=== PATIENT | female | born 1965 | race Caucasian/White ===

== ENCOUNTER 2024-06-26 19:55 | Inpatient (IN) ==
[2024-06-26 20:33] LABS: Base Excess VBG 2.5 mEq/L; HCO3 VBG 28 mmol/L; Oxygen Saturation VBG 75.3 %; PCO2 VBG 48 mmHg (38-50); PO2 VBG 47 mmHg; pH VBG 7.38 (7.36-7.41)
[2024-06-26 20:39] LABS: Basophils # (auto) 0.03 K/uL (0.00-0.20); Basophils % (auto) 0.4 %; Hematocrit (blood only) 38.3 % (37.0-47.0); Hemoglobin 12.4 g/dl (12.0-16.0); Immature Granulocytes # (auto) 0.02 K/uL (0.01-0.20); Immature Granulocytes % (auto) 0.3 %; Lymphocytes # (auto) 1.12 K/uL (1.20-3.40); Lymphocytes % (auto) 14.2 %; Mean Corpuscular Hemoglobin 29.9 pg (25.0-34.0); Mean Corpuscular Hgb Conc 32.4 g/dL (32.0-36.0); Mean Corpuscular Volume 92.3 fL (80.0-100.0); Mean Platelet Volume 10.2 fL (9.4-12.4); Monocytes # (auto) 0.63 K/uL (0.11-0.59); Neutrophils # (auto) 6.09 K/uL (1.40-6.50); Neutrophils % (auto) 77.1 %; Platelet Count 155 K/uL (130-400); RDW Coefficient of Variation 14.1 % (11.5-14.5); RDW Standard Deviation 47.3 fL (36.4-46.3); Red Blood Count 4.15 M/uL (4.20-5.40); White Blood Count 7.89 K/ul (4.8-10.8)
[2024-06-26 20:58] LABS: Albumin Globulin Ratio 1.3 (0.9-2); BUN Creatinine Ratio 21.8 (10-20); Bilirubin,Total 0.5 mg/dl (0.2-1.0); Calcium 8.8 mg/dl (8.6-10.3); Creatinine Clr Calc Pharmacy 128.3 ml/min; Est GFR (African American) 95.1 ml/min; Est GFR (Non-African American) 82.1 ml/min; Globulin 3.2 gm/dl (2.5-4.0); Magnesium 1.7 mg/dl (1.7-2.4); Potassium 3.9 mmol/L (3.5-5.1); Total Protein 7.2 gm/dl (6.0-8.3)
[2024-06-26 21:05] LABS: Prothrombin Time 10.9 Seconds (9.0-12.0); Troponin I High Sensitivity 11.8 pg/ml (0-14)
[2024-06-26 21:12] LABS: Appearance Urine Clear (Clear); Bilirubin Urine Negative (Negative); Blood Urine Negative (Negative); Color Urine Yellow; Glucose Urine UA Negative (Negative); Ketones Urine Negative (Negative); Leukocyte Esterase Urine Negative (Negative); Nitrite Urine Negative (Negative); Protein Urine Negative (Negative); Urobilinogen Urine Negative (Negative)
--- NOTE | 2024-06-26 21:21 | Emergency Department Note ---
Impression & Plan Acute dyspnea, Acute hypoxemic respiratory failure, Transaminitis, Elevated brain natriuretic peptide (BNP) level ED Provider Note HISTORY OF PRESENT ILLNESS: Patient is a 59-year-old female presenting for shortness of breath. Patient reports she has had progressively worsening shortness of breath over the last 4 to 5 days. She states that she was just recently admitted to [facility] for shortness of breath. She states that her workup was unremarkable and she was discharged home with an increase in her Lasix from 20 to 40 mg. She states that today she felt like she could not catch her breath more so than the last few days. She does not normally wear any supplemental oxygen at baseline. She reports that she has some diffuse chest pressure. Denies any DVT or PE history. Denies any history of cardiac stents. She used a home pulse ox on her finger today and found her saturations to be in the 60s, so her family drove her to the [facility] center. Patient denies any recent weight gain with her 40 mg of Lasix. Patient was given 2 DuoNebs and 125 mg of IV Solu-Medrol prehospital with EMS. ROS: as above PHYSICAL EXAM: Constitutional: Patient appears in no acute distress. Morbidly obese HENT: Head: Normocephalic and atraumatic. Eyes: EOMI, PERRL Mouth/Throat: Mucous membranes moist. Neck: Trachea midline. Neck supple. Cardiovascular: RRR, No murmurs, rubs or gallops. Intact distal pulses. Pulmonary/Chest: No respiratory distress. Breath sounds clear and equal bilaterally. Expiratory wheezes bilaterally. Patient is conversationally dyspneic. She was hypoxic on room air on arrival to the ER and placed on 3 L nasal cannula with improvement in her saturations. Abdominal: Abdomen soft, no tenderness, rebound or guarding. Musculoskeletal: No tenderness or deformity noted. Significant lower extremity edema extending to the knees bilaterally. Noted to have significant chronic venous insufficiency discoloration of the legs bilaterally to the knee. Skin: Warm and dry. No rash, erythema, pallor or cyanosis Psychiatric: Appropriate mood and affect for situation. Neurological: Alert and keenly responsive. CN II-XII grossly intact, moving all extremities equally and fully. MDM: - Vitals signs showed hypertension, tachypnea and hypoxia. Patient was placed on supplemental oxygen with improvement in her saturations. - History obtained via patient. History as above. - Chronic conditions affecting care: HTN; lymphedema; rheumatoid arthritis; chronic venous insufficiency; hypothyroidism - Differential diagnoses include, but are not limited to: Congestive heart failure; acute coronary syndrome; COPD/asthma exacerbation; pulmonary edema; pulmonary embolism; pneumonia; pneumothorax; viral syndrome - Order placed for continuous cardiac monitoring. At this time, monitor showed rate of 82 bpm with normal sinus rhythm, per my interpretation. - External medical records reviewed. Discharge summary dated 06/01/2024 was reviewed. Patient was admitted at that time for UTI. - EKG interpreted by myself showed normal sinus rhythm. Rate 87 bpm. QT 356. No acute ischemic changes. - Laboratory workup interpreted by myself showed normal WBC; normal PT/INR; stable electrolytes; normal troponin; elevated BNP (169); transaminitis (AST 53; ALT 61) - UA negative for infection - Viral respiratory panel negative - VBG normal - CXR negative for pneumonia, per my interpretation - Given patient's new oxygen requirement, will admit to hospital service for further evaluation and management. - Discussion was had with caseworker intake about patient's case and need for admission - Hospitalist, Dr. Damian, consulted for admission - Patient admitted to [facility] for further evaluation and management. ASSESSMENT AND PLAN: Diagnosis: Acute dyspnea; acute hypoxic respiratory failure; transaminitis; elevated BNP Plan: Admit Past Med/Surg History Problem List (Updated 06/26/24 @ 23:35 by Radha Wilkinson MD) Elevated brain natriuretic peptide (BNP) level (Acute) Transaminitis (Acute) Acute hypoxemic respiratory failure (Acute) Acute dyspnea (Acute) Social History Smoking Status: Never smoker Preferred Language: Yi Feels Safe at Home: Yes Results & Data (ED) Vital Signs Vital Signs - 24 hr 06/26/24 20:05 06/26/24 20:06 06/26/24 20:06 Temperature 37.1 C Temperature Source Oral Pulse Rate 83 87 88 Pulse Rate [Apical] Pulse Rate from SpO2 Sensor Pulse Rhythm Regular Pulse Rhythm [Apical] Pulse Strength [Apical] Respiratory Rate 24 32 H Respiratory Effort / Characteristics Spontaneous Labored Respiratory Depth Normal Respiratory Pattern Tachypnea Blood Pressure 182/84 H Blood Pressure [Right Arm] Blood Pressure Mean 116 Blood Pressure Mean [Right Arm] Blood Pressure Position [Right Arm] Pulse Oximetry 95 90 Oxygen Delivery Method Nasal Cannula Room Air Oxygen Flow Rate 2 Sepsis Recent Fever Within 48 Hours No Sepsis New/Unexplained Change in Mental Status N/A Sepsis Action Taken by Nursing No Action Required Oxygen Flow Rate - Titration Pulse Oximetry Post Tiitration 06/26/24 20:16 06/26/24 21:23 06/26/24 23:00 Temperature Temperature Source Pulse Rate 82 Pulse Rate [Apical] 78 Pulse Rate from SpO2 Sensor 81 Pulse Rhythm Pulse Rhythm [Apical] Regular Pulse Strength [Apical] Normal Respiratory Rate 22 24 Respiratory Effort / Characteristics Non-Labored Spontaneous Respiratory Depth Normal Respiratory Pattern Regular Blood Pressure 168/91 H Blood Pressure [Right Arm] 177/98 H Blood Pressure Mean 116 Blood Pressure Mean [Right Arm] 124 Blood Pressure Position [Right Arm] Sitting Pulse Oximetry 88 L 93 94 Oxygen Delivery Method Room Air Nasal Cannula Nasal Cannula Oxygen Flow Rate 2 2 Sepsis Recent Fever Within 48 Hours Sepsis New/Unexplained Change in Mental Status Sepsis Action Taken by Nursing Oxygen Flow Rate - Titration 2 Pulse Oximetry Post Tiitration 93 Laboratory Data 06/26/24 20:09 06/26/24 20:09 Lab Results 06/26/24 06/26/24 06/26/24 Range/Units 20:09 20:09 20:20 WBC 7.89 (4.8-10.8) K/ul RBC 4.15 L (4.20-5.40) M/uL Hgb 12.4 (12.0-16.0) g/dl Hct 38.3 (37.0-47.0) % MCV 92.3 (80.0-100.0) fL MCH 29.9 (25.0-34.0) pg MCHC 32.4 (32.0-36.0) g/dL RDW Std Deviation 47.3 H (36.4-46.3) fL RDW Coeff of Erica 14.1 (11.5-14.5) % Plt Count 155 (130-400) K/uL MPV 10.2 (9.4-12.4) fL Immature Gran % (Auto) 0.3 % Neut % (Auto) 77.1 % Lymph % (Auto) 14.2 % Daniels % (Auto) 8.0 % Eos % (Auto) 0.0 % Baso % (Auto) 0.4 % Neut # (Auto) 6.09 (1.40-6.50) K/uL Lymph # (Auto) 1.12 L (1.20-3.40) K/uL [place] # (Auto) 0.63 H (0.11-0.59) K/uL Eos # (Auto) 0.00 (0.00-0.50) K/uL Baso # (Auto) 0.03 (0.00-0.20) K/uL Immature Gran # (Auto) 0.02 (0.01-0.20) K/uL PT 10.9 (9.0-12.0) Seconds INR 1.0 (0.9-1.1) VBG pH 7.38 (7.36-7.41) VBG pCO2 48 (38-50) mmHg VBG pO2 47 mmHg VBG HCO3 28 mmol/L VBG O2 Saturation 75.3 % VBG Base Excess 2.5 mEq/L Sodium 143 (136-145) mmol/L Potassium 3.9 (3.5-5.1) mmol/L Chloride 106 (98-107) mmol/L Carbon Dioxide 30 (21-32) mmol/L Anion Gap 7 (3-11) BUN 17 (6-23) mg/dl Creatinine 0.78 (0.6-1.2) mg/dl Est Cr Clr Drug Dosing 128.3 ml/min Est GFR ( Amer) 95.1 ml/min Est GFR (Non-Af Amer) 82.1 ml/min BUN/Creatinine Ratio 21.8 H (10-20) Glucose 125 H (70-99(Fasting)) mg/dl Calcium 8.8 (8.6-10.3) mg/dl Magnesium 1.7 (1.7-2.4) mg/dl Total Bilirubin 0.5 (0.2-1.0) mg/dl AST 52 H (13-39) U/L ALT 61 H (7-52) U/L Alkaline Phosphatase 94 (34-104) U/L Troponin I High Sens 11.8 Cancelled (0-14) pg/ml B-Natriuretic Peptide 169 H (0-100) pg/ml Total Protein 7.2 (6.0-8.3) gm/dl Albumin 4.0 (3.4-5.0) gm/dl Globulin 3.2 (2.5-4.0) gm/dl Albumin/Globulin Ratio 1.3 (0.9-2) Urine Color Urine Appearance (Clear) Urine pH (4.5-7.5) Ur Specific [place] (1.000-1.030) Urine Protein (Negative) Urine Glucose (UA) (Negative) Urine Ketones (Negative) Urine Blood (Negative) Urine Nitrite (Negative) Urine Bilirubin (Negative) Urine Urobilinogen (Negative) Ur Leukocyte Esterase (Negative) Adenovirus (PCR) (NotDetected) B. pertussis DNA (PCR) (NotDetected) B.parapertussis DNA PCR (NotDetected) C. pneumoniae DNA (PCR) (NotDetected) Coronavirus OC43 (PCR) (NotDetected) Coronavirus HKU1 (PCR) (NotDetected) Coronavirus 229E (PCR) (NotDetected) SARS-CoV-2 (PCR) (NotDetected) Coronavirus NL63 (PCR) (NotDetected) Human Metapneumovir PCR (NotDetected) Influenza Type A (PCR) (NotDetected) Influenza Type B (PCR) (NotDetected) M. pneumoniae (PCR) (NotDetected) Parainfluenza 1 (PCR) (NotDetected) Parainfluenza 2 (PCR) (NotDetected) Parainfluenza 3 (PCR) (NotDetected) Parainfluenza 4 (PCR) (NotDetected) RSV (PCR) (NotDetected) Entero/Rhino (PCR) (NotDetected) 06/26/24 06/26/24 Range/Units 21:04 22:21 WBC (4.8-10.8) K/ul RBC (4.20-5.40) M/uL Hgb (12.0-16.0) g/dl Hct (37.0-47.0) % MCV (80.0-100.0) fL MCH (25.0-34.0) pg MCHC (32.0-36.0) g/dL RDW Std Deviation (36.4-46.3) fL RDW Coeff of Erica (11.5-14.5) % Plt Count (130-400) K/uL MPV (9.4-12.4) fL Immature Gran % (Auto) % Neut % (Auto) % Lymph % (Auto) % Daniels % (Auto) % Eos % (Auto) % Baso % (Auto) % Neut # (Auto) (1.40-6.50) K/uL Lymph # (Auto) (1.20-3.40) K/uL [place] # (Auto) (0.11-0.59) K/uL Eos # (Auto) (0.00-0.50) K/uL Baso # (Auto) (0.00-0.20) K/uL Immature Gran # (Auto) (0.01-0.20) K/uL PT (9.0-12.0) Seconds INR (0.9-1.1) VBG pH (7.36-7.41) VBG pCO2 (38-50) mmHg VBG pO2 mmHg VBG HCO3 mmol/L VBG O2 Saturation % VBG Base Excess mEq/L Sodium (136-145) mmol/L Potassium (3.5-5.1) mmol/L Chloride (98-107) mmol/L Carbon Dioxide (21-32) mmol/L Anion Gap (3-11) BUN (6-23) mg/dl Creatinine (0.6-1.2) mg/dl Est Cr Clr Drug Dosing ml/min Est GFR ( Amer) ml/min Est GFR (Non-Af Amer) ml/min BUN/Creatinine Ratio (10-20) Glucose (70-99(Fasting)) mg/dl Calcium (8.6-10.3) mg/dl Magnesium (1.7-2.4) mg/dl Total Bilirubin (0.2-1.0) mg/dl AST (13-39) U/L ALT (7-52) U/L Alkaline Phosphatase (34-104) U/L Troponin I High Sens (0-14) pg/ml B-Natriuretic Peptide (0-100) pg/ml Total Protein (6.0-8.3) gm/dl Albumin (3.4-5.0) gm/dl Globulin (2.5-4.0) gm/dl Albumin/Globulin Ratio (0.9-2) Urine Color Yellow Urine Appearance Clear (Clear) Urine pH 6.0 (4.5-7.5) Ur Specific [place] 1.020 (1.000-1.030) Urine Protein Negative (Negative) Urine Glucose (UA) Negative (Negative) Urine Ketones Negative (Negative) Urine Blood Negative (Negative) Urine Nitrite Negative (Negative) Urine Bilirubin Negative (Negative) Urine Urobilinogen Negative (Negative) Ur Leukocyte Esterase Negative (Negative) Adenovirus (PCR) Not Detected (NotDetected) B. pertussis DNA (PCR) Not Detected (NotDetected) B.parapertussis DNA PCR Not Detected (NotDetected) C. pneumoniae DNA (PCR) Not Detected (NotDetected) Coronavirus OC43 (PCR) Not Detected (NotDetected) Coronavirus HKU1 (PCR) Not Detected (NotDetected) Coronavirus 229E (PCR) Not Detected (NotDetected) SARS-CoV-2 (PCR) Not Detected (NotDetected) Coronavirus NL63 (PCR) Not Detected (NotDetected) Human Metapneumovir PCR Not Detected (NotDetected) Influenza Type A (PCR) Not Detected (NotDetected) Influenza Type B (PCR) Not Detected (NotDetected) M. pneumoniae (PCR) Not Detected (NotDetected) Parainfluenza 1 (PCR) Not Detected (NotDetected) Parainfluenza 2 (PCR) Not Detected (NotDetected) Parainfluenza 3 (PCR) Not Detected (NotDetected) Parainfluenza 4 (PCR) Not Detected (NotDetected) RSV (PCR) Not Detected (NotDetected) Entero/Rhino (PCR) Not Detected (NotDetected) Discharge Plan Visit Data Chief Complaint: Shortness of Breath/Dyspnea Stated Complaint: SOB ED Provider: Radha Wilkinson Discharge Problem: Acute dyspnea, Acute hypoxemic respiratory failure, Transaminitis, Elevated brain natriuretic peptide (BNP) level Forms Stand Alone Forms: My [facility] Referrals Referrals: HAMIDA NULL [Other]
[2024-06-26 23:26] LABS: Adenovirus PCR Not Detected (NotDetected); Bordetella parapertussis PCR Not Detected (NotDetected); Bordetella pertussis PCR Not Detected (NotDetected); Chlamydia pneumoniae PCR Not Detected (NotDetected); Coronavirus 229E PCR Not Detected (NotDetected); Coronavirus CoV-2 (COVID19)PCR Not Detected (NotDetected); Coronavirus HKU1 PCR Not Detected (NotDetected); Coronavirus NL63 PCR Not Detected (NotDetected); Coronavirus OC43PCR Not Detected (NotDetected); Human Metapneumovirus PCR Not Detected (NotDetected); Influenza A PCR Not Detected (NotDetected); Influenza B PCR Not Detected (NotDetected); Mycoplasma pneumoniae PCR Not Detected (NotDetected); Parainfluenza Virus 1 PCR Not Detected (NotDetected); Parainfluenza Virus 2 PCR Not Detected (NotDetected); Parainfluenza Virus 3 PCR Not Detected (NotDetected); Parainfluenza Virus 4 PCR Not Detected (NotDetected); Respiratory Syncytial VirusPCR Not Detected (NotDetected); Rhinovirus/Enterovirus PCR Not Detected (NotDetected)
--- NOTE | 2024-06-27 00:01 | History & Physical Report ---
Date of Service June 26, 2024 Assessment & Plan (1) SOB (shortness of breath): Plan: 59-year-old female with past medical history significant for hypothyroidism, obstructive sleep apnea, moderate persistent asthma, restrictive lung disease, chronic venous sufficiency, hypertension, morbid obesity, chronic constipation, fatty liver, female stress incontinence, urge incontinence of urine, history of complicated UTI, overactive bladder, history of ESBL infection, history of rheumatoid arthritis involving multiple sites, mood disorder, lymphedema presents with shortness of breath. Patient is from [place] and she is visiting a friend locally. Patient was admitted in [place] in May with shortness of breath. Workup showed UTI and CT scan showed right ovarian abnormality. She received IV diuresis and responded well to the therapy. Echo was obtained which was unremarkable. CT chest no PE. For ovarian mass MRI was done which showed 2.1x 2.4 cm right ovarian lesion. Followed up with [facility] and as tumor markers were negative no follow-up recommended at this time.She improved and was discharged home on June 01.. But patient states since last 2 weeks progressively getting short of breath. Today at friend's house when checked he r oxygen saturations where very low when she decided come to the ER. Has chronic lymphedema in lower extremities and she thinks they are better than before. Has some chest heaviness. No headache. Was dizzy earlier. Vision is okay. No runny nose. No sore throat. Some cough. No fevers. No nausea. No abdominal pain. Normal bowel and bladder movements. Currently on 2 L saturating okay. Shortness of breath Possible mild asthma exacerbation History of restrictive lung disease Respiratory BioFire unremarkable Chest x-ray okay Requiring oxygen Continue nebs [id number] and as needed Continue home inhalers Last month she was at [place] with similar symptoms and improved with dose of Lasix. At that time workup with CTA chest and echo were unremarkable Currently on Lasix p.o. 40 mg daily. Will do a dose of Lasix IV 40 mg d dimer elevated will follow ct chest and dopplers Pulmonary consult in a.m. for further recommendation Obstructive sleep apnea BIPAP nightly Chest heaviness Troponin negative Will follow serial enzymes and echo Morbid obesity Needs counseling Chronic venous insufficiency Lymphedema will follow dopplers On Lasix Hypertension On Lasix Will monitor Rheumatoid arthritis involving multiple sites On sulfasalazine and Humira Mood disorder On fluoxetine DVT prophylaxis Lovenox Disposition Med/telemetry Full code. History of Present Illness Chief Complaint: Shortness of breath Primary Care Provider: HAMIDA NULL 59-year-old female with past medical history significant for hypothyroidism, obstructive sleep apnea, moderate persistent asthma, restrictive lung disease, chronic venous sufficiency, hypertension, morbid obesity, chronic constipation, fatty liver, female stress incontinence, urge incontinence of urine, history of complicated UTI, overactive bladder, history of ESBL infection, history of rheumatoid arthritis involving multiple sites, mood disorder, lymphedema presents with shortness of breath. Patient is from [place] and she is visiting a friend locally. Patient was admitted in [place] in May with shortness of breath. Workup showed UTI and CT scan showed right ovarian abnormality. She received IV diuresis and responded well to the therapy. Echo was obtained which was unremarkable. CT chest no PE. For ovarian mass MRI was done which showed 2.1x 2.4 cm right ovarian lesion. Followed up with [facility] and as tumor markers were negative no follow-up recommended at this time.She improved and was discharged home on June 01.. But patient states since last 2 weeks progressively getting short of breath. Today at friend's house when checked h er oxygen saturations where very low when she decided come to the ER. Has chronic lymphedema in lower extremities and she thinks they are better than before. Has some chest heaviness. No headache. Was dizzy earlier. Vision is okay. No runny nose. No sore throat. Some cough. No fevers. No nausea. No abdominal pain. Normal bowel and bladder movements. Currently on 2 L saturating okay. Past medical history. As mentioned above Past surgical history. . Colonoscopy with dilatation curettage. EGD. EGD with endoscopic ultrasound. Endometrial thermal ablation. Hysteroscopy with biopsy. Laparoscopic cholecystectomy. Status post IUD. Appendectomy. Tonsillectomy. Removal of finger implant. Repair of bladder defect. Revision of bilateral pharynx/uvula. Social history. . No smoking. No alcohol use. No drug use. Family history. Sister has asthma. Father had COPD. Hypertension. Sleep apnea. Mother had hypertension. Pancreatic cancer. Paternal aunt had breast cancer. Maternal grandmother had breast cancer. Ovarian cancer. Paternal grandfather had diabetes. Allergies Allergy/AdvReac Type Severity Reaction Status Date / Time hydroxychloroquine Allergy Unverified 06/27/24 03:30 [From Plaquenil] [email or web address] [From Arava] Allergy Itching Verified 06/27/24 03:30 Home Medications Medication Instructions Recorded Confirmed Type adalimumab 40 mg/0.8 mL 40 mg subcut UD 06/26/24 06/26/24 History subcutaneous pen kit (Humira Pen) albuterol sulfate 90 mcg/actuation 2 puff inhalation Q4H PRN 06/26/24 06/26/24 History aerosol inhaler Shortness Of Breath Or Wheezing estradiol 0.01% (0.1 mg/gram) 1 applic vaginal UD 06/26/24 06/26/24 History vaginal cream fluoxetine 20 mg capsule 20 mg PO DAILY 06/26/24 06/26/24 History fluticasone 250 mcg-salmeterol 50 1 inh inhalation BID 06/26/24 06/26/24 History mcg/dose blistr powdr for inhalation furosemide 20 mg tablet 40 mg PO DAILY 06/26/24 06/26/24 History levothyroxine 100 mcg tablet 100 mcg PO DAILY 06/26/24 06/26/24 History sulfasalazine 500 mg tablet 1,500 mg PO BID 06/26/24 06/26/24 History Past Med/Surg History Problem List (Updated 06/27/24 @ 00:10 by Zachary Damian MD) SOB (shortness of breath) Elevated brain natriuretic peptide (BNP) level (Acute) Transaminitis (Acute) Acute hypoxemic respiratory failure (Acute) Acute dyspnea (Acute) Social History Smoking Status: Never smoker Second Hand Exposure: No; Do You Dip or Chew Tobacco: No; Tobacco Cessation Education Requested by Patient: No Hx Alcohol Use: No Hx Substance Use: No Preferred Language: Kiswahili Communication Ability: Effective Visitor Services Coordinator Required: No Beliefs That Will Affect Care: None Current Living Situation: Spouse Other Information That Helps Us Care for You: No Feels Safe at Home: Yes Safety Concerns: Feels Safe At This Time Assistive Devices: CPAP and Oxygen - Continuous Review of Systems Review of Systems: All systems reviewed & are unremarkable except as noted in HPI & below Physical Exam Physical Exam: General- Not in distress Head- atraumatic Eyes- PERRL. ENT- oropharynx clear Neck- supple, no JVD. Lungs- clear to auscultation no wheezing or crackles Heart- regular rate and rhythm; no murmur, no gallop. Abdomen- normal bowel sounds, soft, nontender, no distension Extremities- b/l lower extremity lymphedema with chronic skin changes Neuro- alert, oriented ; PERRL, no facial palsy; no dysarthria; moves extremities Results & Data Results & Data Vital Signs (Past 12 Hours) Vital Signs Temp Pulse Pulse Resp BP BP Pulse Ox 06/26/24 23:00 82 24 168/91 H 94 06/26/24 21:23 78 22 177/98 H 93 06/26/24 20:16 88 L 06/26/24 20:06 88 06/26/24 20:06 37.1 C 87 32 H 182/84 H 90 06/26/24 20:05 83 24 95 O2 Del Method O2 Flow Rate 06/26/24 23:00 Nasal Cannula 2 06/26/24 21:23 Nasal Cannula 2 06/26/24 20:16 Room Air 06/26/24 20:06 06/26/24 20:06 Room Air 06/26/24 20:05 Nasal Cannula 2 Diagnostic Findings Laboratory Results WBC 7.89 K/ul (4.8-10.8) 06/26/24 20:09 RBC 4.15 M/uL (4.20-5.40) L 06/26/24 20:09 Hgb 12.4 g/dl (12.0-16.0) 06/26/24 20:09 Hct 38.3 % (37.0-47.0) 06/26/24 20:09 MCV 92.3 fL (80.0-100.0) 06/26/24 20:09 MCH 29.9 pg (25.0-34.0) 06/26/24 20:09 MCHC 32.4 g/dL (32.0-36.0) 06/26/24 20:09 RDW Std Deviation 47.3 fL (36.4-46.3) H 06/26/24 20:09 RDW Coeff of Erica 14.1 % (11.5-14.5) 06/26/24 20:09 Plt Count 155 K/uL (130-400) 06/26/24 20: MPV 10.2 fL (9.4-12.4) 06/26/24 20: Immature Gran % (Auto) 0.3 % 06/26/24 20:09 Neut % (Auto) 77.1 % 06/26/24 20:09 Lymph % (Auto) 14.2 % 06/26/24 20:09 [place] % (Auto) 8.0 % 06/26/24 20:09 Eos % (Auto) 0.0 % 06/26/24 20:09 Baso % (Auto) 0.4 % 06/26/24 20:09 Neut # (Auto) 6.09 K/uL (1.40-6.50) 06/26/24 20:09 Lymph # (Auto) 1.12 K/uL (1.20-3.40) L 06/26/24 20:09 [place] # (Auto) 0.63 K/uL (0.11-0.59) H 06/26/24 20:09 Eos # (Auto) 0.00 K/uL (0.00-0.50) 06/26/24 20:09 Baso # (Auto) 0.03 K/uL (0.00-0.20) 06/26/24 20:09 Immature Gran # (Auto) 0.02 K/uL (0.01-0.20) 06/26/24 20:09 PT 10.9 Seconds (9.0-12.0) 06/26/24 20:09 INR 1.0 (0.9-1.1) 06/26/24 20:09 VBG pH 7.38 (7.36-7.41) 06/26/24 20:20 VBG pCO2 48 mmHg (38-50) 06/26/24 20:20 VBG pO2 47 mmHg 06/26/24 20:20 VBG HCO3 28 mmol/L 06/26/24 20:20 VBG O2 Saturation 75.3 % 06/26/24 20:20 VBG Base Excess 2.5 mEq/L 06/26/24 20:20 Sodium 143 mmol/L (136-145) 06/26/24 20:09 Potassium 3.9 mmol/L (3.5-5.1) 06/26/24 20:09 Chloride 106 mmol/L (98-107) 06/26/24 20:09 Carbon Dioxide 30 mmol/L (21-32) 06/26/24 20:09 Anion Gap 7 (3-11) 06/26/24 20:09 BUN 17 mg/dl (6-23) 06/26/24 20:09 Creatinine 0.78 mg/dl (0.6-1.2) 06/26/24 20:09 Est Cr Clr Drug Dosing 128.3 ml/min 06/26/24 20:09 Est GFR ( Amer) 95.1 ml/min 06/26/24 20:09 Est GFR (Non-Af Amer) 82.1 ml/min 06/26/24 20:09 BUN/Creatinine Ratio 21.8 (10-20) H 06/26/24 20:09 Glucose 125 mg/dl (70-99(Fasting)) H 06/26/24 20:09 Calcium 8.8 mg/dl (8.6-10.3) 06/26/24 20:09 Magnesium 1.7 mg/dl (1.7-2.4) 06/26/24 20:09 Total Bilirubin 0.5 mg/dl (0.2-1.0) 06/26/24 20:09 AST 52 U/L (13-39) H 06/26/24 20:09 ALT 61 U/L (7-52) H 06/26/24 20:09 Alkaline Phosphatase 94 U/L (34-104) 06/26/24 20:09 Troponin I High Sens 11.8 pg/ml (0-14) 06/26/24 20:09 Troponin I High Sens Cancelled 06/26/24 20:09 B-Natriuretic Peptide 169 pg/ml (0-100) H 06/26/24 20:09 Total Protein 7.2 gm/dl (6.0-8.3) 06/26/24 20:09 Albumin 4.0 gm/dl (3.4-5.0) 06/26/24 20:09 Globulin 3.2 gm/dl (2.5-4.0) 06/26/24 20:09 Albumin/Globulin Ratio 1.3 (0.9-2) 06/26/24 20:09 Urine Color Yellow 06/26/24 21:04 Urine Appearance Clear (Clear) 06/26/24 21:04 Urine pH 6.0 (4.5-7.5) 06/26/24 21:04 Ur Specific [place] 1.020 (1.000-1.030) 06/26/24 21:04 Urine Protein Negative (Negative) 06/26/24 21:04 Urine Glucose (UA) Negative (Negative) 06/26/24 21:04 Urine Ketones Negative (Negative) 06/26/24 21:04 Urine Blood Negative (Negative) 06/26/24 21:04 Urine Nitrite Negative (Negative) 06/26/24 21:04 Urine Bilirubin Negative (Negative) 06/26/24 21:04 Urine Urobilinogen Negative (Negative) 06/26/24 21:04 Ur Leukocyte Esterase Negative (Negative) 06/26/24 21:04 Adenovirus (PCR) Not Detected (NotDetected) 06/26/24 22:21 B. pertussis DNA (PCR) Not Detected (NotDetected) 06/26/24 22:21 B.parapertussis DNA PCR Not Detected (NotDetected) 06/26/24 22:21 C. pneumoniae DNA (PCR) Not Detected (NotDetected) 06/26/24 22:21 Coronavirus OC43 (PCR) Not Detected (NotDetected) 06/26/24 22:21 Coronavirus HKU1 (PCR) Not Detected (NotDetected) 06/26/24 22:21 Coronavirus 229E (PCR) Not Detected (NotDetected) 06/26/24 22:21 SARS-CoV-2 (PCR) Not Detected (NotDetected) 06/26/24 22:21 Coronavirus NL63 (PCR) Not Detected (NotDetected) 06/26/24 22:21 Human Metapneumovir PCR Not Detected (NotDetected) 06/26/24 22:21 Influenza Type A (PCR) Not Detected (NotDetected) 06/26/24 22:21 Influenza Type B (PCR) Not Detected (NotDetected) 06/26/24 22:21 M. pneumoniae (PCR) Not Detected (NotDetected) 06/26/24 22:21 Parainfluenza 1 (PCR) Not Detected (NotDetected) 06/26/24 22:21 Parainfluenza 2 (PCR) Not Detected (NotDetected) 06/26/24 22:21 Parainfluenza 3 (PCR) Not Detected (NotDetected) 06/26/24 22:21 Parainfluenza 4 (PCR) Not Detected (NotDetected) 06/26/24 22:21 RSV (PCR) Not Detected (NotDetected) 06/26/24 22:21 Entero/Rhino (PCR) Not Detected (NotDetected) 06/26/24 22:21 ECG Additional Comments: ECG. Normal sinus rhythm rate of 87. No acute ST changes seen. Code Status & VTE Plan VTE Prophylaxis Plan VTE Prophylaxis will be ordered: Yes
[2024-06-27] MEDS ORDERED: NITROGLYCERIN SL 0.4 MG/TAB TAB SL PRN (01:47)
[2024-06-27] MEDS ORDERED: ALBUTEROL HFA 8 GM INHALER INH PRN (01:47)
[2024-06-27] MEDS ORDERED: ALBUT/IPRATROP 3MG/0.5MG NEB 3 ML VIAL NEB PRN (01:47)
[2024-06-27] MEDS ORDERED: ACETAMINOPHEN 325 MG TAB PO PRN (01:47)
[2024-06-27] MEDS ORDERED: POLYETHYLENE (MIRALAX) 17 GM PACK PO PRN (01:47)
[2024-06-27] MEDS: Patient's ALLERGY Info needs ENTERED STA (04:06)
[2024-06-27] MEDS: FUROSEMIDE 40 MG/4 ML VIAL IV ONE ×2 (04:33→17:20)
[2024-06-27] MEDS: LEVOTHYROXINE SODIUM 100 MCG TABLET PO SCH (05:36)
--- OUTSIDE RECORDS SUMMARY | 2024-06-27 05:53 | External Medical Summary ---
Author Name Unknown Address Unknown Organization K01:[facility] - [address] [facility] [address] Laboratory Report Ordering Provider Test Date Status ROBINA VALLADARES 06/16/2024 12:56:36 Final Observation Date Value Abnormality Reference (Units ) Status Cancer Ag 125 06/16/2024 12:56:36 9.5 <=38.1 (U/mL) Final Performing Location [facility] - [address] [facility] [address]
--- OUTSIDE RECORDS SUMMARY | 2024-06-27 05:53 | External Medical Summary | Summary of Care ---
Author Name Unknown Organization [facility] Address [address] [place] [address] Phone [phone] Care Team Providers Care Box Toe Stitcher Name Role Phone Katie Tejeda PA-C Primary Care Provider [phone] Reason for Referral * Evaluate & Treat - Unlimited Visits (Within 10 days (routine)) - Authorized Specialty Diagnoses / Procedures Referred By Contcatalina t Referred To Contact Gynecologic Oncology / Gynecology Oncology Diagnoses Adnexal mass Martin Dove PA-C [address] [place] [address] Referral ID Status Reason Start Date Expiration Date Visits Requested Visits Authorized [id number] Authorized Specialty Services Required 06/14/2024 [id number] Question Answer Referral Priority Within 10 days (routine) Where should this appointment be scheduled? [facility] Comments Right adnexal mass Reason for Visit * Reason Comments Command And Control Return R ovarian cyst * Evaluate & Treat - Unlimited Visits (Within 30 days (routine)) - Authorized Specialty Diagnoses / Procedures Referred By Contac t Referred To Contact Obstetrics/Gynecology / Gynecology Obstetrics Diagnoses Cyst of right ovary Idalia Reyna CRNP [address] [place] [address] Referral ID Status Reason Start Date Expiration Date Visits Requested Visits Authorized [id number] Authorized Specialty Services Required 06/01/2024 [id number] Encounter Details Date Type Department Care Team (Late st Contact Info) Description 06/14/2024 12:00 PM EDT Office Visit Gynecology/Obstetrics [facility] [address] [place] [address] Martin Dove PA-C [address] [place] [address] Adnexal mass* Allergies Active Allergy Reactions Criticality Noted Date Comments Leflunomide Itching,Rash High 04/14/2017 After taking med for 3 months she had terrible rash and itching Hydroxychloroquine Sulfate 7 Rash documented as of this encounter (statuses as of 06/14/2024) Medications Medication Sig Dispensed Refills Start Date End Date Status Misc Natural Products (TURMERIC CURCUMIN) CAPS Take 1 Capsule by mouth in the morning and 1 Capsule before bedtime. Active valACYclovir (VALTREX) 1000 MG TabletIndications:R ecurrent cold sores TAKE 1 TABLET BY MOUTH EVERY 12 HOURS FOR 1 DAY FOR COLD SORES 20 Tab 3 09/05/2019 Active Triamcinolone Acetonide 0.1 % External Cream (Aristocort) Apply topically to affected area 2 times a day. To affected area. 80 g 5 07/29/2021 Active Adalimumab 40 MG/0.8ML Subcutaneous Pen-injector Kit (Humira) Inject 40 mg (1 pen) under the skin every 14 days. 2 mL 11 09/14/2023 Active sulfaSALAzine 500 MG Oral Tablet (Azulfidine) Take 3 Tablets by mouth in the morning and 3 Tablets before bedtime. 540 Tablet 3 09/14/2023 Active Refresh 1.4-0.6 % Ophthalmic Solution (polyvinyl alcohol-povidone PF) Instill 1 Drop into both eyes as needed. Active Betamethasone Dipropionate 0.05 % External Ointment Apply 2 times a day to the rash on arms, legs, abdomen x 2-3 weeks until clear 80 g 1 11/10/2023 Active FLUoxetine HCl 20 MG Oral Capsule (PROzac)Indications :Mood disorder (HCC) TAKE ONE CAPSULE BY MOUTH EVERY MORNING 90 Capsule 3 11/14/2023 5 Active Fluticasone-Salmete rol 250-50 MCG/ACT Inhalation Aerosol Powder Breath Activated (Advair Diskus)Indications: Moderate persistent asthma without complication Inhale 1 Puff by mouth in the morning and 1 Puff before bedtime. 180 Each 3 01/02/2024 Active Ventolin HFA 108 (90 Base) MCG/ACT Inhalation Aerosol SolutionIndications :Moderate persistent asthma without complication Inhale 2 Puffs by mouth every 4 hours as needed for shortness of breath 18 g 3 05/03/2024 Active Furosemide 20 MG Oral Tablet (Lasix)Indications: Venous insufficiency Take 2 Tablets by mouth in the morning. 90 Tablet 3 06/01/2024 Active Levothyroxine Sodium 100 MCG Oral Tablet (Levoxyl)Indication s:Acquired hypothyroidism TAKE 1 TABLET BY MOUTH DAILY AT LEAST 30 MINUTES PRIOR TO FIRST MEAL OF THE DAY OR OTHER MEDICATIONS 90 Tablet 3 06/05/2024 Active Estradiol 0.1 MG/GM Vaginal Cream (Estrace) Apply periurethrally as directed 3 times per week. 42.5 g 6 06/06/2024 Active documented as of this encounter (statuses as of 06/14/2024) Active Problems Problem Noted Date Diagnosed Date Restrictive lung disease 06/13/2024 OAB (overactive bladder) 05/15/2024 Body mass index (BMI) of 60.0 to 69.9 in adult 0 01/23/2024 Overview: Per Obesity protocol - Per Obesity protocol - Per Obesity protocol - Per Obesity protocol - Per Obesity protocol - Per Obesity Protocol, #19 Complicated UTI (urinary tract infection) 2023 ESBL (extended spectrum beta -lactamase) producing bacteria infection 12/25/2023 Lymphedema 10/04/2023 Advance directive discussed with patient 022 Overview: No, Advance Directive brochure offered , patient declined. Mood disorder 07/25/2020 Hypertension goal BP (blood pressure) < 140/90 0 12/25/2018 Rheumatoid arthritis involvi ng multiple sites with positive rheumatoid factor 11/29/2016 Overview: High titer JOE and CCP ab Chronic venous insufficiency 07/12/2016 Chronic constipation 05/04/2016 Urge incontinence of urine 11/17/2015 Fatty liver 05/20/2014 Overview: [facility] [place] Obstructive sleep apnea of adult 04/02/2009 Female stress incontinence 04/15/2008 Hypothyroidism Moderate persistent asthma without complication Overview: excercise induced documented as of this encounter (statuses as of 06/14/2024) Resolved Problems Problem Noted Date Diagnosed Date Resolved Date Shortness of breath 05/30/2024 05/31/20 24 Volume overload 05/30/2024 05/31/2024 Bacteriuria 05/30/2024 05/31/2024 Acute cystitis without hematuria 05/30/2024 05/31/2024 Body mass index (BMI) of 50. 0 to 59.9 in adult 10/24/2023 01/26/2024 Overview: Per Obesity protocol - Per Obesity protocol - Per Obesity protocol - Per Obesity protocol - Per Obesity Protocol, #19 Body mass index (BMI) of 60. 0 to 69.9 in adult 02/22/2022 10/27/2023 Overview: Per Obesity protocol - Per Obesity protocol - Per Obesity protocol - Per Obesity Protocol, #19 Body mass index (BMI) of 50. 0 to 59.9 in adult 01/26/2021 02/25/2022 Overview: Per Obesity protocol - Per Obesity protocol - Per Obesity Protocol, #19 Body mass index (BMI) of 60. 0 to 69.9 in adult 07/30/2019 01/29/2021 Overview: Per Obesity protocol - Per Obesity Protocol, #19 Cellulitis of lower extremity 05/10/2017 12/01/2017 Drug rash 05/10/2017 12/01/2017 Hypokalemia 05/09/2017 12/01/2017 Venous stasis ulcer 04/08/2017 12/01/19 18 Bilateral edema of lower extremity 04/07/2016 12/01/2017 Presence of intrauterine con traceptive device (IUD) 04/07/2016 07/29/2022 Weight gain 04/07/2016 03/21/2017 Acquired hypothyroidism 02/26/201606/17 Abdominal pain, epigastric 04/25/2014 0 03/21/2017 Special screening for malign ant neoplasms, colon 04/25/2014 12/01/2017 Pain in limb 01/05/2013 03/21/2017 Reflex sympathetic dystrophy of upper extremity 01/05/2013 03/21/2017 Overview: ICD-10 update of inactive term Tendon adhesions 05/23/2012 12/01/2017 Chest pain 07/19/2011 11/16/2011 Adult body mass index 50.0-59.9 03/31/2010 08/01/2019 Overview: Per Obesity Protocol, #19 Excessive menstruation 09/16/200912/01 Chest pain 01/22/2003 11/16/2010 SLEEP APNEA NOS 09/08/2015 documented as of this encounter (statuses as of 06/14/2024) Immunizations Name Administration Dates Next Due COVID-19 mRNA, LNP-s, No Pre serve, 2-Dose Series (Pfizer) 07/08/2021,06/17/2021 Pneumococcal Conjugate Vacci ne, 20-valent ([id number]) 06/01/2024(Deferred: Patient Refused) Seasonal Influenza, PF, 6 M & above, IM , (FluLaval or Fluzone) 08/17/2023,07/29/2022,07/29/2021,2019 Seasonal Influenza, Quadriva lent, No Preserve, IM 08/02/2019,07/31/2019,08/15/2018,2016 Seasonal Influenza, Trivalen t, (IIV3), with Preserv, (Fluzone) 08/03/2016,08/12/2015 TDAP (age 10 and older)(Boostrix) 07/29/2021 TDAP, Age 7 and older, IM (Adacel) 11/16/2010 Zoster Vaccine Recombinant (Shingrix) 07/29/2022 ,01/27/2022 documented as of this encounter Social History Tobacco Use Types Packs/Day Years Used Date Smoking Tobacco: Never Smokeless Tobacco: Never Alcohol Use Standard Drinks/Week Comments No 0 (1 standard drink = 0.6 oz pur e alcohol) PHQ-2 Answer Date Recorded PHQ Adult Total Score 0 12/30/2023 Hunger Vital Sign Answer Date Recorded Within the past 12 months, y ou worried that your food would run out before you got the money to buy more. Never true 12/30/19 24 Within the past 12 months, t he food you bought just didn't last and you didn't have money to get more. Never true 12/30/2023 Childcare Answer Date Recorded Do you feel overwhelmed with taking care of a child, family member or friend? No 12/30/2023 Does your family need help f inding childcare? (Household - for ages 0-17 years) Not on file 12/30/2023 Clothing Answer Date Recorded Have you been unable to get clothing when it was really needed? No 12/30/2023 Is your family able to get c lothes or diapers when needed? (Household - for ages 0-17 years) Not on file 12/30/2023 Personal Safety Answer Date Recorded Do you feel unsafe or have concerns for your saf ety? No 12/30/2023 Do you have concerns for you r family's safety? (Household - for ages 0-17 years) Not on file 12/30/2023 Utilities Answer Date Recorded Do you have trouble paying y our heating, water, or electric bill? No 12/30/2023 Is your family able to pay t he heat, water, or electric bill? (Household - for ages 0-17 years) Not on file 12/30/2023 Does your family have access to good internet? (Household - for ages 0-17 years) Not on file 12/30/2023 Employment Status Answer Date Recorded Are you unemployed or without regular income? No 12/30/2023 Does the household have a re gular source of income? (Household - for ages 0-17 years) Not on file 12/30/2023 Social Connections Answer Date Recorded How often do you feel lonely or isolated from th ose around you? Never 12/30/2023 Financial Resource Strain Answer Date R ecorded Do you have any trouble payi ng for your medications, or do you think you might in the future? No 12/30/2023 Does your family have troubl e paying for medicine? (Household - for ages 0-17 years) Not on file 12/30/2023 Transportation Needs Answer Date Record ed READ ONLY Do you have troubl e getting a ride to medical visits or work? Never True 12/30/2023 Does your family have a hard time getting a ride to doctors visits? (Household - for ages 0-17 years) Not on file 12/30/2023 Has lack of transportation k ept you from medical appointments, meetings, work, or from getting things needed for daily living? Check all that apply. (Adult - for ages 18 years and over) Not on file 12/30/2023 Do you (or your family) have trouble finding or paying for a ride (transportation)? (Household - for ages 0-17 years) Not on file 12/30/2023 Housing Stability Answer Date Recorded Do you currently live in a s helter or have no steady place to sleep at night? No 12/30/2023 READ ONLY Do you think you a re at risk of becoming homeless? No 12/30/2023 Does your family worry about paying for your home or becoming homeless? (Household - for ages 0-17 years) Not on file 0 12/30/2023 Are you homeless or worried that you might be in the future? (Adult - for ages 18 years and over) Not on file Are you (or your family) mehrdad eless or worried that you might be in the future? (Household - for ages 0-17 years) Not on file Food Insecurity Answer Date Recorded Do you need food for this week? No 12/30/2023 Are you able to get enough f ood for your family? (Household - for ages 0-17 years) Not on file 12/30/2023 Does your family need food t his week? (Household - for ages 0-17 years) Not on file 12/30/2023 Do you always have enough fo od for your family? (Household - for ages 0-17 years) Not on file 12/30/2023 Sex and Gender Information Value Date Recorded Sex Assigned at Female 01/02/2020 8:58 AM EDT Gender Identity Female 01/02/2020 8:58 AM EDT Sexual Orientation Straight 01/02/2020 8: 58 AM EDT Job Start Date Occupation Industry Not on file Not on file Not on file documented as of this encounter Last Filed Vital Signs Vital Sign Reading Time Taken Comments Blood Pressure 132/80 06/14/2024 12:02 PM EDT Pulse - - Temperature - - Respiratory Rate - - Oxygen Saturation - - Inhaled Oxygen Concentration - - Weight 161.4 kg (355 lb 14.4 oz) 2023 12:02 PM EDT Height 160 cm (5' 3") 06/14/2024 12:02 PM EDT Body Mass Index 63.04 06/14/2024 12:02 PM EDT documented in this encounter Functional Status Functional Status Response Date of Assess ment Are you deaf or do you have serious difficulty h earing? No 05/30/2024 Are you blind or do you have serious difficulty seeing, even when wearing glasses? No 05/30/2024 Do you have serious difficul ty walking or climbing stairs? (5 years old or older) No 05/30/2024 Do you have difficulty dress ing or bathing? (5 years old or older) No 05/30/2024 Because of a physical, menta l, or emotional condition, do you have difficulty doing errands alone such as visiting a doctor s office or shopping? (15 years old or older) No 05/30/20 Cognitive Status Response Date of Assessm ent Because of a physical, menta l, or emotional condition, do you have serious difficulty concentrating, remembering, or making decisions? (5 years old or older) No 05/30/2024 documented as of this encounter Progress Notes * Martin Dove PA-C - 06/14/2024 5:34 PM EDT CC: adnexal mass HPI: Liane Gutierrez is a 59 year old who is seen in consultation at the request of Idalia AMBROCIO for right adnexal mass. Patient was admitted 05/30 for "overload of fluid". She underwent CA abd/pelvis which revealed a . Indeterminate matted soft tissue density in the right lower quadrant with adjacent fat stranding. Some parts of the soft tissue density appears to contain the right ovary. One consideration would be ovarian torsion. If this is a clinical concern, recommend MRI of thepelvis with and without IV contrast. She then underwent a MRI pelvis which showed small heterogeneous area with central cystic changes, which is in the location of an apparent cyst/residual follicle o n the prior CT scan of 04/11/2014. Currently there is surrounding edema/trace fluid, suggesting rupture of the cyst/follicle. There is an additional hypoenhancing T2 hypointense lesion within the ovary, which measures 2.1 x 2.4 cm and appears similar in size compared to 2014, possibly representing a fibroma. Notes been having cramping for a "couple months". Bowel and bladder are normal for her per patient.Admits to bloating, SOB and feeling "full all the time". Her work-up included: CT Abd/pelvis 05/30/24 FINDINGS THYROID:Within normal limits. THORACIC AORTA: No aneurysm. MAIN PULMONARY ARTERY: Normal sized. HEART: No pericardial effusion. ESOPHAGUS: Within normal limits. MEDIASTINUM AND ARIC: Within normal limits. CHEST SOFT TISSUES: Within normal limits. CHEST WALL: Within normal limits. LARGE AIRWAYS: Within normal limits LUNGS: 6 millimeter solid pulmonary nodule in the right lower lobe on 4:156. 5 millimeter solid pulmonary nodule left lower lobe on 4:153. Few other smaller pulmonary nodules. ABDOMEN/PELVIS: Liver and biliary tree: Within normal limits. Gallbladder: Cholecystectomy. Pancreas: Within normal limits. Spleen: Within normal limits. Adrenal glands: Within normal limits. Kidneys and ureters and bladder: Within normal limits. Pelvic organs:No mass. Bowel: There is questionable matted 6.5 centimeter soft tissue density in the right lower quadrant with adjacent fat stranding. Some parts of the soft tissue density appears to contain the right ovary. The other parts are indeterminate. See image 10 series 281. Lymph nodes/peritoneum: Within normal limits. Aorta: Within normal limits. Abdominal wall: Within normal limits. Bones: Within normal limits. IMPRESSION 1. No pulmonary embolism. 2. Indeterminate matted soft tissue density in the right lower quadrant with adjacent fat stranding. Some parts of the soft tissue density appears to contain the right ovary. One consideration would be ovarian torsion. If this is a clinical concern, recommend MRI of the pelvis with and without IV contrast 3. Few pulmonary nodules. MRI pelvis 05/31/24 FINDINGS Uterus: Normal in size there are no fibroids. Inner myometrial junctional zone: Normal in thickness and homogeneous. Endometrium: Normal in thickness, measuring 5 mm. Homogeneous. Right ovary: The ovary is in similar position to the CT scan of 04/11/2014 and demonstrates normal enhancement. Therefore, there are no findings to suggest torsion. Within the ovary, there is a smallheterogeneous area with central cystic changes, which is in the location of an apparent cyst/residual follicle on the prior CT scan of 04/11/2014. Currently there is surrounding edema/trace fluid, suggesting rupture of the cyst/follicle. There is an additional hypoenhancing T2 hypointense lesion within the ovary, which measures 2.1 x 2.4 cm and appears similar in size compared to 2014, possibly representing a fibroma. Left ovary: Normal in size. Residual ovarian follicles. Peritoneum/Retroperitoneum: There is right lower quadrant mesenteric edema/trace fluid surrounding the right ovary. Urinary bladder: Within normal limits. Lymph nodes: Prominent pelvic lymph nodes, not significantly mildly increased in compared to 2014. Vessels: Within normal limits. Bones: Degenerative osseous changes. IMPRESSION Constellation of findings related to the right ovary, as detailed above. In particular, there is noevidence of ovarian torsion. Recommend follow-up MRI in 1 month. Past Surgical History: Procedure Laterality Date APPLY BONE FIXATION DEVICE,UNIPLANE 10/08/2013 APPLICATION OF EXTERNAL FIXATOR UNIPLANE performed by Jacky Amaya MD at [facility] 1995 COLONOSCOPY, DIAGNOSTIC (RECTUM) 05/20/2014 COLONOSCOPY FLEXIBLE PROXIMAL DIAGNOSTIC performed by Elian Dodd MD at [place] [facility] DILATION AND CURETTAGE (D&C) 2008 EGD, FLEXIBLE, DIAGNOSTIC 05/20/2014 ESOPHAGOGASTRODUODENOSCOPY (EGD), FLEXIBLE, TRANSORAL, DIAGNOSTIC performed by Elian Dodd MD [facility] [place], W/ENDOSCOPIC US 05/20/2014 ESOPHAGOGASTRODUODENOSCOPY (EGD), FLEXIBLE, TRANSORAL, ENDOSCOPIC ULTRASOUND performed by Elian Dodd MD at [place] [facility] ENDOMETRIAL THERMAL ABLATE 09/16/09 ENDOMETRIAL THERMAL ABLATION performed by MARY ANN MORAN at [place] [facility] FUSION OF FINGER JOINT 08/05/2014 ARTHRODESIS INTERPHALANGEAL JOINT performed by Jacky Amaya MD at [facility] HYSTEROSCOPY W/BIOPSY AND/OR POLYPECTOMY W/WO D&C 04/28/07 HYSTEROSCOPY WITH BIOPSY performed by MARY ANN MORAN at [facility] HYSTEROSCOPY W/BIOPSY AND/OR POLYPECTOMY W/WO D&C 09/16/09 HYSTEROSCOPY WITH BIOPSY performed by MARY ANN MORAN at [place] [facility] HYSTEROSCOPY W/BIOPSY AND/OR POLYPECTOMY W/WO D&C N/A 09/27/2014 HYSTEROSCOPY WITH BIOPSY AND/OR POLYPECTOMY performed by Rowan Moreno MD at [place] [facility] INSERT INTRAUTERINE DEVICE (IUD) N/A 09/27/2014 INSERTION OF INTRAUTERINE DEVICE performed by Rowan Moreno MD at [place] [facility] LAPAROSCOPY; CHOLECYSTECTOMY 08/02/01 Clarke Gagnon. PELVIC EXAM UNDER ANESTHESIA, NOT LOCAL N/A 02/17/2022 PELVIC EXAMINATION UNDER ANESTHESIA performed by Heidi Acosta MD at [place] [facility] PHALANX SHAFT FX, OPEN TX, HAND, W/INTER FIXATION 08/16/2011 OPEN TREATMENT PHALANGEAL SHAFT performed by JACKY AMAYA at [place] [facility] RELEASE KNUCKLE CONTRACTURE, EACH 01/28/2012 CAPSULECTOMY CAPSULOTOMY METACARPOPHALANGEAL performed by JACKY AMAYA at [facility] RELEASE PALM & FINGER TENDON, EACH 05/22/2012 TENOLYSIS FLEXOR PALM AND FINGER performed by Jacky Amaya MD at [facility] REMOVAL OF APPENDIX 1992 REMOVAL OF TONSILS, AGE 12+ 01/14/[address] Mcclellan (), [facility] REMOVE IMPLANT FROM HAND/FINGER 01/07/2014 REMOVAL OF FINGER IMPLANT performed by Jacky Amaya MD at [place] [facility] REMOVE INTRAUTERINE DEVICE (IUD) 02/17/2022 REMOVAL OF INTRAUTERINE DEVICE performed by Heidi Acosta MD at [place] [facility] REPAIR BLADDER DEFECT 04/15/08 VAGINAL SLING PROCEDURE FOR STRESS INCONTINENCE performed by JASS TENA at [place] [facility] REVISION OF PALATE, PHARYNX/UVULA 01/14/04 UPPP Past Medical History: Diagnosis Date Adult body mass index 50.0-59.9 (HCC) 03/31/2010 ADVANCE DIRECTIVE INFORMATION 04/08/2005 No, Advance Directive brochure offered , patient declined. 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 Fatty liver 05/20/14 [facility] [place] U/S FEM STRESS INCONTINENCE 04/15/2008 Herpes simplex without mention of complication Obstructive sleep apnea (adult) (pediatric) 04/02/2009 CPAP OTHER 06/21 [facility] Other specified anemias w/ menstruation Plantar fibromatosis Reflex sympathetic dystrophy of the upper limb 01/05/2013 Special screening for malignant neoplasms, colon 05/20/14 [facility] [place] Patient Active Problem List Diagnosis Hypothyroidism Advance directive discussed with patient Female stress incontinence Obstructive sleep apnea of adult Moderate persistent asthma without complication Fatty liver Urge incontinence of urine Chronic constipation Chronic venous insufficiency Rheumatoid arthritis involving multiple sites with positive rheumatoid factor (HCC) Hypertension goal BP (blood pressure) < 140/90 Mood disorder (HCC) Lymphedema Complicated UTI (urinary tract infection) ESBL (extended spectrum beta-lactamase) producing bacteria infection Body mass index (BMI) of 60.0 to 69.9 in adult (HCC) OAB (overactive bladder) Restrictive lung disease Current Outpatient Medications Medication Sig Dispense [facility] Natural Products (TURMERIC CURCUMIN) CAPS Take 1 Capsule by mouth in the morning and 1 Capsulebefore bedtime. valACYclovir (VALTREX) 1000 MG Tablet TAKE 1 TABLET BY MOUTH EVERY 12 HOURS FOR 1 DAY FOR COLD SORES 20 Tab 3 Triamcinolone Acetonide 0.1 % External Cream (Aristocort) Apply topically to affected area 2 times a day. To affected area. 80 g 5 Adalimumab 40 MG/0.8ML Subcutaneous Pen-injector Kit (Humira) Inject 40 mg (1 pen) under the skin every 14 days. 2 mL 11 sulfaSALAzine 500 MG Oral Tablet (Azulfidine) Take 3 Tablets by mouth in the morning and 3 Tablets before bedtime. 540 Tablet 3 Refresh 1.4-0.6 % Ophthalmic Solution (polyvinyl alcohol-povidone PF) Instill 1 Drop into both eyesas needed. Betamethasone Dipropionate 0.05 % External Ointment Apply 2 times a day to the rash on arms, legs, abdomen x 2-3 weeks until clear 80 g 1 FLUoxetine HCl 20 MG Oral Capsule (PROzac) TAKE ONE CAPSULE BY MOUTH EVERY MORNING 90 Capsule 3 Fluticasone-Salmeterol 250-50 MCG/ACT Inhalation Aerosol Powder Breath Activated (Advair Diskus) Inhale 1 Puff by mouth in the morning and 1 Puff before bedtime. 180 Each 3 Ventolin HFA 108 (90 Base) MCG/ACT Inhalation Aerosol Solution Inhale 2 Puffs by mouth every 4 hours as needed for shortness of breath 18 g 3 Furosemide 20 MG Oral Tablet (Lasix) Take 2 Tablets by mouth in the morning. 90 Tablet 3 Levothyroxine Sodium 100 MCG Oral Tablet (Levoxyl) TAKE 1 TABLET BY MOUTH DAILY AT LEAST 30 MINUTESPRIOR TO FIRST MEAL OF THE DAY OR OTHER MEDICATIONS 90 Tablet 3 Estradiol 0.1 MG/GM Vaginal Cream (Estrace) Apply periurethrally as directed 3 times per week. 42.5g 6 No current facility-administered medications for this visit. Review of patient's allergies indicates: Allergen Reactions Arava [Leflunomide] Itching and Rash After taking med for 3 months she had terrible rash and itching Plaquenil [Hydroxychloroquine Sulfate] Rash HEALTH MAINTENANCE: Mammogram: 05/10/23 Cat 1 Pap: 07/17/19 NILM neg HPV Colonoscopy: 05/20/14 10 yrs Social History Social History Narrative Lives with and son Family History Problem Relation Name Age of Onset Other (Pancreatic cancer) Mother Other (HTN) Mother No Known Problems Brother Other (PEDRO) Brother Asthma Sister ?CHF vs cardiac arrest Other (PEDRO) Sister No Known Problems Sister Breast Cancer Grandmother (Maternal) Ovarian cancer Grandmother (Maternal) Hypertension Father also COPD and sleep apnea COPD Father Other (PEDRO) Father Cancer Grandmother (Maternal) breast Renal Hx Grandmother (Paternal) Diabetes Grandfather (Paternal) OHA Breast Cancer Aunt (Paternal) PHYSICAL EXAM: BP 132/80 | Ht 1.6 m (5' 3") | Wt (!) 161.4 kg (355 lb 14.4 oz) | LMP (LMP Unknown) | BMI 63.04 kg/m | BSA 2.68 m General: Well developed woman in NAD. Alert and oriented x 3. IMPRESSION: 59 yo female with incidental finding of adnexal mass on recent CT MANAGEMENT: Plan CA 125 CEA CA 19-9 MEDICAL EQUIPMENT TECHNICIAN/ONC REFERRAL OP Martin Dowell PA-C 06/14/2024 6:03 PM documented in this encounter Nursing Notes * Breann Callejas LPN - 06/14/2024 12:01 PM EDT Chief Complaint Patient presents with Command And Control Return R ovarian cyst Patient is here today due to a right ovarian cyst. Denies pain, describes it as cramping. documented in this encounter Plan of Treatment Upcoming Encounters Date Type Department Care Team (Late st Contact Info) Description 07/01/2024 3:45 PM EDT Appointment MRI, [place] [address] [place] [address] 11/07/2024 3:00 PM EST Office Visit Urology, [facility] [address] [place] [address] Diego Salas PA-C [address] [place] [address] 02/20/2025 7:30 AM EDT Office Visit [facility], [facility] [address] [place] [address] Katie Tejeda PA-C [address] [place] [address] Scheduled Orders Name Type Priority Associated Diagnoses Orde r Schedule CA 125 Lab Routine Adnexal mass Expected: 06/14/2024, Expires: 5 CEA Lab Routine Adnexal mass Expected: 06/14/2024, Expires: 5 CA 19-9 Lab Routine Adnexal mass Expected: 06/14/2024, Expires: 5 Scheduled Procedures Name Priority Associated Diagnoses Date/Ti me IMPLANTATION NEUROSTIMULATOR SACRAL NERVE OAB (overactive bladder) Urge incontinence of urine PERIPH NEUROSTIM INSERT/REPLACE OAB (overactive bladder) Urge incontinence of urine COLONOSCOPY FLEXIBLE PROXIMA L DIAGNOSTIC Recall History of colonoscopy Scheduled Referrals Name Type Priority Associated Diagnoses Orde r Schedule MEDICAL EQUIPMENT TECHNICIAN/ONC REFERRAL OP Referral Within 10 da ys (routine) Adnexal mass Ordered: 06/14/2024 Health Maintenance Due Date Last Done Comments Pneumococcal Vaccine: Pediatrics (0 to 5 Years) and At-Risk Patients (6 to 64 Years) (1 of 2 - PCV) 1969 Cologuard 2008 Fecal Occult Blood Test 2008 Sigmoidoscopy 2008 COVID-19 Vaccine ( season) 2023 07/08/2021, 06/17/2021 Mammogram 05/10/2024 05/10/2023, 04/17, 04/22/2022, Additional history exists Colonoscopy 05/20/2024 05/20/2014, 05/20/2014 Colorectal Cancer Screening 05/20/2024 Influenza Vaccine (FLU shot) (#1) 2024 08/17/2023, 07/29/2022, 07/29/2021, Additional history exists PAP SMEAR-EVERY 5 YRS,AGES 21-100 07/17/2024 07/17/2019, 12/15/2015, 12/15/2011, Additional history exists Depression Screening 12/29/2024 12/30/2023 TSH 05/30/2025 05/30/2024, 04/16, 05/12/2023, Additional history exists GFR 06/01/2025 06/01/2024, 05/17, 05/31/2024, Additional history exists Albumin/Creatinine Ratio 11/18/2025 11/18/2022, 01/15 Diabetes Screening 06/01/2027 06/01/2024, 0 05/31/2024, 05/31/2024, Additional history exists Lipid Panel 11/18/2027 11/18/2022, 01/15, 01/23/2021, Additional history exists DTap/Tdap Vaccines (3 - Td or Tdap) 07/29/2031 07/29/2021, 11/16/2010, 04/30/2000 Pap Smear Discontinued 07/17/2019, 11/18, 12/15/2011, Additional history exists Zoster Vaccines Completed 07/29/2022, 01/27/2022 HPV (Gardasil) Vaccine Aged Out No lo nger eligible based on patient's age to complete this topic Hepatitis B Vaccine Aged Out No longe r eligible based on patient's age to complete this topic MENINGOCOCCAL (MENACTRA/MENVEO) Aged Out No longer eligible based on patient's age to complete this topic documented as of this encounter Medical Devices Implanted Type Area Ice Cream Vendor Device Identifier Shelf Expiration Date Model / Serial / Lot Device Tvt [id number] - [id number] Implanted:Qty: 1 on 04/15/[address] [facility]A: Vagina Gynecare 11/17/2010 [id number] / / [id number] Mirena Iud Implanted:Qty: 1 on 09/16/[address] [facility] Cervix [employer] 12/26/2009 / / [id number] Description:Mirena IUDCharge d for in MEDICAL EQUIPMENT TECHNICIAN Clinic Screw Micro 16mm At2-C16-S - [id number] Implanted:Qty: 1 on 08/05/[address] 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 Question Answer Comments Discussion of Advance Directives occurred with: Patient * Full Code Date Activated Date Inactivated Comments 12/24/2023 10:46 PM 12/27/2023 4:15 PM This order r eflects the patients wishes and were consensually agreed upon. Question Answer Comments Discussion of Advance Directives occurred with: Patient * Full Code Date Activated Date Inactivated Comments 02/17/2022 5:48 PM 02/17/2022 10:40 PM This order re flects the patients wishes and were consensually agreed upon. * Full Code Date Activated Date Inactivated Comments 05/08/2017 4:39 AM 05/11/2017 2:54 PM This order r eflects the patients wishes and were consensually agreed upon. Question Answer Comments Discussion of Advance Directives occurred with: Patient Does the patient have a Living Will? No Does the patient have Health Care Power of Attor rachael? No * Full Code Date Activated Date Inactivated Comments 09/27/2014 1:15 PM 09/27/2014 6:08 PM This order reflects the patients wishes and were consensually agreed upon. Care Teams Box Toe Stitcher Relationship Specialty Start Date End Date Katie Tejeda PA-C [address] [place] [address] LENIN ARECHIGA [address] PCP - General Physician Infant Toddler Lead Teacher 09/05/19 documented as of this encounter
--- OUTSIDE RECORDS SUMMARY | 2024-06-27 05:53 | External Medical Summary ---
Author Name Unknown Address Unknown Organization K01:LABORATORY [facility] [place] - [address] [facility] [address] Laboratory Report Ordering Provider Test Date Status TENNILLE MEI 06/16/2024 12:56:36 Final Observation Date Value Abnormality Reference (Units ) Status BUN 06/16/2024 12:56:36 16 6-20 (mg/dL) Final Creatinine 06/16/2024 12:56:36 0.9 0.5-1.0 (mg/dL) Final Glomerular filtration rate/1.73 sq M.predicted [Volume Rate/Area] in Serum, Plasma or Blood by Creatinine-based formula (CKD-EPI) 06/16/2024 12:56:36 70 >=60 (mL/min) Final eGFR is calculated based on the CKD-EPI 2020 equation. Sodium 06/16/2024 12:56:36 144 135-146 (m mol/L) Final Potassium 06/16/2024 12:56:36 4.3 3.5-5.1 (m mol/L) Final Cl 06/16/2024 12:56:36 105 98-107 (mm ol/L) Final CO2 06/16/2024 12:56:36 28 22-32 (mmo l/L) Final Anion gap 06/16/2024 12:56:36 11 7-15 (mmol /L) Final Glucose 06/16/2024 12:56:36 92 70-120 (mg /dL) Final Albumin 06/16/2024 12:56:36 3.9 3.8-5.0 (g /dL) Final AST (Aspartate aminotransferase) 06/16/2024 12:56:36 18 10-35 (U/L) Final Alk Phos 06/16/2024 12:56:36 99 35-130 (U/ L) Final Bilirubin, Total 06/16/2024 12:56:36 0.4 <=1 .2 (mg/dL) Final Calcium 06/16/2024 12:56:36 9.0 8.4-10.2 ( mg/dL) Final Protein 06/16/2024 12:56:36 6.4 6.0-8.3 (g /dL) Final ALT (Alanine aminotransferase) 06/16/2024 12:56:36 22 10-35 (U/L) Final Performing Location LABORATORY [facility] - [address] [facility] [address]
--- OUTSIDE RECORDS SUMMARY | 2024-06-27 05:53 | External Medical Summary ---
Author Name Unknown Address Unknown Organization K01:LABORATORY [facility] [place] - [address] [facility] [address] Laboratory Report Ordering Provider Test Date Status TENNILLE MEI 06/16/2024 12:56:36 Final Observation Date Value Abnormality Reference (Units ) Status TSH 06/16/2024 12:56:36 5.17 Above high normal 0. 27-4.20 (uIU/mL) Final Performing Location LABORATORY [facility] - [address] [facility] [address]
--- OUTSIDE RECORDS SUMMARY | 2024-06-27 05:53 | External Medical Summary ---
Author Name Unknown Address Unknown Organization K01:LABORATORY [facility] - [address] [facility] [address] Laboratory Report Ordering Provider Test Date Status RICHARD SQURIES 06/16/2024 12:56:36 Final Observation Date Value Abnormality Reference (Units ) Status SYNC LEUKOCYTES IN BLOOD BY AUTOMATED COUNT 06/16/2024 12:56:36 4.81 4.00-10.80 (K/uL) Final Segs 06/16/2024 12:56:36 54.3 40.0-75.0 (%) Final Lymphs % 06/16/2024 12:56:36 36.2 18.0-42.0 (%) Final Monos 06/16/2024 12:56:36 8.5 1.0-11.0 (%) Final Eosinophils 06/16/2024 12:56:36 0.0 0.0-6.0 (%) Final Basos 06/16/2024 12:56:36 0.8 0.0-2.0 (%) Final Immature Granulocyte, Percent 06/16/2024 12:56:36 0.2 0.0-2.0 (%) Final Absolute Segs 06/16/2024 12:56:36 2.61 1.80-7.70 (K/uL) Final Lymphs, absolute 06/16/2024 12:56:36 1.74 1.00-4.80 (K/ul) Final Monos, Abs 06/16/2024 12:56:36 0.41 0.00-1.10 (K/uL) Final Eos, Abs 06/16/2024 12:56:36 0.00 0.00-0.70 (K/uL) Final Basos, Abs 06/16/2024 12:56:36 0.04 0.00-0.20 (K/uL) Final Immature Granulocytes, Number 06/16/2024 12:56:36 0.01 0.00-0.20 (K/uL) Final Performing Location LABORATORY [facility] - [address] [facility] [address]
--- OUTSIDE RECORDS SUMMARY | 2024-06-27 05:53 | External Medical Summary ---
Author Name Unknown Address Unknown Organization K01:LABORATORY [facility] - [address] [facility] [address] Laboratory Report Ordering Provider Test Date Status ROBINA VALLADARES 06/16/2024 12:56:36 Final Observation Date Value Abnormality Reference (Units ) Status CEA 06/16/2024 12:56:36 3.3 <=5.2 (ng/ mL) Final Performing Location LABORATORY [facility] - [address] [facility] [address]
--- OUTSIDE RECORDS SUMMARY | 2024-06-27 05:53 | External Medical Summary | Summary of Care ---
Author Name Unknown Organization [facility] Address [address] [place] [address] Phone [phone] Care Team Providers Care Drafter Landscape Name Role Phone Katie Tejeda PA-C Primary Care Provider Reason for Visit * Reason Onset Date Comments Test Results 06/16/2024 thyroid Encounter Details Date Type Department Care Team (Late st Contact Info) Description 06/16/2024 Telephone [facility] [address] [place] [address] Katie Tejeda PA-C [address] [place] [address] Test Results (thyroid) Allergies Active Allergy Reactions Criticality Noted Date Comments Leflunomide Itching,Rash High 04/14/2017 After taking med for 3 months she had terrible rash and itching Hydroxychloroquine Sulfate 7 Rash documented as of this encounter (statuses as of 06/16/2024) Medications Medication Sig Dispensed Refills Start Date [...] MOUTH EVERY MORNING 90 Capsule 3 11/14/2023 Active Fluticasone-Salmete rol 250-50 MCG/ACT Inhalation Aerosol [...] as of this encounter (statuses as of 06/16/2024) Active Problems Problem Noted Date Diagnosed Date Ovarian neoplasm 06/15/2024 Overview: 05/30/2024 MRI: IMPRESSION 1. No pulmonary embolism. 2. Indeterminate matted soft tissue density in the right lower quadrant with adjacent fat stranding. Some parts of the soft tissue density appears to contain the right ovary. One consideration would be ovarian torsion. If this is a clinical concern, recommend MRI of the pelvis with and without IV contrast 3. Few pulmonary nodules. Ca 125: CEA: Ca 19-9: Restrictive lung disease 06/13/2024 OAB (overactive bladder) [...] of urine 11/17/2015 Fatty liver 05/20/2014 Overview: [facility] EGD U/S Obstructive sleep apnea of adult 04/02/2009 Female stress incontinence 04/15/2008 Hypothyroidism Moderate persistent asthma without complication Overview: excercise induced documented as of this encounter (statuses as of 06/16/2024) Resolved Problems Problem Noted Date Diagnosed Date [...] as of this encounter (statuses as of 06/16/2024) Immunizations Name Administration Dates Next Due COVID-19 mRNA, LNP-s, No Pre serve, 2-Dose Series (Pfizer) 07/08/2021,06/17/2021 Pneumococcal Conjugate Vacci ne, 20-valent ([id number]) 06/01/2024(Deferred: Patient Refused) Seasonal Influenza, PF, 6 [...] 12/30/2023 Does the household have a re lar source of income? (Household - for ages [...] on file documented as of this encounter Functional Status Functional Status Response [...] No 05/30/2024 documented as of this encounter Plan of Treatment Upcoming Encounters Date Type Department Care Team (Late st Contact Info) Description 07/01/2024 3:45 PM EDT Appointment MRI, [place] [address] [place] [address] 11/07/2024 3:00 PM EST Office Visit Urology, [place] [address] [place] [address] Diego Salas PA-C [address] [place] [address] 02/20/2025 7:30 AM EDT Office Visit Family Practice, [facility] [address] [place] [phone] Katie Tejeda PA-C [address] [place] [address] Scheduled Orders Name Type Priority Associated Diagnoses Orde r Schedule TSH WITH FREE T4 IF INDICATED Lab Routine Acquired hypothyroidism Expected: 07/28/2024 (Approximate), Expires: 06/16/2025 Scheduled Procedures Name Priority Associated Diagnoses Date/Ti me IMPLANTATION NEUROSTIMULATOR SACRAL NERVE OAB (overactive bladder) Urge incontinence of urine PERIPH NEUROSTIM INSERT/REPLACE OAB (overactive bladder) Urge incontinence of urine COLONOSCOPY FLEXIBLE PROXIMA L DIAGNOSTIC Recall History of colonoscopy Health Maintenance Due Date Last Done Comments [...] Additional history exists Depression Screening 12/29/2024 12/30/2023 GFR 06/16/2025 06/16/2024, 05/17, 05/31/2024, Additional history exists TSH 06/16/2025 06/16/2024, 05/17, 05/03/2024, Additional history exists Albumin/Creatinine Ratio 11/18/2025 11/18/2022, 01/15 Diabetes Screening 06/16/2027 06/16/2024, 0 06/16/2024, 06/01/2024, Additional history exists Lipid Panel 06/16/2029 06/16/2024, 02/0 11/2022, 01/27/2022, Additional history exists DTap/Tdap Vaccines (3 - [...] this encounter Medical Devices Implanted Type Area Chain Forming Machine Operator Device Identifier Shelf Expiration Date Model / Serial / Lot Device Tvt [id number] - [id number] Implanted:Qty: 1 on 04/15/2008 at [place] [facility] [place] N/A: Vagina Gynecare 11/17/2010 [id number] / / [id number] Mirena Iud Implanted:Qty: 1 on 09/16/2009 at OR [facility] C[employer] 12/26/2009 / / [id number] Description:Mirena IUDCharge d for in HIM CLERK Clinic Screw Micro 16mm At2-C16-S - [id number] Implanted:Qty: 1 on 08/05/2014 at OR [facility] Left: Hand ACUMED 03/15/2015 AT2-C16-S / / [id number] documented as of this encounter Visit Diagnoses Diagnosis Acquired hypothyroidism- Primary Unspecified hypothyroidism documented in this encounter Advance Directives Documents on File Type Date Recorded 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 Care Teams Drafter Landscape Relationship Specialty Start Date End Date Katie Tejeda PA-C [address] [place] [address] LENIN Teran [id number] PCP - General Physician Senior Category Manager 09/05/19 documented as of this encounter
--- OUTSIDE RECORDS SUMMARY | 2024-06-27 05:53 | External Medical Summary ---
Author Name Unknown Address Unknown Organization K01:LABORATORY [facility] - [address] [facility] [address] Laboratory Report Ordering Provider Test Date Status ROBINA VALLADARES 06/16/2024 12:56:36 Final Observation Date Value Abnormality Reference (Units ) Status Cancer Ag 19-9 06/16/2024 12:56:36 2.5 <35.0 (U/mL) Final Performing Location LABORATORY [facility] - [address] [facility] [address]
--- OUTSIDE RECORDS SUMMARY | 2024-06-27 05:53 | External Medical Summary | Summary of Care ---
Author Name Unknown Organization [facility] Address [address] [place] [address] Phone [phone] Care Team Providers Care Radiologist Chief Of Breast Imaging Name Role Phone Katie Null PA-C Primary Care Provider Reason for Visit * Reason Onset Date Comments Hospital Follow-Up 06/14/2024 Encounter Details Date Type Department Care Team (Late st Contact Info) Description 06/14/2024 Telephone [facility] [address] [place] [address] Katie Null PA-C [address] [place] [address] Hospital Follow-Up Allergies Active Allergy Reactions Criticality Noted Date Comments Leflunomide Itching,Rash High 04/14/2017 After taking med for 3 months she had terrible rash and itching Hydroxychloroquine Sulfate 7 Rash documented as of this encounter (statuses as of 06/15/2024) Medications Medication Sig Dispensed Refills Start Date [...] as of this encounter (statuses as of 06/15/2024) Active Problems Problem Noted Date Diagnosed Date [...] of urine 11/17/2015 Fatty liver 05/20/2014 Overview: [facility] [place] EGD U/S Obstructive sleep apnea of adult 04/02/2009 Female stress incontinence 04/15/2008 Hypothyroidism Moderate persistent asthma without complication Overview: excercise induced documented as of this encounter (statuses as of 06/15/2024) Resolved Problems Problem Noted Date Diagnosed Date [...] as of this encounter (statuses as of 06/15/2024) Immunizations Name Administration Dates Next Due COVID-19 mRNA, LNP-s, No Pre serve, 2-Dose Series (Pfizer) 07/08/2021,06/17/2021 Pneumococcal Conjugate Vacci ne, 20-valent ([id number]) 06/01/2024(Deferred: Patient Refused) Seasonal Influenza, PF, 6 [...] No 05/30/2024 documented as of this encounter Miscellaneous Notes * Telephone Encounter - Sergei Tovar OSA - 06/15/2024 9:22 AM EDT Pt already saw pcp on 06/13/24 for HD follow up. * Telephone Encounter - Courtney Sr OSA - 06/14/2024 8:47 PM EDT Patient Name: LIANE GUALLPA([id number]) Sex: Female : 1965 PCP: KATIE NULL Center: [facility] Types of orders made on 06/01/2024: IP Post Discharge , Lab Order Date:06/01/2024 Ordering User:IDALIA REYNA [[id number]] Attending Provider:Sal Kirk DO [[id number]] Authorizing Provider: Idalia Reyna CRNP [[id number]] Department:[facility][[id number]] Order Specific Information Order: RETURN APPT [CUSTOM: [id number]] Order #: [id number]: 1 Priority: Routine Class: Nursing Unit Department (Single Entry) -> Family Practice Appt Needed Within: (Specify # of Days, Weeks, Months) -> 1 Wk Gregor bryson -> KATIE NULL Released on: 06/01/2024 9:26 AM Priority: Routine Class: Nursing Unit Department (Single Entry) -> Family Practice Appt Needed Within: (Specify # of Days, Weeks, Months) -> 1 Wk Provider -> KATIE NULL Released on: 06/01/2024 9:26 AM documented in this encounter Plan of Treatment Upcoming Encounters Date Type Department Care Team (Late st Contact Info) Description 07/01/2024 3:45 PM EDT Appointment [facility], [place] [address] [place] [address] 11/07/2024 3:00 PM EST Office Visit Urology, [place] [address] [place] [address] Diego Salas PA-C [address] [place] [address] 02/20/2025 7:30 AM EDT Office Visit [facility] [address] [place] [address] Katie Null PA-C [address] [place], [place] [id number] Scheduled Procedures Name Priority Associated Diagnoses Date/Ti [...] Test 2008 Sigmoidoscopy 2008 COVID-19 Vaccine ( - 2022- season) 2023 07/08/2021, 06/17/2021 Mammogram 05/10/2024 05/10/2023, [...] this encounter Medical Devices Implanted Type Area Solids Control Technician Device Identifier Shelf Expiration Date Model / Serial / Lot Device Tvt [id number] - [id number] Implanted:Qty: 1 on 04/15/2008 at OR [facility] [place] N/A: Vagina Gynecare 11/17/2010 [id number] / / [id number] Mirena Iud Implanted:Qty: 1 on 09/16/2009 at OR [facility] [place] [employer]ix [employer] 12/26/2009 / / [id number] Description:Mirena IUDCharge d for in BOILER CONTROL TECHNICIAN Clinic Screw Micro 16mm At2-C16-S - [id number] Implanted:Qty: 1 on 08/05/2014 at OR [facility] [place] Left: Hand ACUMED 03/15/2015 AT2-C16-S / / [id number] documented as of this encounter Advance Directives Documents on File Type Date Recorded Patient Senior Health Consultant Expl anation Advance Directives and Living Will 11/19/2004 Power of Transit Planner 11/19/2004 * Full Code (Latest Code Status [...] and were consensually agreed upon. Care Teams Radiologist Chief Of Breast Imaging Relationship Specialty Start Date End Date Katie Null PA-C [address] [place] [address] LENIN ARECHIGA [address] PCP - General Physician Computer Tape Librarian 09/05/19 documented as of this encounter
--- OUTSIDE RECORDS SUMMARY | 2024-06-27 05:53 | External Medical Summary | Summary of Care ---
Author Name Unknown Organization [facility] Address [address] [place] [address] Phone [phone] Care Team Providers Care Professional Healthcare Representative Name Role Phone Katie Tejeda PA-C Primary Care Provider Reason for Visit * Reason Onset Date Comments Hospital Follow-Up Hospital Follow-Up 06/13/2024 Encounter Details Date Type Department Care Team (Late st Contact Info) Description 06/13/2024 2:00 PM EDT Office Visit [facility] [address] [place] [address] Katie Tejeda PA-C [address] [place] [address] Hospital discharge follow-up*; SOB (shortness of breath); Hypervolemia, unspecified hypervolemia type; Recurrent UTI; Restrictive lung disease Allergies Active Allergy Reactions Criticality Noted Date Comments Leflunomide Itching,Rash High 04/14/2017 After taking med for 3 months she had terrible rash and itching Hydroxychloroquine Sulfate 7 Rash documented as of this encounter (statuses as of 06/13/2024) Medications Medication Sig Dispensed Refills Start Date [...] as of this encounter (statuses as of 06/13/2024) Active Problems Problem Noted Date Diagnosed Date [...] of urine 11/17/2015 Fatty liver 05/20/2014 Overview: [facility] EGD U/S Obstructive sleep apnea of adult 04/02/2009 Female stress incontinence 04/15/2008 Hypothyroidism Moderate persistent asthma without complication Overview: excercise induced documented as of this encounter (statuses as of 06/13/2024) Resolved Problems Problem Noted Date Diagnosed Date [...] as of this encounter (statuses as of 06/13/2024) Immunizations Name Administration Dates Next Due COVID-19 mRNA, LNP-s, No Pre serve, 2-Dose Series (Pfizer) 07/08/2021,06/17/2021 Pneumococcal Conjugate Vacci ne, 20-valent ([id number]) 06/01/2024(Deferred: Patient Refused) Seasonal Influenza, PF, 6 M & above, IM , (FluLaval or Fluzone) 08/17/2023,07/29/2022,07/29/2021,2019 Seasonal Influenza, Quadriva lent, No Preserve, IM 08/02/2019,07/31/2019,08/15/2018,2016 Seasonal Influenza, Split, I IV3, With Preserve, Inj 08/03/2016,08/12/2015 TDAP (age 10 and older)(Boostrix) 07/29/2021 [...] Sign Reading Time Taken Comments Blood Pressure 134/82 06/13/2024 1:59 PM EDT Pulse 66 06/13/2024 1:59 PM EDT Temperature 36.9 C (98.4 F) 06/13/2024 1:59 PM ED T Respiratory Rate 18 06/13/2024 1:59 PM EDT Oxygen Saturation 94% 06/13/2024 1:59 PM EDT Inhaled Oxygen Concentration - - Weight 160.2 kg (353 lb 1.6 oz) 06/13/2024 1:59 PM EDT Height - - Body Mass Index 62.55 05/30/2024 3:48 PM EDT documented in this encounter Functional [...] (15 years old or older) No 05/30/20 24 Cognitive Status Response Date of Assessm ent Because of a physical, menta l, or emotional condition, do you have serious difficulty concentrating, remembering, or making decisions? (5 years old or older) No 05/30/2024 documented as of this encounter Progress Notes * Katie Tejeda PA-C - 06/13/2024 1:59 PM EDT 59 year old here for follow up recent admission [address] [place] [id number] Admission Date: 05/30/2024 Discharge Date: 06/01/2024 RECOMMENDED TO DO FOR NEXT PROVIDER(S): Routine hospital discharge follow up exam with PCP Ensure completion of antibiotic for UTI Discuss potentially starting prophylactic antibiotic therapy for UTI prevention (3 UTIs since December) MRI in approximately 1 month Follow up with [facility] regarding ovarian cyst and potential rupture Pulmonlogy/ STAIR program for pulmonary nodule surveillance REASON(S) FOR MEDICATION CHANGE(S): Lasix increased 40 mg from 20 mg 2/2 volume overload and dyspnea Macrobid for E. Coli UTI Stop Bactrim medication completed/ OB/GYN NURSE DISPOSITION ON DISCHARGE: Home - Self Carehome Active Hospital Problems Diagnosis OAB (overactive bladder) Lymphedema Mood disorder (HCC) Hypertension goal BP (blood pressure) < 140/90 Rheumatoid arthritis involving multiple sites with positive rheumatoid factor (HCC) Chronic venous insufficiency Moderate persistent asthma without complication Hypothyroidism Resolved Hospital Problems Diagnosis Date Resolved *Principal Diagnosis - Shortness of breath 05/31/2024 Volume overload 05/31/2024 Bacteriuria 05/31/2024 Acute cystitis without hematuria 05/31/2024 HOSPITAL COURSE (focused): Patient presented to [facility] ED on 05/30 for evaluation of SOB and LE edema. Also endorsing RLQ and suprapubic tenderness. Workup significant for UTI and CT showing right ovarian abnormality (recommendingMRI). Patient started on IV cefepime (discussed with ID pharmacist) 2/2 hx ESBL in December while culture pending. She received IV diuresis and responded well to therapy. TTE obtained and grossly unremarkable with normal EF. MRI obtained of pelvis negative for ovarian torsion, but showing right ovarian cyst/ follicle with possible rupture. Urine culture positive for E. Coli susceptible to Macrobid. Patient remained stable on room air throughout admission and verbalized improvement in dyspnea and LE edema. She is -6.5 kg during admission. Patient discharged on increased dose of lasix, follow up with PCP, and referral to [facility], and Pulm/STAIR program. Has since had follow up with Urology regarding recurrent UTI's Recommended estrogen cream and follow up with urogynecology Has appt in mental health advanced practice nurse tomorrow for ovarian cyst Recent echo, normal EF Referred to Stair program for pulmonary nodules PFT's in the past notes restrictive lung disease Per pulmonary 2020 Shortness of breath: likely r/t restrictive lung disease in the setting of significant weight gain/Obesity, h/o RA on humira. HRCT chest from 03/2018 did not show any e/o ILD, ?r/t Asthma with some improvement on ICS/LABA, Echo from 2019 wnl, unable to visualize RV. Patient has lost 40 lbs since 12/2019 and feels much better. ABG normal. -continue albuterol/advair prn -patient encouraged to continue efforts at weight loss (lost 40 lbs since 12/2019) -continue lasix prn ROS: all others negative other than those noted in the HPI. Patient Active Problem List Diagnosis Hypothyroidism Advance [...] Current Outpatient Medications Medication Sig Dispense Refill [facility] Natural Products (TURMERIC CURCUMIN) CAPS Take 1 [...] for shortness of breath 18 g 3 Levothyroxine Sodium 100 MCG Oral Tablet (Levoxyl) TAKE 1 TABLET BY MOUTH DAILY AT LEAST 30 MINUTESPRIOR TO FIRST MEAL OF THE DAY OR OTHER MEDICATIONS 90 Tablet 3 Estradiol 0.1 MG/GM Vaginal Cream (Estrace) Apply periurethrally as directed 3 times per week. 42.5g 6 Furosemide 20 MG Oral Tablet (Lasix) Take 2 Tablets by mouth in the morning. 90 Tablet 3 No current facility-administered medications for this visit. Past Surgical History: Procedure Laterality Date APPLY BONE FIXATION DEVICE,UNIPLANE 10/08/2013 APPLICATION OF EXTERNAL FIXATOR UNIPLANE performed by Jacky Amaya MD at OR [facility] DELIVERY 1995 COLONOSCOPY, DIAGNOSTIC (RECTUM) 05/20/2014 COLONOSCOPY FLEXIBLE PROXIMAL DIAGNOSTIC performed by Elian Dodd MD at ENDOSCOPY [facility] DILATION AND CURETTAGE (D&C) 2008 EGD, FLEXIBLE, DIAGNOSTIC 05/20/2014 ESOPHAGOGASTRODUODENOSCOPY (EGD), FLEXIBLE, TRANSORAL, DIAGNOSTIC performed by Elian Dodd MD atENDOSCOPY [facility] EGD, W/ENDOSCOPIC US 05/20/2014 ESOPHAGOGASTRODUODENOSCOPY (EGD), FLEXIBLE, TRANSORAL, ENDOSCOPIC ULTRASOUND performed by Elian Dodd MD at ENDOSCOPY [facility] ENDOMETRIAL THERMAL ABLATE 09/16/09 ENDOMETRIAL THERMAL ABLATION performed by MARY ANN MORAN at OR [facility] FUSION OF FINGER JOINT 08/05/2014 ARTHRODESIS INTERPHALANGEAL JOINT performed by Jacky Amaya MD at OR [facility] HYSTEROSCOPY W/BIOPSY AND/OR POLYPECTOMY W/WO D&C 04/28/07 HYSTEROSCOPY WITH BIOPSY performed by MARY ANN MORAN at OR [facility] HYSTEROSCOPY W/BIOPSY AND/OR POLYPECTOMY W/WO D&C 09/16/09 HYSTEROSCOPY WITH BIOPSY performed by MARY ANN MORAN at OR [facility] HYSTEROSCOPY W/BIOPSY AND/OR POLYPECTOMY W/WO D&C N/A 09/27/2014 HYSTEROSCOPY WITH BIOPSY AND/OR POLYPECTOMY performed by Rowan Moreno MD at OR [facility] INSERT INTRAUTERINE DEVICE (IUD) N/A 09/27/2014 INSERTION OF INTRAUTERINE DEVICE performed by Rowan Moreno MD at OR [facility] LAPAROSCOPY; CHOLECYSTECTOMY 08/02/01 Clarke Gagnon. PELVIC EXAM UNDER ANESTHESIA, NOT LOCAL N/A 02/17/2022 PELVIC EXAMINATION UNDER ANESTHESIA performed by Heidi Acosta MD at OR [facility] PHALANX SHAFT FX, OPEN TX, HAND, W/INTER FIXATION 08/16/2011 OPEN TREATMENT PHALANGEAL SHAFT performed by JACKY AMAYA at OR [facility] RELEASE KNUCKLE CONTRACTURE, EACH 01/28/2012 CAPSULECTOMY CAPSULOTOMY METACARPOPHALANGEAL performed by JACKY AMAYA at OR [facility] RELEASE PALM & FINGER TENDON, EACH 05/22/2012 TENOLYSIS FLEXOR PALM AND FINGER performed by Jacky Amaya MD at OR [facility] REMOVAL OF APPENDIX 1992 REMOVAL OF TONSILS, AGE 12+ 01/14/[address] Mcclellan (), [facility], [place], [place] REMOVE IMPLANT FROM HAND/FINGER 01/07/2014 REMOVAL OF FINGER IMPLANT performed by Jacky Amaya MD at OR [facility] REMOVE INTRAUTERINE DEVICE (IUD) 02/17/2022 REMOVAL OF INTRAUTERINE DEVICE performed by Heidi Acosta MD at OR [facility] REPAIR BLADDER DEFECT 04/15/08 VAGINAL SLING PROCEDURE FOR STRESS INCONTINENCE performed by JASS TENA at OR [facility] REVISION OF PALATE, PHARYNX/UVULA 01/14/04 UPPP Social History Socioeconomic History Marital status: Spouse name: Marcellus Number of children: 1 Years of education: 13 Occupational History 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 Other Topics Concern Self-Exams Yes Social History Narrative Lives with and son Social Determinants of Health Financial Resource Strain: Low Risk (12/30/2023) Financial Resource Strain Do you have any trouble paying for your medications, or do you think you might in the future? (Adult - for ages 18 years and over): No Food Insecurity: No Food Insecurity (12/30/2023) Food Insecurity Do you need food for this week? (Adult - for ages 18 years and over): No Transportation Needs: No Transportation Needs (12/30/2023) Transportation Needs Do you have trouble getting a ride to medical visits or work? (Adult - for ages 18 years and over):Never True Social Connections: Socially Integrated (12/30/2023) Social Connections How often do you feel lonely or isolated from those around you? (Adult - for ages 18 years and over): Never Housing Stability: Low Risk (12/30/2023) Housing Stability Do you currently live in a snf or have no steady place to sleep at night? (Adult - for ages 18 years and over): No Do you think you are at risk of becoming homeless? (Adult - for ages 18 years and over): No Review of patient's allergies indicates: Allergen Reactions Arava [Leflunomide] Itching and Rash After taking med for 3 months she had terrible rash and itching Plaquenil [Hydroxychloroquine Sulfate] Rash OBJECTIVE: BP 134/82 | Pulse 66 | Temp 36.9 C (98.4 F) (Tympanic) | Resp 18 | Wt (!) 160.2 kg (353 lb 1.6 oz) | LMP (LMP Unknown) | SpO2 94% | BMI 62.55 kg/m | BSA 2.67 m Estimated body mass index is 62.55 kg/m as calculated from the following: Height as of 05/30/24: 1.6 m (5' 3"). Weight as of this encounter: 160.2 kg (353 lb 1.6 oz). BP Readings from Last 3 Encounters: 06/13/24 134/82 06/06/24 139/67 06/01/24 118/62 Wt Readings from Last 3 Encounters: 06/13/24 (!) 160.2 kg (353 lb 1.6 oz) 06/01/24 (!) 154.2 kg (340 lb) 05/29/24 (!) 161.1 kg (355 lb 3.2 oz) Physical Exam Constitutional: General: She is not in acute distress. Appearance: Normal appearance. Cardiovascular: Rate and Rhythm: Normal rate and regular rhythm. Heart sounds: No murmur heard. Pulmonary: Effort: Pulmonary effort is normal. Breath sounds: Wheezing present. Abdominal: Palpations: Abdomen is soft. There is no mass. Musculoskeletal: General: Swelling present. Cervical back: Normal range of motion. Comments: + lymphedema bilat Skin: General: Skin is warm and dry. Neurological: Mental Status: She is alert. Psychiatric: Mood and Affect: Mood normal. ASSESSMENT/Plan Hospital discharge follow-up (Primary) - DISCH MED RECON CUR MED LIS SOB (shortness of breath) Hypervolemia, unspecified hypervolemia type - BASIC METABOLIC PANEL; Future; Expected date: 06/27/2024 Recurrent UTI Restrictive lung disease Cont meds Monitor weight Discussed with pt that weight loss would help with breathing and fluid retention Declines GI nutrition referral Katie Tejeda PA-C documented in this encounter Nursing Notes * Rukhsana De Souza CMA - 06/13/2024 1:58 PM EDT PT is here for HD appointment. documented in this encounter Plan of Treatment Upcoming Encounters Date Type Department Care Team (Late st Contact Info) Description 06/14/2024 12:00 PM EDT Office Visit Gynecology/Obstetrics [facility] [address] [place] [address] Martin Dove PA-C [address] [place] [address] 07/01/2024 3:45 PM EDT Appointment MRI, [place] [address] [place] [address] 11/07/2024 3:00 PM EST Office Visit Urology, [place] [address] [place] [address] Diego Salas PA-C [address] [place] [address] 02/20/2025 7:30 AM EDT Office Visit Family [facility] [address] [place] [address] Katie Tejeda PA-C [address] [place] [address] Scheduled Orders Name Type Priority Associated Diagnoses Orde r Schedule BASIC METABOLIC PANEL Lab Routine Hypervolemia, unspecified hypervolemia type Expected: 06/27/2024 (Approximate), Expires: 06/13/2025 Scheduled Procedures Name Priority Associated Diagnoses Date/Ti [...] Blood Test 2008 Sigmoidoscopy 2008 COVID-19 Vaccine (2022- season) 2023 07/08/2021, 06/17/2021 Mammogram 05/10/2024 05/10/2023, [...] this encounter Medical Devices Implanted Type Area Direct Selling Counselor Device Identifier Shelf Expiration Date Model / Serial / Lot Device Tvt [id number] - [id number] Implanted:Qty: 1 on 04/15/2008 at OR [facility] N/A: Vagina Gynecare 11/17/2010 [id number] / / [id number] Mirena Iud Implanted:Qty: 1 on 09/16/2009 at OR [facility] Cervix [employer] 12/26/2009 / / [id number] Description:Mirena IUDCharge d for in [facility] Screw Micro 16mm At2-C16-S - [id number] Implanted:Qty: 1 on 08/05/2014 at OR [facility] Left: Hand ACUMED 03/15/2015 AT2-C16-S / / [id number] documented as of this encounter Visit Diagnoses Diagnosis Hospital discharge follow-up- Primary Other follow-up examination SOB (shortness of breath) Shortness of breath Hypervolemia, unspecified hypervolemia type Recurrent UTI Urinary tract infection, site not specified Restrictive lung disease Other diseases of lung, not elsewhere classified documented in this encounter Advance Directives Documents on File Type Date Recorded Patient Forensic Social Worker Expl anation Advance Directives and Living Will 11/19/2004 Power of Acute Care Assistant 11/19/2004 * Full Code (Latest Code Status [...] and were consensually agreed upon. Care Teams Professional Healthcare Representative Relationship Specialty Start Date End Date Katie Tejeda PA-C [address] [place] [id number] PCP - General Physician Can Worker 09/05/19 documented as of this encounter
--- OUTSIDE RECORDS SUMMARY | 2024-06-27 05:53 | External Medical Summary | Summary of Care ---
Author Name Unknown Organization [facility] Address [address] [place] [address] Phone [phone] Care Team Providers Care Claims Counsel Name Role Phone Katie Tejeda PA-C Primary Care Provider Reason for Visit * Reason Comments Consultation * Evaluate & Treat - Unlimited Visits (Within 10 days (routine)) - Authorized Specialty Diagnoses / Procedures Referred By Keyur jacobs Referred To Contact Gynecologic Oncology / Gynecology Oncology Diagnoses Adnexal mass Martin Dove PA-C [address] [place] [address] Referral ID Status Reason Start Date Expiration Date Visits Requested Visits Authorized [id number] Authorized Specialty Services Required 06/14/[phone] Encounter Details Date Type Department Care Team (Late st Contact Info) Description 06/21/2024 8:00 AM EDT Office Visit Gynecology/Oncology, [place] [address] [place] [address] Reese Pollard MD [address] [place] [address] Ovarian neoplasm*; Body mass index (BMI) of 60.0 to 69.9 in adult (HCC) Allergies Active Allergy Reactions Criticality Noted Date Comments Leflunomide Itching,Rash High 04/14/2017 After taking med for 3 months she had terrible rash and itching Hydroxychloroquine Sulfate 7 Rash documented as of this encounter (statuses as of 06/21/2024) Medications Medication Sig Dispensed Refills Start Date End Date Status [facility] (TURMERIC CURCUMIN) CAPS Take 1 [...] as of this encounter (statuses as of 06/21/2024) Active Problems Problem Noted Date Diagnosed Date [...] contrast 3. Few pulmonary nodules. Ca 125: 9.5 CEA: 3.3 Ca 19-9: 2.5 Restrictive lung disease 06/13/2024 OAB (overactive bladder) [...] of urine 11/17/2015 Fatty liver 05/20/2014 Overview: [facility] EGD U/S Obstructive sleep apnea of adult 04/02/2009 Female stress incontinence 04/15/2008 Hypothyroidism Moderate persistent asthma without complication Overview: excercise induced documented as of this encounter (statuses as of 06/21/2024) Resolved Problems Problem Noted Date Diagnosed Date [...] as of this encounter (statuses as of 06/21/2024) Immunizations Name Administration Dates Next Due COVID-19 mRNA, LNP-s, No Pre serve, 2-Dose Series (Pfizer) 07/08/2021,06/17/2021 Pneumococcal Conjugate Vacci ne, 20-valent ([id number]) 06/01/2024(Deferred: Patient Refused) Seasonal Influenza, PF, 6 [...] Date Smoking Tobacco: Never Smokeless Tobacco: Never Tobacco Cessation:Counseling Given: Not Answered Alcohol Use Standard Drinks/Week Comments No 0 [...] Sign Reading Time Taken Comments Blood Pressure 134/76 06/21/2024 8:00 AM EDT Pulse 78 06/21/2024 8:00 AM EDT Temperature - - Respiratory Rate 20 06/21/2024 8:00 AM EDT Oxygen Saturation - - Inhaled Oxygen Concentration - - Weight 163.7 kg (361 lb) 06/21/2024 8:00 AM EDT Height 160 cm (5' 3") 06/21/2024 8:00 AM EDT Body Mass Index 63.95 06/21/2024 8:00 AM EDT documented in this encounter Functional Status [...] as of this encounter Progress Notes * Angelia Pelaez PA-C - 06/21/2024 8:00 AM EDT CC: 59 year old female who presents today for evaluation of ovarian neoplasm. HPI: Liane Gutierrez is a 59 year old who is seen in consultation at the request of Martin Dowell PA-C. She is referred for my evaluation and recommendations regarding management of ovarian neoplasm measuring 2.1 x 2.4 cm . The patient presented to the ED on 05/30/2024 for evaluation of shortness of breath. She had a CT PEfor evaluation, which was negative. She also had a CT abdomen pelvis that revealed a soft tissue density in the RLQ. She had an MRI of the pelvis during her admission which revealed a 2.1 x 2.4 cm lesion within the right ovary. She was referred to D[facility] MIXER HELPER for outpatient follow up upon discharge. At heroffice visit with gynecology, tumor markers were ordered (all within normal limits) and she was referred to Gynecologic Oncology for further evaluation. Today she returns for evaluation. Her appetite is good, weight is stable, energy level is baseline for her. She denies change in bowel or bladder habits, increasing abdominal girth, early satiety, bloating, lower back pain, flank pain, sciatica, lower leg edema, vaginal bleeding or discharge. Her work-up included: CT C/A/P 05/30/2024 FINDINGS THYROID:Within normal limits. THORACIC AORTA: No [...] IV contrast 3. Few pulmonary nodules. MRI PELVIS 06/01/2024 FINDINGS Uterus: Normal in size there are [...] torsion. Recommend follow-up MRI in 1 month. Component Latest Ref Rng 06/16/2024 CA 125 <=38.1 U/mL 9.5 CEA <=5.2 ng/mL 3.3 CA 19-9 <35.0 U/mL 2.5 PAST DOUGH MIXER HELPER HISTORY: Menstrual Status: postmenopausal Pap smear history: Patient states no h/o abnormal pap Hormone Use: None Urinary or fecal issues: prior bladder sling procedure, following with Urogynecology PAST OB HISTORY: . x 1 (Pfannenstiel incision) HEALTH MAINTENANCE: Mammogram: 05/10/2023 ; BI-RADS category 1 - Has active order Last Pap: 07/17/2019, NILM Negative HPV Colonoscopy: 05/20/2014 ; Follow-up in 10 years Past Surgical History: Procedure Laterality Date APPLY BONE FIXATION DEVICE,UNIPLANE 10/08/2013 APPLICATION OF EXTERNAL FIXATOR UNIPLANE performed by Jacky Amaya MD at OR [facility] DELIVERY 1995 COLONOSCOPY, DIAGNOSTIC (RECTUM) 05/20/2014 COLONOSCOPY FLEXIBLE PROXIMAL DIAGNOSTIC performed by Elian Dodd MD at ENDOSCOPY [facility] DILATION AND CURETTAGE (D&C) 2008 EGD, FLEXIBLE, DIAGNOSTIC 05/20/2014 ESOPHAGOGASTRODUODENOSCOPY (EGD), FLEXIBLE, TRANSORAL, DIAGNOSTIC performed by Elian Dodd MD atENDOSCOPY [facility] EGD, W/ENDOSCOPIC US 05/20/2014 ESOPHAGOGASTRODUODENOSCOPY (EGD), FLEXIBLE, TRANSORAL, ENDOSCOPIC ULTRASOUND performed by Elian Dodd MD at ENDOSCOPY [facility] ENDOMETRIAL THERMAL ABLATE 09/16/09 ENDOMETRIAL THERMAL ABLATION performed by MARY ANN MORAN at OR [facility] FUSION OF FINGER JOINT 08/05/2014 ARTHRODESIS INTERPHALANGEAL JOINT performed by Jacky Amaya MD at OR [facility] HYSTEROSCOPY W/BIOPSY AND/OR POLYPECTOMY W/WO D&C 04/28/07 HYSTEROSCOPY WITH BIOPSY performed by MARY ANN MORAN at OR [facility] HYSTEROSCOPY W/BIOPSY AND/OR POLYPECTOMY W/WO D&C 09/16/09 HYSTEROSCOPY WITH BIOPSY performed by MARY ANN MORAN at OR [facility] HYSTEROSCOPY W/BIOPSY AND/OR POLYPECTOMY W/WO D&C N/A 09/27/2014 HYSTEROSCOPY WITH BIOPSY AND/OR POLYPECTOMY performed by Rowan Moreno MD at OR [facility] INSERT INTRAUTERINE DEVICE (IUD) N/A 09/27/2014 INSERTION OF INTRAUTERINE DEVICE performed by Rowan Moreno MD at OR [facility] LAPAROSCOPY; CHOLECYSTECTOMY 08/02/01 Clarke Gagnon. PELVIC EXAM UNDER ANESTHESIA, NOT LOCAL N/A 02/17/2022 PELVIC EXAMINATION UNDER ANESTHESIA performed by Heidi Acosta MD at OR [facility] PHALANX SHAFT FX, OPEN TX, HAND, W/INTER FIXATION 08/16/2011 OPEN TREATMENT PHALANGEAL SHAFT performed by JACKY AMAYA at OR [facility] RELEASE KNUCKLE CONTRACTURE, EACH 01/28/2012 CAPSULECTOMY CAPSULOTOMY METACARPOPHALANGEAL performed by JACKY AMAYA at OR [facility] RELEASE PALM & FINGER TENDON, EACH 05/22/2012 TENOLYSIS FLEXOR PALM AND FINGER performed by Jacky Amaya MD at [facility] REMOVAL OF APPENDIX 1992 REMOVAL OF TONSILS, AGE 12+ 01/14/[address] Mcclellan (), [facility], [place], [place] REMOVE IMPLANT FROM HAND/FINGER 01/07/2014 REMOVAL OF FINGER IMPLANT performed by Jacky Amaya MD at OR [facility] REMOVE INTRAUTERINE DEVICE (IUD) 02/17/2022 REMOVAL OF INTRAUTERINE DEVICE performed by Heidi Acosta MD at OR [facility] REPAIR BLADDER DEFECT 6/30/08 VAGINAL SLING PROCEDURE FOR STRESS INCONTINENCE performed by JASS TENA at OR [facility] REVISION OF PALATE, PHARYNX/UVULA 01/14/04 UPPP Past Medical History: Diagnosis Date Adult body mass index 50.0-59.9 ([facility]) 03/31/2010 ADVANCE DIRECTIVE INFORMATION 04/08/2005 No, Advance Directive brochure offered , patient declined. 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 Fatty liver 05/20/14 [facility] EGD U/S FEM STRESS INCONTINENCE 04/15/2008 Herpes simplex without mention of complication Obstructive sleep apnea (adult) (pediatric) 04/02/2009 CPAP OTHER 06/21 [facility] Other specified anemias w/ menstruation Plantar fibromatosis Reflex sympathetic dystrophy of the upper limb 01/05/2013 Special screening for malignant neoplasms, colon 05/20/14 [facility] colonoscopy Patient Active Problem List Diagnosis Hypothyroidism Advance directive discussed with patient Female stress incontinence Obstructive sleep apnea of adult Moderate persistent asthma without complication Fatty liver Urge incontinence of urine Chronic constipation Chronic venous insufficiency Rheumatoid arthritis involving multiple sites with positive rheumatoid factor ([facility]) Hypertension goal BP (blood pressure) < 140/90 Mood disorder ([facility]) Lymphedema Complicated UTI (urinary tract infection) ESBL (extended spectrum beta-lactamase) producing bacteria infection Body mass index (BMI) of 60.0 to 69.9 in adult ([facility]) OAB (overactive bladder) Restrictive lung disease Ovarian neoplasm Current Outpatient Medications Medication Sig Dispense Refill [facility] Natural Products (TURMERIC CURCUMIN) CAPS Take 1 [...] rash and itching Plaquenil [Hydroxychloroquine Sulfate] Rash Review of Systems Review of Systems Constitutional: Negative for appetite change, chills, diaphoresis, fatigue, fever and unexpected weight change. HENT: Negative for congestion, ear discharge, ear pain, facial swelling, hearing loss, nosebleeds, sinus pressure, sore throat and trouble swallowing. Eyes: Negative for pain, discharge, redness and visual disturbance. Respiratory: Negative for cough, chest tightness, shortness of breath and wheezing. Cardiovascular: Negative for chest pain, palpitations and leg swelling. Gastrointestinal: Negative for abdominal distention, abdominal pain, blood in stool, constipation, diarrhea, nausea and vomiting. Endocrine: Negative for cold intolerance and heat intolerance. Genitourinary: Negative for decreased urine volume, difficulty urinating, dysuria, flank pain, frequency, genital sores, hematuria, pelvic pain, urgency, vaginal bleeding, vaginal discharge and vaginal pain. Musculoskeletal: Negative for back pain, joint swelling and myalgias. Skin: Negative for color change, pallor and rash. Allergic/Immunologic: Negative for environmental allergies and food allergies. Neurological: Negative for dizziness, seizures, weakness and headaches. Hematological: Does not bruise/bleed easily. Psychiatric/Behavioral: Negative for sleep disturbance. The patient is nervous/anxious. 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 (Adult - for ages 18 years and over): No Do you think you are at risk of becoming homeless? (Adult - for ages 18 years and over): No Family History Problem Relation Name Age of [...] Grandfather (Paternal) OHA Breast Cancer Aunt (Paternal) ECOG Performance Scale: 1 PHYSICAL EXAM: BP 134/76 (BP Site: Left Arm, BP Position: Sitting, BP Cuff Size: Regular) | Pulse 78 | Resp 20 | Ht 1.6 m (5' 3") | Wt (!) 163.7 kg (361 lb) | LMP (LMP Unknown) | BMI 63.95 kg/m | BSA 2.7 m General: well developed woman in no acute distress. Alert and oriented x 3, appropriate mood and affect Neck: supple, no thyromegaly, no cervical lymphadenopathy, no nodularity No palpable supraclavicular lymph nodes Lungs: clear to auscultation bilaterally, unlabored respiratory effort, equal chest rise bilaterally CV: normal rate and rhythm, no murmur or gallop Breasts: deferred Abdomen: soft, bowel sounds present in all quadrants, non-tender, no rebound tenderness, non-distended, no palpable masses No CVA tenderness Pelvic: deferred Extremities: bilateral lower extremity pitting edema, no calf tenderness Neuro: grossly intact, fluent speech, attentive Skin: warm, dry, no worrisome lesions IMPRESSION: - ovarian neoplasm measuring 2.1 x 2.4 cm - tumor markers within normal limits MANAGEMENT: A thorough discussion was had with the patient. Discussed that imaging and lab work has been removed, and no further oncologic intervention or follow up is necessary at this time. Patient verbalized understanding of diagnosis & treatment plan and had no further questions. Angelia Pelaez PA-C Gynecologic Oncology I performed a history and physical examination of the patient which showed the above findings. My impression and plan are as documented above. I have discussed the patient's management with Angelia Spear PA-C. Please refer to the physician registered nurse first assistant's note for the documented findings and planof care. Any edits that were required are reflected above. The patient is a delightful 59-year-old referred for an ovarian neoplasm. I personally reviewed theradiographic images as well as her blood work. The patient has normal tumor markers and does not have a concerning appearing mass in the pelvis. This is likely a benign resolving cyst. No further gynecologic Oncology workup necessary. The patient should continue to follow with her primary fourth grade teacher. I spent a total of Greater than 55 mins (exact time 92 mins) on the date of service in preparation,delivery, and documentation of the care provided to Liane Gutierrez excluding any time spent in the performance of separately billed services or time spent by another provider/QHP. Reese Pollard MD, PhD, FACOG, FACS Chief, Gynecologic Oncology [facility] Vat Operator of Obstetrics and Gynecology [facility] documented in this encounter Nursing Notes * Yelitza Wright MED ASSIST - 06/21/2024 7:52 AM EDT Liane presents in clinic today for consult documented in this encounter Plan of Treatment Upcoming Encounters Date Type Department Care Team (Late st Contact Info) Description 07/01/2024 3:45 PM EDT Appointment MRI, [place] [address] [place] [address] 11/07/2024 3:00 PM EST [facility] [address] [place] [address] Diego Salas PA-C [address] [place] [address] 02/20/2025 7:30 AM EDT Office Visit Family Practice[address] [address] Katie Tejeda PA-C [address] [place] [phone] Scheduled Procedures Name Priority Associated Diagnoses Date/Ti me IMPLANTATION NEUROSTIMULATOR SACRAL NERVE OAB (overactive bladder) Urge incontinence of urine PERIPH NEUROSTIM INSERT/REPLACE OAB (overactive bladder) Urge incontinence of urine COLONOSCOPY FLEXIBLE PROXIMA L DIAGNOSTIC Recall History of colonoscopy Scheduled Referrals Name Type Priority Associated Diagnoses Orde r Schedule D[facility] MIXER HELPER/ONC REFERRAL OP Referral Within 10 da ys (routine) Adnexal mass Ordered: 06/14/2024 Health Maintenance Due Date Last Done Comments Pneumococcal Vaccine: Pediatrics (0 to 5 Years) and At-Risk Patients (6 to 64 Years) (1 of 2 - PCV) 1969 Cologuard 2008 Fecal Occult Blood Test 2008 Sigmoidoscopy 2008 Mammogram 05/10/2024 05/10/2023, 04/17, 04/22/2022, Additional history exists Colonoscopy 05/20/2024 05/20/2014, 05/20/2014 Colorectal Cancer Screening 05/20/2024 COVID-19 Vaccine ( season) 2024 07/08/2021, 06/17/2021 Influenza Vaccine (FLU shot) (#1) 2024 08/17/2023, 07/29/2022, 07/29/2021, Additional history exists PAP SMEAR-EVERY 5 YRS,AGES 21-100 07/17/2024 07/17/2019, 12/15/2015, 12/15/2011, Additional history exists Depression Screening 12/29/2024 12/30/2023 GFR 06/16/2025 06/16/2024, 05/17, 05/31/2024, Additional history exists TSH 06/16/2025 06/16/2024, 05/17, 05/03/2024, Additional history exists Albumin/Creatinine Ratio 11/18/2025 11/18/2022, 0412/2021 Diabetes Screening 06/16/2027 06/16/2024, 0 06/16/2024, 06/01/2024, [...] this encounter Medical Devices Implanted Type Area Vice President Corporate Communications Device Identifier Shelf Expiration Date Model / Serial / Lot Device Tvt [id number] - [id number] Implanted:Qty: 1 on 04/15/2008 at OR [facility] N/A: Vagina Gynecare 11/17/2010 [id number] / / [id number] Mirena Iud Implanted:Qty: 1 on 09/16/2009 at OR [facility] Cervix [employer] 12/26/2009 / / [id number] Description:Mirena IUDCharge d for in DOUGH MIXER HELPER Clinic Screw Micro 16mm At2-C16-S - [id number] Implanted:Qty: 1 on 08/05/2014 at OR [facility] Left: Hand ACUMED 03/15/2015 AT2-C16-S / / [id number] documented as of this encounter Visit Diagnoses Diagnosis Ovarian neoplasm- Primary Neoplasm of unspecified nature of other genitourinary organs Body mass index (BMI) of 60.0 to 69.9 in adult (HCC) documented in this encounter Advance Directives Documents on File Type Date Recorded Patient External Grinder Tender Expl anation Advance Directives and Living Will 11/19/2004 Power of Application Defense Manager 11/19/2004 * Full Code (Latest Code Status [...] and were consensually agreed upon. Care Teams Claims Counsel Relationship Specialty Start Date End Date Katie Tejeda PA-C [address] [place] [address] L[place]IGA [address] PCP - General Physician Hat Lacer 09/05/19 documented as of this encounter
--- OUTSIDE RECORDS SUMMARY | 2024-06-27 05:53 | External Medical Summary ---
Author Name Unknown Address Unknown Organization [id number]:[facility] - [address] [facility] [address] Laboratory Report Ordering Provider Test Date Status TENNILLE MEI 06/16/2024 12:56:36 Final Observation Date Value Abnormality Reference (Units ) Status T4, Free 06/16/2024 12:56:36 1.3 0.9-1.7 (n g/dL) Final Performing Location [facility] - [address] [facility] [address]
--- OUTSIDE RECORDS SUMMARY | 2024-06-27 05:53 | External Medical Summary | Summary of Care ---
Author Name Unknown Organization [facility] Address [address] [place] [address] Phone [phone] Care Team Providers Care Light Coil Winder Name Role Phone Katie Tejeda PA-C Primary Care Provider [phone] Reason for Visit * Reason Comments Outpatient Testing Encounter Details Date Type Department Care Team (Late st Contact Info) Description 06/16/2024 12:50 PM EDT Laboratory Outpatient Laboratory, [place] [address] [place] [address] [place], [facility] [address] [address] [place] [address] Screening for condition; ESBL (extended spectrum beta-lactamase) producing bacteria infection; Acquired hypothyroidism; OAB (overactive bladder); Hypervolemia, unspecified hypervolemia type; Adnexal mass Allergies Active Allergy Reactions Criticality Noted Date [...] (Pfizer) 07/08/2021,06/17/2021 Pneumococcal Conjugate Vacci ne, 20-valent ([id number]) 06/01/2024(Deferred: Patient Refused) Seasonal Influenza, PF, 6 [...] No 12/30/2023 Does the household have a [facility] source of income? (Household - for ages [...] shopping? (15 years old or older) No 08/14/20 24 Cognitive Status Response Date of Assessm ent Because of a physical, menta l, or emotional condition, do you have serious difficulty concentrating, remembering, or making decisions? (5 years old or older) No 05/30/2024 documented as of this encounter Plan of Treatment Upcoming Encounters Date Type Department Care Team (Late st Contact Info) Description 07/01/2024 3:45 PM EDT Appointment MRI, [place] [address] [place] [address] 11/07/2024 3:00 PM EST Office Visit Urology, [place] [address] [place] [address] Diego Salas PA-C [address] [place] [place], [place] [id number] 02/20/2025 7:30 AM EDT Office Visit [facility] [address] [place] [address] Katie Tejeda PA-C [address] [place] [address] Scheduled Orders Name Type Priority Associated Diagnoses Orde r Schedule CBC Lab Routine ESBL (extended spectrum beta-lactamase) producing bacteria infection Ordered: 06/16/2024 DIFFERENTIAL, AUTOMATED Lab Routine ESBL (extended spectrum beta-lactamase) producing bacteria infection Ordered: 06/16/2024 Scheduled Procedures Name Priority Associated Diagnoses Date/Ti [...] this encounter Medical Devices Implanted Type Area Marketing Services Vice President Device Identifier Shelf Expiration Date Model / Serial / Lot Device Tvt [id number] - [id number] Implanted:Qty: 1 on 04/15/2008 at OR [facility] N/A: Vagina Gynecare 11/17/2010 [id number] / / [id number] Mirena Iud Implanted:Qty: 1 on 09/16/2009 at OR [facility] Cervix [employer] 12/26/2009 / / [id number] Description:Elizabeth IUDCharge d for in DELIVERY DRIVER/SUPERVISOR Clinic Screw Micro 16mm At2-C16-S - [id number] Implanted:Qty: 1 on 08/05/2014 at OR [facility] Left: Hand ACUMED 03/15/2015 AT2-C16-S / / [id number] documented as of this encounter Visit Diagnoses Diagnosis Screening for condition Screening for unspecified condition ESBL (extended spectrum beta-lactamase) producing bacteria infection Infection due to other specified bacteria in conditions classified elsewhere and of unspecified site Acquired hypothyroidism Unspecified hypothyroidism OAB (overactive bladder) Hypertonicity of bladder Hypervolemia, unspecified hypervolemia type Adnexal mass Other specified symptom associated with female genital organs documented in this encounter Advance Directives Documents on File Type Date Recorded Patient Sweet Pickled Fruit Maker Expl anation Advance Directives and Living Will 11/19/2004 Power of Fast Food Supervisor 11/19/2004 * Full Code (Latest Code Status [...] 09/27/2014 1:15 PM 09/27/2014 6:08 PM This orde r reflects the patients wishes and were consensually agreed upon. Care Teams Light Coil Winder Relationship Specialty Start Date End Date Katie Tejeda, DEREKC [address] [facility] [place]IG[place] [address] PCP - General Physician Account [employer] 09/05/19 documented as of this encounter
--- OUTSIDE RECORDS SUMMARY | 2024-06-27 05:53 | External Medical Summary ---
Author Name Unknown Address Unknown Organization [id number]:[facility] [place] [address] [facility] [address] Laboratory Report Ordering Provider Test Date Status TENNILLE MEI 06/16/2024 12:56:36 Final Observation Date Value Abnormality Reference (Units ) Status HbA1C 06/16/2024 12:56:36 5.2 4.0-5.6 (% ) Final The use of HbA1c to monitor glycemic status is based on normal hemoglobin and HbA composition. This test should not be used in patients with abnormal hemoglobin that affects the half life of the red blood cell or the in vivo glycation rates. Glucose, estimated average 06/16/2024 12:56:36 103 <126 (mg/dL) Final Performing Location [facility] - [address] [facility] [address]
--- OUTSIDE RECORDS SUMMARY | 2024-06-27 05:53 | External Medical Summary ---
Author Name Unknown Address Unknown Organization [id number]:[facility]ORATORY [facility] - [facility] [address] [facility] [address] Laboratory Report Ordering Provider Test Date Status RICHARD SQUIRES 06/16/2024 12:56:36 Final Observation Date Value Abnormality Reference (Units ) Status WBC, Total 06/16/2024 12:56:36 4.81 4.00-10.80 (K/uL) Final RBC 06/16/2024 12:56:36 4.49 3.85-5.15 (M/uL) Final Hemoglobin 06/16/2024 12:56:36 13.5 12.0-15.3 (g/dL) Final HCT 06/16/2024 12:56:36 43.0 36.0-45.2 (%) Final MCV 06/16/2024 12:56:36 95.8 81.5-97.5 (fL) Final MCH 06/16/2024 12:56:36 30.1 27.0-34.0 (pg) Final MCHC 06/16/2024 12:56:36 31.4 32.0-36.0 (g/dL) Final RDW 06/16/2024 12:56:36 13.7 11.5-15.5 (%) Final Platelets 06/16/2024 12:56:36 208 140-400 (K/uL) Final MPV 06/16/2024 12:56:36 10.0 6.6-11.1 (fL) Final Nucleated erythrocytes/100 leukocytes [Ratio] in Blood by Automated count 06/16/2024 12:56:36 0 <=0 (/100 WBCs) Final Performing Location LAB[facility]ATORY [facility] - [address] [facility] [id number]
[2024-06-27 05:54] LABS: Basophils # (auto) 0.02 K/uL (0.00-0.20); Basophils % (auto) 0.3 %; Hematocrit (blood only) 37.9 % (37.0-47.0); Immature Granulocytes # (auto) 0.01 K/uL (0.01-0.20); Immature Granulocytes % (auto) 0.2 %; Lymphocytes # (auto) 0.47 K/uL (1.20-3.40); Lymphocytes % (auto) 7.4 %; Mean Corpuscular Hgb Conc 31.7 g/dL (32.0-36.0); Mean Corpuscular Volume 91.5 fL (80.0-100.0); Monocytes # (auto) 0.16 K/uL (0.11-0.59); Monocytes % (auto) 2.5 %; Neutrophils # (auto) 5.65 K/uL (1.40-6.50); Neutrophils % (auto) 89.6 %; Platelet Count 152 K/uL (130-400); RDW Coefficient of Variation 13.9 % (11.5-14.5); RDW Standard Deviation 46.5 fL (36.4-46.3); Red Blood Count 4.14 M/uL (4.20-5.40); White Blood Count 6.31 K/ul (4.8-10.8)
--- OUTSIDE RECORDS SUMMARY | 2024-06-27 05:54 | External Medical Summary | Summary of Care ---
Author Name Unknown Organization [facility] Address [address] [place] [address] Phone [phone] Care Team Providers Care Human Resources Intern Name Role Phone Katie Null PA-C Primary Care Provider Reason for Visit * Reason Comments Medication Refill Encounter Details Date Type Department Care Team (Late st Contact Info) Description 06/04/2024 Refill Family [facility] [address] [place] [address] Katie Null PA-C [address] [place] [address] Acquired hypothyroidism Allergies Active Allergy Reactions Criticality Noted Date Comments Leflunomide Itching,Rash High 04/14/2017 After taking med for 3 months she had terrible rash and itching Hydroxychloroquine Sulfate 7 Rash documented as of this encounter (statuses as of 06/05/2024) Medications Medication Sig Dispensed Refills Start Date [...] of breath 18 g 3 05/03/2024 Active Nitrofurantoin Monohyd Macro 100 MG Oral Capsule (Macrobid) Take 1 Capsule by mouth in the morning and 1 Capsule before bedtime. Do all this for 6 days. 12 Capsule 06/01/2024 4 Active Furosemide 20 MG Oral Tablet (Lasix)Indications: Venous insufficiency Take 2 Tablets by mouth in the morning. 90 Tablet 3 06/01/2024 Active Levothyroxine Sodium 100 MCG Oral Tablet (Levoxyl)Indication s:Acquired hypothyroidism TAKE 1 TABLET BY MOUTH DAILY AT LEAST 30 MINUTES PRIOR TO FIRST MEAL OF THE DAY OR OTHER MEDICATIONS 90 Tablet 3 06/05/2024 Active Levothyroxine Sodium 100 MCG Oral Tablet (Levoxyl)Indication s:Acquired hypothyroidism TAKE 1 TABLET BY MOUTH DAILY AT LEAST 30 MINUTES PRIOR TO FIRST MEAL OF THE DAY OR OTHER MEDICATIONS 90 Tablet 03/13/2024 Discontinu ed(Refill) documented as of this encounter (statuses as of 06/05/2024) Active Problems Problem Noted Date Diagnosed Date OAB (overactive bladder) 05/15/2024 Body mass index [...] of urine 11/17/2015 Fatty liver 05/20/2014 Overview: C EGD U/S Obstructive sleep apnea of adult 04/02/2009 Female stress incontinence 04/15/2008 Hypothyroidism Moderate persistent asthma without complication Overview: excercise induced documented as of this encounter (statuses as of 06/05/2024) Resolved Problems Problem Noted Date Diagnosed Date [...] as of this encounter (statuses as of 06/05/2024) Immunizations Name Administration Dates Next Due COVID-19 mRNA, LNP-s, No Pre serve, 2-Dose Series (Pfizer) 07/08/2021,06/17/2021 Pneumococcal Conjugate Vacci ne, 20-valent ([id number]) 06/01/2024(Deferred: Patient Refused) Seasonal Influenza, PF, 6 [...] encounter Miscellaneous Notes * Telephone Encounter - Candelaria Duncan [facility] - 06/05/2024 11:32 AM EDT Signed Prescriptions: Disp Refills Levothyroxine Sodium 100 MCG Oral Tablet (*90 Tab*3 Sig: TAKE 1TABLET BY MOUTH DAILY AT LEAST 30 MINUTES PRIOR TO FIRST MEAL OF THE DAY OR OTHER MEDICATIONSAuthorizing Provider: KATIE NULL User: CANDELARIA DUNCAN Electronically signed by Candelaria Duncan [facility] at 06/05/2024 11:32 AM EDT documented in this encounter Plan of Treatment Upcoming Encounters Date Type Department Care Team (Late st Contact Info) Description 06/06/2024 10:00 AM EDT [facility] [address] [place] [address] Diego Salas PA-C [address] [place] [address] 06/13/2024 2:00 PM EDT Office Visit [facility] [address] [phone] Katie Null PA-C [address] [place] [address] 02/20/2025 7:30 AM EDT Office Visit [facility] [address] [place] [address] Katie Null PA-C [address] [place] [phone] Scheduled Procedures Name Priority Associated Diagnoses Date/Ti [...] Blood Test 2008 Sigmoidoscopy 2008 COVID-19 Vaccine (3 - 2022- season) 2023 07/08/2021, 06/17/2021 Mammogram [...] 11/18/2027 11/18/2022, 01/15, 01/23/2021, Additional history exists DTaP,Tdap,and Td Vaccines (3 - Td or Tdap) 07/29/2031 [...] this encounter Medical Devices Implanted Type Area Neurologist Device Identifier Shelf Expiration Date Model / Serial / Lot Device Tvt [id number] - [id number] Implanted:Qty: 1 on 04/15/2008 at [place] [facility] N/A: Vagina Gynecare 11/17/2010 [id number] / / [id number] Mirena Iud Implanted:Qty: 1 on 09/16/2009 at [place] [facility] C[employer] 12/26/2009 / / [id number] Description:Mirena IUDCharge d for in RISK [facility] Screw Micro 16mm At2-C16-S - [id number] Implanted:Qty: 1 on 08/05/2014 at [place] [facility] Left: Hand ACUMED 03/15/2015 AT2-C16-S / / [id number] documented as of this encounter Visit Diagnoses Diagnosis Acquired hypothyroidism Unspecified hypothyroidism documented in this encounter Advance Directives Documents on File Type Date Recorded Patient Brick Yard Hand Expl anation Advance Directives and Living Will 11/19/2004 Power of Stereoptic Projection Topographer 11/19/2004 * Full Code (Latest Code Status [...] and were consensually agreed upon. Care Teams Human Resources Intern Relationship Specialty Start Date End Date Katie Null PA-C [address] [place] [address] LENNI ARECHIGA [id number] PCP - General Physician Air Chipper 09/05/19 documented as of this encounter
--- OUTSIDE RECORDS SUMMARY | 2024-06-27 05:54 | External Medical Summary | Summary of Care ---
Author Name Unknown Organization [facility] Address [address] [place] [address] Phone [phone] Care Team Providers Care Code Machine Operator Name Role Phone Katie Tejeda PA-C Primary Care Provider [phone] Reason for Referral * Evaluate & Treat - Unlimited Visits (Within 10 days (routine)) - Authorized Specialty Diagnoses / Procedures Referred By Keyur jacobs Referred To Contact Urology Diagnoses Recurrent UTI Katie Tejeda PA-C [address] [place] [address] Referral ID Status Reason Start Date Expiration Date Visits Requested Visits Authorized [id number] Authorized Specialty Services Required 06/01/[phone] Question Answer Referral Priority Within 10 days (routine) Where should this appointment be scheduled? [facility] What is the patient being referred for? Urinary Concerns Reason for Visit * Reason Onset Date Comments Referral 06/01/2024 Encounter Details Date Type Department Care Team (Late st Contact Info) Description 06/01/2024 Telephone Family [facility] [address] [place], [place] [phone] [place] [address] Referral Allergies Active Allergy Reactions Criticality Noted Date [...] before bedtime. Active valACYclovir (VALTREX) 1000 MG TabletIndications:Re current cold sores TAKE 1 TABLET BY MOUTH [...] Active FLUoxetine HCl 20 MG Oral Capsule (PROzac)Indications: Mood disorder (HCC) TAKE ONE CAPSULE BY MOUTH EVERY MORNING 90 Capsule 3 11/14/2023 5 Active Fluticasone-Salmeter ol 250-50 MCG/ACT Inhalation Aerosol Powder Breath Activated (Advair Diskus)Indications:M oderate persistent asthma without complication Inhale 1 Puff by mouth in the morning and 1 Puff before bedtime. 180 Each 3 01/02/2024 Active Levothyroxine Sodium 100 MCG Oral Tablet (Levoxyl)Indications :Acquired hypothyroidism TAKE 1 TABLET BY MOUTH DAILY AT LEAST 30 MINUTES PRIOR TO FIRST MEAL OF THE DAY OR OTHER MEDICATIONS 90 Tablet 03/13/2024 5 Active Ventolin HFA 108 (90 Base) MCG/ACT Inhalation Aerosol SolutionIndications: Moderate persistent asthma without complication Inhale 2 Puffs by mouth every 4 hours as needed for shortness of breath 18 g 3 05/03/2024 Active Nitrofurantoin Monohyd Macro 100 MG Oral Capsule (Macrobid) Take 1 Capsule by mouth in the morning and 1 Capsule before bedtime. Do all this for 6 days. 12 Capsule 06/01/2024 4 Active Furosemide 20 MG Oral Tablet (Lasix)Indications:V enous insufficiency Take 2 Tablets by mouth in the morning. 90 Tablet 3 06/01/2024 Active documented as of this encounter (statuses [...] urine 11/17/2015 Fatty liver 05/20/2014 Overview: [facility] EGD U/S Obstructive sleep apnea of adult [...] (Pfizer) 07/08/2021,06/17/2021 Pneumococcal Conjugate Vacci ne, 20-valent ([id number]) 06/01/2024(Deferred: Patient Refused) Seasonal Influenza, PF, 6 [...] No 12/30/2023 Does the household have a [facility] general hospitallar source of income? (Household - for ages [...] encounter Miscellaneous Notes * Telephone Encounter - Kristen Vasquez LPN - 06/05/2024 10:32 AM EDT patient aware. Pt has appointment tomorrow * Telephone Encounter - Katie Tejeda PA-C - 06/01/2024 8:07 PM EDT Please call pt and let her know that I placed a referral to urology dur to her recurrent UTI's Katie Tejeda PA-C documented in this encounter Plan of Treatment Upcoming Encounters Date Type Department Care Team (Late st Contact Info) Description 06/06/2024 10:00 AM EDT [facility] [address] [place] [address] Diego Salas PA-C [address] [place] [address] 06/13/2024 2:00 PM EDT Office Visit [facility] [address] [place] [address] Katie Tejeda PA-C [address] [place] [address] 02/20/2025 7:30 AM EDT Office Visit [facility] [address] [place] [address] Katie Tejeda PA-C [address] [place] [address] Scheduled Procedures Name Priority Associated Diagnoses Date/Ti me IMPLANTATION NEUROSTIMULATOR SACRAL NERVE OAB (overactive bladder) Urge incontinence of urine PERIPH NEUROSTIM INSERT/REPLACE OAB (overactive bladder) Urge incontinence of urine COLONOSCOPY FLEXIBLE PROXIMA L DIAGNOSTIC Recall History of colonoscopy Scheduled Referrals Name Type Priority Associated Diagnoses Orde r Schedule ADULT/PEDS UROLOGY REFERRAL OP Referral Within 10 days (routine) Recurrent UTI Ordered: 06/01/2024 Health Maintenance Due Date Last Done Comments [...] this encounter Medical Devices Implanted Type Area Manager Power Device Identifier Shelf Expiration Date Model / Serial / Lot Device Tvt [id number] - [id number] Implanted:Qty: 1 on 04/15/[address] [facility] N/A: Vagina Gynecare 11/17/2010 [id number] / / [id number] Mirena Iud Implanted:Qty: 1 on 09/16/[address] [facility] [employer] 12/26/2009 / / [id number] Description:Mirena IUDCharge d for in FIRE SPRINKLER FITTER Clinic Screw Micro 16mm At2-C16-S - [id number] Implanted:Qty: 1 on 08/05/[address] [facility] Left: Hand ACUMED 03/15/2015 AT2-C16-S / / [id number] documented as of this encounter Visit Diagnoses Diagnosis Recurrent UTI- Primary Urinary tract infection, site not specified documented in this encounter Advance Directives Documents on File Type Date Recorded Patient Agile Coach Expl anation Advance Directives and Living Will 11/19/2004 Power of Expense Clerk 11/19/2004 * Full Code (Latest Code Status [...] and were consensually agreed upon. Care Teams Code Machine Operator Relationship Specialty Start Date End Date Katie Tejeda PA-C [address] [place] [address] [place] [id number] PCP - General Physician Eclectic Doctor 09/05/19 documented as of this encounter
--- OUTSIDE RECORDS SUMMARY | 2024-06-27 05:54 | External Medical Summary | Summary of Care ---
Author Name Unknown Organization [facility] Address [address] [place] [address] Phone [phone] Care Team Providers Care Manager Meeting Name Role Phone Katie Null PA-C Primary Care Provider [phone] Reason for Visit * Reason Comments NEW PATIENT * Evaluate & Treat - Unlimited Visits (Within 10 days (routine)) - Authorized Specialty Diagnoses / Procedures Referred By Keyur jacobs Referred To Contact Urology Diagnoses Recurrent UTI Katie Null PA-C [address] [place] [address] Referral ID Status Reason Start Date Expiration Date Visits Requested Visits Authorized [id number] Authorized Specialty Services Required 06/01/2024 [id number] Encounter Details Date Type Department Care Team (Late st Contact Info) Description 06/06/2024 10:00 AM EDT Office Visit Urology, [place] [address] [place] [address] Diego Salas PA-C [address] [place] [address] Frequent UTI*; Urge incontinence of urine; Urgency of urination Allergies Active Allergy Reactions Criticality Noted Date Comments Leflunomide Itching,Rash High 04/14/2017 After taking med for 3 months she had terrible rash and itching Hydroxychloroquine Sulfate 7 Rash documented as of this encounter (statuses as of 06/06/2024) Medications Medication Sig Dispensed Refills Start Date End Date Status [facility] Products (TURMERIC CURCUMIN) CAPS Take 1 [...] as of this encounter (statuses as of 06/06/2024) Active Problems Problem Noted Date Diagnosed Date [...] of urine 11/17/2015 Fatty liver 05/20/2014 Overview: [facility] EGD U/S Obstructive sleep apnea of adult 04/02/2009 Female stress incontinence 04/15/2008 Hypothyroidism Moderate persistent asthma without complication Overview: excercise induced documented as of this encounter (statuses as of 06/06/2024) Resolved Problems Problem Noted Date Diagnosed Date [...] as of this encounter (statuses as of 06/06/2024) Immunizations Name Administration Dates Next Due COVID-19 mRNA, LNP-s, No Pre serve, 2-Dose Series (Pfizer) 07/08/2021,06/17/2021 Pneumococcal Conjugate Vacci ne, 20-valent ([id number]) 06/01/2024(Deferred: Patient Refused) Seasonal Influenza, PF, 6 [...] No 12/30/2023 Does the household have a [facility] source of income? (Household - for ages [...] Sign Reading Time Taken Comments Blood Pressure 139/67 06/06/2024 9:50 AM EDT Pulse 61 06/06/2024 9:50 AM EDT Temperature 36.9 C (98.4 F) 06/06/2024 9:50 AM ED T Respiratory Rate - - Oxygen Saturation - - Inhaled Oxygen Concentration - - Weight - - Height - - Body Mass Index - - documented in this encounter Functional Status Functional [...] as of this encounter Progress Notes * Diego Salas PA-C - 06/06/2024 10:00 AM EDT UROLOGY CLINIC NOTE 06/06/2024 10:00 AM PCP: KATIE NULL [address] [place] [address] [place] [address] [phone] HPI: Liane Gutierrez MR# [id number] is a 59 year old female presents in consultation from Katie Null PA-C for evaluation of recurrent UTI. Patient reports she has had 3 UTIs over the past year. No prior history recurring/frequent UTIs in the past. Reports throughout her adult lifetime she has only had a few UTIs sporadically. No childhood UTIs. She denies any history of kidney stones. Last positive urine culture 05/30/24 growing E.coli treated with Nitrofurantoin She is currently being followed by Dr. Key in UroGynecology due to long standing h/o urinary urgency/urge incontinence. Patient has previously tried and failed Myrbetriq, Detrol, VESIcare for her bothersome irritative urinary symptoms and reports she was in his in the process of being considered for InterStim neuromodulation system. Patient has a prior history of mid/sub urethral sling procedure with Gynecare TVT system performed by Dr. Tena in UroGyn in 2007 Patient reports she generally consumes 16-24 oz of water daily, 1-2 bottles of soda daily and some tea throughout the day. BMs are 1-2 times daily most days. Patient reports she was currently postmenopausal for the past 10+ years. Patient reports she had previously occasionally been sexually active however has not been sexually active since her UTI started earlier this year Currently denies fever, chills, change in weight or appetite, dysuria, gross hematuria, incomplete bladder emptying sensation Review of patient's allergies indicates: Allergen Reactions Arava [Leflunomide] Itching and Rash After taking med for 3 months she had terrible rash and itching Plaquenil [Hydroxychloroquine Sulfate] Rash Current Outpatient Medications Medication Sig Dispense Refill [facility] Natural Products (TURMERIC CURCUMIN) CAPS Take 1 [...] for shortness of breath 18 g 3 Nitrofurantoin Monohyd Macro 100 MG Oral Capsule (Macrobid) Take 1 Capsule by mouth in the morning and 1 Capsule before bedtime. Do all this for 6 days. 12 Capsule 0 Furosemide 20 MG Oral Tablet (Lasix) Take 2 Tablets by mouth in the morning. 90 Tablet 3 Levothyroxine Sodium 100 MCG Oral Tablet (Levoxyl) TAKE 1 TABLET BY MOUTH DAILY AT LEAST 30 MINUTESPRIOR TO FIRST MEAL OF THE DAY OR OTHER MEDICATIONS 90 Tablet 3 No current facility-administered medications for this visit. Patient Active Problem List Diagnosis Hypothyroidism Advance directive discussed with patient Female stress incontinence Obstructive sleep apnea of adult Moderate persistent asthma without complication Fatty liver Urge incontinence of urine Chronic constipation Chronic venous insufficiency Rheumatoid arthritis involving multiple sites with positive rheumatoid factor ([facility]) Hypertension goal BP (blood pressure) < 140/90 Mood disorder ([facility]) Lymphedema Complicated UTI (urinary tract infection) ESBL (extended spectrum beta-lactamase) producing bacteria infection Body mass index (BMI) of 60.0 to 69.9 in adult ([facility]) OAB (overactive bladder) Past Medical History: Diagnosis Date Adult body mass index 50.0-59.9 ([facility]) 03/31/2010 ADVANCE DIRECTIVE INFORMATION 04/08/2005 No, Advance Directive brochure offered , patient declined. 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 Fatty liver 05/20/14 [facility] EGD U/S FEM STRESS INCONTINENCE 04/15/2008 Herpes simplex without mention of complication Obstructive sleep apnea (adult) (pediatric) 04/02/2009 CPAP OTHER 06/21 [facility] Other specified anemias w/ menstruation Plantar fibromatosis Reflex sympathetic dystrophy of the upper limb 01/05/2013 Special screening for malignant neoplasms, colon 05/20/14 [facility] colonoscopy Past Surgical History: Procedure Laterality Date APPLY BONE FIXATION DEVICE,UNIPLANE 10/08/2013 APPLICATION OF EXTERNAL FIXATOR UNIPLANE performed by Jacky Amaya MD at [facility] 1995 COLONOSCOPY, DIAGNOSTIC (RECTUM) 05/20/2014 COLONOSCOPY FLEXIBLE PROXIMAL DIAGNOSTIC performed by Elian Dodd MD at ENDOSCOPY [facility] DILATION AND CURETTAGE (D&C) 2008 EGD, FLEXIBLE, DIAGNOSTIC 05/20/2014 ESOPHAGOGASTRODUODENOSCOPY (EGD), FLEXIBLE, TRANSORAL, DIAGNOSTIC performed by Elian Dodd MD atENDOSCOPY [facility] EGD, W/ENDOSCOPIC US 05/20/2014 ESOPHAGOGASTRODUODENOSCOPY (EGD), FLEXIBLE, TRANSORAL, ENDOSCOPIC ULTRASOUND performed by Elian Dodd MD at ENDOSCOPY [facility] ENDOMETRIAL THERMAL ABLATE 09/16/09 ENDOMETRIAL THERMAL ABLATION performed by MARY ANN MORAN at OR [facility] FUSION OF FINGER JOINT 08/05/2014 ARTHRODESIS INTERPHALANGEAL JOINT performed by Jacky Amaya MD at OR [facility] HYSTEROSCOPY W/BIOPSY AND/OR POLYPECTOMY W/WO D&C 04/28/07 HYSTEROSCOPY WITH BIOPSY performed by MARY ANN MORAN at OR [facility] HYSTEROSCOPY W/BIOPSY AND/OR POLYPECTOMY W/WO D&C 09/16/09 HYSTEROSCOPY WITH BIOPSY performed by MARY ANN MORAN at OR [facility] HYSTEROSCOPY W/BIOPSY AND/OR POLYPECTOMY W/WO D&C N/A 09/27/2014 HYSTEROSCOPY WITH BIOPSY AND/OR POLYPECTOMY performed by Rowan Moreno MD at OR [facility] INSERT INTRAUTERINE DEVICE (IUD) N/A 09/27/2014 INSERTION OF INTRAUTERINE DEVICE performed by Rowan Moreno MD at OR [facility] LAPAROSCOPY; CHOLECYSTECTOMY 08/02/01 Clarke Gagnon. PELVIC EXAM UNDER ANESTHESIA, NOT LOCAL N/A 02/17/2022 PELVIC EXAMINATION UNDER ANESTHESIA performed by Heidi Acosta MD at OR [facility] PHALANX SHAFT FX, OPEN TX, HAND, W/INTER FIXATION 08/16/2011 OPEN TREATMENT PHALANGEAL SHAFT performed by JACKY AMAYA at OR [facility] RELEASE KNUCKLE CONTRACTURE, EACH 01/28/2012 CAPSULECTOMY CAPSULOTOMY METACARPOPHALANGEAL performed by JACKY AMAYA at [facility] RELEASE PALM & FINGER TENDON, EACH 05/22/2012 TENOLYSIS FLEXOR PALM AND FINGER performed by Jacky Amaya MD at [facility] REMOVAL OF APPENDIX 1992 REMOVAL OF TONSILS, AGE 12+ 01/14/[address] Mcclellan (), [facility], [place], [place] REMOVE IMPLANT FROM HAND/FINGER 01/07/2014 REMOVAL OF FINGER IMPLANT performed by Jacky Amaya MD at OR [facility] REMOVE INTRAUTERINE DEVICE (IUD) 02/17/2022 REMOVAL OF INTRAUTERINE DEVICE performed by Heidi Acosta MD at OR [facility] REPAIR BLADDER DEFECT 04/15/08 VAGINAL SLING PROCEDURE FOR STRESS INCONTINENCE performed by JASS TENA at OR [facility] REVISION OF PALATE, PHARYNX/UVULA 01/14/04 UPPP Family History Problem Relation Name Age of [...] Grandfather (Paternal) OHA Breast Cancer Aunt (Paternal) Social History Socioeconomic History Marital status: Spouse name: Marcellus Number of children: 1 Years of education: 13 Occupational History 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 (Adult - for ages 18 years and over): No Do you think you are at risk of becoming homeless? (Adult - for ages 18 years and over): No Review of Systems: CONSTITUTIONAL: Denies fatigue, night sweats SKIN: Denies rash, erythema NEURO: Denies headache, dizziness, slurred speech, seizure, stroke EENT: Denies visual changes, hearing loss, tinnitus, epistaxis CARDIAC: Denies recent chest pain, palpitation, murmur, CHF RESPIRATORY: Denies SOB, Asthma, emphysema, wheezing, cough GI: Denies nausea, vomiting, diarrhea, constipation : see HPI ENDOCRINE: Denies hot/cold intolerance, hair loss, brittle nails MUSCULOSKELETAL: Denies muscle weakness, swelling HEMATOLOGIC: Denies prior h/o DVT, Anemia, spontaneous bruising PSYCHOLOGICAL: Denies h/o panic attacks, bipolar disorder ALL OTHER SYSTEMS NEGATIVE PHYSICAL EXAM: BP 139/67 (BP Site: Left Arm, BP Position: Sitting, BP Cuff Size: Regular) | Pulse 61 | Temp 36.9 C (98.4 F) (Tympanic) | LMP (LMP Unknown) General: alert, no distress,well developed,well nourished,cooperative HEENT: unremarkable, mucus membranes moist, sclera anicteric, no hearing impairment Neck: no masses Heart: regular rate & rhythm Lungs: lungs clear to auscultation ABDOMEN: Soft, obese, non-tender. BS normal, No masses, organomegaly BACK: No costo-vertebral angle tenderness Extremities: no edema, no skin discoloration, no clubbing, no cyanosis Neuro: alert & oriented x 3 with fluent speech, no focal motor/sensory deficits, gait normal GENITALIA:Female : deferred by patient RADIOLOGY: CT scan abdomen/pelvis with IV contrast 05/30/2024 Adrenal glands: Within normal limits. Kidneys and ureters and bladder: Within normal limits. PVR. 06/06/2024: 19ml Impression: Liane Gutierrez is a 59 year old female with: 1. History of overactive bladder/urinary urgency/urge incontinence previously tried and failed Myrbetriq, Detrol, VESIcare, prior history of mid/sub urethral sling procedure with Gynecare TVT system in 2007 2. Possible frequent UTIs this patient was has a experience 3 separate UTIs in 2023--most recent being 05/2024. No evidence of renal/ureteral/bladder stones on recent CT scan imaging as cause of frequent UTIs 3. Postmenopausal--possible postmenopausal atrophic vaginitis(genitourinary syndrome of menopause) Plan: 1. Recommend increased daily water intake to proximally 64-80 oz of water daily to keep herself hydrated and reduce risk of UTIs 2. Discussed consideration of atrophic vaginitis/GSM as potential cause of her recurrent UTIs giventhat she has been postmenopausal for the past 10+ years given decreased estrogen potential as thesecould potentially lead to urinary symptoms/recurrent UTIs will start patient on Estrace vaginal cream apply periurethral only times weekly. Script sent to pharmacy 3. Follow up with UroGynecology regarding her bothersome irritative urinary symptoms. Also recommend consideration of pelvic exam by UroGyn to assess prior mid/suburethral sling procedure that [place] [address] Tena assure there was no urethral erosion as potential cause of her new onset UTIs--patient deferred exam in Urology clinic today. 4. RTC 4 months follow-up Diego Salas PA-C 10:00 AM 06/06/2024 documented in this encounter Plan of Treatment Upcoming Encounters Date Type Department Care Team (Late st Contact Info) Description 06/11/2024 3:15 PM EDT Imaging Radiology [address] [address] 06/13/2024 2:00 PM EDT Office Visit [address] [address] Katie Null PA-C [address] [place] [id number] 07/01/2024 3:45 PM EDT Appointment MRI, [place] [address] [place] [address] 11/07/2024 3:00 PM EST Office Visit Urology, [place] [address] [place] [address] Diego Salas PA-C [facility] [place] [address] 02/20/2025 7:30 AM EDT Office Visit [address] [address] Katie Null PA-C [address] [place] [phone] Scheduled Procedures Name Priority Associated Diagnoses Date/Ti [...] this encounter Medical Devices Implanted Type Area Regional Extension Service Specialist Device Identifier Shelf Expiration Date Model / Serial / Lot Device Tvt [id number] - [id number] Implanted:Qty: 1 on 04/15/2008 at [place] [facility] N/A: Vagina Gynecare 11/17/2010 [id number] / / [id number] Mirena Iud Implanted:Qty: 1 on 09/16/2009 at [place] [facility] Cervix Sapiens 12/26/2009 / / [id number] Description:Mirena IUDCharge d for in [facility] Screw Micro 16mm At2-C16-S - [id number] Implanted:Qty: 1 on 08/05/2014 at [place] [facility] Left: Hand ACUMED 03/15/2015 AT2-C16-S / / [id number] documented as of this encounter Visit Diagnoses Diagnosis Frequent UTI- Primary Urinary tract infection, site not specified Urge incontinence of urine Urge incontinence Urgency of urination Screening mammogram for breast cancer documented in this encounter Advance Directives Documents on File Type Date Recorded Patient Inventory Taker Expl anation Advance Directives and Living Will 11/19/2004 Power of Spent Grain Dryer 11/19/2004 * Full Code (Latest Code Status [...] and were consensually agreed upon. Care Teams Manager Meeting Relationship Specialty Start Date End Date Katie Null PA-C [address] [place] [address] [place] [address] PCP - General Physician Certified Medical Dosimetrist 09/05/19 documented as of this encounter"
--- OUTSIDE RECORDS SUMMARY | 2024-06-27 05:55 | External Medical Summary ---
Author Name Unknown Address Unknown Organization [id number] [address] [facility] [address] Laboratory Report Ordering Provider Test Date Status KIANNA LINDSEY 05/31/2024 07:26:00 Final Observation Date Value Abnormality Reference (Units ) Status Magnesium 05/31/2024 07:26:00 2.1 1.5-2.6 (m g/dL) Final Performing Location [facility] [address] [facility] [address]
--- OUTSIDE RECORDS SUMMARY | 2024-06-27 05:55 | External Medical Summary ---
Author Name Unknown Address Unknown Organization [id number] [address] [facility] [address] Laboratory Report Ordering Provider Test Date Status KIANNA LINDSEY 05/30/2024 08:09:00 Final Observation Date Value Abnormality Reference (Units ) Status T4, Free 05/30/2024 08:09:00 1.5 0.9-1.7 (n g/dL) Final Performing Location [facility] [address] [facility] [address]
--- OUTSIDE RECORDS SUMMARY | 2024-06-27 05:55 | External Medical Summary ---
Author Name Unknown Address Unknown Organization [id number][facility] [place] [address] [facility] [address] Laboratory Report Ordering Provider Test Date Status KRIS CASTRO 05/30/2024 08:12:00 Final Observation Date Value Abnormality Reference (Units ) Status WBC, Total 05/30/2024 08:12:00 5.39 4.00-10.80 (K/uL) Final RBC 05/30/2024 08:12:00 4.20 3.85-5.15 (M/uL) Final Hemoglobin 05/30/2024 08:12:00 12.5 12.0-15.3 (g/dL) Final HCT 05/30/2024 08:12:00 39.8 36.0-45.2 (%) Final MCV 05/30/2024 08:12:00 94.8 81.5-97.5 (fL) Final MCH 05/30/2024 08:12:00 29.8 27.0-34.0 (pg) Final MCHC 05/30/2024 08:12:00 31.4 32.0-36.0 (g/dL) Final RDW 05/30/2024 08:12:00 13.9 11.5-15.5 (%) Final Platelets 05/30/2024 08:12:00 153 140-400 (K/uL) Final MPV 05/30/2024 08:12:00 9.9 6.6-11.1 (fL) Final Nucleated erythrocytes/100 leukocytes [Ratio] in Blood by Automated count 05/30/2024 08:12:00 0 <=0 (/100 WBCs) Final Performing Location [facility] [place] [address] [facility] [address]
--- OUTSIDE RECORDS SUMMARY | 2024-06-27 05:55 | External Medical Summary ---
Author Name Unknown Address Unknown Organization [id number] [address] [facility] [address] Laboratory Report Ordering Provider Test Date Status KIANNA LINDSEY 05/31/2024 21:18:00 Final Observation Date Value Abnormality Reference (Units ) Status Magnesium 05/31/2024 21:18:00 1.9 1.5-2.6 (m g/dL) Final Performing Location [facility] [address] [facility] [address]
--- OUTSIDE RECORDS SUMMARY | 2024-06-27 05:55 | External Medical Summary ---
Author Name Unknown Address Unknown Organization [id number]:[facility] [address] [facility] [address] Laboratory Report Ordering Provider Test Date Status KIANNA LINDSEY 05/30/2024 18:36:00 Final Observation Date Value Abnormality Reference (Units ) Status Magnesium 05/30/2024 18:36:00 1.8 1.5-2.6 (m g/dL) Final Performing Location [facility] [address] [facility] [address]
--- OUTSIDE RECORDS SUMMARY | 2024-06-27 05:55 | External Medical Summary | Summary of Care ---
Author Name Unknown Organization [facility] Address [address] [place] [address] Phone [phone] Care Team Providers Care Sample Wrapper Name Role Phone Katie Tejeda PA-C Primary Care Provider Reason for Visit * Auth/Cert Specialty Diagnoses / Procedures Referred By Keyur t Referred To Contact Diagnoses Volume overload Elin Cosby MD [address] [facility] [place] [address] [place] [facility] [address] [place] [address] Referral ID Status Reason Start Date Expiration Date Visits Re quested Visits Authorized [id number] Encounter Details Date Type Department Care Team (Latest Contact Info) Description 05/31/2024 7:30 AM EDT - 05/31/2024 11:59 PM EDT Hospital Encounter Cardiac Studies [facility] [address] [id number] Discharge Disposition: Home - Self Care Allergies Active Allergy Reactions Criticality Noted Date Comments Leflunomide Itching,Rash High 04/14/2017 After taking med for 3 months she had terrible rash and itching Hydroxychloroquine Sulfate 7 Rash documented as of this encounter (statuses as of 06/01/2024) Medications Medication Sig Dispensed Refills Start Date End Date Status Misc Natural Products (TURMERIC CURCUMIN) CAPS Take 1 Capsule by mouth in the morning and 1 Capsule before bedtime. Suspended valACYclovir (VALTREX) 1000 MG TabletIndications:R ecurrent cold sores TAKE 1 TABLET BY MOUTH EVERY 12 HOURS FOR 1 DAY FOR COLD SORES 20 Tab 3 9 Suspended Additional Information Triamcinolone Acetonide 0.1 % External Cream (Aristocort) Apply topically to affected area 2 times a day. To affected area. 80 g 5 1 Suspended Additional Information Adalimumab 40 MG/0.8ML Subcutaneous Pen-injector Kit (Humira) Inject 40 mg (1 pen) under the skin every 14 days. 2 mL 11 3 Suspended Additional Information sulfaSALAzine 500 MG Oral Tablet (Azulfidine) Take 3 Tablets by mouth in the morning and 3 Tablets before bedtime. 540 Tablet 3 3 Suspended Additional Information Refresh 1.4-0.6 % Ophthalmic Solution (polyvinyl alcohol-povidone PF) Instill 1 Drop into both eyes as needed. Suspended Betamethasone Dipropionate 0.05 % External Ointment Apply 2 times a day to the rash on arms, legs, abdomen x 2-3 weeks until clear 80 g 1 4 Suspended Additional Information FLUoxetine HCl 20 MG Oral Capsule (PROzac)Indications :Mood disorder (HCC) TAKE ONE CAPSULE BY MOUTH EVERY MORNING 90 Capsule 3 4 11/13/19 25 Suspended Additional Information Furosemide 20 MG Oral Tablet (Lasix)Indications: Venous insufficiency TAKE ONE TABLET BY MOUTH EVERY MORNING 90 Tablet 3 4 06/01/20 24 Discontinued Fluticasone-Salmete rol 250-50 MCG/ACT Inhalation Aerosol Powder Breath Activated (Advair Diskus)Indications: Moderate persistent asthma without complication Inhale 1 Puff by mouth in the morning and 1 Puff before bedtime. 180 Each 3 4 Suspended Additional Information Levothyroxine Sodium 100 MCG Oral Tablet (Levoxyl)Indication s:Acquired hypothyroidism TAKE 1 TABLET BY MOUTH DAILY AT LEAST 30 MINUTES PRIOR TO FIRST MEAL OF THE DAY OR OTHER MEDICATIONS 90 Tablet 4 03/13/20 25 Suspended Additional Information Ventolin HFA 108 (90 Base) MCG/ACT Inhalation Aerosol SolutionIndications :Moderate persistent asthma without complication Inhale 2 Puffs by mouth every 4 hours as needed for shortness of breath 18 g 3 4 Suspended Additional Information Sulfamethoxazole-Tr imethoprim 800-160 MG Oral Tablet (Bactrim DS) Take 1 Tablet by mouth in the morning and 1 Tablet before bedtime. Do all this for 7 days. Until gone. 14 Tablet 4 06/01/20 24 Discontinued documented as of this encounter (statuses as of 06/01/2024) Active Problems Problem Noted Date Diagnosed Date [...] as of this encounter (statuses as of 06/01/2024) Resolved Problems Problem Noted Date Diagnosed Date [...] as of this encounter (statuses as of 06/01/2024) Immunizations Name Administration Dates Next Due COVID-19 mRNA, LNP-s, No Pre serve, 2-Dose Series (Pfizer) 07/08/2021,06/17/2021 Seasonal Influenza, PF, 6 M & above, [...] Care Team (Late st Contact Info) Description 02/20/2025 7:30 AM EDT Office Visit Family Practice, [facility] [address] [id number] Katie Tejeda PA-C [address] [id number] Scheduled Procedures Name Priority Associated Diagnoses Date/Ti [...] Additional history exists Albumin/Creatinine Ratio 11/18/2025 11/18/2022, 04/1 12/2021 Diabetes Screening 06/01/2027 06/01/2024, 0 05/31/2024, 05/31/2024, [...] this encounter Medical Devices Implanted Type Area Shredded Filler Cigar Maker Machine Device Identifier Shelf Expiration Date Model / Serial / Lot Device Tvt [id number] - [id number] Implanted:Qty: 1 on 04/15/2008 at OR [facility] [place] N/A: Vagina Gynecare 11/17/2010 [id number] / / [id number] Mirena Iud Implanted:Qty: 1 on 09/16/2009 at OR [facility] [place] [employer] 12/26/2009 / / [id number] Description:Mirena IUDCharge d 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 Screw Micro 16mm At2-C16-S - [id number] Implanted:Qty: 1 on 08/05/2014 at OR [facility] [place] Left: Hand ACUMED 03/15/2015 AT2-C16-S / / [id number] documented as of this encounter Procedures Procedure Name Priority Date/Time Associated Diagnosis Comments ECHO, COMPLETE (2D), TRANS-THORACIC Routine 05/31/2024 10:14 AM EDT Heart failure (HCC) documented in this encounter Visit Diagnoses Diagnosis Hypervolemia, unspecified hypervolemia type- Primary Shortness of breath Hypertension goal BP (blood pressure) < 140/90 Unspecified essential hypertension documented in this encounter Administered Medications Inactive Administered Medications - up to 3 most recent administrations Medication Order MAR Action Action Date Dose Rate Site perflutren lipid microsphere inj SUSP 1.956 mg 1.956 mg, Intravenous, ONCE PRN Other, For Echo Only - Suboptimal Echo Images, Starting on Gita 05/31/24 at 0931, Until Gita 05/31/24 at 1130, For 2 hours, Administer IVP over 45 seconds, Cardiac Studies_HODHOV Given 05/31/2024 9:31 AM EDT 1.956 mg documented in this encounter Advance Directives Documents on File Type Date Recorded 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 Care Teams Sample Wrapper Relationship Specialty Start Date End Date Katie Tejeda PA-C [address] [place] [address] [place] [place] [address] PCP - General Physician Sales/Marketing 09/05/19 documented as of this encounter
--- OUTSIDE RECORDS SUMMARY | 2024-06-27 05:55 | External Medical Summary ---
Author Name Unknown Address Unknown Organization [id number]:[facility] [place] - [address] [facility] [address] Laboratory Report Ordering Provider Test Date Status KIANNA LINDSEY 05/30/2024 08:09:00 Final Observation Date Value Abnormality Reference (Units ) Status TSH 05/30/2024 08:09:00 5.09 Above high normal 0. 27-4.20 (uIU/mL) Final Performing Location [facility] - [address] [facility] [address]
--- OUTSIDE RECORDS SUMMARY | 2024-06-27 05:55 | External Medical Summary | Summary of Care ---
Author Name Unknown Organization [facility] Address [address] [place] [address] Phone [phone] Care Team Providers Care Information Security Systems Instructor Name Role Phone NikhilKatie Danitza SEPULVEDA Primary Care Provider [phone] Reason for Referral * Evaluate & Treat - Unlimited Visits (Within 30 days (routine)) - Authorized Specialty Diagnoses / Procedures Referred By Keyur jacobs Referred To Contact Obstetrics/Gynecology / Gynecology Obstetrics Diagnoses Cyst of right ovary Idalia Reyna CRNP [address] [facility] [place] [address] Referral ID Status Reason Start Date Expiration Date Visits Requested Visits Authorized [id number] Authorized Specialty Services Required 06/01/2024 999 999 Question Answer Referral Priority Within 30 days (routine) What condition is the patient being seen for? Ovarian cyst Size of ovarian cyst 1-3 cm Type of ovarian cyst Hemorrhagic Where should this appointment be scheduled? [facility] Comments BP 115/69 | Pulse 69 | Temp 37.2 C (99 F) (Tympanic) | Resp 18 | Ht 1.6 m (5' 3") | Wt (!) 154.2 kg (340 lb) | LMP (LMP Unknown) Discharge Order * Precert (Within 10 days (routine)) - Pending Review Specialty Diagnoses / Procedures Referred By Keyur jacobs Referred To Contact Radiology Diagnoses Cyst of right ovary Procedures MRI PELVIS W WO CONTRAST Idalia Reyna CRNP [address] [place] [address] Referral ID Status Reason Start Date Expiration Date V isits Requested Visits Authorized [id number] Pending Review 07/01/2024 999 999 * Evaluate & Treat - Unlimited Visits (Within 10 days (routine)) - Authorized Specialty Diagnoses / Procedures Referred By Contcatalina t Referred To Contact Pulmonary Diseases / Pulmonary Diagnoses Lung nodule seen on imaging study Idalia Reyna CRNP [address] [place] [address] Referral ID Status Reason Start Date Expiration Date Visits Requested Visits Authorized [id number] Authorized Specialty Services Required 06/01/2024 999 999 Question Answer Referral Priority Within 10 Days (Routine) Primary Reason for Referral? Lung Nodule/Mass Comments Discharge Order Reason for Visit * Reason Comments Short of Breath * Auth/Cert Specialty Diagnoses / Procedures Referred By Contcatalina t Referred To Contact Diagnoses Volume overload Elin Cosby MD [address] [place] [address] Emergency Medicine [facility] [address] [place] [address] Referral ID Status Reason Start Date Expiration Date Visits Re quested Visits Authorized [id number] Encounter Details Date Type Department Care Team (Latest Contact Info) Description 05/30/2024 2:06 AM EDT - 06/01/2024 2:26 PM EDT Hospital Encounter Advanced Acute Care Medical/Transplant Unit, [facility] 3rd Floor [address] [place] [address] Sal Kirk, DO [facility] [place] [address] Elin Cosby MD [address] [place] [address] Anderson Rodriguez MD [address] [facility] Hospitalist Services [place] [phone] EKG Report Discharge Disposition: Home - Self Care Allergies Active Allergy Reactions Criticality Noted Date Comments Leflunomide Itching,Rash High 04/14/2017 After taking med for 3 months she had terrible rash and itching Hydroxychloroquine Sulfate 7 Rash documented as of this encounter (statuses as of 06/02/2024) Medications Medication Sig Dispensed Refills Start Date End Date Status Misc Natural Products (TURMERIC CURCUMIN) CAPS Take 1 Capsule by mouth in the morning and 1 Capsule before bedtime. Active valACYclovir (VALTREX) 1000 MG TabletIndications: Recurrent cold sores TAKE 1 TABLET BY MOUTH EVERY 12 HOURS FOR 1 DAY FOR COLD SORES 20 Tab 3 9 Active Triamcinolone Acetonide 0.1 % External Cream (Aristocort) Apply topically to affected area 2 times a day. To affected area. 80 g 5 1 Active Adalimumab 40 MG/0.8ML Subcutaneous Pen-injector Kit (Humira) Inject 40 mg (1 pen) under the skin every 14 days. 2 mL 11 3 Active sulfaSALAzine 500 MG Oral Tablet (Azulfidine) Take 3 Tablets by mouth in the morning and 3 Tablets before bedtime. 540 Tablet 3 3 Active Refresh 1.4-0.6 % Ophthalmic Solution (polyvinyl alcohol-povidone PF) Instill 1 Drop into both eyes as needed. Active Betamethasone Dipropionate 0.05 % External Ointment Apply 2 times a day to the rash on arms, legs, abdomen x 2-3 weeks until clear 80 g 1 4 Active FLUoxetine HCl 20 MG Oral Capsule (PROzac)Indication s:Mood disorder (HCC) TAKE ONE CAPSULE BY MOUTH EVERY MORNING 90 Capsule 3 4 025 Active Fluticasone-Salmet deni 250-50 MCG/ACT Inhalation Aerosol Powder Breath Activated (Advair Diskus)Indications :Moderate persistent asthma without complication Inhale 1 Puff by mouth in the morning and 1 Puff before bedtime. 180 Each 3 4 Active Levothyroxine Sodium 100 MCG Oral Tablet (Levoxyl)Indicatio ns:Acquired hypothyroidism TAKE 1 TABLET BY MOUTH DAILY AT LEAST 30 MINUTES PRIOR TO FIRST MEAL OF THE DAY OR OTHER MEDICATIONS 90 Tablet 4 025 Active Ventolin HFA 108 (90 Base) MCG/ACT Inhalation Aerosol SolutionIndication s:Moderate persistent asthma without complication Inhale 2 Puffs by mouth every 4 hours as needed for shortness of breath 18 g 3 4 Active Nitrofurantoin Monohyd Macro 100 MG Oral Capsule (Macrobid) Take 1 Capsule by mouth in the morning and 1 Capsule before bedtime. Do all this for 6 days. 12 Capsule 4 024 Active Furosemide 20 MG Oral Tablet (Lasix)Indications :Venous insufficiency Take 2 Tablets by mouth in the morning. 90 Tablet 3 4 Active Vitamin D 125 MCG (5000 UT) Oral Capsule Take 1 Capsule by mouth in the morning. Discontinued(Me dication List Clean Up) Vitamin C 100 MG Oral Tablet Take 1 Tablet by mouth in the morning. Discontinued(Me dication List Clean Up) Ofloxacin 0.3 % Ophthalmic Solution (Ocuflox) Instill 1 Drop into the right eye in the morning and 1 Drop at noon and 1 Drop in the evening and 1 Drop before bedtime. 024 Discontinued(Me dication List Clean Up) prednisoLONE Acetate 1 % Ophthalmic Suspension (Pred Forte) Instill 1 Drop into both eyes in the morning and 1 Drop at noon and 1 Drop in the evening and 1 Drop before bedtime. 15 mL 2 4 024 Discontinued(Me dication List Clean Up) Furosemide 20 MG Oral Tablet (Lasix)Indications :Venous insufficiency TAKE ONE TABLET BY MOUTH EVERY MORNING 90 Tablet 3 4 024 Discontinued Sulfamethoxazole-T rimethoprim 800-160 MG Oral Tablet (Bactrim DS) Take 1 Tablet by mouth in the morning and 1 Tablet before bedtime. Do all this for 7 days. Until gone. 14 Tablet 4 024 Discontinued documented as of this encounter (statuses as of 06/02/2024) Active Problems Problem Noted Date Diagnosed Date [...] as of this encounter (statuses as of 06/02/2024) Resolved Problems Problem Noted Date Diagnosed Date [...] as of this encounter (statuses as of 06/02/2024) Immunizations Name Administration Dates Next Due COVID-19 mRNA, LNP-s, No Pre serve, 2-Dose Series (Pfizer) 07/08/2021,06/17/2021 Pneumococcal Conjugate Vacci ne, 20-valent ([id number]) 06/01/2024(Deferred: Patient Refused) Seasonal Influenza, PF, 6 [...] Sign Reading Time Taken Comments Blood Pressure 118/62 06/01/2024 7:59 AM EDT Pulse 70 06/01/2024 12:00 PM EDT Temperature 37.2 C (99 F) 06/01/2024 6:00 AM EDT Respiratory Rate 16 06/01/2024 12:00 PM EDT Oxygen Saturation 95% 06/01/2024 12:00 PM EDT Inhaled Oxygen Concentration - - Weight 154.2 kg (340 lb) 06/01/2024 8:00 AM EDT Height 160 cm (5' 3") 05/30/2024 3:48 PM EDT Body Mass Index 60.23 05/30/2024 3:48 PM EDT documented in this [...] No 05/30/2024 documented as of this encounter Discharge Summaries * Idalia Reyna CRNP - 06/01/2024 9:27 AM EDT [address] [address] Admission Date: 05/30/2024 Discharge Date: 06/01/2024 RECOMMENDED TO DO FOR NEXT PROVIDER(S): Routine hospital discharge follow up exam with PCP Ensure completion of antibiotic for UTI Discuss potentially starting prophylactic antibiotic therapy for UTI prevention (3 UTIs since December) MRI in approximately 1 month Follow up with [facility]EL[facility] regarding ovarian cyst and potential rupture Pulmonlogy/ STAIR program for pulmonary nodule surveillance REASON(S) FOR MEDICATION CHANGE(S): Lasix increased 40 mg from 20 mg 2/2 volume overload and dyspnea Macrobid for E. Coli UTI Stop Bactrim medication completed/ [employer] DISPOSITION ON DISCHARGE: Home - Self Carehome [...] Bacteriuria 05/31/2024 Acute cystitis without hematuria 05/31/2024 ADMISSION HISTORY & PHYSICAL EXAM (focused): per LOLLY Rodríguez PRESENTING PROBLEM: Shortness of breath HPI: Liane Gutierrez is a 59 year old female who presents to the ED for evaluation of SOB. She has aPMHx significant for rheumatoid arthritis, hypothyroidism, PEDRO on BiPAP HS, lymphedema, chronic venous insufficiency, moderate persistent asthma, hx ESBL UTI, and overactive bladder. Workup significant for elevated d-dimer 1.64 and UA +nitrite, >200 bacteria, and WBC 20-29. CT PE negative for PE. Received duoneb x1 and 100 mg IVP lasix. Information and history obtained via chart review and patient interview. Patient reporting dyspnea with exertion, abdominal fullness/ pressure, suprapubic pressure, increased BLE edema (specifically in her thighs), and 10-15 lb weight gain over the past month with symptoms worsening in severity over the past 1 week. She denies SOB at rest but tells me she is unable to walk more than 50 ft withoutgetting SOB. Denies cough, fever, chills. Wears BiPAP HS which she tells me she is wearing 3-4 hrs per night. Endorses orthopnea, has been sleeping in recliner at times. Baseline weight around 340 weight on admission 355. Denies changes in her diet/ increase in Na intake. Has been taking her PRN lasix daily and using her "rescue inhaler" daily without much improvement in symptoms. Reporting suprapubic pressure/ fullness. Does not correlate symptoms with after eating. States she voids often and has had UTIs in the past. Was hospitalized in December 16 drug resistant UTI and most recently completed course of Bactrim for UTI. Denies dysuria or blood in urine. No changes in bowel patterns. Has chronic BLE 2/2 lymphedema but feels the edema is extending into her thighs now which is new. Patient denies any tobacco use or smoking history, no alcohol or drug use. She lives at home with her and typically is able to complete ADLs independently. All other systems reviewed and otherwise negative unless mentioned above Patient is a FULL code. In the event she were unable to make decisions, she would like her (Marcellus Gutierrez) to make medical decisions on her behalf. BP: 139 mmHg/79 mmHg (05/30/24 1228) Pulse: 67 (05/30/24 1228) Resp: 23 (05/30/24 1228) Temp: 36.78 C (05/30/24 1100) Temp Summary: Temp Min: 36.4 C (97.5 F) Max: 37.7 C (99.9 F) SpO2: 98 % (05/30/24 1228) O2 flow rate: Supplemental O2 Delivery: Room Air, None (05/30/24 1228) General: alert and oriented to person, place, time, and situation. No acute distress. Well-nourished. Obese HEENT: Head normocephalic. PERRLA. Moist mucous membranes. No scleral icterus. No cervical lymphadenopathy Lungs: +Wheezing; diminished at bases. No accessory muscle use. No rales; on RA CV: Regular rate and rhythm. No murmur. No JVD. No edema Abdomen: +Mild distention. Soft, non-tender. No palpable masses Extremities: +BLE edema/ lymphedema extending into b/l thighs. Pulses intact Skin: No rashes or lesions. Warm to touch Neurologic: No focal neurological deficits. Psychiatric: Cooperative. Appropriate mood and affect HOSPITAL COURSE (focused): Patient presented to [facility] ED on 05/30 for evaluation of SOB [...] follow up with PCP, and referral to [facility]ELOPER, and Pulm/STAIR program. DAY OF DISCHARGE PHYSICAL EXAM: Patient seen at bedside this morning sitting at the edge of bed. Reports feeling well and greatly improved since time of admission. Tells me her breathing and LE edema is significantly better. Remains stable on RA. Discussed discharge plan and patient verbalized understanding. General: alert and oriented to person, place, time, and situation. No acute distress. Well-nourished. Obese HEENT: Head normocephalic. PERRLA. Moist mucous membranes. No scleral icterus. No cervical lymphadenopathy Lungs: Clear; diminished at bases. No accessory muscle use. No rales or wheezing; on RA CV: Regular rate and rhythm. No murmur. No JVD Abdomen: Soft, non-tender, non-distended. No palpable masses Extremities: +BLE edema/ lymphedema. Pulses intact Skin: No rashes or lesions. Warm to touch. BLE chronic skin color changes Neurologic: No focal neurological deficits. Psychiatric: Cooperative. Appropriate mood and affect Operations & Procedures: Echocardiogram Complications: none significant Significant Lab and Imaging Results: As mentioned above Results Pending at Discharge: N/A MEDICATION UPDATES AT DISCHARGE START taking these medications INSTRUCTIONS Nitrofurantoin Monohydrate Macrocrystals 100 MG Capsule Commonly known as: Macrobid Take 1 Capsule by mouth in the morning and 1 Capsule before bedtime. Do all this for 6 days. CHANGE how you take these medications INSTRUCTIONS Furosemide 20 MG Tablet Commonly known as: Lasix What changed: how much to take how to take this when to take this Take 2 Tablets by mouth in the morning. CONTINUE taking these medications INSTRUCTIONS Adalimumab 40 MG/0.8ML injection Commonly known as: Humira Inject 40 mg (1 pen) under the skin every 14 days. albuterol HFA 108 (90 BASE) MCG/ACT inhaler Inhale 2 Puffs by mouth every 4 hours as needed for shortness of breath Betamethasone Dipropionate 0.05 % ointment Apply 2 times a day to the rash on arms, legs, abdomen x 2-3 weeks until clear FLUoxetine 20 MG Capsule Commonly known as: PROzac TAKE ONE CAPSULE BY MOUTH EVERY MORNING Fluticasone-Salmeterol 250-50 MCG/ACT inhaler Commonly known as: Advair Diskus Inhale 1 Puff by mouth in the morning and 1 Puff before bedtime. levothyroxine 100 MCG Tablet Commonly known as: Levoxyl TAKE 1 TABLET BY MOUTH DAILY AT LEAST 30 MINUTES PRIOR TO FIRST MEAL OF THE DAY OR OTHER MEDICATIONS Refresh 1.4-0.6 % ophthalmic solution Generic drug: polyvinyl alcohol-povidone PF Instill 1 Drop into both eyes as needed. sulfaSALAzine 500 MG Tablet Commonly known as: Azulfidine Take 3 Tablets by mouth in the morning and 3 Tablets before bedtime. Triamcinolone Acetonide 0.1 % cream Commonly known as: Aristocort Apply topically to affected area 2 times a day. To affected area. Turmeric Curcumin Caps Take 1 Capsule by mouth in the morning and 1 Capsule before bedtime. valACYclovir 1000 MG Tablet Commonly known as: Valtrex TAKE 1 TABLET BY MOUTH EVERY 12 HOURS FOR 1 DAY FOR COLD SORES STOP taking these medications sulfamethoxazole-trimethoprim DS 800-160 MG per tablet Commonly known as: Bactrim DS SCHEDULED FOLLOW-UP: Future Appointments Appt Date/Time Provider Department 02/20/2025 7:30 AM Katie Tejeda PA-C [facility] Outpatient Follow Up Warp Tying Machine Knotter Referral Op MRI Pelvis with and without IV contrast STAIR Lung Nodule Referral OP (System for Tracking Abnormalities of Importance Reliably) Other Information Indwelling Devices: LINES ALL Duration Peripheral Line Left Antecubital 20 Gauge 2 days Vital Signs (last recorded): Most Recent Systolic BP: 115 mmHg (06/01/24599) Most Recent Diastolic BP: 69 mmHg (06/01/24599) Pulse: 69 (06/01/24758) Resp: 18 (06/01/24758) Most Recent Temperature: 37.22 C (06/01/24599) Weight: (!) 154.2 kg (340 lb) (06/01/24799) SpO2: 94 % (06/01/24758) Allergies: Arava [leflunomide] and Plaquenil [hydroxychloroquine sulfate] Activity: as tolerated Diet: low sodium Code Status: Full Code Condition on Discharge: stable Isolation status: None Cognition: normal HOSPITAL CONSULTS ORDERED: ADULT OCCUPATIONAL THERAPY CONSULT IP ADULT PHYSICAL THERAPY CONSULT IP REFERRING PHYSICIAN: REF: SELF NO STRE[address] ADDRESS AVAILABLE PRIMARY CARE PROVIDER: PCP: Katie Tejeda PA-C [address] [place] [address] / [facility] [id number] (office) [phone] (fax) Note: To contact a physician responsible for this patients hospital care, please call [facility] [phone]. I spent a total of 41 minutes coordinating, documenting, and providing care for this patient excluding time spent in the performance of separately billed services. Associated attestation - Anderson Rodriguez MD - 06/01/2024 11:55 AM EDT I have reviewed the advanced practitioner's documentation on the date of service referenced in note, and I agree with, and take responsibility for the plan of care. I spent a total of 15 minutes coordinating, documenting, and providing care for this patient excluding time spent in the performance of separately billed services or time spent by another provider/QHP. documented in this encounter Discharge Instructions * Discharge Instr - AVS* Idalia Reyna, LOLLY - 05/31/2024 12:56 PM EDT Discharge Date: 06/01/2024 The information below provides you with the instructions and the list of medications you need to betaking following discharge from the hospital. If you have any questions, please ask before leaving. If you have questions after leaving, you can reach us at the numbers below. YOUR HOSPITAL PROVIDERS: Discharging Provider: Anderson Rodriguez MD Provider Department: Hospital Medicine To reach this Provider Tuesday through Tuesday (8:00 AM to 4:30 PM) for any questions or test results: Call [phone] For after-hours concerns: Call [phone] and have your provider paged, or the provider sew on operator for the Department of Hospital Medicine paged. Please note, the discharging provider will not be able to provide you with any medications refills.Please discuss these with your primary care provider. Worsening Symptoms: If you have new symptoms, or your symptoms get worse, please contact your Discharge Provider or Primary Care Provider (PCP). If these providers are not available, you can go to your local [facility] or Ur[facility] Care Clinic during their business hours. In an EMERGENCY situation: Call [phone] or go to the nearest emergency room. A BRIEF SUMMARY OF YOUR HOSPITAL STAY: You came to the hospital with: complaint of shortness of breath Your main diagnosis at discharge was: Volume overload; urinary tract infection You presented to [facility] ED on 05/30 for evaluation of shortness of breath with walking (dyspnea). As well as lower leg edema/ swelling and lower abdominal pressure/ bloating. Imaging and blood work was done which was negative for blood clot in your lungs. There was abnormality seen on CT on your right ovary and you had MRI - a repeat MRI is recommended in 1 month. Your urine test was positive for infection and you were treated with an antibiotic. Due to your difficulty breathing and swelling you were given high doses of diuretics to remove excess fluid. An echocardiogram (ultrasound of your heart) was done which showed normal heart function. You had improvement in symptoms with the diuretic andyou were discharged home on 06/01. You will follow up with your PCP outpatient. Referral placed for [facility]. Operations & Procedures performed: echocardiogram Complications: none significant Inpatient test results that are pending at discharge: none Advance Directive Documented: Advance Directive Does the Patient have an Advance Directive? No YOUR FOLLOW UP APPOINTMENTS: Primary Care Provider Information: PCP: Katie Tejeda PA-C [address] [place] [address] [facility] [address] ([facility]) [phone] (fax) An appointment was requested with your PCP (Katie Tejeda PA-C) within 7 days. (Please take this form to this visit with your primary care physician.) You need the following studies in the future: MRI pelvis in approximately 1 month INSTRUCTIONS: Diet: 2 gram sodium diet Activity: No restrictions Additional Instructions: -Follow up with your PCP in the next 7-10 days (appointment requested) -Increase lasix to 40 mg from 20 mg daily -Complete antibiotic course entirely -Discuss with PCP about long-term prophylactic antibiotic dosing for UTI prevention -Repeat MRI pelvis to evaluate right ovary in approximately 1 month (order placed) -Referral placed for [facility] DEVELOPER services for evaluation of right ovarian cyst documented in this encounter Progress Notes * Idalia Reyna CRNP - 05/31/2024 7:02 AM EDT PROGRESS NOTE - Hospital Medicine Service [facility] [address] Name: Liane Gutierrez Location: [facility] B323/A Date: 05/31/2024 Time: 7:02 AM Hospital Day # 1 INTERVAL HISTORY: Patient seen at bedside this afternoon. Tells me she feels much improved since admission. States her dyspnea is better (still present) and her LE edema is decreased. No longer experiencing b/l knee pain. She is -1200 cc and down 4.4 kg since admission. Continues to endorse RLQ intermittent cramping pain. Denies fever/ chills. No dysuria. Patient's (Marcellus) at bedside and updated on POC. OVERNIGHT EVENTS: MRI completed overnight of pelvis and negative for ovarian torsion. All other systems reviewed and otherwise negative unless mentioned above OBJECTIVE: Most Recent Vital Signs: BP: 137 mmHg/74 mmHg (05/31/24546) Pulse: 71 (05/31/24546) Resp: 18 (05/31/24546) Temp: 37.11 C (05/31/24546) Temp Summary: Temp Min: 36.8 C (98.2 F) Max: 37.8 C (100 F) SpO2: 96 % (05/31/24546) O2 flow rate: Supplemental O2 Delivery: Non-Invasive CPAP/BiPAP (05/31/24546) Vital Signs Last 24 Hours: Systolic BP: Most Recent Systolic BP Av.3 mmHg Min: 137 mmHg Max: 151 mmHg Temperature: Most Recent Temperature Av.2 C Min: 36.78 C Max: 37.78 C Pulse: Pulse Av.6 Min: 63 Max: 83 Respirations: Resp Av.2 Min: 18 Max: 27 SpO2: SpO2 Av.5 % Min: 94 % Max: 100 % General: alert and oriented to person, place, time, and situation. No acute distress. Well-nourished. Obese HEENT: Head normocephalic. PERRLA. Moist mucous membranes. No scleral icterus. No cervical lymphadenopathy Lungs: Clear; diminished at bases. No accessory muscle use. No rales; on RA CV: Regular rate and rhythm. No murmur. No JVD. No edema Abdomen: +Mild distention. Soft, non-tender. No palpable masses Extremities: +BLE edema/ lymphedema extending into b/l thighs (improving). Pulses intact Skin: No rashes or lesions. Warm to touch. BLE chronic skin color changes Neurologic: No focal neurological deficits. Psychiatric: Cooperative. Appropriate mood and affect LABS: Labs reviewed as indicated below: Latest Reference Range & Units 05/31/24 07:26 Sodium 135 - 146 mmol/L 142 Potassium 3.5 - 5.1 mmol/L 3.9 Chloride 98 - 107 mmol/L 104 CO2 22 - 32 mmol/L 29 BUN 6 - 20 mg/dL 15 Creatinine 0.5 - 1.0 mg/dL 0.8 Estimated Glomerular Filtration Rate >=60 mL/min 88 Anion Gap 7 - 15 mmol/L 9 Glucose 70 - 120 mg/dL 94 Calcium 8.4 - 10.2 mg/dL 8.6 Magnesium 1.5 - 2.6 mg/dL 2.1 Phosphorus 2.5 - 4.8 mg/dL 3.3 IMAGING: MRI Pelvis 05/31/2024 FINDINGS Uterus: Normal in size there are [...] normal limits. Bones: Degenerative osseous changes. IMPRESSION IMPRESSION Constellation of findings related to the right ovary, as detailed above. In particular, there is noevidence of ovarian torsion. Recommend follow-up MRI in 1 month. ECHO 05/31/2024 Interpretation Summary The examination is limited quality but adequate for evaluation of the referral indication. The qualitative LV ejection fraction is 55-59% (normal). The left ventricular wall motion is normal by limited analysis. All left ventricular segments are not visualized. The right ventricle is inadequately visualized. The IVC is not well visualized so right atrial pressure cannot be estimated. The left ventricular diastolic function is mildly abnormal (grade I) IMPRESSION and PLAN: Principal Problem: Shortness of breath (POA: Yes) Active Problems: Hypothyroidism (POA: Yes) Moderate persistent asthma without complication (POA: Yes) Overview: excercise induced Chronic venous insufficiency (POA: Yes) Rheumatoid arthritis involving multiple sites with positive rheumatoid factor (HCC) (POA: Yes) Overview: High titer JOE and CCP ab Hypertension goal BP (blood pressure) < 140/90 (POA: Yes) Mood disorder (HCC) (POA: Yes) Lymphedema (POA: Yes) OAB (overactive bladder) (POA: Yes) Volume overload (POA: Yes) Bacteriuria (POA: Yes) Acute cystitis without hematuria (POA: Yes) POA = Present On Admission IMPRESSION AND PLAN: Liane Gutierrez is a 59 year old female who presents to the ED for evaluation of SOB. She has a PMHxsignificant for rheumatoid arthritis, hypothyroidism, PEDRO on BiPAP HS, lymphedema, chronic venous insufficiency, moderate persistent asthma, hx ESBL UTI, and overactive bladder. Presents with volume overload and UA with bacteruria. Admitted to Medicine for diuresis and further monitoring. Shortness of breath Volume overload Moderate - persistent asthma Patient reporting increased GALVAN without significant relief with rescue inhaler. Afebrile, without cough, and no leukocytosis therefore less likely infectious process. CT PE negative for PE. Reports orthopnea and weight gain but BNP WNL; ?asthma exacerbation, + wheezing on admission; denies any new allergens/ changes in medications. -CT PE negative for PE, without consolidation, pleural effusion, or pneumo -S/p 100 mg IVP lasix in ED -Start 60 mg IVP lasix daily; holding [employer] lasix 20 mg daily -TTE (07/2020) - normal EF and without significant valvular disease or WMA -Updated TTE unremarkable; preserved EF -Monitor on telemetry -[employer] advair non-formulary; Breo daily while IP -S/p RTC duonebs QID; PRN Q4 -Respiratory driven protocol; IS -Ambulatory pulse ox -Continue [employer] BiPAP HS Acute cystitis Bacteruria Hx ESBL Reports suprapubic tenderness/ pressure; no CVA tenderness or hematuria -UA with nitrites, >200 bacteria, 20-29 WBCs -Urine in April 2024 growing E. Coli -Urine culture December 2023 growing Klebsiella pneumoniae ESBL and streptococcus gallolyticus -Started cefepime - transitioned to nitrofurantoin (culture + E. Coli); consider oral ppx abx dosing at dc (pt had 3 UTIs since December) Tissue density in RLQ seen on CT A/P containing the right ovary ?Could consider ovarian torsion Patient reports RLQ abdominal and suprapubic tenderness; hx of abnormal bleeding in past with menstruation -MRI pelvis without ovarian torsion; possible ruptured cyst/follicle - rec'd repeat MRI in 1 month Chronic Conditions: Mood - continue [employer] fluoxetine Hypothyroidism - continue [employer] levothyroxine RA - continue [employer] sulfasalazine CT chest - multiple pulmonary nodules (image Nov 2022 showed stable single nodule) - OP f/u @ discharge Diet: 2 gm Na restriction PPX: Enoxaparin Disposition: Patient admitted from home; anticipate discharge back to home in 1- 2 days pending clinical course, actively diuresing with IV lasix. Not medically ready for DC. Patient discussed with LOLLY Blancas Department of Hospital Medicine [facility] I spent a total of 47 minutes coordinating, documenting, and providing care for this patient excluding time spent in the performance of separately billed services or time spent by another provider/QHP. Associated attestation - Anderson Rodriguez MD - 05/31/2024 1:31 PM EDT I have reviewed the advanced practitioner's documentation on the date of service referenced in note, and I agree with, and take responsibility for the plan of care. Echo was normal systolic function and grade 1 diastolic dysfunction. Continue IV Lasix. I spent a total of 35 minutes coordinating, documenting, and providing care for this patient excluding time spent in the performance of separately billed services or time spent by another provider/QHP. documented in this encounter H&P Notes * Idalia Reyna CRNP - 05/30/2024 1:20 PM EDT Images from the original note were not included. [facility] 24/X PRESENTING PROBLEM: Shortness of breath HPI: Liane Gutierrez is a 59 year old female who presents to the ED for evaluation of SOB. She has aPMHx significant for rheumatoid arthritis, hypothyroidism, PEDRO on BiPAP HS, lymphedema, chronic venous insufficiency, moderate persistent asthma, hx ESBL UTI, and overactive bladder. Workup significant for elevated d-dimer 1.64 and UA +nitrite, >200 bacteria, and WBC 20-29. CT PE negative for PE. Received duoneb x1 and 100 mg IVP lasix. Information and history obtained via chart review and patient interview. Patient reporting dyspnea with exertion, abdominal fullness/ pressure, suprapubic pressure, increased BLE edema (specifically in her thighs), and 10-15 lb weight gain over the past month with symptoms worsening in severity over the past 1 week. She denies SOB at rest but tells me she is unable to walk more than 50 ft withoutgetting SOB. Denies cough, fever, chills. Wears BiPAP HS which she tells me she is wearing 3-4 hrs per night. Endorses orthopnea, has been sleeping in recliner at times. Baseline weight around 340 weight on admission 355. Denies changes in her diet/ increase in Na intake. Has been taking her PRN lasix daily and using her "rescue inhaler" daily without much improvement in symptoms. Reporting suprapubic pressure/ fullness. Does not correlate symptoms with after eating. States she voids often and has had UTIs in the past. Was hospitalized in December 16 drug resistant UTI and most recently completed course of Bactrim for UTI. Denies dysuria or blood in urine. No changes in bowel patterns. Has chronic BLE 2/2 lymphedema but feels the edema is extending into her thighs now which is new. Patient denies any tobacco use or smoking history, no alcohol or drug use. She lives at home with her and typically is able to complete ADLs independently. All other systems reviewed and otherwise negative unless mentioned above Patient is a FULL code. In the event she were unable to make decisions, she would like her (Marcellus Gutierrez) to make medical decisions on her behalf. Subjective Patient's past history, medications, and allergies were reviewed. Objective Physical Exam Most Recent Vital Signs: BP: 139 mmHg/79 mmHg (05/30/24 1228) Pulse: 67 (05/30/24 1228) Resp: 23 (05/30/24 1228) Temp: 36.78 C (05/30/24 1100) Temp Summary: Temp Min: 36.4 C (97.5 F) Max: 37.7 C (99.9 F) SpO2: 98 % (05/30/24 1228) O2 flow rate: Supplemental O2 Delivery: Room Air, None (05/30/24 122) General: alert and oriented to person, place, time, and situation. No acute distress. Well-nourished. Obese HEENT: Head normocephalic. PERRLA. Moist mucous membranes. No scleral icterus. No cervical lymphadenopathy Lungs: +Wheezing; diminished at bases. No accessory muscle use. No rales; on RA CV: Regular rate and rhythm. No murmur. No JVD. No edema Abdomen: +Mild distention. Soft, non-tender. No palpable masses Extremities: +BLE edema/ lymphedema extending into b/l thighs. Pulses intact Skin: No rashes or lesions. Warm to touch Neurologic: No focal neurological deficits. Psychiatric: Cooperative. Appropriate mood and affect Peripheral Line Left Antecubital 20 Gauge (Active) Number of days: 0 STUDIES: Encounter Orders Labs and other studies reviewed with pertinent findings noted below: Latest Reference Range & Units 05/30/24 08:09 05/30/24 08:12 05/30/24 12:32 Temperature C 37.0 pH, Venous 7.320 - 7.430 units 7.369 pCO2, Venous 40.0 - 60.0 mmHg 54.5 pO2, Venous 25.0 - 50.0 mmHg 26.2 O2 Content, Venous 7.0 - 18.0 %vol 7.4 Oxyhemoglobin, Venous 40.0 - 85.0 % total Hgb 41.2 Base Excess, Venous -2.0 - 2.0 mmol/L 4.6 (H) Carboxyhemoglobin, Whole Blood <=1.5 % total Hgb 1.3 Methemoglobin, Whole Blood <=1.5 % total Hgb 1.5 Reduced Hemoglobin, Venous % total Hgb 56.0 Troponin T, High Sensitivity <=14 ng/L 8 Magnesium 1.5 - 2.6 mg/dL 1.9 Phosphorus 2.5 - 4.8 mg/dL 3.1 Bicarbonate, Whole Blood 23.0 - 31.0 mmol/L 30.7 D-Dimer <0.50 ug/mL FEU 1.64 (H) CBC Rpt WBC 4.00 - 10.80 K/uL 5.39 RBC 3.85 - 5.15 M/uL 4.20 HGB 12.0 - 15.3 g/dL 12.8 12.5 HCT 36.0 - 45.2 % 39.8 MCV 81.5 - 97.5 fL 94.8 MCH 27.0 - 34.0 pg 29.8 MCHC 32.0 - 36.0 g/dL 31.4 RDW 11.5 - 15.5 % 13.9 PLT 140 - 400 K/uL 153 MPV 6.6 - 11.1 fL 9.9 URINALYSIS, REFLEX TO CULTURE (CUP ONLY) Rpt (IP) URINALYSIS, REFLEX TO CULTURE Rpt ! CULTURE, URINE, QUANTITATIVE Rpt (IP) Color, Urine Colorless, Light Yellow, Yellow, Dark Yellow Yellow Clarity, Urine Clear Clear Glucose, Urine Negative mg/dL Negative Bilirubin, Urine Negative Negative Ketone, Urine Negative mg/dL 15 ! Specific [place], Urine 1.003 - 1.030 1.039 (H) Blood, Urine Negative Negative pH, Urine 5.0 - 7.5 Units 6.5 Protein, Urine Negative mg/dL Negative Urobilinogen, Urine Normal mg/dL Normal Nitrite, Urine Negative Positive ! Esterase, Urine Negative Small ! Bacteria, Urine 0 - 25 /HPF >200 ! WBC, Urine 0 - 2 /HPF 20-29 ! RBC, Urine 0 - 2 /HPF 0-2 URINALYSIS, REFLEX TO CULTURE (NOT FOR NEUTROPENIC PATIENTS) Rpt ! (IP) (H): Data is abnormally high !: Data is abnormal (IP): In Process Rpt: View report in Results Review for more information CT PE; CT A/P 05/30/2024 FINDINGS THYROID:Within normal limits. THORACIC AORTA: [...] normal limits. Bones: Within normal limits. IMPRESSION IMPRESSION 1. No pulmonary embolism. 2. Indeterminate matted soft tissue density in the right lower quadrant with adjacent fat stranding. Some parts of the soft tissue density appears to contain the right ovary. One consideration would be ovarian torsion. If this is a clinical concern, recommend MRI of the pelvis with and without IV contrast 3. Few pulmonary nodules. Assessment and Plan IMPRESSION: Principal Problem: Shortness of breath Active Problems: Hypothyroidism Moderate persistent asthma without complication Chronic venous insufficiency Rheumatoid arthritis involving multiple sites with positive rheumatoid factor (HCC) Hypertension goal BP (blood pressure) < 140/90 Mood disorder (HCC) Lymphedema OAB (overactive bladder) Volume overload Bacteriuria Acute cystitis without hematuria Resolved Problems: * No resolved hospital problems. * IMPRESSION AND PLAN: Liane Gutierrez is a 59 year old female who presents to the ED for evaluation of SOB. She has a PMHxsignificant for rheumatoid arthritis, hypothyroidism, PEDRO on BiPAP HS, lymphedema, chronic venous insufficiency, moderate persistent asthma, hx ESBL UTI, and overactive bladder. Presents with volume overload and UA with bacteruria. Admitted to Medicine for diuresis and further monitoring. Shortness of breath Volume overload Moderate - persistent asthma Patient reporting increased GALVAN without significant relief with rescue inhaler. Afebrile, without cough, and no leukocytosis therefore less likely infectious process. CT PE negative for PE. Reports orthopnea and weight gain but BNP WNL; ?asthma exacerbation, + wheezing on exam; denies any new allergens/ changes in medications. -CT PE negative for PE, without consolidation, pleural effusion, or pneumo -S/p 100 mg IVP lasix in ED -Start 60 mg IVP lasix daily; holding [employer] lasix 20 mg daily -TTE (07/2020) - normal EF and without significant valvular disease or WMA -Obtain new TTE -Monitor on telemetry -[employer] advair non-formulary; Breo daily while IP -Schedule duonebs -Respiratory driven protocol; IS -Obtain amb ox prior to DC -PT/OT consults Acute cystitis Bacteruria Hx ESBL Reports suprapubic tenderness/ pressure; no CVA tenderness or hematuria -UA with nitrites, >200 bacteria, 20-29 WBCs -Urine in April 2024 growing E. Coli -Urine culture December 2023 growing Klebsiella pneumoniae ESBL and streptococcus gallolyticus -Start cefepime per ID pharmacy recs (culture from December susceptible to this) -Follow urine culture Tissue density in RLQ seen on CT A/P containing the right ovary ?Could consider ovarian torsion Patient reports RLQ abdominal and suprapubic tenderness; hx of abnormal bleeding in past with menstruation -MRI pelvis ordered to further determine Chronic Conditions: Mood - continue [employer] fluoxetine Hypothyroidism - continue [employer] levothyroxine RA - continue [employer] sulfasalazine CT chest - multiple pulmonary nodules (image Nov 2022 showed stable single nodule) - OP f/u @ discharge PHARMACOLOGIC VTE PROPHYLAXIS:Enoxaparin CODE STATUS: Full Code EXPECTED DISCHARGE DATE: No information available Patient discussed with Dr. Anderson Rodriguez I spent a total of 62 minutes coordinating, documenting, and providing care for this patient excluding time spent in the performance of separately billed services or time spent by another provider/QHP. Associated attestation - Anderson Rodriguez MD - 05/30/2024 5:17 PM EDT I have reviewed the advanced practitioner's documentation on the date of service referenced in note, and I agree with, and take responsibility for the plan of care. I spent a total of 45 minutes coordinating, documenting, and providing care for this patient excluding time spent in the performance of separately billed services or time spent by another provider/QHP. documented in this encounter Procedure Notes * Pilo Vega MD - 05/29/2024 7:51 PM EDTAssociated Order(s): EKG REASON FOR STUDY: Shortness of breath CONCLUSIONS: Normal sinus rhythm Normal ECG When compared with ECG of 26-Sep-2018 11:33, No significant change was found Ventricular Rate: 82 Atrial Rate: 82 NM Interval: 162 QRS Duration: 96 QT/QTc: 392/457 ms P-R-T [place]: 44 : 13 : 56 degrees documented in this encounter Consult Notes * Larissa Still DPMarianela - 05/31/2024 10:25 AM EDTAssociated Order(s): ADULT PHYSICAL THERAPY CONSULT IP GENERAL EVALUATION - Physical Therapy [address] [id number] Name: Liane Gutierrez Location: [facility] B323/ Date: 05/31/2024 Time: 1025 Liane Gutierrez is a/an 59 year old female. Patient Status: Inpatient Insurance: Payor: [facility] Plan: [facility] PROVIDER CHOICE [id number] Product Type: *No Product type* Patient Seen: at bedside, nursing cleared patient for therapy Patient Identified By: Name, ID Band and Date Diagnosis: SOB, fluid overload (05/31/24 1025) Status of treatment: Discontinue services on evaluation (05/31/24 1025) Orders: PT evaluation and treatment;OOB (05/31/24 1025) Weight Bearing Status: Weight bearing as tolerated (05/31/24 1025) Precautions: (no alarm placed by nursing) (05/31/24 1025) Total Treatment Time--free text: 8 (05/31/24 1025) Past Medical History: Past Medical History: Diagnosis Date Adult body mass index 50.0-59.9 (HCC) 03/31/2010 ADVANCE DIRECTIVE INFORMATION 04/08/2005 No, Advance Directive brochure offered , patient declined. 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 Fatty liver 05/20/14 [facility] EGD U/S FEM STRESS INCONTINENCE 04/15/2008 Herpes simplex without mention of complication Obstructive sleep apnea (adult) (pediatric) 04/02/2009 CPAP OTHER 06/21 [facility] Other specified anemias w/ menstruation Plantar fibromatosis Reflex sympathetic dystrophy of the upper limb 01/05/2013 Special screening for malignant neoplasms, colon 05/20/14 [facility] colonoscopy Past Surgical History: Past Surgical History: Procedure Laterality Date APPLY BONE FIXATION DEVICE,UNIPLANE 10/08/2013 APPLICATION OF EXTERNAL FIXATOR UNIPLANE performed by Jacky Amaya MD at OR [facility] 1995 COLONOSCOPY, DIAGNOSTIC (RECTUM) 05/20/2014 COLONOSCOPY FLEXIBLE PROXIMAL DIAGNOSTIC performed by Elian Dodd MD at ENDOSCOPY [facility] DILATION AND CURETTAGE (D&C) 2008 EGD, FLEXIBLE, DIAGNOSTIC 05/20/2014 ESOPHAGOGASTRODUODENOSCOPY (EGD), FLEXIBLE, TRANSORAL, DIAGNOSTIC performed by Elian Dodd MD atENDOSCOPY [facility] EGD, W/ENDOSCOPIC US 05/20/2014 ESOPHAGOGASTRODUODENOSCOPY (EGD), FLEXIBLE, TRANSORAL, ENDOSCOPIC ULTRASOUND performed by Elian Dodd MD at ENDOSCOPY [facility] ENDOMETRIAL THERMAL ABLATE 09/16/09 ENDOMETRIAL THERMAL ABLATION performed by MARY ANN MORAN at [facility] FUSION OF FINGER JOINT 08/05/2014 ARTHRODESIS INTERPHALANGEAL JOINT performed by Jacky Amaya MD at OR [facility] HYSTEROSCOPY W/BIOPSY AND/OR POLYPECTOMY W/WO D&C 04/28/07 HYSTEROSCOPY WITH BIOPSY performed by MARY ANN MORAN at [facility] HYSTEROSCOPY W/BIOPSY AND/OR POLYPECTOMY W/WO D&C 09/16/09 HYSTEROSCOPY WITH BIOPSY performed by MARY ANN MORAN at [facility] HYSTEROSCOPY W/BIOPSY AND/OR POLYPECTOMY W/WO D&C N/A 09/27/2014 HYSTEROSCOPY WITH BIOPSY AND/OR POLYPECTOMY performed by Rowan Moreno MD at OR [facility] INSERT INTRAUTERINE DEVICE (IUD) N/A 09/27/2014 INSERTION OF INTRAUTERINE DEVICE performed by Rowan Moreno MD at [facility] LAPAROSCOPY; CHOLECYSTECTOMY 08/02/01 Clarke Gagnon. PELVIC EXAM UNDER ANESTHESIA, NOT LOCAL N/A 02/17/2022 PELVIC EXAMINATION UNDER ANESTHESIA performed by Heidi Acosta MD at OR [facility] PHALANX SHAFT FX, OPEN TX, HAND, W/INTER FIXATION 08/16/2011 OPEN TREATMENT PHALANGEAL SHAFT performed by JACKY AMAYA at OR [facility] RELEASE KNUCKLE CONTRACTURE, EACH 01/28/2012 CAPSULECTOMY CAPSULOTOMY METACARPOPHALANGEAL performed by JACKY AMAYA at OR [facility] RELEASE PALM & FINGER TENDON, EACH 05/22/2012 TENOLYSIS FLEXOR PALM AND FINGER performed by Jacky Amaya MD at OR [facility] REMOVAL OF APPENDIX 1992 REMOVAL OF TONSILS, AGE 12+ 01/14/[address] Mcclellan (), [facility] [place], [place] REMOVE IMPLANT FROM HAND/FINGER 01/07/2014 REMOVAL OF FINGER IMPLANT performed by Jacky Amaya MD at OR [facility] REMOVE INTRAUTERINE DEVICE (IUD) 02/17/2022 REMOVAL OF INTRAUTERINE DEVICE performed by Heidi Acosta MD at OR [facility] REPAIR BLADDER DEFECT 04/15/08 VAGINAL SLING PROCEDURE FOR STRESS INCONTINENCE performed by JASS TENA at OR [facility] REVISION OF PALATE, PHARYNX/UVULA 01/14/04 UPPP Subjective: "I'm not sure why I have to have physical therapy." Pt agreeable to eval. Pt received seated edge of bed. Social History/Disposition Lives with: Spouse (05/31/24 1025) Assistance available: Yes (05/31/24 1025) Dwelling type: Single story home (05/31/24 1025) Entry steps: 2 (05/31/24 1025) Inside steps: 10 - 15 (to basement) (05/31/24 1025) Bedroom location: 1st floor (05/31/24 1025) Bath location: 1st floor full bath (05/31/24 1025) Prior Level of Function Reported by: Patient (05/31/24 1025) Ambulation: Ambulatory without device (05/31/24 1025) Devices at home: No device (05/31/24 1025) Observations Consciousness: Alert (05/31/24 1025) Orientation: Oriented times 4 (05/31/241024) Psychosocial: Patient can communicate basic needs;Patient can converse in a social setting (05/31/241024) Other Findings: Yes (05/31/241024) Findings: Light touch sensation (05/31/241024) Light Touch Sensation Results: Intact;LLE;RLE (05/31/241024) Edema Results: (edema noted BLE) (05/31/241024) Sitting Posture: Rounded shoulders (05/31/241024) Standing Posture: Rounded shoulders (05/31/241024) Pain: No complaints of pain Range of Motion Range of Motion: WFL (mild limitation due to body habitus) (05/31/241024) Strength Assessment Strength Assessment: (WFL - grossly 4+/5 BLE) (05/31/241024) Transfers Sit-Stand: Independent (05/31/241024) Stand-Sit: Independent (05/31/241024) Ambulation Assist: Independent (05/31/241024) Distance Ambulated (feet): 150 (05/31/241024) Assistive Device: No device (05/31/241024) Number of Stairs: 0 (pt declined trial, states she has no problem with them at home and has a rial to hold onto) (05/31/241024) Noted gait deviations: no losses of balance, good safety (05/31/241024) Ambulatory safety: Patient verbalizes insight of current deficits;Patient demonstrates carryover ofinsight during functional tasks (05/31/241024) Balance Sit (Static): Good (05/31/241024) Sit (Dynamic): Good (05/31/241024) Stand (Static): Good (05/31/241024) Stand (Dynamic): Good (05/31/241024) Patient and or Family Goal(s): to get well and to return home Patient Education Safety Awareness: Patient verbalizes insight of current deficits;Patient demonstrates carryover of insight during functional tasks;Patient can communicate basic needs (05/31/241024) Preferred learning method: Combination (05/31/241024) Barriers to learning: None (05/31/241024) Method of Education: Verbalized to patient (08/15/24 1025) Topic of Education: Safety with mobility, Goals/plan of care, and Fall prevention, Role of PT Method of Education: Verbal discussion and explanation provided to patient: verbalized understanding and or agreement of this information Treatment Provided: Evaluation Low Complexity 8 minutes - [id number]: Patient was cooperative and pleasant during treatment session. Low complexity evaluation performed with indication of no personal factors or comorbidities that impact plan of care. Patient presents without functional limitations, doesnot require skilled PT services. Alarm Status Patient positioned in: Bed (05/31/24 1025) With: Call benjamin in reach (no alarm placed prior, pt returned to seated edge of bed) (05/31/24 1025) Treatment Status: Treatment at bedside (05/31/24 102) Assessment: Patient is a 59 y/o female with dx shortness of breath, fluid overload. Prior to admission, patient lives with her and was independent with mobility without use of device. Patientreceived seated edge of bed and currently completes all aspects of mobility independently without adevice. Pt declined stairs, states she has no issues with them at home. Pt positioned seated edge of bed and reports she has been moving around the room by herself. Demonstrates good safety awareness. Further PT services are not warranted at this time given patient's functional status. Discharge from inpatient physical therapy services. All needs met. Treatment Plan: Discontinue from Physical Therapy Services Anticipated Frequency (on eval): (D/C after eval) (05/31/24 1025) Deficits requiring P.T. treatment needs: (D/C after eval) (05/31/24 1025) Equipment needs: No device (05/31/24 1025) AM-PAC Score With Stairs : 23 (05/31/24 1025) A portion of this AM-PAC assessment not scored based on functional assessment due to pt declined stairs, did not complete bed mobility or chair transfer; rather clinical decision making utilized based on current findings and/or prior level of function. Please refer to future AM-PAC calculations of functional ability as they become available. Larissa Pollack, PT, DPT, NCS Physical Therapy [facility] * Larissa Still DPT - 05/31/2024 10:00 AM EDT Liane Gutierrez [id number] [facility] B323/A 59 year old PHYSICAL THERAPY PT consult received, attempted to see pt for evaluation. Pt currently getting ECHO. Will attempt later this date as pt is available * Judy Camargo, OT - 05/31/2024 8:07 AM EDTAssociated Order(s): ADULT OCCUPATIONAL THERAPY CONSULT IP GENERAL EVALUATION - Occupational Therapy [address] [phone] Name: Liane Gutierrez Location: [address] Date: 05/31/2024 Time: 8:07 AM Liane Gutierrez is a 59 year old female. Patient Status: Inpatient Insurance: Payor: [facility] Plan: [facility] PROVIDER CHOICE [id number] Product Type: *No Product type* Patient Seen: at bedside, nursing cleared patient for therapy Patient Identified By: Name, ID Band and Date Diagnosis: SOB and volume overload (05/31/24806) Status of treatment: Discontinue services on evaluation (05/31/24806) Orders: OT evaluation and treatment (05/31/24806) Weight Bearing Status: Weight bearing as tolerated (05/31/24806) Total Treatment Time: 11 (05/31/24806) Past Medical History: Past Medical History: Diagnosis Date Adult body mass index 50.0-59.9 (HCC) 03/31/2010 ADVANCE DIRECTIVE INFORMATION 04/08/2005 No, Advance Directive brochure offered , patient declined. 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 Fatty liver 05/20/14 [facility] EGD U/S FEM STRESS INCONTINENCE 04/15/2008 Herpes simplex without mention of complication Obstructive sleep apnea (adult) (pediatric) 04/02/2009 CPAP OTHER 06/21 [facility] Other specified anemias w/ menstruation Plantar fibromatosis Reflex sympathetic dystrophy of the upper limb 01/05/2013 Special screening for malignant neoplasms, colon 05/20/14 [facility] colonoscopy Past Surgical History: Past Surgical History: Procedure Laterality Date APPLY BONE FIXATION DEVICE,UNIPLANE 10/08/2013 APPLICATION OF EXTERNAL FIXATOR UNIPLANE performed by Jacky Amaya MD at OR [facility] DELIVERY 1995 COLONOSCOPY, DIAGNOSTIC (RECTUM) 05/20/2014 COLONOSCOPY FLEXIBLE PROXIMAL DIAGNOSTIC performed by Elian Dodd MD at ENDOSCOPY [facility] DILATION AND CURETTAGE (D&C) 2008 EGD, FLEXIBLE, DIAGNOSTIC 05/20/2014 ESOPHAGOGASTRODUODENOSCOPY (EGD), FLEXIBLE, TRANSORAL, DIAGNOSTIC performed by Elian Dodd MD atENDOSCOPY [facility] EGD, W/ENDOSCOPIC US 05/20/2014 ESOPHAGOGASTRODUODENOSCOPY (EGD), FLEXIBLE, TRANSORAL, ENDOSCOPIC ULTRASOUND performed by Elian Dodd MD at ENDOSCOPY [facility] ENDOMETRIAL THERMAL ABLATE 09/16/09 ENDOMETRIAL THERMAL ABLATION performed by MARY ANN MORAN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 Restraints: No orders of the defined types were placed in this encounter. Lines: Peripheral Line Left Antecubital 20 Gauge (Active) Status Capped/Locked;Flushes easily;Positive blood return 05/30/24 1019 Number of days: 0 Midline Catheter Right;Upper Arm (Active) Number of days: 155 Labs: Labs This Encounter COMPREHENSIVE METABOLIC PANEL - Abnormal; Notable for the following components: Result Value Ref Range Glucose 122 70 - 120 mg/dL All other components within normal limits CBC - Abnormal; Notable for the following components: HGB 11.9 12.0 - 15.3 g/dL All other components within normal limits D-DIMER - Abnormal; Notable for the following components: D-Dimer 1.64 <0.50 ug/mL FEU All other components within normal limits Narrative: Rheumatoid factor at a level above 50 IU/mL may lead to an overestimation of the D-dimer level. A normal D-dimer result (<0.50 ug/mL FEU) has a negative predictive value of approximately 95% for the exclusion of acute pulmonary embolism (PE) or deep vein thrombosis when there is low or moderate pretest PE probability. Increased D-dimer values are abnormal but do not indicate a specific diseasestate and the D-dimer increase does not definitively correlate with clinical severity of disease. BLOOD GAS, VENOUS - Abnormal; Notable for the following components: Base Excess, Venous 4.6 -2.0 - 2.0 mmol/L All other components within normal limits URINALYSIS, REFLEX TO CULTURE - Abnormal; Notable for the following components: Ketone, Urine 15 Negative mg/dL Specific [place], Urine 1.039 1.003 - 1.030 Nitrite, Urine Positive Negative Esterase, Urine Small Negative WBC, Urine 20-29 0 - 2 /HPF Bacteria, Urine >200 0 - 25 /HPF All other components within normal limits BNP, NT-PRO - Normal Narrative: Exclude Heart Failure: <300 pg/mL Diagnose Heart Failure: Age <50 yr: >450 pg/mL 50-75 yr: >900 pg/mL >75 yr: >1800 pg/mL GFR is 30-59 mL/min: >1200 pg/mL or Age-adjusted values GFR <30 mL/min: do not use, not reliable Prognostic threshold: 1000 pg/mL TROPONIN T, HIGH SENSITIVITY - Normal PT INR - Normal Narrative: Warfarin Therapy INR: 2.0-3.0 conventional anticoagulation INR: 2.5-3.5 high intensity anticoagulation RESPIRATORY PATHOGEN PANEL, PCR - Normal DIFFERENTIAL, AUTOMATED - Normal TROPONIN T, HIGH SENSITIVITY - Normal MAGNESIUM - Normal PHOSPHORUS - Normal EXTRA LIGHT BLUE TOP CBC WITH WBC DIFFERENTIAL Narrative: The following orders were created for panel order CBC WITH WBC DIFFERENTIAL. Procedure Abnormality Status --------- ------ CBC[[id number]] Abnormal Final result DIFFERENTIAL, AUTOMATED[[id number]] Normal Final result Please view results for these tests on the individual orders. URINALYSIS, REFLEX TO CULTURE (NOT FOR NEUTROPENIC PATIENTS) Narrative: The following orders were created for panel order URINALYSIS, REFLEX TO CULTURE (NOT FOR NEUTROPENIC PATIENTS). Procedure Abnormality Status --------- ------ URINALYSIS, REFLEX TO CU...[[id number]] Final result URINALYSIS, REFLEX TO CU...[[id number]] Abnormal Final result Please view results for these tests on the individual orders. URINALYSIS, REFLEX TO CULTURE (CUP ONLY) CBC CULTURE, URINE, QUANTITATIVE TSH WITH FREE T4 IF INDICATED Diet: Orders Placed This Encounter Procedures Adult Complex Diet : Sodium Restriction: 2 gm Additional Diet Information: Intake and Output: No intake or output data in the 24 hours ending 05/30/24 1437 Patient Belongings and Home Medications Patient Belongings at Bedside Belongings at Bedside: None (05/30/24 1430) Recommendations/Follow up Goals/Plan of Care: See Providers note. Consults not completed: none at this time. Anticipated tests/studies/procedures: none at this time. Medication Reconcilliation completed for this Admission? Yes documented in this encounter Plan of Treatment Upcoming Encounters Date Type Department Care Team (Late st Contact Info) Description 06/06/2024 10:00 AM EDT Office Visit Urology, [place] [address] [place] [address] Diego Salas PA-C [address] [place] [address] 06/13/2024 2:00 PM EDT Office Visit [facility] [address] [place] [address] Katie Tejeda PA-C [address] [place] [phone] 02/20/2025 7:30 AM EDT Office Visit [facility] [address] [place] [address] Katie Tejeda PA-C [address] [place] [address] Scheduled Orders Name Type Priority Associated Diagnoses Orde r Schedule EKG EKG STAT One Time for 1 Occurrences starting 05/30/2024 until 05/30/2024 MRI PELVIS W WO CONTRAST Medical Imaging Routine Cyst of right ovary Expected: 07/01/2024 (Approximate), Expires: 07/01/2025 Scheduled Procedures Name Priority Associated Diagnoses Date/Ti me IMPLANTATION NEUROSTIMULATOR SACRAL NERVE OAB (overactive bladder) Urge incontinence of urine PERIPH NEUROSTIM INSERT/REPLACE OAB (overactive bladder) Urge incontinence of urine COLONOSCOPY FLEXIBLE PROXIMA L DIAGNOSTIC Recall History of colonoscopy Scheduled Referrals Name Type Priority Associated Diagnoses Order Schedule STAIR LUNG NODULE REFERRAL OP (SYSTEM FOR TRACKING ABNORMALITIES OF IMPORTANCE RELIABLY) Referral Within 10 days (routine) Lung nodule seen on imaging study Ordered: 06/01/2024 NET MOBILE DEVELOPER REFERRAL OP Referral Within 30 days (routine) Cyst of right ovary Ordered: 06/01/2024 Health Maintenance Due Date Last [...] this encounter Medical Devices Implanted Type Area Hemp Fiber Taker Off Device Identifier Shelf Expiration Date Model / Serial / Lot Device Tvt [id number] - [id number] Implanted:Qty: 1 on 04/15/2008 at [place] [facility] [place] N/A: Vagina Gynecare 11/17/2010 [id number] / / [id number] Mirena Iud Implanted:Qty: 1 on 09/16/2009 at OR [facility] [employer] 12/26/2009 / / [id number] Description:Elizabeth IUDCharge d for in NET MOBILE DEVELOPER Clinic Screw Micro 16mm [id number]-C16-[id number] - [id number] Implanted:Qty: 1 on 08/05/2014 at OR [facility] Left: Hand ACUMED 03/15/2015 [id number]-[id number] / / [id number] documented as of this encounter Procedures Procedure Name Priority Date/Time Associated Diagnosis Comments BASIC METABOLIC PANEL Routine 06/01/2024 7:56 AM EDT PHOSPHORUS Routine 06/01/2024 7:56 AM EDT MAGNESIUM Routine 06/01/2024 7:56 AM EDT BASIC METABOLIC PANEL Routine 05/31/2024 9:18 PM EDT PHOSPHORUS Routine 05/31/2024 9:18 PM EDT MAGNESIUM Routine 05/31/2024 9:18 PM EDT ECHO, COMPLETE (2D), TRANS-THORACIC Routine 05/31/2024 10:14 AM EDT Heart failure (HCC) BASIC METABOLIC PANEL Routine 05/31/2024 7:26 AM EDT PHOSPHORUS Routine 05/31/2024 7:26 AM EDT MAGNESIUM Routine 05/31/2024 7:26 AM EDT MRI PELVIS W WO CONTRAST Routine 05/31/2024 3:01 AM EDT BASIC METABOLIC PANEL Routine 05/30/2024 6:36 PM EDT PHOSPHORUS Routine 05/30/2024 6:36 PM EDT MAGNESIUM Routine 05/30/2024 6:36 PM EDT URINALYSIS, REFLEX TO CULTURE STAT 05/30/2024 12:32 PM EDT URINALYSIS, REFLEX TO CULTURE (CUP ONLY) STAT 05/30/2024 12:32 PM EDT URINALYSIS, REFLEX TO CULTURE (NOT FOR NEUTROPENIC PATIENTS) STAT 05/30/2024 12:32 PM EDT CULTURE, URINE, QUANTITATIVE STAT 05/30/2024 12:[address] PULMONARY EMBOLUS W CONTRAST STAT 05/30/2024 10:[address] ABD/PELVIS W IV CONTRAST - WO ORAL CONTRAST STAT 05/30/2024 10:40 AM EDT CBC STAT 05/30/2024 8:12 AM EDT TROPONIN T, HIGH SENSITIVITY STAT 05/30/2024 8:09 AM EDT BLOOD GAS, VENOUS STAT 05/30/2024 8:0 9 AM EDT TSH WITH FREE T4 IF INDICATED Add-on 05/30/2024 8:09 AM EDT D-DIMER STAT 05/30/2024 8:09 AM EDT PHOSPHORUS Add-on 05/30/2024 8:09 AM EDT T4, FREE Routine 05/30/2024 8:09 AM EDT MAGNESIUM Add-on 05/30/2024 8:09 AM EDT RESPIRATORY PATHOGEN PANEL, PCR STAT 05/30/2024 3:06 AM EDT XR CHEST 2 VIEWS STAT 05/29/2024 8:09 PM EDT Chest pain EXTRA LIGHT BLUE TOP Routine 05/29/2024 7:56 PM EDT DIFFERENTIAL, AUTOMATED STAT 05/29/2024 7:56 PM EDT TROPONIN T, HIGH SENSITIVITY STAT 05/29/2024 7:56 PM EDT BNP (NT-PROBNP) STAT 05/29/2024 7:56 PM EDT COMPREHENSIVE METABOLIC PANEL STAT 05/29/2024 7:56 PM EDT CBC STAT 05/29/2024 7:56 PM EDT PT INR STAT 05/29/2024 7:56 PM EDT CBC STAT 05/29/2024 7:56 PM EDT HC ECG TRACING ONLY Routine 05/29/2024 7 :51 PM EDT Shortness of breath documented in this encounter Results * PHOSPHORUS (06/01/2024 7:56 AM EDT) Pathologist [facility] Phosphorus 3.3 2.5 - 4.8 mg/dL 06/01/2024 8:35 AM EDT LABORATORY [facility] Blood Venous blood specimen / Unknown Venipuncture / Unknown 06/01/2024 7:56 AM EDT 06/01/2024 8:03 AM EDT Idalia AMBROCIO LAB BLOOD O RDERABLES LABORATORY [facility] [address] [place] [address] * MAGNESIUM (06/01/2024 7:56 AM EDT) Pathologist [facility] Magnesium 2.0 1.5 - 2.6 mg/dL 06/01/2024 8:35 AM EDT [facility] Blood Venous blood specimen / Unknown Venipuncture / Unknown 06/01/2024 7:56 AM EDT 06/01/2024 8:03 AM EDT Idalia AMBROCIO LAB BLOOD O RDERABLES LAB[facility] [address] [place] [address] * BASIC METABOLIC PANEL (06/01/2024 7:56 AM EDT) BUN 14 6 - 20 mg/dL 06/01/2024 8:35 AM EDT [facility] Creatinine 0.9 0.5 - 1.0 mg/dL 06/01/2024 8:35 AM EDT [facility] Estimated Glomerular Filtration Rate 75 >=60 mL/min 06/01/2024 8:35 AM EDT [facility] Comment:eGFR is calculated b ased on the CKD-EPI 2020 equation. Sodium 140 135 - 146 mmol/L 06/01/2024 8:35 AM EDT [facility] Potassium 3.8 3.5 - 5.1 mmol/L 06/01/2024 8:35 AM EDT [facility] Chloride 100 98 - 107 mmol/L 06/01/2024 8:35 AM EDT [facility] CO2 32 22 - 32 mmol/L 06/01/2024 8:35 AM EDT [facility] Anion Gap 8 7 - 15 mmol/L 06/01/2024 8:35 AM EDT [facility] Glucose 96 70 - 120 mg/dL 06/01/2024 8:35 AM EDT [facility] Calcium 9.1 8.4 - 10.2 mg/dL 06/01/2024 8:35 AM EDT [facility] Blood Venous blood specimen / Unknown Venipuncture / Unknown 06/01/2024 7:56 AM EDT 06/01/2024 8:03 AM EDT Idalia AMBROCIO LAB BLOOD O RDERABLES LAB[facility] [address] [place] [address] * PHOSPHORUS (05/31/2024 9:18 PM EDT) Phosphorus 3.4 2.5 - 4.8 mg/dL 05/31/2024 10:01 PM EDT LABORATORY [facility] Blood Venous blood specimen / Unknown Venipuncture / Unknown 05/31/2024 9:18 PM EDT 05/31/2024 9:28 PM EDT Idalia Januarycarolynn AMBROCIO LAB BLOOD O RDERABLES LABORATORY [facility] [address] [place] [address] * MAGNESIUM (05/31/2024 9:18 PM EDT) Pathologist [facility] Magnesium 1.9 1.5 - 2.6 mg/dL 05/31/2024 10:01 PM EDT LABORATORY [facility] Blood Venous blood specimen / Unknown Venipuncture / Unknown 05/31/2024 9:18 PM EDT 05/31/2024 9:28 PM EDT Idalia Januarycarolynn AMBROCIO LAB BLOOD O RDERABLES LABORATORY [facility] [address] [place] [address] * (ABNORMAL) BASIC METABOLIC PANEL (05/31/2024 9:18 PM EDT) BUN 16 6 - 20 mg/dL 05/31/2024 10:01 PM EDT LABORATORY [facility] Creatinine 1.1(H) 0.5 - 1.0 mg/dL 05/31/2024 10:01 PM EDT LABORATORY [facility] Estimated Glomerular Filtration Rate 60 >=60 mL/min 05/31/2024 10:01 PM EDT LABORATORY [facility] Comment:eGFR is calculated b ased on the CKD-EPI 2020 equation. Sodium 139 135 - 146 mmol/L 05/31/2024 10:01 PM EDT LAB[facility] Potassium 4.2 3.5 - 5.1 mmol/L 05/31/2024 10:01 PM EDT LABORATORY C Chloride 101 98 - 107 mmol/L 05/31/2024 10:01 PM EDT [facility] CO2 31 22 - 32 mmol/L 05/31/2024 10:01 PM EDT [facility] Anion Gap 7 7 - 15 mmol/L 05/31/2024 10:01 PM EDT LABORATORY C Glucose 114 70 - 120 mg/dL 05/31/2024 10:01 PM EDT LABORATORY C Calcium 8.8 8.4 - 10.2 mg/dL 05/31/2024 10:01 PM EDT LABORATORY [facility] Blood Venous blood specimen / Unknown Venipuncture / Unknown 05/31/2024 9:18 PM EDT 05/31/2024 9:28 PM EDT Idalia AMBROCIO LAB BLOOD O RDERABLES Performing Organization Address City/[facility]/ZIP Co de Phone Number LABORATORY [facility] [address] [place] [address] * ECHO, COMPLETE (2D), TRANS-THORACIC (05/31/2024 10:14 AM EDT) LEFT VENTRICULAR EJECTION FRACTION 55 % [facility] CARDIOLOGY 05/31/2024 9:08 AM EDT Idalia AMBROCIO ECHOCARDIOL [facility] * PHOSPHORUS (05/31/2024 7:26 AM EDT) Phosphorus 3.3 2.5 - 4.8 mg/dL 05/31/2024 7:54 AM EDT LABORATORY [facility] Blood Venous blood specimen / Unknown Venipuncture / Unknown 05/31/2024 7:26 AM EDT 05/31/2024 7:30 AM EDT Idalia AMBROCIO LAB BLOOD O RDERABLES LABORATORY [facility] [address] [place] [address] * MAGNESIUM (05/31/2024 7:26 AM EDT) Magnesium 2.1 1.5 - 2.6 mg/dL 05/31/2024 7:54 AM EDT LABORATORY C Blood Venous blood specimen / Unknown Venipuncture / Unknown 05/31/2024 7:26 AM EDT 05/31/2024 7:30 AM EDT Idalia Hahncarolynn JOHNNP LAB BLOOD O RDERABLES LABORATORY [facility] [address] [place] [address] * BASIC METABOLIC PANEL (05/31/2024 7:26 AM EDT) BUN 15 6 - 20 mg/dL 05/31/2024 7:54 AM EDT LABORATORY [facility] Creatinine 0.8 0.5 - 1.0 mg/dL 05/31/2024 7:54 AM EDT LABORATORY [facility] Estimated Glomerular Filtration Rate 88 >=60 mL/min 05/31/2024 7:54 AM EDT LABORATORY C Comment:eGFR is calculated b ased on the CKD-EPI 2020 equation. Sodium 142 135 - 146 mmol/L 05/31/2024 7:54 AM EDT LABORATORY C Potassium 3.9 3.5 - 5.1 mmol/L 05/31/2024 7:54 AM EDT LABORATORY C Chloride 104 98 - 107 mmol/L 05/31/2024 7:54 AM EDT LABORATORY C CO2 29 22 - 32 mmol/L 05/31/2024 7:54 AM EDT LABORATORY C Anion Gap 9 7 - 15 mmol/L 05/31/2024 7:54 AM EDT LABORATORY C Glucose 94 70 - 120 mg/dL 05/31/2024 7:54 AM EDT [facility] Calcium 8.6 8.4 - 10.2 mg/dL 05/31/2024 7:54 AM EDT LABORATORY [facility] Blood Venous blood specimen / Unknown Venipuncture / Unknown 05/31/2024 7:26 AM EDT 05/31/2024 7:30 AM EDT Idalia Reyna [employer]ENC[employer]ER LAB BLOOD O RDERABLES LABORATORY [facility] [address] [place] [address] * MRI PELVIS W WO CONTRAST (05/31/2024 3:01 AM EDT) Anatomical Region Laterality Modality Pelvis Magnetic Resonan ce 05/31/2024 10:3 0 AM EDT Impressions 05/31/2024 11:12 AM EDT IMPRESSION Constellation of findings related to the right ovary, as detailed above. In particular, there is no evidence of ovarian torsion. Recommend follow-up MRI in 1 month. I have personally reviewed this examination and agree with the resident/fellow physician's interpretation. Narrative 05/31/2024 11:12 AM EDT EXAM MRI PELVIS W WO CONTRAST-05/31/2024 3:01 am HISTORY Indeterminate soft tissue density in the RLQ with adjacent fat stranding. Some parts containing the right ovary. One consideration would be ovarian torsion. Pt w/ RLQ and suprapubic tenderness. COMPARISON CT abdomen/pelvis 05/30/2024; pelvic ultrasound 11/03/2021; CT abdomen 04/11/2014 TECHNIQUE Multiplanar, multisequential MR imaging of the pelvis was performed with and without contrast. FINDINGS Uterus: Normal in size there are no fibroids. Inner myometrial junctional zone: Normal in thickness and homogeneous. Endometrium: Normal in thickness, measuring 5 mm. Homogeneous. Right ovary: The ovary is in similar position to the CT scan of 04/11/2014 and demonstrates normal enhancement. Therefore, there are no findings to suggest torsion. Within the ovary, there is a small heterogeneous area with central cystic changes, [...] not significantly mildly increased in compared to 2013. Vessels: Within normal limits. Bones: Degenerative osseous changes. Procedure Note Tim Wagner MD - 05/31/2024 EXAM MRI PELVIS W WO CONTRAST-05/31/2024 3:01 am HISTORY Indeterminate soft tissue density in the RLQ with adjacent fat stranding.Some parts containing the right ovary. One consideration would be ovariantorsion. Pt w/ RLQ and suprapubic tenderness. COMPARISON CT abdomen/pelvis 05/30/2024; pelvic ultrasound 11/03/2021; CT [id number]/11/2014 TECHNIQUE Multiplanar, multisequential MR imaging of the pelvis was performed withand without contrast. FINDINGS Uterus: Normal in size there are no fibroids. Inner myometrial junctional zone: Normal in thickness and homogeneous. Endometrium: Normal in thickness, measuring 5 mm. Homogeneous. Right ovary: The ovary is in similar position to the CT scan of 04/11/2014nd demonstrates normal enhancement. Therefore, there are no findings tosuggest torsion. Within the ovary, there is a small heterogeneous areawith central cystic changes, which is in the location of an apparentcyst/residual follicle on the prior CT scan of 04/11/2014. Currentlythere is surrounding edema/trace fluid, suggesting rupture of thecyst/follicle. There is an additional hypoenhancing T2 hypointense lesionwithin the ovary, which measures 2.1 x 2.4 cm and appears similar in sizecompared to 2014, possibly representing a fibroma. Left ovary: Normal in size. Residual ovarian follicles. Peritoneum/Retroperitoneum: There is right lower quadrant mesentericedema/trace fluid surrounding the right ovary. Urinary bladder: Within normal limits. Lymph nodes: Prominent pelvic lymph nodes, not significantly mildlyincreased in compared to 2014. Vessels: Within normal limits. Bones: Degenerative osseous changes. IMPRESSION IMPRESSION Constellation of findings related to the right ovary, as detailed above.In particular, there is no evidence of ovarian torsion. Recommendfollow-up MRI in 1 month. I have personally reviewed this examination and agree with the resident/fellow physician's interpretation. Idalia Harrisabdiel AMBROCIO RAD MRI-MRA * PHOSPHORUS (05/30/2024 6:36 PM EDT) Phosphorus 3.3 2.5 - 4.8 mg/dL 05/30/2024 7:18 PM EDT LABORATORY C Blood Venous blood specimen / Unknown Venipuncture / Unknown 05/30/2024 6:36 PM EDT 05/30/2024 6:43 PM EDT Idalia Sin Axel AMBROCIO LAB BLOOD O RDERABLES Performing Organization Address City/[facility]/ZIP Co de Phone Number LABORATORY [facility] [address] [place] [address] * MAGNESIUM (05/30/2024 6:36 PM EDT) Pathologist [facility] Magnesium 1.8 1.5 - 2.6 mg/dL 05/30/2024 7:18 PM EDT LABORATORY [facility] Blood Venous blood specimen / Unknown Venipuncture / Unknown 05/30/2024 6:36 PM EDT 05/30/2024 6:43 PM EDT Idalia Harrislatashadung LOLLY LAB BLOOD O RDERABLES Performing Organization Address City/[facility]/ZIP Co de Phone Number LABORATORY [address] [address] * BASIC METABOLIC PANEL (05/30/2024 6:36 PM EDT) BUN 15 6 - 20 mg/dL 05/30/2024 7:18 PM EDT LABORATORY [facility] Creatinine 0.9 0.5 - 1.0 mg/dL 05/30/2024 7:18 PM EDT LABORATORY [facility] Estimated Glomerular Filtration Rate 78 >=60 mL/min 05/30/2024 7:18 PM EDT LABORATORY [facility] Comment:eGFR is calculated b ased on the CKD-EPI 2020 equation. Sodium 141 135 - 146 mmol/L 05/30/2024 7:18 PM EDT [facility] Potassium 3.6 3.5 - 5.1 mmol/L 05/30/2024 7:18 PM EDT [facility] Chloride 99 98 - 107 mmol/L 05/30/2024 7:18 PM EDT [facility] CO2 29 22 - 32 mmol/L 05/30/2024 7:18 PM EDT [facility] Anion Gap 13 7 - 15 mmol/L 05/30/2024 7:18 PM EDT LABORATORY C Glucose 100 70 - 120 mg/dL 05/30/2024 7:18 PM EDT [facility] Calcium 9.3 8.4 - 10.2 mg/dL 05/30/2024 7:18 PM EDT LABORATORY C Blood Venous blood specimen / Unknown Venipuncture / Unknown 05/30/2024 6:36 PM EDT 05/30/2024 6:43 PM EDT Idalia AMBROCIO LAB BLOOD O RDERABLES Performing Organization Address City/State/[facility] Co de Phone Number LABORATORY [facility] [address] [place] [address] * (ABNORMAL) CULTURE, URINE, QUANTITATIVE (05/30/2024 12:32 PM EDT) [facility] Culture Growth >100,000 colonies/mL Escherichia coli(A) MICROBROTH DILUTIONS 06/01/2024 10:50 AM EDT LABORATORY [facility] Urine Urine specimen / Unknown Non-blood Collection / Unknown 05/30/2024 12:32 PM EDT 05/30/2024 12:40 PM EDT Narrative LAB[facility]ATORY [facility] - 06/01/2024 10:50 AM EDT <10,000 colonies/ml mixed normal saul Organism Antibiotic Method Susceptibility Escherichia coli Ampicillin MICROBROTH DILUTIONS <=2: Susceptible Escherichia coli Cefazolin MICROBROTH DILUTIONS <=4: Susceptible Escherichia coli Cefepime MICROBROTH DILUTIONS <=1: Susceptible Escherichia coli Ceftriaxone MICROBROTH DILUTIONS <=1: Susceptible Escherichia coli Ciprofloxacin MICROBROTH DILUTIONS >=4: Resistant Comment:Due to hasmukh us side effects, the FDA has advised against using Ciprofloxacin to treat uncomplicated UTIs and respiratory tract infections unless there are no alternative treatment options. Escherichia coli Gentamicin MICROBROTH DILUTIONS <=1: Susceptible Escherichia coli Levofloxacin MICROBROTH DILUTIONS >=8: Resistant Comment:Due to hasmukh us side effects, the FDA has advised against using Levofloxacin to treat uncomplicated UTIs and respiratory tract infections unless there are no alternative treatment options. Escherichia coli Nitrofurantoin MICROBROTH DILUTIONS <=16: Susceptible Escherichia coli Piperacillin Tazobactam MICROBROTH DI LUTIONS <=4: Susceptible Escherichia coli Trimeth/Sulfamethoxazole MICROBROTH D ILUTIONS <=20: Susceptible Sal Anna Pickenstha DO LAB MICRO - GE NERAL ORDERABLES LABORATORY [facility] [address] [place] [address] * (ABNORMAL) URINALYSIS, REFLEX TO CULTURE (05/30/2024 12:32 PM EDT) Color, Urine Yellow Colorless, Light Yellow, Yellow, Dark Yellow 05/30/2024 1:16 PM EDT LABORATORY [facility] Clarity, Urine Clear Clear 05/30/2024 1:16 PM EDT LABORATORY [facility] Glucose, Urine Negative Negative mg/dL 05/30/2024 1:16 PM EDT LABORATORY [facility] Bilirubin, Urine Negative Negative 05/30/2024 1:16 PM EDT LABORATORY [facility] Ketone, Urine 15(A) Negative mg/dL 05/30/2024 1:16 PM EDT LABORATORY [facility] Specific [place], Urine 1.039(H) 1.003 - 1.030 05/30/2024 1:16 PM EDT LABORATORY [facility] Blood, Urine Negative Negative 05/30/2024 1:16 PM EDT LABORATORY [facility] pH, Urine 6.5 5.0 - 7.5 Units 05/30/2024 1:16 PM EDT [facility] [facility] Protein, Urine Negative Negative mg/dL 05/30/2024 1:16 PM EDT LAB[facility]ATORY [facility] Urobilinogen, Urine Normal Normal mg/dL 05/30/2024 1:16 PM EDT LAB[facility]ATORY [facility] Nitrite, Urine Positive(A) Negative 05/30/2024 1:16 PM EDT LAB[facility]ATORY [facility] Esterase, Urine Small(A) Negative 05/30/2024 1:16 PM EDT LAB[facility]ATORY [facility] RBC, Urine 0-2 0 - 2 /HPF 05/30/2024 1:16 PM EDT LAB[facility]ATORY [facility] WBC, Urine 20-29(A) 0 - 2 /HPF 05/30/2024 1:16 PM EDT LAB[facility]ATORY [facility] Bacteria, Urine >200(A) 0 - 25 /HPF 05/30/2024 1:16 PM EDT LAB[facility]ATORY [facility] Culture, Urine 05/30/2024 1:16 PM EDT LAB[facility]ATORY [facility] Comment:Quantitative urine c ulture to be performed Urine Urine specimen / Unknown Non-blood Collection / Unknown 05/30/2024 12:32 PM EDT 05/30/2024 12:40 PM EDT Sal Anna Kirk LAB URINE ORDCarolynn ALLEN Performing Organization Address [facility] Co de Phone Number LABORATORY [facility] [address] [place] [address] * URINALYSIS, REFLEX TO CULTURE (CUP ONLY) (05/30/2024 12:32 PM EDT) Urinalysis, Reflex to Culture Specimen Specimen collected and received 05/30/2024 2:01 PM EDT LAB[facility]ATORY [facility] Urine Urine specimen / Unknown Non-blood Collection / Unknown 05/30/2024 12:32 PM EDT 05/30/2024 12:40 PM EDT Salplacido Kirk LAB URINE ORDCarolynn ALLEN Performing Organization Address [facility] de Phone Number LABORATORY [facility] [address] [place] [address] * CT ABD/PELVIS W IV CONTRAST - WO ORAL CONTRAST (05/30/2024 10:40 AM EDT) Anatomical Region Laterality Modality Body, Abdomen, Pelvis Computed T omography 05/30/2024 11:4 5 AM EDT Impressions 05/30/2024 11:43 AM EDT IMPRESSION 1. No pulmonary embolism. 2. Indeterminate matted soft tissue density in the right lower quadrant with adjacent fat stranding. Some parts of the soft tissue density appears to contain the right ovary. One consideration would be ovarian torsion. If this is a clinical concern, recommend MRI of the pelvis with and without IV contrast 3. Few pulmonary nodules. Narrative 05/30/2024 11:43 AM EDT EXAM EXAM: CT PULMONARY EMBOLUS W CONTRAST; CT ABD/PELVIS W IV CONTRAST - WO ORAL CONTRAST HISTORY CLINICAL INFORMATION: SOB w/ Chest Pressure; Pulmonary embolism; Wells score < 2; D-Dimer elevated; No known/automatically detected potential contraindications to iodinated contrast; Abdominal Tightness TECHNIQUE CT modality COMPARISON 04/11/2014 FINDINGS THYROID:Within normal limits. THORACIC AORTA: No [...] Within normal limits. Bones: Within normal limits. Procedure Note Seferino Davenport MD - 05/30/2024 EXAM EXAM: CT PULMONARY EMBOLUS W CONTRAST; CT ABD/PELVIS W IV CONTRAST - WOORAL CONTRAST HISTORY CLINICAL INFORMATION: SOB w/ Chest Pressure; Pulmonary embolism; Wellsscore < 2; D-Dimer elevated; No known/automatically detected potentialcontraindications to iodinated contrast; Abdominal Tightness TECHNIQUE CT modality COMPARISON 04/11/2014 FINDINGS THYROID:Within normal limits. THORACIC AORTA: No aneurysm. MAIN PULMONARY ARTERY: Normal sized. HEART: No pericardial effusion. ESOPHAGUS: Within normal limits. MEDIASTINUM AND ARIC: Within normal limits. CHEST SOFT TISSUES: Within normal limits. CHEST WALL: Within normal limits. LARGE AIRWAYS: Within normal limits LUNGS: 6 millimeter solid pulmonary nodule in the right lower lobe on4:156. 5 millimeter solid pulmonary nodule left lower lobe on 4:153. Fewother smaller pulmonary nodules. ABDOMEN/PELVIS: Liver and biliary tree: Within normal limits. Gallbladder: Cholecystectomy. Pancreas: Within normal limits. Spleen: Within normal limits. Adrenal glands: Within normal limits. Kidneys and ureters and bladder: Within normal limits. Pelvic organs:No mass. Bowel: There is questionable matted 6.5 centimeter soft tissue density inthe right lower quadrant with adjacent fat stranding. Some parts of thesoft tissue density appears to contain the right ovary. The other partsare indeterminate. See image 10 series 281. Lymph nodes/peritoneum: Within normal limits. Aorta: Within normal limits. Abdominal wall: Within normal limits. Bones: Within normal limits. IMPRESSION IMPRESSION 1. No pulmonary embolism. 2. Indeterminate matted soft tissue density in the right lower quadrantwith adjacent fat stranding. Some parts of the soft tissue density appearsto contain the right ovary. One consideration would be ovarian torsion.If this is a clinical concern, recommend MRI of the pelvis with andwithout IV contrast 3. Few pulmonary nodules. Sanjay [place] DO RAD CT * CT PULMONARY EMBOLUS W CONTRAST (05/30/2024 10:40 AM EDT) Anatomical Region Laterality Modality Chest, Cardio, Body Computed Bo ography 05/30/2024 11:4 5 AM EDT Impressions 05/30/2024 11:43 AM EDT IMPRESSION 1. No pulmonary embolism. 2. Indeterminate matted soft tissue density in the right lower quadrant with adjacent fat stranding. Some parts of the soft tissue density appears to contain the right ovary. One consideration would be ovarian torsion. If this is a clinical concern, recommend MRI of the pelvis with and without IV contrast 3. Few pulmonary nodules. Narrative 05/30/2024 11:43 AM EDT EXAM EXAM: CT PULMONARY EMBOLUS W CONTRAST; CT ABD/PELVIS W IV CONTRAST - WO ORAL CONTRAST HISTORY CLINICAL INFORMATION: SOB w/ Chest Pressure; Pulmonary embolism; Wells score < 2; D-Dimer elevated; No known/automatically detected potential contraindications to iodinated contrast; Abdominal Tightness TECHNIQUE CT modality COMPARISON 04/11/2014 FINDINGS THYROID:Within normal limits. THORACIC AORTA: No [...] Within normal limits. Bones: Within normal limits. Procedure Note Seferino Davenport MD - 05/30/2024 EXAM EXAM: CT PULMONARY EMBOLUS W CONTRAST; CT ABD/PELVIS W IV CONTRAST - WOORAL CONTRAST HISTORY CLINICAL INFORMATION: SOB w/ Chest Pressure; Pulmonary embolism; Wellsscore < 2; D-Dimer elevated; No known/automatically detected potentialcontraindications to iodinated contrast; Abdominal Tightness TECHNIQUE CT modality COMPARISON 04/11/2014 FINDINGS THYROID:Within normal limits. THORACIC AORTA: No aneurysm. MAIN PULMONARY ARTERY: Normal sized. HEART: No pericardial effusion. ESOPHAGUS: Within normal limits. MEDIASTINUM AND ARIC: Within normal limits. CHEST SOFT TISSUES: Within normal limits. CHEST WALL: Within normal limits. LARGE AIRWAYS: Within normal limits LUNGS: 6 millimeter solid pulmonary nodule in the right lower lobe on4:156. 5 millimeter solid pulmonary nodule left lower lobe on 4:153. Fewother smaller pulmonary nodules. ABDOMEN/PELVIS: Liver and biliary tree: Within normal limits. Gallbladder: Cholecystectomy. Pancreas: Within normal limits. Spleen: Within normal limits. Adrenal glands: Within normal limits. Kidneys and ureters and bladder: Within normal limits. Pelvic organs:No mass. Bowel: There is questionable matted 6.5 centimeter soft tissue density inthe right lower quadrant with adjacent fat stranding. Some parts of thesoft tissue density appears to contain the right ovary. The other partsare indeterminate. See image 10 series 281. Lymph nodes/peritoneum: Within normal limits. Aorta: Within normal limits. Abdominal wall: Within normal limits. Bones: Within normal limits. IMPRESSION IMPRESSION 1. No pulmonary embolism. 2. Indeterminate matted soft tissue density in the right lower quadrantwith adjacent fat stranding. Some parts of the soft tissue density appearsto contain the right ovary. One consideration would be ovarian torsion.If this is a clinical concern, recommend MRI of the pelvis with andwithout IV contrast 3. Few pulmonary nodules. Sanjay [facility] DO RAD CT * CBC (05/30/2024 8:12 AM EDT) WBC 5.39 4.00 - 10.80 K/uL 05/30/2024 8:22 AM EDT LABORATORY [facility] RBC 4.20 3.85 - 5.15 M/uL 05/30/2024 8:22 AM EDT LAB[facility]ATORY [facility] HGB 12.5 12.0 - 15.3 g/dL 05/30/2024 8:22 AM EDT LAB[facility]ATORY [facility] HCT 39.8 36.0 - 45.2 % 05/30/2024 8:22 AM EDT LAB[facility]ATORY [facility] MCV 94.8 81.5 - 97.5 fL 05/30/2024 8:22 AM EDT LAB[facility]ATORY [facility] MCH 29.8 27.0 - 34.0 pg 05/30/2024 8:22 AM EDT LAB[facility]ATORY [facility] MCHC 31.4 32.0 - 36.0 g/dL 05/30/2024 8:22 AM EDT LAB[facility]ATORY [facility] RDW 13.9 11.5 - 15.5 % 05/30/2024 8:22 AM EDT LABORATORY [facility] PLT 153 140 - 400 K/uL 05/30/2024 8:22 AM EDT LAB[facility]ATORY [facility] MPV 9.9 6.6 - 11.1 fL 05/30/2024 8:22 AM EDT LAB[facility]ATORY [facility] nRBCs 0 <=0 /100 WBCs 05/30/2024 8:22 AM EDT LAB[facility]ATORY [facility] Blood Venous blood specimen / Unknown Venipuncture / Unknown 05/30/2024 8:12 AM EDT 05/30/2024 8:16 AM EDT Sal Kirk DO LAB BLOOD SANDRO ALLEN Performing Organization Address City/[facility]/ZIP Co de Phone Number LABORATORY [facility] [address] [place] [address] * T4, FREE (05/30/2024 8:09 AM EDT) T4, Free 1.5 0.9 - 1.7 ng/dL 05/30/2024 11:57 PM EDT LAB[facility]ATORY [facility] Blood Venous blood specimen / Unknown Venipuncture / Unknown 05/30/2024 8:09 AM EDT 05/30/2024 8:15 AM EDT Idalia AMBROCIO LAB BLOOD O RDERABLES Performing Organization Address [facility] Co de Phone Number LAB[facility]ATORY [facility] [address] [place] [address] * (ABNORMAL) TSH WITH FREE T4 IF INDICATED (05/30/2024 8:09 AM EDT) TSH 5.09(H) 0.27 - 4.20 uIU/mL 05/30/2024 11:28 PM EDT LABORATORY C Blood Venous blood specimen / Unknown Venipuncture / Unknown 05/30/2024 8:09 AM EDT 05/30/2024 8:15 AM EDT Idalia AMBROCIO LAB BLOOD O RDERABLES Performing Organization Address [facility]/ZIP Co de Phone Number LABORATORY [facility] [address] [place] [address] * PHOSPHORUS (05/30/2024 8:09 AM EDT) Phosphorus 3.1 2.5 - 4.8 mg/dL 05/30/2024 8:45 AM EDT LAB[facility]ATORY [facility] Blood Venous blood specimen / Unknown Venipuncture / Unknown 05/30/2024 8:09 AM EDT 05/30/2024 8:15 AM EDT Sal Kirk DO LAB BLOOD ORDCarolynn ALLEN Performing Organization Address City/[facility]/ZIP Co de Phone Number LABORATORY [facility] [address] [place] [address] * MAGNESIUM (05/30/2024 8:09 AM EDT) Pathologist [facility] Magnesium 1.9 1.5 - 2.6 mg/dL 05/30/2024 8:45 AM EDT LAB[facility]ATORY [facility] Blood Venous blood specimen / Unknown Venipuncture / Unknown 05/30/2024 8:09 AM EDT 05/30/2024 8:15 AM EDT Sal Kirk [facility] BLOOD MANSONCarolynn ALLEN Performing Organization Address [facility] de Phone Number LABORATORY [facility] [address] [place] [address] * (ABNORMAL) BLOOD GAS, VENOUS (05/30/2024 8:09 AM EDT) Temperature 37.0 C 05/30/2024 8:21 AM EDT LAB[facility]ATORY [facility] pH, Venous 7.369 7.320 - 7.430 units 05/30/2024 8:21 AM EDT LAB[facility]ATORY [facility] pCO2, Venous 54.5 40.0 - 60.0 mmHg 05/30/2024 8:21 AM EDT LAB[facility]ORY [facility] pO2, Venous 26.2 25.0 - 50.0 mmHg 05/30/2024 8:21 AM EDT LAB[facility]ATORY [facility] Base Excess, Venous 4.6(H) -2.0 - 2.0 mmol/L 05/30/2024 8:21 AM EDT LAB[facility]ATORY [facility] HGB 12.8 12.0 - 15.3 g/dL 05/30/2024 8:21 AM EDT LAB[facility]ORY [facility] Oxyhemoglobin, Venous 41.2 40.0 - 85.0 % total Hgb 05/30/2024 8:21 AM EDT LAB[facility]ORY [facility] Carboxyhemoglobi n, Whole Blood 1.3 <=1.5 % total Hgb 05/30/2024 8:21 AM EDT LAB[facility]ATORY [facility] Comment:Smokers: 0-9.0 % Methemoglobin, Whole Blood 1.5 <=1.5 % total Hgb 05/30/2024 8:21 AM EDT LAB[facility]ORY [facility] Reduced Hemoglobin, Venous 56.0 % total Hgb 05/30/2024 8:21 AM EDT LAB[facility]ORY [facility] O2 Content, Venous 7.4 7.0 - 18.0 %vol 05/30/2024 8:21 AM EDT LAB[facility]ORY [facility] Bicarbonate, Whole Blood 30.7 23.0 - 31.0 mmol/L 05/30/2024 8:21 AM EDT LAB[facility]ORY [facility] Blood Venous blood specimen / Unknown Venipuncture / Unknown 05/30/2024 8:09 AM EDT 05/30/2024 8:14 AM EDT Sal Kirk LAB BLOOD ORDCarolynn KHANREGULO Performing Organization Address City/[facility]/ZIP Co de Phone Number LABORATORY [facility] [address] [place] [address] * TROPONIN T, HIGH SENSITIVITY (05/30/2024 8:09 AM EDT) [facility] Troponin T, High Sensitivity 8 <=14 ng/L 05/30/2024 8:45 AM EDT LABORATORY C Blood Venous blood specimen / Unknown Venipuncture / Unknown 05/30/2024 8:09 AM EDT 05/30/2024 8:15 AM EDT Salplacido Kirk LAB BLOOD ORDE ALEJANDRO LABORATORY [facility] [address] [place] [address] * (ABNORMAL) D-DIMER (05/30/2024 8:09 AM EDT) Pathologist [facility] D-Dimer 1.64(H) <0.50 ug/mL FEU 05/30/2024 8:52 AM EDT LAB[facility]ATORY [facility] Blood Venous blood specimen / Unknown Venipuncture / Unknown 05/30/2024 8:09 AM EDT 05/30/2024 8:15 AM EDT Narrative LAB[facility]ATORY [facility] - 05/30/2024 8:52 AM EDT Rheumatoid factor at a level above 50 IU/mL may lead to an overestimation of the D-dimer level. A normal D-dimer result (<0.50 ug/mL FEU) has a negative predictive value of approximately 95% for the exclusion of acute pulmonary embolism (PE) or deep vein thrombosis when there is low or moderate pretest PE probability. Increased D-dimer values are abnormal but do not indicate a specific disease state and the D-dimer increase does not definitively correlate with clinical severity of disease. Sal Kirk DO LAB BLOOD SANDRO ALLEN LABORATORY [facility] [address] [place] [address] * RESPIRATORY PATHOGEN PANEL, PCR (05/30/2024 3:06 AM EDT) Pathologist [facility] Adenovirus by PCR Negative Negative 024 4:20 AM EDT LABORATORY [facility] Coronavirus 229E by PCR Negative Negative 05/30/2024 4:20 AM EDT LAB[facility]ATORY [facility] Coronavirus HKU1 by PCR Negative Negative 05/30/2024 4:20 AM EDT LAB[facility]ATORY [facility] Coronavirus NL63 by PCR Negative Negative 05/30/2024 4:20 AM EDT LAB[facility]ATORY [facility] Coronavirus OC43 by PCR Negative Negative 05/30/2024 4:20 AM EDT LAB[facility]ATORY [facility] Coronavirus SARS-CoV-2 by PCR Negative Negative 05/30/2024 4:20 AM EDT LAB[facility]ATORY [facility] Human Metapneumovirus by PCR Negative Negative 05/30/2024 4:20 AM EDT LAB[facility]ATORY [facility] Rhinovirus/Enterovi sofie by PCR Negative Negative 05/30/2024 4:20 AM EDT LAB[facility]ATORY [facility] Influenza A Virus by PCR Negative Negative 05/30/2024 4:20 AM EDT LAB[facility]ATORY [facility] Influenza B Virus by PCR Negative Negative 05/30/2024 4:20 AM EDT LAB[facility]ATORY [facility] Parainfluenza Virus 1 by PCR Negative Negative 05/30/2024 4:20 AM EDT LAB[facility]ATORY [facility] Parainfluenza Virus 2 by PCR Negative Negative 05/30/2024 4:20 AM EDT LAB[facility]ATORY [facility] Parainfluenza Virus 3 by PCR Negative Negative 05/30/2024 4:20 AM EDT LAB[facility]ATORY [facility] Parainfluenza Virus 4 by PCR Negative Negative 05/30/2024 4:20 AM EDT LAB[facility]ATORY [facility] Respiratory Syncytial Virus by PCR Negative Negative 05/30/2024 4:20 AM EDT LAB[facility]ATORY [facility] Bordetella pertussis by PCR Negative Negative 05/30/2024 4:20 AM EDT LAB[facility]ATORY [facility] Chlamydia pneumoniae by PCR Negative Negative 05/30/2024 4:20 AM EDT LAB[facility]ATORY [facility] Mycoplasma pneumoniae by PCR Negative Negative 05/30/2024 4:20 AM EDT LAB[facility]ATORY [facility] Bordetella parapertussis by PCR Negative Negative 05/30/2024 4:20 AM EDT LAB[facility]ATORY [facility] Comment: The primers that detect Rhinovirus may cross react with some Enterorviruses. The validation of bronchial specimens, tracheal aspirates, and throats for this assay was developed and performance characteristics determined by [employer]. The validation of alternate specimen types has not been cleared or approved by the U.S. Food and Drug Administration (FDA). It has been determined that such clearance or approval is not necessary. Upper Respiratory Mid-turbinate nasal swab / Unknown Non-blood Collection / Unknown 05/30/2024 3:06 AM EDT 05/30/2024 3:20 AM EDT Syd Mccracken DO LAB MICRO - GENERA L ORDERABLES Performing Organization Address City/State/[facility] Co de Phone Number LABORATORY [facility] [address] [place] [address] * XR CHEST 2 VIEWS (05/29/2024 8:09 PM EDT) Anatomical Region Laterality Modality Chest Digital Radiogra phy 05/29/2024 8:16 PM EDT Impressions 05/29/2024 8:14 PM EDT IMPRESSION No acute cardiopulmonary process. Narrative 05/29/2024 8:14 PM EDT EXAM XR CHEST 2 VIEWS - 05/29/2024 8:09 pm HISTORY chest pain TECHNIQUE Two-view chest COMPARISON CT 11/18/2022. FINDINGS Cardiomediastinal silhouette is normal. No consolidation, mass, pneumothorax, or pleural effusion. Vascular markings are normal. The underlying bony structures are normal for the patient's age. Procedure Note Jan Leonardo MD - 05/29/2024 EXAM XR CHEST 2 VIEWS - 05/29/2024 8:09 pm HISTORY chest pain TECHNIQUE Two-view chest COMPARISON CT 11/18/2022. FINDINGS Cardiomediastinal silhouette is normal. No consolidation, mass,pneumothorax, or pleural effusion. Vascular markings are normal. The underlying bony structures are normal for the patient's age. IMPRESSION IMPRESSION No acute cardiopulmonary process. Syd Mccracken DO RADIOLOGY (RAD GEN ERAL) * DIFFERENTIAL, AUTOMATED (05/29/2024 7:56 PM EDT) WBC 6.08 4.00 - 10.80 K/uL 05/29/2024 8:16 PM EDT LAB[facility]ATORY [facility] Neutrophils % 69.9 40.0 - 75.0 % 05/29/2024 8:16 PM EDT LAB[facility]ORY [facility] Lymphocytes % 18.9 18.0 - 42.0 % 05/29/2024 8:16 PM EDT LAB[facility] Monocytes % 10.2 1.0 - 11.0 % 05/29/2024 8:16 PM EDT LAB[facility] Eosinophils % 0.0 0.0 - 6.0 % 05/29/2024 8:16 PM EDT LAB[facility] Basophils % 0.7 0.0 - 2.0 % 05/29/2024 8:16 PM EDT LAB[facility]ORY [facility] Immature Granulocytes % 0.3 0.0 - 2.0 % 05/29/2024 8:16 PM EDT LAB[facility] Absolute Neutrophils 4.25 1.80 - 7.70 K/uL 05/29/2024 8:16 PM EDT LAB[facility] Absolute Lymphocytes 1.15 1.00 - 4.80 K/ul 05/29/2024 8:16 PM EDT LAB[facility] Absolute Monocytes 0.62 0.00 - 1.10 K/uL 05/29/2024 8:16 PM EDT LAB[facility] Absolute Eosinophils 0.00 0.00 - 0.70 K/uL 05/29/2024 8:16 PM EDT LAB[facility] Absolute Basophils 0.04 0.00 - 0.20 K/uL 05/29/2024 8:16 PM EDT LAB[facility] Absolute Immature Granulocytes 0.02 0.00 - 0.20 K/uL 05/29/2024 8:16 PM EDT [facility] Blood Venous blood specimen / Unknown Venipuncture / Unknown 05/29/2024 7:56 PM EDT 05/29/2024 8:04 PM EDT Syd Mccracken DO LAB BLOOD ORDERABL ES LAB[facility] [address] [place] [address] * (ABNORMAL) CBC (05/29/2024 7:56 PM EDT) WBC 6.08 4.00 - 10.80 K/uL 05/29/2024 8:16 PM EDT LAB[facility] RBC 3.93 3.85 - 5.15 M/uL 05/29/2024 8:16 PM EDT LAB[facility] HGB 11.9(L) 12.0 - 15.3 g/dL 05/29/2024 8:16 PM EDT [facility] HCT 36.3 36.0 - 45.2 % 05/29/2024 8:16 PM EDT LAB[facility] MCV 92.4 81.5 - 97.5 fL 05/29/2024 8:16 PM EDT LAB[facility] MCH 30.3 27.0 - 34.0 pg 05/29/2024 8:16 PM EDT LAB[facility] MCHC 32.8 32.0 - 36.0 g/dL 05/29/2024 8:16 PM EDT LAB[facility] RDW 13.9 11.5 - 15.5 % 05/29/2024 8:16 PM EDT LAB[facility] PLT 153 140 - 400 K/uL 05/29/2024 8:16 PM EDT [facility] MPV 10.0 6.6 - 11.1 fL 05/29/2024 8:16 PM EDT LAB[facility] nRBCs 0 <=0 /100 WBCs 05/29/2024 8:16 PM EDT LABORATORY [facility] Blood Venous blood specimen / Unknown Venipuncture / Unknown 05/29/2024 7:56 PM EDT 05/29/2024 8:04 PM EDT Syd Mccracken DO LAB BLOOD ORDERABL ES LABORATORY [facility] [address] [place] [address] * PT INR (05/29/2024 7:56 PM EDT) Prothrombin Time 14.1 11.6 - 15.2 seconds 05/29/2024 8:52 PM EDT LABORATORY [facility] INR 1.1 0.8 - 1.2 05/29/2024 8:52 PM EDT LABORATORY [facility] Blood Venous blood specimen / Unknown Venipuncture / Unknown 05/29/2024 7:56 PM EDT 05/29/2024 8:04 PM EDT Narrative LABORATORY [facility] - 05/29/2024 8:52 PM EDT Warfarin Therapy INR: 2.0-3.0 conventional anticoagulation INR: 2.5-3.5 high intensity anticoagulation Syd Mccracken DO LAB BLOOD ORDERABL ES Performing Organization Address City/[facility]/ZIP Co de Phone Number LABORATORY [facility] [address] [place] [address] * TROPONIN T, HIGH SENSITIVITY (05/29/2024 7:56 PM EDT) Troponin T, High Sensitivity 10 <=14 ng/L 05/29/2024 8:25 PM EDT LABORATORY [facility] Blood Venous blood specimen / Unknown Venipuncture / Unknown 05/29/2024 7:56 PM EDT 05/29/2024 8:04 PM EDT Syd Mccracken DO LAB BLOOD ORDERABL ES LABORATORY [facility] [address] [place] [address] * BNP, NT-PRO (05/29/2024 7:56 PM EDT) [facility] BNP, NT-Pro 124 <300 pg/mL 05/29/2024 8:25 PM EDT LAB[facility]ATORY [facility] Blood Venous blood specimen / Unknown Venipuncture / Unknown 05/29/2024 7:56 PM EDT 05/29/2024 8:[address] [facility]ATORY [facility] - 05/29/2024 8:25 PM EDT Exclude Heart Failure: <300 pg/mL Diagnose Heart Failure: Age <50 yr: >450 pg/mL 50-75 yr: >900 pg/mL >75 yr: >1800 pg/mL GFR is 30-59 mL/min: >1200 pg/mL or Age-adjusted values GFR <30 mL/min: do not use, not reliable Prognostic threshold: 1000 pg/mL Syd Mccracken DO LAB BLOOD ORDERABL ES LAB[facility]ATORY [facility] [address] [place] [address] * (ABNORMAL) COMPREHENSIVE METABOLIC PANEL (05/29/2024 7:56 PM EDT) [facility] BUN 14 6 - 20 mg/dL 05/29/2024 8:25 PM EDT LABORATORY [facility] Creatinine 0.9 0.5 - 1.0 mg/dL 05/29/2024 8:25 PM EDT LABORATORY [facility] Estimated Glomerular Filtration Rate 75 >=60 mL/min 05/29/2024 8:25 PM EDT LABORATORY [facility] Comment:eGFR is calculated b ased on the CKD-EPI 2020 equation. Sodium 138 135 - 146 mmol/L 05/29/2024 8:25 PM EDT LABORATORY [facility] Potassium 3.9 3.5 - 5.1 mmol/L 05/29/2024 8:25 PM EDT LAB[facility]ATORY [facility] Chloride 101 98 - 107 mmol/L 05/29/2024 8:25 PM EDT LABORATORY [facility] CO2 26 22 - 32 mmol/L 05/29/2024 8:25 PM EDT [facility] Anion Gap 11 7 - 15 mmol/L 05/29/2024 8:25 PM EDT [facility] Glucose 122(H) 70 - 120 mg/dL 05/29/2024 8:25 PM EDT [facility] Albumin 3.9 3.8 - 5.0 g/dL 05/29/2024 8:25 PM EDT [facility] AST 23 10 - 35 U/L 05/29/2024 8:25 PM EDT [facility] Alkaline Phosphatase 86 35 - 130 U/L 05/29/2024 8:25 PM EDT [facility] Bilirubin, Total 0.7 <=1.2 mg/dL 05/29/2024 8:25 PM EDT LAB[facility] Calcium 8.9 8.4 - 10.2 mg/dL 05/29/2024 8:25 PM EDT [facility]OR[facility] Protein 6.9 6.0 - 8.3 g/dL 05/29/2024 8:25 PM EDT LABORAT[facility] ALT 23 10 - 35 U/L 05/29/2024 8:25 PM EDT LABOR[facility] Blood Venous blood specimen / Unknown Venipuncture / Unknown 05/29/2024 7:56 PM EDT 05/29/2024 8:04 PM EDT Syd Mccracken DO LAB BLOOD ORDERABL ES Performing Organization Address [facility] de Phone Number [facility]ORY [facility] [place] [address] [place] [address] * EXTRA LIGHT BLUE TOP (05/29/2024 7:56 PM EDT) Blood Venous blood specimen / Unknown Venipuncture / Unknown 05/29/2024 7:56 PM EDT 05/29/2024 8:04 PM EDT Syd Mccracken DO LAB BLOOD ORDERABL ES Performing Organization Address [facility] Co de Phone Number LAB[facility]ORY [facility] [place] [address] [place] [address] * EKG (05/29/2024 7:51 PM EDT) 05/29/2024 7:51 PM EDT Narrative Procedure Note Pilo Vega MD - 05/29/2024 7:51 PM EDT REASON FOR STUDY: Shortness of breath CONCLUSIONS: Normal sinus rhythm Normal ECG When compared with ECG of 26-Sep-2018 11:33, No significant change was found Ventricular Rate: 82 Atrial Rate: 82 NM Interval: 162 QRS Duration: 96 QT/QTc: 392/457 ms P-R-T [place]: 44 : 13 : 56 degrees Syd Mccracken DO EKG [facility] documented in this encounter Visit Diagnoses Diagnosis Shortness of breath- Primary Shortness of breath Volume overload Other fluid overload Chest pain Chest pain, unspecified Heart failure (HCC) Heart failure, unspecified Acquired hypothyroidism Unspecified hypothyroidism Venous insufficiency Unspecified venous (peripheral) insufficiency Lung nodule seen on imaging study Solitary pulmonary nodule Cyst of right ovary Other and unspecified ovarian cyst Acute cystitis without hematuria Acute cystitis Rheumatoid arthritis involving multiple sites with positive rheumatoid factor (HCC) Lymphedema Other lymphedema Hypertension goal BP (blood pressure) < 140/90 Unspecified essential hypertension Volume overload Other fluid overload Mood disorder (HCC) Unspecified episodic mood disorder Hypothyroidism Unspecified hypothyroidism Moderate persistent asthma without complication Unspecified asthma Chronic venous insufficiency Unspecified venous (peripheral) insufficiency OAB (overactive bladder) Hypertonicity of bladder Bacteriuria Other nonspecific finding on examination of urine Acute cystitis without hematuria Acute cystitis documented in this encounter Administered Medications Inactive Administered Medications - up to 3 most recent administrations Medication Order MAR Action Action Date Dose Rate Site albuterol-ipratropium (Duoneb) inhalation solution 3 mL 3 mL, Nebulizer, ONCE, On Tue05/30/24 at 0845, For 1 dose, 3 mL = 0.5 mg ipratropium/ 2.5 mg albuterol Given 05/30/2024 12:28 PM EDT 3 mL albuterol-ipratropium (Duoneb) inhalation solution 3 mL 3 mL, Nebulizer, Q4H PRN Dyspnea, Starting on Tue05/30/24 at 1845, Until Tue06/01/24 at 1828, 3 mL = 0.5 mg ipratropium/ 2.5 mg albuterol cefepime in D5W (Maxipime) ivpb (THREE hour infusion) 2 g 2 g, IV Piggyback, Q8HNOW, 15 doses, First dose on Tue05/30/24 at 2200, Last dose on Tue06/04/24 at 1400, THREE HOUR INFUSION New Bag 05/31/2024 5:46 AM EDT 2 g 16.67 mL /hr New Bag 05/30/2024 10:35 PM EDT 2 g 16.67 mL/hr cefepime in dextrose premix ivpb 2 g 2 g, IV Piggyback, ONCE, 1 dose, On Tue05/30/24 at 1645, Administer over 30 Minutes New Bag 05/30/2024 5:49 PM EDT 2 g 100 mL/hr Enoxaparin (Lovenox) inj 60 mg 60 mg, Subcutaneous, Q12H (1000,2200), First dose on Tue05/31/24 at 1000, Until Discontinued, If patient is on warfarin, inform provider if daily INR value is 2 or greater! Given 06/01/2024 8:47 AM EDT 60 mg Abdomen Right Lower Given 05/31/2024 8:29 PM EDT 60 mg Ab domen Left Lower Given 05/31/2024 8:51 AM EDT 60 mg Ab domen Left Lower FLUoxetine (PROzac) cap 20 mg 20 mg, Oral, QHS, First dose on Tue05/30/24 at 2200, Until Discontinued Given 05/31/2024 8:29 PM EDT 20 mg Given 05/30/2024 9:11 PM EDT 20 mg fluticasone furoate-vilanterol (BREO ellipta) 100-25 MCG/ACT inhaler 1 Puff 1 Puff, Inhalation, Daily(AM), First dose on Tue05/31/24 at 0900, Until Discontinued, NURSING TO FOLLOW PATIENT WITH MDI/DPI ADMINISTRATION Given 06/01/2024 8:48 AM EDT 1 Puff Given 05/31/2024 8:17 AM EDT 1 Puff Furosemide (Lasix) inj 100 mg 100 mg, IV Push, ONCE, On Tue05/30/24 at 0845, For 1 dose Given 05/30/2024 12:28 PM EDT 100 mg Furosemide (Lasix) inj 60 mg 60 mg, IV Push, Daily(AM), First dose (after last modification) on Tue05/31/24 at 0900, Until Discontinued Given 05/31/2024 8:52 AM EDT 60 mg Furosemide (Lasix) inj 60 mg 60 mg, IV Push, ONCE, On Tue06/01/24 at 1015, For 1 dose Given 06/01/2024 10:07 AM EDT 60 mg gadobutrol (Gadavist) inj 15.9 mL 15.9 mL (rounded from 15.89 mL = 0.1 mL/kg 158.9 kg), Intravenous, ONCE, On Tue05/31/24 at 0345, For 1 dose, Radiology Medication Routing (Non-IR) Given 05/31/2024 3:45 AM EDT 10 mL Iopamidol (Isovue 370) inj 80 mL 80 mL, Intravenous, ONCE, On Tue05/30/24 at 1115, For 1 dose, Radiology Medication Routing (Non-IR) Given 05/30/2024 11:15 AM EDT 80 mL levothyroxine (Levoxyl) tab 100 mcg 100 mcg, Oral, [id number], First dose on Tue05/31/24 at 0630, Until Discontinued Given 06/01/2024 5:59 AM EDT 100 mcg Given 05/31/2024 5:46 AM EDT 100 mcg magnesium sulfate 1 g in d5w 100mL LOCKED DOSE 1 g, IV Piggyback, ONCE, 1 dose, On Tue05/30/24 at 2100, Administer over 60 Minutes New Bag 05/30/2024 9:10 PM EDT 1 g 100 mL/hr Nitrofurantoin Monohydrate Macrocrystals (Macrobid) cap 100 mg 100 mg, Oral, BID (.AM/PM), First dose on Tue05/31/24 at 1300, Last dose on Tue06/04/24 at 2100, For 5 days, Administer with food. The capsules should not be opened. Given 06/01/2024 8:47 AM EDT 100 mg Given 05/31/2024 8:29 PM EDT 100 mg Given 05/31/2024 2:39 PM EDT 100 mg potassium chloride ER tab 40 mEq 40 mEq, Oral, ONCE, On Tue05/30/24 at 2045, For 1 dose, This med should NOT be Crushed or Chewed Given 05/30/2024 9:11 PM EDT 40 mEq sulfaSALAzine (Azulfidine) tab 1,500 mg 1,500 mg, Oral, BID (.AM/PM), First dose on Tue05/30/24 at 2100, Until Discontinued Given 06/01/2024 8:48 AM EDT 1,50 0 mg Given 05/31/2024 8:29 PM EDT 1,500 mg Given 05/31/2024 8:51 AM EDT 1,500 mg documented in this encounter Active and Recently Administered Medications Times are shown in EDT. Scheduled Medication Order 05/30/2024 05/31/2024 06/01/2024 albuterol-ipratropium (Duoneb) inhalation solution 3 mL (COMPLETED) 3 mL, Nebulizer, ONCE, On Tue05/30/24 at 0845, For 1 dose, 3 mL = 0.5 mg ipratropium/ 2.5 mg albuterol 1228 (Given - Provider: Lorna Torres RN - Comment: pt in waiting room) cefepime in D5W (Maxipime) ivpb (THREE hour infusion) 2 g (CANCELED) 2 g, IV Piggyback, Q8HNOW, 15 doses, First dose on Tue05/30/24 at 2200, Last dose on Tue06/04/24 at 1400, THREE HOUR INFUSION 2235 (New Bag - Provider: Vivian Rodriguez LPN) 0546 (New Bag - Provider: Vivian Rodriguez LPN)0958 (Stopped - Provider: Reba Swenson RN) cefepime in dextrose premix ivpb 2 g (COMPLETED) 2 g, IV Piggyback, ONCE, 1 dose, On Tue05/30/24 at 1645, Administer over 30 Minutes 1749 (New Bag - Provider: Brent Hsieh RN)1818 (Stopped - Provider: Brent Hsieh RN) Enoxaparin (Lovenox) inj 60 mg 60 mg, Subcutaneous, Q12H (1000,2200), First dose on Gita 05/31/24 at 1000, Until Discontinued, If patient is on warfarin, inform provider if daily INR value is 2 or greater! 0851 (Given - Provider: Reba Swenson, KRISTEL)2028 (Given - Provider: Vivian Rodriguez LPN) 0847 (Given - Provider: Charissa Cruz RN) FLUoxetine (PROzac) cap 20 mg 20 mg, Oral, QHS, First dose on Tue05/30/24 at 2200, Until Discontinued 2110 (Given - Provider: Vivian Rodriguez LPN) 2028 (Given - Provider: Vivian Rodriguez LPN) fluticasone furoate-vilanterol (BREO ellipta) 100-25 MCG/ACT inhaler 1 Puff 1 Puff, Inhalation, Daily(AM), First dose on Tue05/31/24 at 0900, Until Discontinued, NURSING TO FOLLOW PATIENT WITH MDI/DPI ADMINISTRATION 0817 (Given - Provider: Coreen Reza, PACKER INSULATION) 0848 (Given - Provider: Charissa Cruz RN) Furosemide (Lasix) inj 100 mg (COMPLETED) 100 mg, IV Push, ONCE, On Tue05/30/24 at 0845, For 1 dose 1228 (Given - Provider: Lorna Torres RN - Comment: off schedule because pt was in waiting room) Furosemide (Lasix) inj 60 mg (CANCELED) 60 mg, IV Push, Daily(AM), First dose (after last modification) on Tue05/31/24 at 0900, Until Discontinued 0852 (Given - Provider: Reba Swenson, KRISTEL) Furosemide (Lasix) inj 60 mg (COMPLETED) 60 mg, IV Push, ONCE, On Tue06/01/24 at 1015, For 1 dose 1007 (Given - Provider: Charissa Cruz RN) gadobutrol (Gadavist) inj 15.9 mL (COMPLETED) 15.9 mL (rounded from 15.89 mL = 0.1 mL/kg 158.9 kg), Intravenous, ONCE, On Tue05/31/24 at 0345, For 1 dose, Radiology Medication Routing (Non-IR) 0345 (Given - Provider: Jorge Anne TECH) Iopamidol (Isovue 370) inj 80 mL (COMPLETED) 80 mL, Intravenous, ONCE, On Tue05/30/24 at 1115, For 1 dose, Radiology Medication Routing (Non-IR) 1115 (Given - Provider: Sal Farley, RT) levothyroxine (Levoxyl) tab 100 mcg 100 mcg, Oral, [id number], First dose on Tue05/31/24 at 0630, Until Discontinued 545 (Given - Provider: Vivian Rodriguez LPN) 05 (Given - Provider: Vivian Rodriguez LPN) magnesium sulfate 1 g in d5w 100mL LOCKED DOSE (COMPLETED) 1 g, IV Piggyback, ONCE, 1 dose, On Tue05/30/24 at 2100, Administer over 60 Minutes 2101 (Entry Error - Provider: Vivian Rodriguez LPN)2109 (New Bag - Provider: Vivian Rodriguez LPN) Nitrofurantoin Monohydrate Macrocrystals (Macrobid) cap 100 mg 100 mg, Oral, BID (.AM/PM), First dose on Tue05/31/24 at 1300, Last dose on Tue06/04/24 at 2100, For 5 days, Administer with food. The capsules should not be opened. 143 (Given - Provider: Reba Swenson RN)2028 (Given - Provider: Vivian Rodriguez LPN) 0847 (Given - Provider: Charissa Cruz RN) potassium chloride ER tab 40 mEq (COMPLETED) 40 mEq, Oral, ONCE, On Tue05/30/24 at 2044, For 1 dose, This med should NOT be Crushed or Chewed 2110 (Given - Provider: Vivian Rodriguez LPN) sulfaSALAzine (Azulfidine) tab 1,500 mg 1,500 mg, Oral, BID (.AM/PM), First dose on Tue05/30/24 at 2100, Until Discontinued 2114 (Given - Provider: Vivian Rodriguez LPN) 0851 (Given - Provider: Reba Swenson RN)2028 (Given - Provider: Vivian Rodriguez LPN) 0848 (Given - Provider: Charissa Cruz RN) PRN Medication Order 05/30/2024 05/31/2024 06/01/2024 albuterol-ipratropium (Duoneb) inhalation solution 3 mL 3 mL, Nebulizer, Q4H PRN Dyspnea, Starting on Tue05/30/24 at 1845, Until Tue06/01/24 at 1828, 3 mL = 0.5 mg ipratropium/ 2.5 mg albuterol sodium chloride 0.9 % flush/inj 3 mL 3 mL, IV Push, PRN Other, Line Patency, Starting on Tue05/30/24 at 1409, Until Tue06/01/24 at 1828, Do not flush if lock, PICC, or central line not in place, IV infusing or unable to flush documented in this encounter Additional Health Concerns Infection Onset Date Last Indicated Resolved Time Respiratory Rule-Out 05/29/2024 05/30/2024 024 4:20 AM EDT COVID-19 Rule-Out 05/29/2024 05/30/2024 05/30/2024 4:20 AM EDT documented as of this encounter Advance Directives Documents on File Type Date Recorded Patient Mold Technician Expl anation Advance Directives and Living Will 11/19/2004 Power of Information Security Systems Instructor 11/19/2004 * Full Code (Latest Code Status [...] and were consensually agreed upon. Care Teams Information Security Systems Instructor Relationship Specialty Start Date End Date Katie Tejeda PA-C [address] [place] [address] LENIN ARECHIGA [id number] PCP - General Physician Freight Coordinator 09/05/19 documented as of this encounter
--- OUTSIDE RECORDS SUMMARY | 2024-06-27 05:55 | External Medical Summary ---
Author Name Unknown Address Unknown Organization [id number]:LABORATORY [facility] [place] [place] - [address] [facility] [address] Laboratory Report Ordering Provider Test Date Status KIANNA LINDSEY 06/01/2024 07:56:00 Final Observation Date Value Abnormality Reference (Units ) Status BUN 06/01/2024 07:56:00 14 6-20 (mg/dL) Final Creatinine 06/01/2024 07:56:00 0.9 0.5-1.0 (mg/dL) Final Glomerular filtration rate/1.73 sq M.predicted [Volume Rate/Area] in Serum, Plasma or Blood by Creatinine-based formula (CKD-EPI) 06/01/2024 07:56:00 75 >=60 (mL/min) Final eGFR is calculated based on the CKD-EPI 2020 equation. Sodium 06/01/2024 07:56:00 140 135-146 (m mol/L) Final Potassium 06/01/2024 07:56:00 3.8 3.5-5.1 (m mol/L) Final Cl 06/01/2024 07:56:00 100 98-107 (mm ol/L) Final CO2 06/01/2024 07:56:00 32 22-32 (mmo l/L) Final Anion gap 06/01/2024 07:56:00 8 7-15 (mmol /L) Final Glucose 06/01/2024 07:56:00 96 70-120 (mg /dL) Final Calcium 06/01/2024 07:56:00 9.1 8.4-10.2 ( mg/dL) Final Performing Location LABORATORY [facility] [place] [place] - [address] [facility] [address]
--- OUTSIDE RECORDS SUMMARY | 2024-06-27 05:55 | External Medical Summary ---
Author Name Unknown Address Unknown Organization K01:LAB[facility]ATORY [place] [address] [facility] [address] Laboratory Report Ordering Provider Test Date Status KRIS CASTRO 05/30/2024 08:09:00 Final Rheumatoid factor at a level above 50 [...] definitively correlate with clinical severity of disease. Observation Date Value Abnormality Reference (Units ) Status Fibrin D-dimer FEU [Mass/volume] in Platelet poor plasma by Immunoassay 05/30/2024 08:09:00 1.64 Above high normal <0.50 (ug/mL FEU) Final Performing Location [facility] [place] [facility] [address] [facility] [address]
--- OUTSIDE RECORDS SUMMARY | 2024-06-27 05:55 | External Medical Summary ---
Author Name Unknown Address Unknown Organization K01:LABORATORY [facility] [place] - [address] [facility] [address] Laboratory Report Ordering Provider Test Date Status PETERSON ROJO 05/29/2024 19:56:00 Final Warfarin Therapy
INR: 2 .0-3.0 conventional anticoagulation
INR: 2.5- 3.5 high intensity anticoagulation Observation Date Value Abnormality Reference (Units ) Status PT 05/29/2024 19:56:00 14.1 11.6-15.2 (seconds) Final INR 05/29/2024 19:56:00 1.1 0.8-1.2 Final Performing Location [facility] [place] - [address] [facility] [address]
--- OUTSIDE RECORDS SUMMARY | 2024-06-27 05:55 | External Medical Summary | Summary of Care ---
Author Name Unknown Organization [facility] Address [address] [place] [address] Phone [phone] Care Team Providers Care Harmonica Maker Name Role Phone Nikhil Katie Bosch PA-C Primary Care Provider [phone] Reason for Visit * Reason Onset Date Comments STAIR Lung Nodule 06/01/2024 Encounter Details Date Type Department Care Team (Late st Contact Info) Description 06/01/2024 Telephone STAIR LUNG NODULE [address], [place] [id number] Program, Stair [address] [place] [address] STAIR Lung Nodule Allergies Active Allergy Reactions Criticality Noted Date Comments Leflunomide Itching,Rash High 04/14/2017 After taking med for 3 months she had terrible rash and itching Hydroxychloroquine Sulfate 7 Rash documented as of this encounter (statuses as of 06/01/2024) Medications Medication Sig Dispensed Refills Start Date End Date Status Nitrofurantoin Monohyd Macro 100 MG Oral Capsule (Macrobid) Take 1 Capsule by mouth in the morning and 1 Capsule before bedtime. Do all this for 6 days. 12 Capsule 06/01/2024 4 Active Furosemide 20 MG Oral Tablet (Lasix)Indications: Venous insufficiency Take 2 Tablets by mouth in the morning. 90 Tablet 3 06/01/2024 Active Misc Natural Products (TURMERIC CURCUMIN) CAPS Take 1 Capsule by mouth in the morning and 1 Capsule before bedtime. Suspended valACYclovir (VALTREX) 1000 MG TabletIndications:R ecurrent cold sores TAKE 1 TABLET BY MOUTH EVERY 12 HOURS FOR 1 DAY FOR COLD SORES 20 Tab 3 09/05/2019 Suspended Additional Information Triamcinolone Acetonide 0.1 % External Cream (Aristocort) Apply topically to affected area 2 times a day. To affected area. 80 g 5 07/29/2021 Suspended Additional Information Adalimumab 40 MG/0.8ML Subcutaneous Pen-injector Kit (Humira) Inject 40 mg (1 pen) under the skin every 14 days. 2 mL 11 09/14/2023 Suspended Additional Information sulfaSALAzine 500 MG Oral Tablet (Azulfidine) Take 3 Tablets by mouth in the morning and 3 Tablets before bedtime. 540 Tablet 3 09/14/2023 Suspended Additional Information Refresh 1.4-0.6 % Ophthalmic Solution (polyvinyl alcohol-povidone PF) Instill 1 Drop into both eyes as needed. Suspended Betamethasone Dipropionate 0.05 % External Ointment Apply 2 times a day to the rash on arms, legs, abdomen x 2-3 weeks until clear 80 g 1 11/10/2023 Suspended Additional Information FLUoxetine HCl 20 MG Oral Capsule (PROzac)Indications :Mood disorder (HCC) TAKE ONE CAPSULE BY MOUTH EVERY MORNING 90 Capsule 3 11/14/2023 5 Suspended Additional Information Fluticasone-Salmete rol 250-50 MCG/ACT Inhalation Aerosol Powder Breath Activated (Advair Diskus)Indications: Moderate persistent asthma without complication Inhale 1 Puff by mouth in the morning and 1 Puff before bedtime. 180 Each 3 01/02/2024 Suspended Additional Information Levothyroxine Sodium 100 MCG Oral Tablet (Levoxyl)Indication s:Acquired hypothyroidism TAKE 1 TABLET BY MOUTH DAILY AT LEAST 30 MINUTES PRIOR TO FIRST MEAL OF THE DAY OR OTHER MEDICATIONS 90 Tablet 03/13/2024 5 Suspended Additional Information Ventolin HFA 108 (90 Base) MCG/ACT Inhalation Aerosol SolutionIndications :Moderate persistent asthma without complication Inhale 2 Puffs by mouth every 4 hours as needed for shortness of breath 18 g 3 05/03/2024 Suspended Additional Information documented as of this encounter (statuses as [...] mRNA, LNP-s, No Pre serve, 2-Dose Series ([employer]) 07/08/2021,06/17/2021 Seasonal Influenza, PF, 6 M & [...] encounter Miscellaneous Notes * Telephone Encounter - Suzanne Scruggs LPN - 06/01/2024 10:50 AM EDT Patient managed in STAIR Program for Pulmonary Nodule - banner added documented in this encounter Plan of Treatment Upcoming Encounters Date Type Department Care Team (Late st Contact Info) Description 02/20/2025 7:30 AM EDT Office Visit [facility] [address] [place] [address] Katie Tejeda PA-C [address] [place] [address] Scheduled Procedures Name Priority Associated Diagnoses Date/Ti [...] Albumin/Creatinine Ratio 11/18/2025 11/18/2022, 0412/2021 Diabetes Screening 06/01/2027 06/01/2024, 0 05/31/2024, 05/31/2024, [...] this encounter Medical Devices Implanted Type Area Team Sports Sales Associate Device Identifier Shelf Expiration Date Model / Serial / Lot Device Tvt [id number] - [id number] Implanted:Qty: 1 on 04/15/2008 at OR [facility] N/A: Vagina Gynecare 11/17/2010 [id number] / / [id number] Mirena Iud Implanted:Qty: 1 on 09/16/2009 at OR [facility] Cerv[employer] 12/26/2009 / / [id number] Description:Mirena IUDCharge d for in NET DEVELOPER CONSULTANT Clinic Screw Micro 16mm At2-C16-[id number] - [id number] Implanted:Qty: 1 on 08/05/2014 at OR [facility] Left: Hand ACUMED 03/15/2015 [id number]-[id number] / / [id number] documented as of this encounter Advance Directives Documents on File Type Date Recorded Patient Hardboard Coating Machine Operator Expl anation Advance Directives and Living Will 11/19/2004 Power of Peripatologist 11/19/2004 * Full Code (Latest Code Status [...] and were consensually agreed upon. Care Teams Harmonica Maker Relationship Specialty Start Date End Date Katie Tejeda PA-C [address] [place] [address] LENIN ARECHIGA [id number] PCP - General Physician Gore Maker 09/05/19 documented as of this encounter
--- OUTSIDE RECORDS SUMMARY | 2024-06-27 05:55 | External Medical Summary ---
Author Name Unknown Address Unknown Organization K01:LABORATORY [facility] - [address] [facility] [address] Laboratory Report Ordering Provider Test Date Status KRIS CASTRO 05/30/2024 08:09:00 Final Observation Date Value Abnormality Reference (Units ) Status Phosphate 05/30/2024 08:09:00 3.1 2.5-4.8 (m g/dL) Final Performing Location LABORATORY [facility] - [address] [facility] [address]
--- OUTSIDE RECORDS SUMMARY | 2024-06-27 05:55 | External Medical Summary ---
Author Name Unknown Address Unknown Organization K01:[facility] [address] [facility] [address] Laboratory Report Ordering Provider Test Date Status KIANNA LINDSEY 06/01/2024 07:56:00 Final Observation Date Value Abnormality Reference (Units ) Status Phosphate 06/01/2024 07:56:00 3.3 2.5-4.8 (m g/dL) Final Performing Location LABORATORY [facility] - [address] [facility] [address]
--- OUTSIDE RECORDS SUMMARY | 2024-06-27 05:55 | External Medical Summary | Summary of Care ---
Author Name Unknown Organization [facility] Address [address] [place] [address] Phone [phone] Care Team Providers Care Public Safety Teacher Name Role Phone Katie Tejeda PA-C Primary Care Provider Reason for Visit * Reason Comments Short of Breath Breathing heavy, dif ficulty, wheezing Urinary Tract Infection Symptoms Pain in lower stomach and pressure in the groin and cramps Encounter Details Date Type Department Care Team (Late st Contact Info) Description 05/29/2024 6:15 PM EDT [facility] [address] [place] [address] Rukhsana Oliva PA-C [address] [place] [address] Suprapubic pressure*; Shortness of breath Allergies Active Allergy Reactions Criticality Noted Date Comments Leflunomide Itching,Rash High 04/14/2017 After taking med for 3 months she had terrible rash and itching Hydroxychloroquine Sulfate 7 Rash documented as of this encounter (statuses as of 05/29/2024) Medications Medication Sig Dispensed Refills Start Date End Date Status Misc Natural Products (TURMERIC CURCUMIN) CAPS Take 2 Capsules by mouth in the morning. Active valACYclovir (VALTREX) 1000 MG TabletIndications:Re current cold sores TAKE 1 TABLET BY MOUTH EVERY 12 HOURS FOR 1 DAY FOR COLD SORES 20 Tab 3 09/05/2019 Active Vitamin D 125 MCG (5000 UT) Oral Capsule Take 1 Capsule by mouth in the morning. Active Vitamin C 100 MG Oral Tablet Take 1 Tablet by mouth in the morning. Active Triamcinolone Acetonide 0.1 % External Cream [...] Drop into both eyes as needed. Active Ofloxacin 0.3 % Ophthalmic Solution (Ocuflox) Instill 1 Drop into the right eye in the morning and 1 Drop at noon and 1 Drop in the evening and 1 Drop before bedtime. Active prednisoLONE Acetate 1 % Ophthalmic Suspension (Pred Forte) Instill 1 Drop into both eyes in the morning and 1 Drop at noon and 1 Drop in the evening and 1 Drop before bedtime. 15 mL 2 10/26/2023 Active Additional Information Patient not taking.Reported on 01/05/2024 Betamethasone Dipropionate 0.05 % External Ointment Apply 2 times a day to the rash on arms, legs, abdomen x 2-3 weeks until clear 80 g 1 11/10/2023 Active FLUoxetine HCl 20 MG Oral Capsule (PROzac)Indications: Mood disorder (HCC) TAKE ONE CAPSULE BY MOUTH EVERY MORNING 90 Capsule 3 11/14/2023 5 Active Furosemide 20 MG Oral Tablet (Lasix)Indications:V enous insufficiency TAKE ONE TABLET BY MOUTH EVERY MORNING 90 Tablet 3 11/14/2023 5 Active Fluticasone-Salmeter ol 250-50 [...] DAY OR OTHER MEDICATIONS 90 Tablet 03/13/2024 Active Ventolin HFA 108 (90 Base) MCG/ACT Inhalation Aerosol SolutionIndications: Moderate persistent asthma without complication Inhale 2 Puffs by mouth every 4 hours as needed for shortness of breath 18 g 3 05/03/2024 Active documented as of this encounter (statuses as of 05/29/2024) Active Problems Problem Noted Date Diagnosed Date [...] as of this encounter (statuses as of 05/29/2024) Resolved Problems Problem Noted Date Diagnosed Date Resolved Date Body mass index (BMI) of 50. 0 [...] as of this encounter (statuses as of 05/29/2024) Immunizations Name Administration Dates Next Due COVID-19 [...] Sign Reading Time Taken Comments Blood Pressure 140/82 05/29/2024 6:44 PM EDT Pulse 82 05/29/2024 6:44 PM EDT Temperature 37.2 C (98.9 F) 05/29/2024 6:44 PM ED T Respiratory Rate 18 05/29/2024 6:44 PM EDT Oxygen Saturation 95% 05/29/2024 6:44 PM EDT Inhaled Oxygen Concentration - - Weight 161.1 kg (355 lb 3.2 oz) 05/29/2024 6:44 PM EDT Height 160 cm (5' 3") 05/29/2024 6:44 PM EDT Body Mass Index 62.92 05/29/2024 6:44 PM EDT documented in this encounter Functional Status Functional Status Response Date of Assess ment Are you deaf or do you have serious difficulty h earing? No 12/25/2023 Are you blind or do you have serious difficulty seeing, even when wearing glasses? No 12/25/2023 Do you have serious difficul ty walking or climbing stairs? (5 years old or older) No 12/25/2023 Do you have difficulty dress ing or bathing? (5 years old or older) No 12/25/2023 Because of a physical, menta l, or emotional condition, do you have difficulty doing errands alone such as visiting a doctor s office or shopping? (15 years old or older) No 12/25/19 24 Cognitive Status Response Date of Assessm ent Because of a physical, menta l, or emotional condition, do you have serious difficulty concentrating, remembering, or making decisions? (5 years old or older) No 12/25/2023 documented as of this encounter Nursing Notes * Jean Frazier LPN - 05/29/2024 6:40 PM EDT Liane Gutierrez is a 59 year old female that is here today for complaints of feeling Short of breath, wheezing, and difficulty breathing since the beginning of April and UTI symptoms that include pain in the lower stomach, cramping and pressure in the groin and vaginal area since about a week and a half ago,. Home treatments include being on an antibiotic last month for a previous UTI and using prescribed inhalers for the SOB with minimal results. documented in this encounter Plan of Treatment Upcoming Encounters Date Type Department Care Team (Late st Contact Info) Description 06/01/2024 11:30 AM EDT Office Visit [address] [address] Kwan Means MD [address] [place] [phone] Carmine Huang MD [address] [place] [id number] 02/20/2025 7:30 AM EDT Office Visit [address] [address] Katie Tejeda PA-C [address] [place] [phone] Pending Results Name Type Priority Associated Diagnoses Date /Time CULTURE, URINE, QUANTITATIVE Lab Routine Suprapubic pressure 05/29/2024 7:19 PM EDT Scheduled Procedures Name Priority Associated Diagnoses Date/Ti [...] history exists Depression Screening 12/29/2024 12/30/2023 GFR 05/03/2025 05/03/2024, 12/15, 12/26/2023, Additional history exists TSH 05/03/2025 05/03/2024, 04/17, 04/06/2023, Additional history exists Albumin/Creatinine Ratio 11/18/2025 11/18/2022, 01/15 Diabetes Screening 05/03/2027 05/03/2024, 0 12/27/2023, 12/26/2023, Additional history exists Lipid Panel 11/18/2027 11/18/2022, [...] this encounter Medical Devices Implanted Type Area Consumer Loan Specialist Device Identifier Shelf Expiration Date Model / Serial / Lot Device Tvt [id number] - [id number] Implanted:Qty: 1 on 04/15/2008 at OR [facility] N/A: Vagina Gynecare 11/17/2010 [id number] / / [id number] Mirena Iud Implanted:Qty: 1 on 09/16/2009 at OR [facility] [employer] 12/26/2009 / / [id number] Description:Mirena IUDCharge d for in REDRYING MACHINE OPERATOR Clinic Screw Micro 16mm At2-C16-S - [id number] Implanted:Qty: 1 on 08/05/2014 at OR [facility] Left: Hand ACUMED 03/15/2015 AT2-C16-S / / [id number] documented as of this encounter Procedures Procedure Name Priority Date/Time Associated Diagnosis Comments URINALYSIS, POINT OF CARE (ENTER/EDIT) Routine 05/29/2024 6:48 PM EDT Suprapubic pressure documented in this encounter Results * (ABNORMAL) URINALYSIS, POINT OF CARE (ENTER/EDIT) (05/29/2024 6:48 PM EDT) Color, Urine Yellow Yellow or Light Yellow Clarity, Urine Clear Clear Glucose, Urine Negative Negative mg/dL Bilirubin, Urine Small(A) Negative Ketone, Urine Negative Negative mg/dL Specific [place], Urine 1.030(A) 1.003 - 1.030 Comment:>=1.030 Blood, Urine Negative Negative pH, Urine 6.0 5.0 - 7.5 units Protein, Urine Trace(A) Negative mg/dL Urobilinogen, Urine 1.0 0.2 - 1.0 mg/dL Nitrite, Urine Negative Negative Esterase, Urine Trace(A) Negative Urine 05/29/2024 6:48 PM EDT Rukhsana Oliva PA-C LAB POINT OF CARE TEST ENTER/EDIT ORDERABLES documented in this encounter Visit Diagnoses Diagnosis Suprapubic pressure- Primary Abdominal pain, other specified site Shortness of breath documented in this encounter Advance Directives Documents on File Type Date Recorded 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 Care Teams Public Safety Teacher Relationship Specialty Start Date End Date Katie Tejeda PA-C [address] [place] [address] LENIN ARECHIGA [id number] PCP - General Physician Tempering Machine Operator 09/05/19 documented as of this encounter
--- OUTSIDE RECORDS SUMMARY | 2024-06-27 05:55 | External Medical Summary ---
Author Name Unknown Address Unknown Organization [id number][place] [place] [address] [facility] [address] Laboratory Report Ordering Provider Test Date Status KIANNA LINDSEY 05/31/2024 07:26:00 Final Observation Date Value Abnormality Reference (Units ) Status BUN 05/31/2024 07:26:00 15 6-20 (mg/dL) Final Creatinine 05/31/2024 07:26:00 0.8 0.5-1.0 (mg/dL) Final Glomerular filtration rate/1.73 sq M.predicted [Volume Rate/Area] in Serum, Plasma or Blood by Creatinine-based formula (CKD-EPI) 05/31/2024 07:26:00 88 >=60 (mL/min) Final eGFR is calculated based on the CKD-EPI 2020 equation. Sodium 05/31/2024 07:26:00 142 135-146 (m mol/L) Final Potassium 05/31/2024 07:26:00 3.9 3.5-5.1 (m mol/L) Final Cl 05/31/2024 07:26:00 104 98-107 (mm ol/L) Final CO2 05/31/2024 07:26:00 29 22-32 (mmo l/L) Final Anion gap 05/31/2024 07:26:00 9 7-15 (mmol /L) Final Glucose 05/31/2024 07:26:00 94 70-120 (mg /dL) Final Calcium 05/31/2024 07:26:00 8.6 8.4-10.2 ( mg/dL) Final Performing Location [facility] [place] [address] [facility] [address]
--- OUTSIDE RECORDS SUMMARY | 2024-06-27 05:55 | External Medical Summary ---
Author Name Unknown Address Unknown Organization [id number][place] [place] [address] [facility] [address] Laboratory Report Ordering Provider Test Date Status KIANNA LINDSEY 05/31/2024 21:18:00 Final Observation Date Value Abnormality Reference (Units ) Status BUN 05/31/2024 21:18:00 16 6-20 (mg/dL) Final Creatinine 05/31/2024 21:18:00 1.1 Above high normal 0.5-1.0 (mg/dL) Final Glomerular filtration rate/1.73 sq M.predicted [Volume Rate/Area] in Serum, Plasma or Blood by Creatinine-based formula (CKD-EPI) 05/31/2024 21:18:00 60 >=60 (mL/min) Final eGFR is calculated based on the CKD-EPI 2020 equation. Sodium 05/31/2024 21:18:00 139 135-146 (m mol/L) Final Potassium 05/31/2024 21:18:00 4.2 3.5-5.1 (m mol/L) Final Cl 05/31/2024 21:18:00 101 98-107 (mm ol/L) Final CO2 05/31/2024 21:18:00 31 22-32 (mmo l/L) Final Anion gap 05/31/2024 21:18:00 7 7-15 (mmol /L) Final Glucose 05/31/2024 21:18:00 114 70-120 (mg /dL) Final Calcium 05/31/2024 21:18:00 8.8 8.4-10.2 ( mg/dL) Final Performing Location [facility] [place] [address] [facility] [address]
--- OUTSIDE RECORDS SUMMARY | 2024-06-27 05:55 | External Medical Summary ---
Author Name Unknown Address Unknown Organization [id number]:[facility] - [address] [facility] [address] Laboratory Report Ordering Provider Test Date Status KRIS CASTRO 05/30/2024 08:09:00 Final Observation Date Value Abnormality Reference (Units ) Status Magnesium 05/30/2024 08:09:00 1.9 1.5-2.6 (m g/dL) Final Performing Location [facility] - [address] [facility] [address]
--- OUTSIDE RECORDS SUMMARY | 2024-06-27 05:55 | External Medical Summary ---
Author Name Unknown Address Unknown Organization [id number]:[facility] [place] [address] [facility] [address] Laboratory Report Ordering Provider Test Date Status KRIS CASTRO 05/30/2024 12:32:13 Final <10,000 colonies/ml mixed no rmal saul Observation Date Value Abnormality Reference (Units ) Status Bacteria identified in Specimen by Culture 05/30/2024 12:32:13 [id number]^ESCHE RICHIA COLI Abnormal Final >100,000 colonies/mL Escheri nolberto coli Performing Location [facility] [place] [address] [facility] [address] Ordering Provider Test Date Status KRIS CASTRO 05/30/2024 12:32:13 Final Observation Date Value Abnormality Reference (Units ) Status Ampicillin 05/30/2024 12:32:13 <=2 Susceptible Final Cefazolin 05/30/2024 12:32:13 <=4 Susceptible Final Cefepime susceptibility 05/30/2024 12:32:13 <=1 Susceptible Final Ceftriaxone suceptibility 05/30/2024 12:32:13 <=1 Susceptible Final Ciprofloxacin 05/30/2024 12:32:13 >=4 Resistant Final Due to serious side effects, the FDA has advised against using Ciprofloxacin to treat uncomplicated UTIs and respiratory tract infections unless there are no alternative treatment options. Gentamicin susceptibility 05/30/2024 12:32:13 <=1 Susc eptible Final Levofloxacin susceptibility 05/30/2024 12:32:13 >=8 Re sistant Final Due to serious side effects, the FDA has advised against using Levofloxacin to treat uncomplicated UTIs and respiratory tract infections unless there are no alternative treatment options. Nitrofurantoin susceptibility 05/30/2024 12:32:13 <=16 Susceptible Final Piperacillin + Tazobactamsusceptibility 05/30/2024 12:32:13 <=4 Susceptible Final TMP-SMZ susceptibility 05/30/2024 12:32:13 <=20 Suscept ible Final Test: Culture, Urine, Quanti tative
Specimen Source: Urine, Catheter
Specimen Type: Urine
Specimen Date: 05/30/2024 1232
Result Date: 06/01/2024 1050
Result Status: Final result
Abnormal: Yes
Resulting Lab: [facility] [place]
[address]
[place] [address]

CULTURE

>100,000 colonies/mL Escherichia coli (Abnormal)

<10,000 colonies/ml mixed normal saul

SUSCEPTIBILITY

Escherichia coli
METHOD MICROBROTH
DILUTIONS

AMPICILLIN <=2 Susceptible
CEFAZOLIN <=4 Susceptible
CEFEPIME <=1 Susceptible
CEFTRIAXONE <=1 Susceptible
CIPROFLOXACIN >=4 Resistant
[1]
GENTAMICIN <=1 Susceptible
LEVOFLOXACIN >=8 Resistant
[2]
NITROFURANTOIN <=16 Susceptible
PIPERACILLIN TAZOBACTAM <=4 Susceptible
TRIMETH/SULFAMETHOXAZOLE <=20 Susceptible

[1] Due to serious side effects, the FDA has advised against using
Ciprofloxacin to treat uncomplicated UTIs and respiratory tract infections
unless there are no alternative treatment options.

[2] Due to serious side effects, the FDA has advised against using
Levofloxacin to treat uncomplicated UTIs and respiratory tract infections
unless there are no alternative treatment options.

null Performing Location LAB[facility]ORY [facility] [place] - [address] [facility] [address]
--- OUTSIDE RECORDS SUMMARY | 2024-06-27 05:55 | External Medical Summary ---
Author Name Unknown Address Unknown Organization [id number]:[facility] [place] [address] [place] [place] [address] Laboratory Report Ordering Provider Test Date Status KRIS CASTRO 05/30/2024 08:09:00 Final Observation Date Value Abnormality Reference (Units ) Status Troponin T 05/30/2024 08:09:00 8 <=14 (ng/ L) Final Performing Location [facility] - [address] [place], [place] [address]
--- OUTSIDE RECORDS SUMMARY | 2024-06-27 05:55 | External Medical Summary ---
Author Name Unknown Address Unknown Organization [id number]:[facility] - [address] [facility] [address] Laboratory Report Ordering Provider Test Date Status KRIS CASTRO 05/30/2024 12:32:13 Final Observation Date Value Abnormality Reference (Units ) Status Color of Urine by Auto 05/30/2024 12:32:13 Yellow Colorless, Light Yellow, Yellow, Dark Yellow Final Clarity, Urine 05/30/2024 12:32:13 Clear Clear Final Glucose [Mass/volume] in Urine by Automated test strip 05/30/2024 12:32:13 Negative Negative (mg/dL) Final Bilirubin.total [Presence] in Urine by Automated test strip 05/30/2024 12:32:13 Negative Negative Final Ketones [Mass/volume] in Urine by Automated test strip 05/30/2024 12:32:13 15 Abnormal Negative (mg/dL) Final Specific gravity, Urine 05/30/2024 12:32:13 1.039 Above high normal 1.003-1.030 Final Hemoglobin [Presence] in Urine by Automated test strip 05/30/2024 12:32:13 Negative Negative Final pH, Urine 05/30/2024 12:32:13 6.5 5.0-7.5 (Units) Final Protein [Mass/volume] in Urine by Automated test strip 05/30/2024 12:32:13 Negative Negative (mg/dL) Final Urobilinogen [Mass/volume] in Urine by Automated test strip 05/30/2024 12:32:13 Normal Normal (mg/dL) Final Nitrite [Presence] in Urine by Automated test strip 05/30/2024 12:32:13 Positive Abnormal Negative Final Leukocyte esterase [Presence] in Urine by Automated test strip 05/30/2024 12:32:13 Small Abnormal Negative Final RBC, Urine 05/30/2024 12:32:13 0-2 0-2 (/HPF) Final WBC, Urine 05/30/2024 12:32:13 20-29 Abnormal 0-2 (/HPF) Final Bacteria [#/area] in Urine sediment by Microscopy high power field 05/30/2024 12:32:13 >200 Abnormal 0-25 (/HPF) Final CULTURE, URINE - ISINGER 05/30/2024 12:32:13 Final Quantitative urine culture t o be performed Performing Location [facility] [place] [facility] [address] [facility] [address]
--- OUTSIDE RECORDS SUMMARY | 2024-06-27 05:55 | External Medical Summary ---
Author Name Unknown Address Unknown Organization [id number]:[facility] [place] [address] [facility] [address] Laboratory Report Ordering Provider Test Date Status PETERSON ROJO 05/30/2024 03:06:42 Final SYMPTOMATIC Observation Date Value Abnormality Reference (Units ) Status Adenovirus DNA [Presence] in Nasopharynx by JUAN with non-probe detection 05/30/2024 03:06:42 Negative Negative Final Human coronavirus 229E RNA [Presence] in Nasopharynx by JUAN with non-probe detection 05/30/2024 03:06:42 Negative Negative Final Human coronavirus HKU1 RNA [Presence] in Nasopharynx by JUAN with non-probe detection 05/30/2024 03:06:42 Negative Negative Final Human coronavirus NL63 RNA [Presence] in Nasopharynx by JUAN with non-probe detection 05/30/2024 03:06:42 Negative Negative Final Human coronavirus OC43 RNA [Presence] in Nasopharynx by JUAN with non-probe detection 05/30/2024 03:06:42 Negative Negative Final SARS-CoV-2 (COVID-19) RNA [Presence] in Nasopharynx by JUAN with non-probe detection 05/30/2024 03:06:42 Negative Negative Final Human metapneumovirus RNA [Presence] in Nasopharynx by JUAN with non-probe detection 05/30/2024 03:06:42 Negative Negative Final Rhinovirus+Enterovirus RNA [Presence] in Nasopharynx by JUAN with non-probe detection 05/30/2024 03:06:42 Negative Negative Final Influenza virus A RNA [Presence] in Nasopharynx by JUAN with non-probe detection 05/30/2024 03:06:42 Negative Negative Final Influenza virus B RNA [Presence] in Nasopharynx by JUAN with non-probe detection 05/30/2024 03:06:42 Negative Negative Final Parainfluenza virus 1 RNA [Presence] in Nasopharynx by JUAN with non-probe detection 05/30/2024 03:06:42 Negative Negative Final Parainfluenza virus 2 RNA [Presence] in Nasopharynx by JUAN with non-probe detection 05/30/2024 03:06:42 Negative Negative Final Parainfluenza virus 3 RNA [Presence] in Nasopharynx by JUAN with non-probe detection 05/30/2024 03:06:42 Negative Negative Final Parainfluenza virus 4 RNA [Presence] in Nasopharynx by JUAN with non-probe detection 05/30/2024 03:06:42 Negative Negative Final Respiratory syncytial virus RNA [Presence] in Nasopharynx by JUAN with non-probe detection 05/30/2024 03:06:42 Negative Negative Final Bordetella pertussis.pertussis toxin promoter region [Presence] in Nasopharynx by JUAN with non-probe detection 05/30/2024 03:06:42 Negative Negative Final Chlamydophila pneumoniae DNA [Presence] in Nasopharynx by JUAN with non-probe detection 05/30/2024 03:06:42 Negative Negative Final Mycoplasma pneumoniae DNA [Presence] in Nasopharynx by JUAN with non-probe detection 05/30/2024 03:06:42 Negative Negative Final Bordetella parapertussis [id number] DNA [Presence] in Nasopharynx by JUAN with non-probe detection 05/30/2024 03:06:42 Negative Negative Final
The primers that detect Rhinovirus may cross react with some Enterorviruses. The validation of bronchial specimens, tracheal aspirates, and throats for this assay was developed and performance characteristics determined by [facility]. The validation of alternate specimen types has not been cleared or approved by the U.S. Food and Drug Administration (FDA). It has been determined that such clearance or approval is not necessary. [facility] [place] [address] [facility] [address]
--- OUTSIDE RECORDS SUMMARY | 2024-06-27 05:55 | External Medical Summary ---
Author Name Unknown Address Unknown Organization [id number]:[facility] [place] [address] [facility] [address] Laboratory Report Ordering Provider Test Date Status KIANNA LINDSEY 05/30/2024 18:36:00 Final Observation Date Value Abnormality Reference (Units ) Status BUN 05/30/2024 18:36:00 15 6-20 (mg/dL) Final Creatinine 05/30/2024 18:36:00 0.9 0.5-1.0 (mg/dL) Final Glomerular filtration rate/1.73 sq M.predicted [Volume Rate/Area] in Serum, Plasma or Blood by Creatinine-based formula (CKD-EPI) 05/30/2024 18:36:00 78 >=60 (mL/min) Final eGFR is calculated based on the CKD-EPI 2020 equation. Sodium 05/30/2024 18:36:00 141 135-146 (m mol/L) Final Potassium 05/30/2024 18:36:00 3.6 3.5-5.1 (m mol/L) Final Cl 05/30/2024 18:36:00 99 98-107 (mm ol/L) Final CO2 05/30/2024 18:36:00 29 22-32 (mmo l/L) Final Anion gap 05/30/2024 18:36:00 13 7-15 (mmol /L) Final Glucose 05/30/2024 18:36:00 100 70-120 (mg /dL) Final Calcium 05/30/2024 18:36:00 9.3 8.4-10.2 ( mg/dL) Final Performing Location [facility] [place] [address] [facility] [address]
--- OUTSIDE RECORDS SUMMARY | 2024-06-27 05:55 | External Medical Summary ---
Author Name Unknown Address Unknown Organization [id number]:[facility] [place] [address] [facility] [address] Laboratory Report Ordering Provider Test Date Status KRIS CASTRO 05/30/2024 08:09:00 Final Observation Date Value Abnormality Reference (Units ) Status Body temperature 05/30/2024 08:09:00 37.0 (C) Final pH of Venous blood 05/30/2024 08:09:00 7.369 7.320-7.430 (units) Final Carbon dioxide [Partial pressure] in Venous blood 05/30/2024 08:09:00 54.5 40.0-60.0 (mmHg) Final Oxygen [Partial pressure] in Venous blood 05/30/2024 08:09:00 26.2 25.0-50.0 (mmHg) Final Base excess, Capillary 05/30/2024 08:09:00 4.6 Above high normal -2.0-2.0 (mmol/L) Final Hemoglobin [Mass/volume] in Blood by Oximetry 05/30/2024 08:09:00 12.8 12.0-15.3 (g/dL) Final Oxyhemoglobin, Venous (FO2HB) 05/30/2024 08:09:00 41.2 40.0-85.0 (% total Hgb) Final Carboxyhemoglobin 05/30/2024 08:09:00 1.3 <=1.5 (% total Hgb) Final Smokers: 0-9.0 % Methemoglobin 05/30/2024 08:09:00 1.5 <=1.5 (% total Hgb) Final Deoxyhemoglobin/Hemoglobin.t otal in Venous blood 05/30/2024 08:09:00 56.0 (% total Hgb) Kristin l Oxygen content in Venous blood 05/30/2024 08:09:00 7.4 7.0-18.0 (%vol) Final Bicarbonate, Venous, POC (i-STAT) 05/30/2024 08:09:00 30.7 23.0-31.0 (mmol/L) Fi nal Performing Location [facility] [place] [address] [facility] [address]
--- OUTSIDE RECORDS SUMMARY | 2024-06-27 05:55 | External Medical Summary ---
Author Name Unknown Address Unknown Organization K01:[facility] - [address] [facility] [address] Laboratory Report Ordering Provider Test Date Status KIANNA LINDSEY 05/31/2024 21:18:00 Final Observation Date Value Abnormality Reference (Units ) Status Phosphate 05/31/2024 21:18:00 3.4 2.5-4.8 (m g/dL) Final Performing Location [facility] - [address] [facility] [address]
--- OUTSIDE RECORDS SUMMARY | 2024-06-27 05:55 | External Medical Summary ---
Author Name Unknown Address Unknown Organization K01:[facility] [place] [facility] [address] [facility] [address] Laboratory Report Ordering Provider Test Date Status PETERSON ROJO 05/29/2024 19:56:00 Final Observation Date Value Abnormality Reference (Units ) Status WBC, Total 05/29/2024 19:56:00 6.08 4.00-10.80 (K/uL) Final RBC 05/29/2024 19:56:00 3.93 3.85-5.15 (M/uL) Final Hemoglobin 05/29/2024 19:56:00 11.9 Below low normal 12.0-15.3 (g/dL) Final HCT 05/29/2024 19:56:00 36.3 36.0-45.2 (%) Final MCV 05/29/2024 19:56:00 92.4 81.5-97.5 (fL) Final MCH 05/29/2024 19:56:00 30.3 27.0-34.0 (pg) Final MCHC 05/29/2024 19:56:00 32.8 32.0-36.0 (g/dL) Final RDW 05/29/2024 19:56:00 13.9 11.5-15.5 (%) Final Platelets 05/29/2024 19:56:00 153 140-400 (K/uL) Final MPV 05/29/2024 19:56:00 10.0 6.6-11.1 (fL) Final Nucleated erythrocytes/100 leukocytes [Ratio] in Blood by Automated count 05/29/2024 19:56:00 0 <=0 (/100 WBCs) Final Performing Location [facility] [place] [address] [facility] [address]
--- OUTSIDE RECORDS SUMMARY | 2024-06-27 05:55 | External Medical Summary ---
Author Name Unknown Address Unknown Organization K01[place] [place] [facility] [address] Laboratory Report Ordering Provider Test Date Status PETERSON ROJO 05/29/2024 19:56:00 Final Observation Date Value Abnormality Reference (Units ) Status SYNC LEUKOCYTES IN BLOOD BY AUTOMATED COUNT 05/29/2024 19:56:00 6.08 4.00-10.80 (K/uL) Final Segs 05/29/2024 19:56:00 69.9 40.0-75.0 (%) Final Lymphs % 05/29/2024 19:56:00 18.9 18.0-42.0 (%) Final Monos 05/29/2024 19:56:00 10.2 1.0-11.0 (%) Final Eosinophils 05/29/2024 19:56:00 0.0 0.0-6.0 (%) Final Basos 05/29/2024 19:56:00 0.7 0.0-2.0 (%) Final Immature Granulocyte, Percent 05/29/2024 19:56:00 0.3 0.0-2.0 (%) Final Absolute Segs 05/29/2024 19:56:00 4.25 1.80-7.70 (K/uL) Final Lymphs, absolute 05/29/2024 19:56:00 1.15 1.00-4.80 (K/ul) Final Monos, Abs 05/29/2024 19:56:00 0.62 0.00-1.10 (K/uL) Final Eos, Abs 05/29/2024 19:56:00 0.00 0.00-0.70 (K/uL) Final Basos, Abs 05/29/2024 19:56:00 0.04 0.00-0.20 (K/uL) Final Immature Granulocytes, Number 05/29/2024 19:56:00 0.02 0.00-0.20 (K/uL) Final Performing Location LABORATORY [facility] - [address] [facility] [address]
--- OUTSIDE RECORDS SUMMARY | 2024-06-27 05:56 | External Medical Summary | Summary of Care ---
Author Name Unknown Organization [facility] Address [address] [place] [address] Phone [phone] Care Team Providers Care Preschool Adviser Name Role Phone Nikhil Katie Bosch PA-C Primary Care Provider [phone] Reason for Visit * Reason Comments Outpatient Testing Encounter Details Date Type Department Care Team (Late st Contact Info) Description 05/03/2024 3:10 PM EDT Laboratory [facility] [phone] [phone] Screening for condition; UTI symptoms Allergies Active Allergy Reactions Criticality Noted Date Comments Leflunomide Itching,Rash High 04/14/2017 After taking med for 3 months she had terrible rash and itching Hydroxychloroquine Sulfate 7 Rash documented as of this encounter (statuses as of 05/03/2024) Medications Medication Sig Dispensed Refills Start Date [...] as of this encounter (statuses as of 05/03/2024) Active Problems Problem Noted Date Diagnosed Date Body mass index (BMI) of 60.0 to [...] as of this encounter (statuses as of 05/03/2024) Resolved Problems Problem Noted Date Diagnosed Date [...] as of this encounter (statuses as of 05/03/2024) Immunizations Name Administration Dates Next Due COVID-19 mRNA, LNP-s, No Pre serve, 2-Dose Series (frents) 07/08/2021,06/17/2021 Seasonal Influenza, PF, 6 M & [...] (15 years old or older) No 12/25/19 Cognitive Status Response Date of Assessm ent Because of a physical, menta l, or emotional condition, do you have serious difficulty concentrating, remembering, or making decisions? (5 years old or older) No 12/25/2023 documented as of this encounter Plan of Treatment Upcoming Encounters Date Type Department Care Team (Late st Contact Info) Description 05/15/2024 2:55 PM EDT Office Visit Urogynecology Sabiha Blum [address] [place] [address] Yovanny Key MD [address] [place] [address] Nurse Alanna Blum [address] [place] [address] 06/01/2024 11:30 AM EDT Office Visit [facility] [address] [place] [address] Kwan Means MD [address] [place] [address] Carmine Huang MD [address] [place] [address] 02/20/2025 7:30 AM EDT Office Visit [address] [address] Katie Tejeda PA-C [address] [place] [address] Pending Results Name Type Priority Associated Diagnoses Date /Time CBC Lab Routine Screening for condition 05/03/2024 3:05 PM EDT TSH WITH FREE T4 IF INDICATED Lab Routine Screening for condition 05/03/2024 3:05 PM EDT COMPREHENSIVE METABOLIC PANEL Lab Routine Screening for condition 05/03/2024 3:05 PM EDT CULTURE, URINE, QUANTITATIVE Lab Routine UTI symptoms 05/03/2024 3:05 PM EDT URINALYSIS, REFLEX TO MICROSCOPIC Lab Routine UTI symptoms 05/03/2024 3:05 PM EDT Scheduled Procedures Name Priority Associated Diagnoses Date/Ti me COLONOSCOPY FLEXIBLE PROXIMAL DIAGNOSTIC Recall History of colonoscopy Health Maintenance Due Date Last Done Comments Pneumococcal Vaccine: Pediatrics (0 to 5 Years) and At-Risk Patients (6 to 64 Years) (1 of 2 - PCV) 1969 Cologuard 2008 Fecal Occult Blood Test 2008 Sigmoidoscopy 2008 COVID-19 Vaccine (2022- season) 2023 07/08/2021, 06/17/2021 Mammogram 05/10/2024 05/10/2023, 04/17, 04/22/2022, Additional history exists TSH 05/12/2024 05/12/2023, 03/18, 01/28/2023, Additional history exists Colonoscopy 05/20/2024 05/20/2014, 05/20/2014 Colorectal Cancer Screening 05/20/2024 Influenza Vaccine (FLU shot) (#1) 2024 08/17/2023, 07/29/2022, 07/29/2021, Additional history exists PAP SMEAR-EVERY 5 YRS,AGES 21-100 07/17/2024 07/17/2019, 12/15/2015, 12/15/2011, Additional history exists GFR 12/26/2024 12/27/2023, 12/15, 12/25/2023, Additional history exists Depression Screening 12/29/2024 12/30/2023 Albumin/Creatinine Ratio 11/18/2025 11/18/2022, 01/15 Diabetes Screening 12/26/2026 12/27/2023, 0 12/26/2023, 12/25/2023, Additional history exists Lipid Panel 11/18/2027 11/18/2022, [...] this encounter Medical Devices Implanted Type Area Engineering Vice President Device Identifier Shelf Expiration Date Model / Serial / Lot Device Tvt [id number] - [id number] Implanted:Qty: 1 on 04/15/2008 at OR [facility] N/A: Vagina Gynecare 11/17/2010 [id number] / / [id number] Mirena Iud Implanted:Qty: 1 on 09/16/2009 at OR [facility] Cervix [employer] 12/26/2009 / / [id number] Description:Mirena IUDCharge d for in MANAGER RADIATION Clinic Screw Micro 16mm At2-C16-S - [id number] Implanted:Qty: 1 on 08/05/2014 at OR [facility] Left: Hand ACUMED 03/15/2015 AT2-C16-S / / [id number] documented as of this encounter Visit Diagnoses Diagnosis Screening for condition Screening for unspecified condition UTI symptoms Other symptoms involving urinary system documented in this encounter Advance Directives Documents on File Type Date Recorded Patient Manager Consumer Expl anation Advance Directives and Living Will 11/19/2004 Power of Crop Research Scientist 11/19/2004 * Full Code (Latest Code Status [...] and were consensually agreed upon. Care Teams Preschool Adviser Relationship Specialty Start Date End Date Katie Tejeda PA-C [address] [place] [address] PCP - General Physician Dye Lab Technician 11/20/19 documented as of this encounter
--- OUTSIDE RECORDS SUMMARY | 2024-06-27 05:56 | External Medical Summary | Summary of Care ---
Author Name Unknown Organization [facility] Address [address] [place] [address] Phone [phone] Care Team Providers Care Settlement Agent Name Role Phone Nikhil Katie Bosch PA-C Primary Care Provider Reason for Visit * Reason Onset Date Comments Appointment 05/04/2024 Colonoscopy Encounter Details Date Type Department Care Team (Late st Contact Info) Description 05/04/2024 Telephone Gastroenterology, [place] [address], [place] [phone] Specified, Z[facility] No Resource [address] [place] [address] Appointment (Colonoscopy ) Allergies Active Allergy Reactions Criticality Noted Date Comments Leflunomide Itching,Rash High 04/14/2017 After taking med for 3 months she had terrible rash and itching Hydroxychloroquine Sulfate 7 Rash documented as of this encounter (statuses as of 05/11/2024) Medications Medication Sig Dispensed Refills Start Date [...] as of this encounter (statuses as of 05/11/2024) Active Problems Problem Noted Date Diagnosed Date [...] as of this encounter (statuses as of 05/11/2024) Resolved Problems Problem Noted Date Diagnosed Date [...] as of this encounter (statuses as of 05/11/2024) Immunizations Name Administration Dates Next Due COVID-19 [...] No 12/25/2023 documented as of this encounter Miscellaneous Notes * Telephone Encounter - Heather Gonzalez OSA - 05/11/2024 11:02 AM EDT Letter sent * Telephone Encounter - Heather Gonzalez OSA - 05/11/2024 11:02 AM EDT I left a message on patients answer machine to call back and schedule an appointment. * Telephone Encounter - Heidi Park OSA - 05/04/2024 1:09 PM EDT No answer, just rings no voicemail picks up Sent myg message * Telephone Encounter - Heidi [place] OSA - 05/04/2024 7:45 AM EDT Order COLONOSCOPY, GI REFERRAL OP [[id number]] (Order [id number]) Liane Gutierrez 05/03/2024 1:40 PM Office Visit Description: 58 year old female Provider: Katie Tejeda PA-C [facility] Order Information Date and Time Department Ordering/Authorizing 05/03/2024 2:56 PM [facility] Katie Park PA-C Order Providers Authorizing Provider Encounter Provider ([phone]) Katie Tejeda PA-C ([phone]) Katie Tejeda PA-C Supervision Information Encounter Supervising Provider Type of Supervision ([id number]) Sharan Batista MD Direct Priority and Order Details Priority Class Within 10 days (routine) Referral Quantity Ordering Quantity 1 Collection Information Visit Disposition Dispositions Return in about 6 months (around 11/03/2024). Comments ALERT: Do not order for pediatric patients (18 years or younger). Cancel off screen and order PEDS GASTROENTEROLOGY CONSULT (Type: 1 visit only-Evaluate and Treat) The following Pt. Instructions are available: - Gastro Colonoscopy Prep Instructions [[id number]] - Gastro Colonoscopy Prep Instructions (Hebrew Version) [[id number]] Go to the Pt. Instructions section within the Visit Navigator to access. Colonoscopy ASGE Guidelines: Average risk screening (begin at age 50, 10 year intervals) ADDITIONAL INFORMATION 1. Is the patient on Coumadin? No 2. Is the patient on Pradaxa? No Order Questions Question Answer Referral Priority Within 10 days (routine) Where should this appointment be scheduled? [facility] Referral (Authorized) ID: [id number] Created on: 05/03/2024 Referred by Referred to Katie Tejeda PA-C Gastroenterology Reason: Ancillary Services Required Priority: Within 10 days (routine) Type: Ancillary Services Visits Requested: 999 Decision Date: 05/03/2024 Start Date: 05/03/2024 Related Appointments None Associated Diagnoses Special screening for malignant neoplasms, colon [Z12.11] Encounter View Encounter Reprint Requisition COLONOSCOPY, GI REFERRAL OP (Order #[id number]) on 05/03/24 Detailed Information Priority and Order Details Reference Links Neighborly Acct Guarantor Acct Type [id number] LIANE GUTIERREZ Personal/Family [1] [id number] LIANE GUTIERREZ Personal/Family [1] Service Location Name Address [address] [phone] Currently Active Insurance Payor Plan Subscriber Member ID [id number] TPA [facility] PROVIDER CHOICE [id number] LIANE GUTIERREZ [id number] documented in this encounter Plan of Treatment Upcoming Encounters Date Type Department Care Team (Late st Contact Info) Description 05/15/2024 2:55 PM EDT Office Visit Urogynecology Sabiha Blum [address] [facility] [place] [address] Yovanny Key MD [address] [facility] [place] [address] Nurse Alanna Blum [address] [facility] [place] [address] 06/01/2024 11:30 AM EDT Office Visit [facility] [address] [place] [address] Kwan Means MD [address] [place] [address] Carmine Huang MD [address] [place] [address] 02/20/2025 7:30 AM EDT Office Visit [facility] [place] [phone] Katie Tejeda PA-C [address] [place] [address] Scheduled Procedures Name Priority Associated Diagnoses Date/Ti [...] Albumin/Creatinine Ratio 11/18/2025 11/18/2022, 0412/2021 Diabetes Screening 05/03/2027 05/03/2024, 0 12/27/2023, 12/26/2023, [...] this encounter Medical Devices Implanted Type Area Curling Machine Operator Device Identifier Shelf Expiration Date Model / Serial / Lot Device Tvt [id number] - [id number] Implanted:Qty: 1 on 04/15/2008 at OR [facility] N/A: Vagina Gynecare 11/17/2010 [id number] / / [id number] Mirena Iud Implanted:Qty: 1 on 09/16/2009 at OR [facility] [employer] 12/26/2009 / / [id number] Description:Mirena IUDCharge d for in HEEL DIPPER Clinic Screw Micro 16mm At2-C16-S - [id number] Implanted:Qty: 1 on 08/05/2014 at OR [facility] Left: Hand ACUMED 03/15/2015 AT2-C16-S / / [id number] documented as of this encounter Advance Directives Documents on File Type Date Recorded Patient Metal Hanging Helper Expl anation Advance Directives and Living Will 11/19/2004 Power of Rescue Instructor 11/19/2004 * Full Code (Latest Code [...] and were consensually agreed upon. Care Teams Settlement Agent Relationship Specialty Start Date End Date Katie Tejeda PA-C [address] [place] [address] [place] [address] PCP - General Physician Fire Boat Engineer 09/05/19 documented as of this encounter
--- OUTSIDE RECORDS SUMMARY | 2024-06-27 05:56 | External Medical Summary | Summary of Care ---
Author Name Unknown Organization [facility] Address [address] [place] [address] Phone [phone] Care Team Providers Care Sorting Cows Worker Name Role Phone Katie Tejeda PA-C Primary Care Provider Encounter Details Date Type Department Care Team (Late st Contact Info) Description 05/22/2024 Orders Only PATIENT PORTAL DO NOT DELETE THIS DEPT USED BY LEN[place] WERNER [id number] Allergies Active Allergy Reactions Criticality Noted Date Comments Leflunomide Itching,Rash High 04/14/2017 After taking med for 3 months she had terrible rash and itching Hydroxychloroquine Sulfate 7 Rash documented as of this encounter (statuses as of 05/22/2024) Medications Medication Sig Dispensed Refills Start Date End Date Status [facility] (TURMERIC CURCUMIN) CAPS Take 2 [...] as of this encounter (statuses as of 05/22/2024) Active Problems Problem Noted Date Diagnosed Date [...] of urine 11/17/2015 Fatty liver 05/20/2014 [place] [facility] [place]/S Obstructive sleep apnea of adult 04/02/2009 Female stress incontinence 04/15/2008 Hypothyroidism Moderate persistent asthma without complication Overview: excercise induced documented as of this encounter (statuses as of 05/22/2024) Resolved Problems Problem Noted Date Diagnosed Date [...] as of this encounter (statuses as of 05/22/2024) Immunizations Name Administration Dates Next Due COVID-19 mRNA, LNP-s, No Pre serve, 2-Dose Series (Purplu) 07/08/2021,06/17/2021 Seasonal Influenza, PF, 6 M & [...] Description 06/01/2024 11:30 AM EDT Office Visit [facility] [address] [place] [address] Carmine Huang MD [facility] [place] [address] 02/20/2025 7:30 AM EDT Office Visit [facility] [place] [address] [place] [address] Katie Tejeda PA-C [address] [facility] [place] [address] Scheduled Procedures Name Priority Associated Diagnoses Date/Ti [...] Additional history exists Albumin/Creatinine Ratio 11/18/2025 11/18/2022, 04/12/2021 Diabetes Screening 05/03/2027 05/03/2024, 0 12/27/2023, 12/26/2023, [...] this encounter Medical Devices Implanted Type Area Child Psychology Teacher Device Identifier Shelf Expiration Date Model / Serial / Lot Device Tvt [id number] - [id number] Implanted:Qty: 1 on 04/15/2008 [place] [facility] [place]/A: Vagina Gynecare 11/17/2010 [id number] / / [id number] Mirena Iud Implanted:Qty: 1 on 09/16/2009 at [place] [facility] Cervix [employer] 12/26/2009 / / [id number] Description:Mirena IUDCharge d for in CUSTOMER SUCCESS INTERN Clinic Screw Micro 16mm At2-C16-S - [id number] Implanted:Qty: 1 on 08/05/2014 at [place] [facility] Left: Hand ACUMED 03/15/2015 AT2-C16-S / / [id number] documented as of this encounter Advance Directives Documents on File Type Date Recorded Patient Flight Control Specialist Expl anation Advance Directives and Living Will 11/19/2004 Power of Knife Finisher 11/19/2004 * Full Code (Latest Code Status [...] and were consensually agreed upon. Care Teams Sorting Cows Worker Relationship Specialty Start Date End Date Katie Tejeda PA-C 16 [facility] [place] [address] PCP - General Physician Bulb Assembler 09/05/19 documented as of this encounter
--- OUTSIDE RECORDS SUMMARY | 2024-06-27 05:56 | External Medical Summary | Summary of Care ---
Author Name Unknown Organization [facility] Address [address] [place] [address] Phone [phone] Care Team Providers Care End Touching Machine Operator Name Role Phone Katie Tejeda PA-C Primary Care Provider [phone] Reason for Visit * Reason Onset Date Comments Test Results 05/05/2024 UTI Encounter Details Date Type Department Care Team (Late st Contact Info) Description 05/05/2024 Telephone [facility] [address] [place] [address] Katie Tejeda PA-C [address] [place] [address] Test Results (UTI) Allergies Active Allergy Reactions Criticality Noted Date Comments Leflunomide Itching,Rash High 04/14/2017 After taking med for 3 months she had terrible rash and itching Hydroxychloroquine Sulfate 7 Rash documented as of this encounter (statuses as of 05/05/2024) Medications Medication Sig Dispensed Refills Start Date [...] of breath 18 g 3 05/03/2024 Active Sulfamethoxazole-Tri methoprim 800-160 MG Oral Tablet (Bactrim DS) Take 1 Tablet by mouth in the morning and 1 Tablet before bedtime. Do all this for 7 days. Until gone. 14 Tablet 05/05/2024 4 Active documented as of this encounter (statuses as of 05/05/2024) Active Problems Problem Noted Date Diagnosed Date [...] urine 11/17/2015 Fatty liver 05/20/2014 Overview: [facility] EGD U/S Obstructive sleep apnea of adult 04/02/2009 Female stress incontinence 04/15/2008 Hypothyroidism Moderate persistent asthma without complication Overview: excercise induced documented as of this encounter (statuses as of 05/05/2024) Resolved Problems Problem Noted Date Diagnosed Date [...] as of this encounter (statuses as of 05/05/2024) Immunizations Name Administration Dates Next Due COVID-19 [...] 05/15/2024 2:55 PM EDT Office Visit Urogynecology [facility] [address] [facility] [place] [address] Yovanny Key MD [address] [place] [address] Nurse Alanna Blum Guerda [address] [place] [address] 06/01/2024 11:30 AM EDT Office Visit [facility] [address] [place] [address] Kwan Means MD [address] [place] [address] Carmine Huang MD [address] [place] [address] 02/20/2025 7:30 AM EDT Office Visit [facility] [address] [place] [address] Katie Tejeda PA-C [address] [place], [place] [phone] Scheduled Procedures Name Priority Associated Diagnoses Date/Ti [...] this encounter Medical Devices Implanted Type Area Wire Brush Maker Device Identifier Shelf Expiration Date Model / Serial / Lot Device Tvt [id number] - [id number] Implanted:Qty: 1 on 04/15/2008 at [place] [facility] N/A: Vagina Gynecare 11/17/2010 [id number] / / [id number] Mirena Iud Implanted:Qty: 1 on 09/16/2009 at OR [facility] [place] [employer]ix [employer] 12/26/2009 / / [id number] Description:Mirena IUDCharge d for in CLINICAL SOCIAL WORKER Clinic Screw Micro 16mm At2-C16-S - [id number] Implanted:Qty: 1 on 08/05/2014 at [place] [facility] Left: Hand ACUMED 03/15/2015 AT2-C16-S / / [id number] documented as of this encounter Advance Directives Documents on File Type Date Recorded Patient Thermal Cutter Helper Expl anation Advance Directives and Living Will 11/19/2004 Power of Ux Interaction Designer 11/19/2004 * Full Code (Latest Code Status [...] and were consensually agreed upon. Care Teams End Touching Machine Operator Relationship Specialty Start Date End Date Katie Tejeda PA-C [address] [place] [address] [place] [address] PCP - General Physician Data Processing Systems Consultant 09/05/19 documented as of this encounter
--- OUTSIDE RECORDS SUMMARY | 2024-06-27 05:56 | External Medical Summary | Summary of Care ---
Author Name Unknown Organization [facility] Address [address] [place] [address] Phone [phone] Care Team Providers Care Supervisor Cutting Department Name Role Phone Katie Tejeda PA-C Primary Care Provider [phone] Reason for Referral * Ancillary Services (Within 10 days (routine)) - Authorized Specialty Diagnoses / Procedures Referred By Keyur jacobs Referred To Contact Gastroenterology Diagnoses Special screening for malignant neoplasms, colon Katie Tejeda PA-C [address] [place] [phone] Referral ID Status Reason Start Date Expiration Date Visits Requested Visits Authorized [id number] Authorized Ancillary Services Required 05/03/[phone] Question Answer Referral Priority Within 10 days (routine) Where should this appointment be scheduled? [facility] Comments ALERT: Do not order for pediatric patients (18 years or younger). Cancel off screen and order PEDS GASTROENTEROLOGY CONSULT (Type: 1 visit only-Evaluate and Treat) The following Pt. Instructions are available: - Gastro Colonoscopy Prep Instructions [[id number]] - Gastro Colonoscopy Prep Instructions (Macedonian Version) [[id number]] Go to the Pt. Instructions section within the Visit Navigator to access. Colonoscopy ASGE Guidelines: Average risk screening (begin at age 50, 10 year intervals) ADDITIONAL INFORMATION 1. Is the patient on Coumadin? No 2. Is the patient on Pradaxa? No Reason for Visit * Reason Comments Follow Up 6 month Encounter Details Date Type Department Care Team (Late st Contact Info) Description 05/03/2024 1:40 PM EDT Office Visit [facility] [address] [place] [address] Katie Tejeda PA-C [address] [place] [address] Lymphedema*; Chronic venous insufficiency; Restrictive lung disease; Obesity hypoventilation syndrome (HCC); Acquired hypothyroidism; Obstructive sleep apnea of adult; Moderate persistent asthma without complication; Screening for condition; UTI symptoms; Special screening for malignant neoplasms, colon Allergies Active Allergy Reactions Criticality Noted Date Comments Leflunomide Itching,Rash High 04/14/2017 After taking med for 3 months she had terrible rash and itching Hydroxychloroquine Sulfate 7 Rash documented as of this encounter (statuses as of 05/03/2024) Medications Medication Sig Dispensed Refills Start Date End Date Status [facility] Natural Products (TURMERIC CURCUMIN) CAPS Take 2 Capsules by mouth in the morning. Active valACYclovir (VALTREX) 1000 MG TabletIndications:R ecurrent [...] 5 Active Furosemide 20 MG Oral Tablet (Lasix)Indications: Venous insufficiency TAKE ONE TABLET BY MOUTH EVERY MORNING 90 Tablet 3 11/14/2023 5 Active Fluticasone-Salmete rol 250-50 [...] of breath 18 g 3 05/03/2024 Active Albuterol Sulfate (VENTOLIN HFA) 108 (90 Base) MCG/ACT AERS Inhale 2 Puffs by mouth every 4 hours as needed for Wheezing. 1 Inhaler 11 08/28/2019 4 Discontinu ed(Refill) documented as of this encounter [...] mRNA, LNP-s, No Pre serve, 2-Dose Series (NATIONSPLAY) 07/08/2021,06/17/2021 Seasonal Influenza, PF, 6 M & [...] Sign Reading Time Taken Comments Blood Pressure 122/80 05/03/2024 1:57 PM EDT Pulse 73 05/03/2024 1:57 PM EDT Temperature 36.7 C (98.1 F) 05/03/2024 1:57 PM ED T Respiratory Rate - - Oxygen Saturation 94% 05/03/2024 1:57 PM EDT Inhaled Oxygen Concentration - - Weight 162.1 kg (357 lb 4.8 oz) 05/03/2024 1:57 PM EDT Height - - Body Mass Index 63.29 12/25/2023 2:43 PM EDT documented in this encounter Functional [...] No 12/25/2023 documented as of this encounter Progress Notes * Katie Tejeda PA-C - 05/03/2024 1:59 PM EDT Subjective: Liane Gutierrez is a 58 year old female. Chief Complaint Patient presents with Follow Up 6 month HPI: 58 year old here for checkup C/o legs are numb all the time, worse when sitting from the knees down Bilat knee pain Humidity makes her pain worse Does have RA that usually affects all her joints Pt with chronic restrictive lung disease/obesity hypoventilation syndrome Using advair twice daily Standing too long causes burning in her legs HTN stable Hypothyroidism PEDRO using CPAP Lymphedema / chronic venous insufficiency Using lymphedema pumps Rheumatoid arthritis Patient Active Problem List Diagnosis Hypothyroidism Advance [...] (BMI) of 60.0 to 69.9 in adult (FORMERLY [facility]) Current Outpatient Medications Medication Sig Dispense Refill [facility] Natural Products (TURMERIC CURCUMIN) CAPS Take 2 Capsules by mouth in the morning. valACYclovir (VALTREX) 1000 MG Tablet TAKE 1 TABLET BY MOUTH EVERY 12 HOURS FOR 1 DAY FOR COLD SORES 20 Tab 3 Vitamin D 125 MCG (5000 UT) Oral Capsule Take 1 Capsule by mouth in the morning. Vitamin C 100 MG Oral Tablet Take 1 Tablet by mouth in the morning. Triamcinolone Acetonide 0.1 % External Cream (Aristocort) [...] BY MOUTH EVERY MORNING 90 Capsule 3 Furosemide 20 MG Oral Tablet (Lasix) TAKE ONE TABLET BY MOUTH EVERY MORNING 90 Tablet 3 Fluticasone-Salmeterol 250-50 MCG/ACT Inhalation Aerosol Powder Breath Activated (Advair Diskus) Inhale 1 Puff by mouth in the morning and 1 Puff before bedtime. 180 Each 3 Levothyroxine Sodium 100 MCG Oral Tablet (Levoxyl) TAKE 1 TABLET BY MOUTH DAILY AT LEAST 30 MINUTESPRIOR TO FIRST MEAL OF THE DAY OR OTHER MEDICATIONS 90 Tablet 0 Ventolin HFA 108 (90 Base) MCG/ACT Inhalation Aerosol Solution Inhale 2 Puffs by mouth every 4 hours as needed for shortness of breath 18 g 3 Ofloxacin 0.3 % Ophthalmic Solution (Ocuflox) Instill 1 Drop into the right eye in the morning and 1 Drop at noon and 1 Drop in the evening and 1 Drop before bedtime. (Patient not taking: Reported on05/03/2024) prednisoLONE Acetate 1 % Ophthalmic Suspension (Pred Forte) Instill 1 Drop into both eyes in the morning and 1 Drop at noon and 1 Drop in the evening and 1 Drop before bedtime. (Patient not taking: Reported on 01/05/2024) 15 mL 2 No current facility-administered medications for this visit. Past Surgical History: Procedure Laterality Date APPLY BONE FIXATION DEVICE,UNIPLANE 10/08/2013 APPLICATION OF EXTERNAL FIXATOR UNIPLANE performed by Jacky Amaya MD at [facility] 1995 COLONOSCOPY, DIAGNOSTIC (RECTUM) 05/20/2014 COLONOSCOPY FLEXIBLE PROXIMAL DIAGNOSTIC performed by Elian Dodd MD at ENDOSCOPY [facility] DILATION AND CURETTAGE (D&C) 2008 EGD, FLEXIBLE, DIAGNOSTIC 05/20/2014 ESOPHAGOGASTRODUODENOSCOPY (EGD), FLEXIBLE, TRANSORAL, DIAGNOSTIC performed by Elian Dodd MD atENDOSCOPY [facility] EGD, W/ENDOSCOPIC US 05/20/2014 ESOPHAGOGASTRODUODENOSCOPY (EGD), FLEXIBLE, TRANSORAL, ENDOSCOPIC ULTRASOUND performed by Elian Dodd MD at ENDOSCOPY [facility] ENDOMETRIAL THERMAL ABLATE 09/16/09 ENDOMETRIAL THERMAL ABLATION performed by MARY ANN MORAN at [facility] FUSION OF FINGER JOINT 08/05/2014 ARTHRODESIS INTERPHALANGEAL JOINT performed by Jacky Amaya MD at OR [facility] HYSTEROSCOPY W/BIOPSY AND/OR POLYPECTOMY W/WO D&C 04/28/07 HYSTEROSCOPY WITH BIOPSY performed by MARY ANN MORAN at [facility] HYSTEROSCOPY W/BIOPSY AND/OR POLYPECTOMY W/WO D&C 09/16/09 HYSTEROSCOPY WITH BIOPSY performed by MARY ANN MORAN at OR [facility] HYSTEROSCOPY W/BIOPSY AND/OR POLYPECTOMY W/WO D&C N/A 09/27/2014 HYSTEROSCOPY WITH BIOPSY AND/OR POLYPECTOMY performed by Rowan Moreno MD at OR [facility] INSERT INTRAUTERINE DEVICE (IUD) N/A 09/27/2014 INSERTION OF INTRAUTERINE DEVICE performed by Rowan Moreno MD at OR [facility] LAPAROSCOPY; CHOLECYSTECTOMY 08/02/01 Clarke Gagnon. PELVIC EXAM UNDER ANESTHESIA, NOT LOCAL N/A 02/17/2022 PELVIC EXAMINATION UNDER ANESTHESIA performed by Heidi Acosta MD at OR [facility] PHALANX SHAFT FX, OPEN TX, HAND, W/INTER FIXATION 08/16/2011 OPEN TREATMENT PHALANGEAL SHAFT performed by JACKY AMAYA at OR [facility] RELEASE KNUCKLE CONTRACTURE, EACH 01/28/2012 CAPSULECTOMY CAPSULOTOMY METACARPOPHALANGEAL performed by JACKY AMAYA at [facility] RELEASE PALM & FINGER TENDON, EACH 05/22/2012 TENOLYSIS FLEXOR PALM AND FINGER performed by Jacky Amaya MD at [facility] REMOVAL OF APPENDIX 1992 REMOVAL OF TONSILS, AGE 12+ 01/14/[address] Mcclellan (), [facility], [place] REMOVE IMPLANT FROM HAND/FINGER 01/07/2014 REMOVAL OF FINGER IMPLANT performed by Jacky Amaya MD at OR [facility] REMOVE INTRAUTERINE DEVICE (IUD) 02/17/2022 REMOVAL OF INTRAUTERINE DEVICE performed by Heidi Acosta MD at OR [facility] REPAIR BLADDER DEFECT 04/15/08 VAGINAL SLING PROCEDURE FOR STRESS INCONTINENCE performed by JASS TENA at OR [facility] REVISION OF PALATE, PHARYNX/UVULA 01/14/04 UPPP Social History Tobacco Use Smoking status: Never Smokeless tobacco: Never Substance Use Topics Alcohol use: No Vaping/E-Cigarette Use Vaping/E-Cigarette Use Never User Vaping/E-Cigarette Substances Vaping/E-Cigarette Devices Review of patient's allergies indicates: Allergen Reactions Arava [Leflunomide] Itching and Rash After taking med for 3 months she had terrible rash and itching Plaquenil [Hydroxychloroquine Sulfate] Rash OBJECTIVE: BP 122/80 | Pulse 73 | Temp 36.7 C (98.1 F) (Tympanic) | Wt (!) 162.1 kg (357 lb 4.8 oz) | LMP (LMP Unknown) | SpO2 94% | BMI 63.29 kg/m | BSA 2.68 m Estimated body mass index is 63.29 kg/m as calculated from the following: Height as of 12/25/23: 1.6 m (5' 3"). Weight as of this encounter: 162.1 kg (357 lb 4.8 oz). BP Readings from Last 3 Encounters: 05/03/24 122/80 01/02/24 124/82 12/27/23 138/62 Wt Readings from Last 3 Encounters: 05/03/24 (!) 162.1 kg (357 lb 4.8 oz) 01/02/24 (!) 154 kg (339 lb 9.6 oz) 12/27/23 (!) 152.5 kg (336 lb 3.2 oz) ROS: all others negative other than those noted in the HPI. PHYSICAL EXAM: General: alert, no distress Skin: normal turgor , no significant rashes or lesions Head: Normocephalic, No masses, lesions, tenderness or abnormalities Eye Exam: PERRLA, EOMI, Conjunctiva are pink and non-injected, sclera clear Ears: External ears normal, Canals clear, TM's Normal Nose: nares patent Oropharynx: no exudate, no erythema, lips, buccal mucosa, and tongue normal and mucous membranes are moist Neck: supple, no adenopathy, no bruits, thyroid normal size, non-tender, without nodularity Lymph: no palpable lymphadenopathy Heart: regular rate & rhythm, no murmur Lungs: , lungs clear to auscultation, neg wheeze, neg rhonchi, neg rales Abdomen: abdomen soft, non-tender, normal bowel sounds and no masses or organomegaly Extremities: no inflammation, no edema, Neuro Exam: alert & oriented x 3 with fluent speech, no focal motor/sensory deficits ASSESSMENT/Plan Lymphedema (Primary) Chronic venous insufficiency Restrictive lung disease Obesity hypoventilation syndrome (HCC) Acquired hypothyroidism Obstructive sleep apnea of adult Moderate persistent asthma without complication - Ventolin HFA 108 (90 Base) MCG/ACT Inhalation Aerosol Solution; Inhale 2 Puffs by mouth every 4 hours as needed for shortness of breath Screening for condition - CBC; Future; Expected date: 05/03/2024 - TSH WITH FREE T4 IF INDICATED; Future; Expected date: 05/03/2024 - COMPREHENSIVE METABOLIC PANEL; Future; Expected date: 05/03/2024 UTI symptoms - CULTURE, URINE, QUANTITATIVE; Future; Expected date: 05/03/2024 - URINALYSIS, REFLEX TO MICROSCOPIC; Future; Expected date: 05/03/2024 Special screening for malignant neoplasms, colon - COLONOSCOPY, GI REFERRAL OP Use lymphedema pumps daily Take lasix daily Use albuterol inhaler Discussed how weight loss would help with symptoms Total time today including reviewing chart before the visit, pertinent labs, imaging reports, face to face time, and documentation time was 40 minutes, excluding any time spent in the performance of separately billed services. Follow Up: Return in about 6 months (around 11/03/2024). Katie Tejeda PA-C documented in this encounter Nursing Notes * Rukhsana De Souza CMA - 05/03/2024 1:57 PM EDT 6 month return documented in this encounter Plan of Treatment Upcoming Encounters Date Type Department Care Team (Late st Contact Info) Description 05/15/2024 2:55 PM EDT Office Visit Urogynecology Sabiha Blum [address] [place] [address] Yovanny Key MD [address] [place] [address] Nurse Alanna Blum [address] [place] [address] 06/01/2024 11:30 AM EDT Office Visit [facility] [address] [id number] Kwan Means MD [address] [place] [address] Carmine Huang MD [address] [place] [address] 02/20/2025 7:30 AM EDT Office Visit [facility], [address] [address] Katie Tejeda PA-C [address] [place] [address] Pending Results Name Type Priority Associated Diagnoses [...] UTI symptoms 05/03/2024 3:05 PM EDT Scheduled Orders Name Type Priority Associated Diagnoses Orde r Schedule CBC Lab Routine Screening for condition Expected: 05/03/2024 (Approximate), Expires: 05/03/2025 TSH WITH FREE T4 IF INDICATED Lab Routine Screening for condition Expected: 05/03/2024 (Approximate), Expires: 05/03/2025 COMPREHENSIVE METABOLIC PANEL Lab Routine Screening for condition Expected: 05/03/2024 (Approximate), Expires: 05/03/2025 CULTURE, URINE, QUANTITATIVE Lab Routine UTI symptoms Expected: 05/03/2024 (Approximate), Expires: 05/03/2025 URINALYSIS, REFLEX TO MICROSCOPIC Lab Routine UTI symptoms Expected: 05/03/2024 (Approximate), Expires: 05/03/2025 Scheduled Procedures Name Priority Associated Diagnoses Date/Ti me COLONOSCOPY FLEXIBLE PROXIMAL DIAGNOSTIC Recall History of colonoscopy Scheduled Referrals Name Type Priority Associated Diagnoses Orde r Schedule COLONOSCOPY, GI REFERRAL OP Referral Within 10 days (routine) Special screening for malignant neoplasms, colon Ordered: 05/03/2024 Health Maintenance Due Date Last Done Comments [...] Screening 12/29/2024 12/30/2023 Albumin/Creatinine Ratio 11/18/2025 11/18/2022, 0412/2021 Diabetes Screening 12/26/2026 12/27/2023, 0 12/26/2023, 12/25/2023, [...] this encounter Medical Devices Implanted Type Area Animation Director Device Identifier Shelf Expiration Date Model / Serial / Lot Device Tvt [id number] - [id number] Implanted:Qty: 1 on 04/15/2008 at OR [facility] N/A: Vagina Gynecare 11/17/2010 [id number] / / [id number] Mirena Iud Implanted:Qty: 1 on 09/16/2009 at OR [facility] C[employer] 12/26/2009 / / [id number] Description:Mirena IUDCharge d for in CARPENTER HEL[employer] MAINTENANCE Clinic Screw Micro 16mm At2-C16-S - [id number] Implanted:Qty: 1 on 08/05/2014 at OR [facility] Left: Hand ACUMED 03/15/2015 AT2-C16-S / / [id number] documented as of this encounter Visit Diagnoses Diagnosis Lymphedema- Primary Other lymphedema Chronic venous insufficiency Unspecified venous (peripheral) insufficiency Restrictive lung disease Other diseases of lung, not elsewhere classified Obesity hypoventilation syndrome (HCC) Obesity hypoventilation syndrome Acquired hypothyroidism Unspecified hypothyroidism Obstructive sleep apnea of adult Obstructive sleep apnea (adult) (pediatric) Moderate persistent asthma without complication Unspecified asthma Screening for condition Screening for unspecified condition UTI symptoms Other symptoms involving urinary system Special screening for malignant neoplasms, colon documented in this encounter Advance Directives Documents on File Type Date Recorded 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 Care Teams Supervisor Cutting Department Relationship Specialty Start Date End Date Katie Tejeda PA-C [address] [place] [address] [place] [address] PCP - General Physician Hospital Supervisor 09/05/19 documented as of this encounter
--- OUTSIDE RECORDS SUMMARY | 2024-06-27 05:56 | External Medical Summary ---
Author Name Unknown Address Unknown Organization [id number]:[facility] [place] [address] [facility] [address] Laboratory Report Ordering Provider Test Date Status PETERSON ROJO 05/29/2024 19:56:00 Final Exclude Heart Failure: <300 pg/mL
Diagnose Heart Failure:
Age <50 yr: >450 pg/mL
50-75 yr: >900 pg/mL
>75 yr: >1800 pg/mL
GFR is 30-59 mL/min: >1200 pg/mL or Age- adjusted values
GFR <30 mL/min: do not use, not reliable

Prognostic threshold: 1000 pg/mL Observation Date Value Abnormality Reference (Units ) Status BNP, Pro-hormone 05/29/2024 19:56:00 124 <30 0 (pg/mL) Final Performing Location [facility][note 3] [address] [facility] [address]
--- OUTSIDE RECORDS SUMMARY | 2024-06-27 05:56 | External Medical Summary | Summary of Care ---
Author Name Unknown Organization [facility] Address [address] [place] [address] Phone [phone] Care Team Providers Care Political Director Name Role Phone Katie Tejeda PA-C Primary Care Provider Reason for Visit * Reason Onset Date Comments Test Results 05/04/2024 thyroid Encounter Details Date Type Department Care Team (Late st Contact Info) Description 05/04/2024 Telephone [facility] [address] [place] [address] Katie Tejeda PA-C [address] [place] [address] Test Results (thyroid) Allergies Active Allergy Reactions Criticality Noted Date Comments Leflunomide Itching,Rash High 04/14/2017 After taking med for 3 months she had terrible rash and itching Hydroxychloroquine Sulfate 7 Rash documented as of this encounter (statuses as of 05/04/2024) Medications Medication Sig Dispensed Refills Start Date [...] as of this encounter (statuses as of 05/04/2024) Active Problems Problem Noted Date Diagnosed Date [...] as of this encounter (statuses as of 05/04/2024) Resolved Problems Problem Noted Date Diagnosed Date [...] as of this encounter (statuses as of 05/04/2024) Immunizations Name Administration Dates Next Due COVID-19 mRNA, LNP-s, No Pre serve, 2-Dose Series (Kout) 07/08/2021,06/17/2021 Seasonal Influenza, PF, 6 M & [...] EDT Office Visit Urogynecology Sabiha Blum [address] [place] [address] Yovanny Key MD [address] [place] [address] Nurse Alanna Blum [address] [place] [address] 06/01/2024 11:30 AM EDT Office Visit [facility] [address] [place] [address] Kwan Means MD [address] [place] [address] Carmine Huang MD [address] [place], [place] [id number] 02/20/2025 7:30 AM EDT Office Visit [facility] [address] [place] [address] Katie Tejeda PA-C [address] [place], [place] [id number] Scheduled Orders Name Type Priority Associated Diagnoses Orde r Schedule TSH WITH FREE T4 IF INDICATED Lab Routine Acquired hypothyroidism Expected: 06/04/2024 (Approximate), Expires: 05/04/2025 Scheduled Procedures Name Priority Associated Diagnoses Date/Ti me COLONOSCOPY FLEXIBLE PROXIMAL DIAGNOSTIC Recall History of colonoscopy Health Maintenance Due Date Last Done Comments Pneumococcal Vaccine: Pediatrics (0 to 5 Years) and At-Risk Patients (6 to 64 Years) (1 of 2 - PCV) 1969 Cologuard 2008 Fecal Occult Blood Test 2008 Sigmoidoscopy 2008 COVID-19 Vaccine (3 - season) 2023 07/08/2021, 06/17/2021 Mammogram 05/10/2024 05/10/2023, [...] this encounter Medical Devices Implanted Type Area Quality Director Device Identifier Shelf Expiration Date Model / Serial / Lot Device Tvt [id number] - [id number] Implanted:Qty: 1 on 04/15/2008 [place] [facility] N/A: Vagina Gynecare 11/17/2010 [id number] / / [id number] Mirena Iud Implanted:Qty: 1 on 09/16/2009 at [place] [facility] C[employer] 12/26/2009 / / [id number] Description:Mirena IUDCharge d for in CABLE ENGINEER OUTSIDE PLANT Clinic Screw Micro 16mm At2-C16-S - [id number] Implanted:Qty: 1 on 08/05/[address] 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 Care Teams Political Director Relationship Specialty Start Date End Date Katie Tejeda PA-C [address] [facility] [place] [address] PCP - General Physician Moisture Machine Tender 09/05/19 documented as of this encounter
--- OUTSIDE RECORDS SUMMARY | 2024-06-27 05:56 | External Medical Summary ---
Author Name Unknown Address Unknown Organization [id number]:LAB[facility]ATORY [facility] [place] - [address] [address] Laboratory Report Ordering Provider Test Date Status PETERSON ROJO 05/29/2024 19:56:00 Final Observation Date Value Abnormality Reference (Units ) Status BUN 05/29/2024 19:56:00 14 6-20 (mg/dL) Final Creatinine 05/29/2024 19:56:00 0.9 0.5-1.0 (mg/dL) Final Glomerular filtration rate/1.73 sq M.predicted [Volume Rate/Area] in Serum, Plasma or Blood by Creatinine-based formula (CKD-EPI) 05/29/2024 19:56:00 75 >=60 (mL/min) Final eGFR is calculated based on the CKD-EPI 2020 equation. Sodium 05/29/2024 19:56:00 138 135-146 (m mol/L) Final Potassium 05/29/2024 19:56:00 3.9 3.5-5.1 (m mol/L) Final Cl 05/29/2024 19:56:00 101 98-107 (mm ol/L) Final CO2 05/29/2024 19:56:00 26 22-32 (mmo l/L) Final Anion gap 05/29/2024 19:56:00 11 7-15 (mmol /L) Final Glucose 05/29/2024 19:56:00 122 Above high normal 70 -120 (mg/dL) Final Albumin 05/29/2024 19:56:00 3.9 3.8-5.0 (g /dL) Final AST (Aspartate aminotransferase) 05/29/2024 19:56:00 23 10-35 (U/L) Fin al Alk Phos 05/29/2024 19:56:00 86 35-130 (U/ L) Final Bilirubin, Total 05/29/2024 19:56:00 0.7 <=1 .2 (mg/dL) Final Calcium 05/29/2024 19:56:00 8.9 8.4-10.2 ( mg/dL) Final Protein 05/29/2024 19:56:00 6.9 6.0-8.3 (g /dL) Final ALT (Alanine aminotransferase) 05/29/2024 19:56:00 23 10-35 (U/L) Kang lilly Performing Location LABORATORY [facility] - [address] [facility] [address]
--- OUTSIDE RECORDS SUMMARY | 2024-06-27 05:56 | External Medical Summary ---
Author Name Unknown Address Unknown Organization [id number]:[place] [facility] [place] [address] [facility] [address] Laboratory Report Ordering Provider Test Date Status PETERSON ROJO 05/29/2024 19:56:00 Final Observation Date Value Abnormality Reference (Units ) Status Troponin T 05/29/2024 19:56:00 10 <=14 (ng/ L) Final Performing Location LABORATORY C - [address] [facility] [address]
--- OUTSIDE RECORDS SUMMARY | 2024-06-27 05:56 | External Medical Summary ---
Author Name Unknown Address Unknown Organization K01:[facility] [place] [address] [facility] [address] Laboratory Report Ordering Provider Test Date Status DAREN RUIZ 05/29/2024 19:19:01 Final <10,000 colonies/ml normal f sunil, one colony type Observation Date Value Abnormality Reference (Units ) Status Bacteria identified in Specimen by Culture 05/29/2024 19:19:01 [id number]^ESCHE RICHIA COLI Abnormal Final 10,000 to 100,000 colonies/m L Escherichia coli Performing Location [facility] [place] [address] [facility] [address] Ordering Provider Test Date Status DAREN RUIZ 05/29/2024 19:19:01 Final Observation Date Value Abnormality Reference (Units ) Status Ampicillin 05/29/2024 19:19:01 <=2 Susceptible Final Cefazolin 05/29/2024 19:19:01 <=4 Susceptible Final Cefepime susceptibility 05/29/2024 19:19:01 <=1 Susceptible Final Ceftriaxone suceptibility 05/29/2024 19:19:01 <=1 Susceptible Final Ciprofloxacin 05/29/2024 19:19:01 >=4 Resistant Final Due to serious side effects, the FDA has advised against using Ciprofloxacin to treat uncomplicated UTIs and respiratory tract infections unless there are no alternative treatment options. Gentamicin susceptibility 05/29/2024 19:19:01 <=1 Susc eptible Final Levofloxacin susceptibility 05/29/2024 19:19:01 >=8 Re sistant Final Due to serious side effects, the FDA has advised against using Levofloxacin to treat uncomplicated UTIs and respiratory tract infections unless there are no alternative treatment options. Nitrofurantoin susceptibility 05/29/2024 19:19:01 <=16 Susceptible Final Piperacillin + Tazobactamsusceptibility 05/29/2024 19:19:01 <=4 Susceptible Final TMP-SMZ susceptibility 05/29/2024 19:19:01 <=20 Suscept ible Final Test: Culture, Urine, Quanti tative
Specimen Source: Urine, Clean Catch
Specimen Type: Urine
Specimen Date: 05/29/20241918
Result Date: 05/31/2024728
Result Status: Final result
Abnormal: Yes
Resulting Lab: [facility] [place]
[address]
[place] [address]

CULTURE

10,000 to 100,000 colonies/mL Escherichia coli (Abnormal)

<10,000 colonies/ml normal saul, one colony type

SUSCEPTIBILITY

Escherichia coli
METHOD MICROBROTH
DILUTIONS

AMPICILLIN [...] alternative treatment options.

null Performing Location [facility] [place] [address] [place] [address]
--- OUTSIDE RECORDS SUMMARY | 2024-06-27 05:56 | External Medical Summary | Summary of Care ---
Author Name Unknown Organization [facility] Address [address] [place] [address] Phone [phone] Care Team Providers Care Cushion Cover Inspector Name Role Phone Katie Tejeda PA-C Primary Care Provider [phone] Reason for Visit * Reason Comments Re-Check Encounter Details Date Type Department Care Team (Late st Contact Info) Description 05/15/2024 2:55 PM EDT Office Visit Urogynecology Sabiha Blum [address] [place] [address] Yovanny Key MD [address] [place] [address] Nurse Alanna Blum [address] [place] [address] OAB (overactive bladder)*; Urge incontinence of urine Allergies Active Allergy Reactions Criticality Noted Date Comments Leflunomide Itching,Rash High 04/14/2017 After taking med for 3 months she had terrible rash and itching Hydroxychloroquine Sulfate 7 Rash documented as of this encounter (statuses as of 05/15/2024) Medications Medication Sig Dispensed Refills Start Date [...] as of this encounter (statuses as of 05/15/2024) Active Problems Problem Noted Date Diagnosed Date [...] of urine 11/17/2015 Fatty liver 05/20/2014 [place] [facility] [place] Obstructive sleep apnea of adult 04/02/2009 Female stress incontinence 04/15/2008 Hypothyroidism Moderate persistent asthma without complication Overview: excercise induced documented as of this encounter (statuses as of 05/15/2024) Resolved Problems Problem Noted Date Diagnosed Date [...] as of this encounter (statuses as of 05/15/2024) Immunizations Name Administration Dates Next Due COVID-19 [...] Sign Reading Time Taken Comments Blood Pressure - - Pulse - - Temperature - - Respiratory Rate - - Oxygen Saturation - - Inhaled Oxygen Concentration - - Weight 162.8 kg (358 lb 14.2 oz) 05/15/2024 2:49 PM EDT Height - - Body Mass Index 63.57 12/25/2023 2:43 PM EDT documented in this [...] as of this encounter Progress Notes * Yovanny Key MD - 05/15/2024 3:10 PM EDT Liane Gutierrez presents for a follow up visit at [facility]. She was previously seen for N32.81 OAB (overactive bladder) (primary encounter diagnosis) N39.41 Urge incontinence of urine Since last seen, continues to have frequency, urgency, nocturia, and urge incontinence despite Myrbetriq. Tried Vesicare and Detrol in the past.. Wishes to discuss next steps Allergies: Review of patient's allergies indicates: Allergen Reactions Arava [Leflunomide] Itching and Rash After taking med for 3 months she had terrible rash and itching Plaquenil [Hydroxychloroquine Sulfate] Rash Active Medications: Current Outpatient Medications Medication Sig [facility]pense [facility] (TURMERIC CURCUMIN) CAPS Take [...] No current facility-administered medications for this visit. ROS: No Change since previous visit Weight (!) 162.8 kg (358 lb 14.2 oz), not currently . Blood pressure %anna are not available for patients who are 18 years or older. Body mass index is 63.57 kg/m. Results for orders placed or performed in visit on 05/03/24 CBC Result Value Ref Range WBC 5.40 4.00 - 10.80 K/uL RBC 4.54 3.85 - 5.15 M/uL HGB 13.5 12.0 - 15.3 g/dL HCT 42.7 36.0 - 45.2 % MCV 94.1 81.5 - 97.5 fL MCH 29.7 27.0 - 34.0 pg MCHC 31.6 32.0 - 36.0 g/dL RDW 14.3 11.5 - 15.5 % PLT 191 140 - 400 K/uL MPV 10.2 6.6 - 11.1 fL nRBCs 0 <=0 /100 WBCs TSH WITH FREE T4 IF INDICATED Result Value Ref Range TSH 5.88 (H) 0.27 - 4.20 uIU/mL COMPREHENSIVE METABOLIC PANEL Result Value Ref Range BUN 18 6 - 20 mg/dL Creatinine 0.8 0.5 - 1.0 mg/dL Estimated Glomerular Filtration Rate 82 >=60 mL/min Sodium 143 135 - 146 mmol/L Potassium 4.5 3.5 - 5.1 mmol/L Chloride 103 98 - 107 mmol/L CO2 28 22 - 32 mmol/L Anion Gap 12 7 - 15 mmol/L Glucose 93 70 - 120 mg/dL Albumin 4.4 3.8 - 5.0 g/dL AST 26 10 - 35 U/L Alkaline Phosphatase 112 35 - 130 U/L Bilirubin, Total 0.3 <=1.2 mg/dL Calcium 9.0 8.4 - 10.2 mg/dL Protein 7.1 6.0 - 8.3 g/dL ALT 30 10 - 35 U/L CULTURE, URINE, QUANTITATIVE Specimen: Urine, Clean Catch Result Value Ref Range Culture Growth 10,000 to 100,000 colonies/mL Escherichia coli (A) Susceptibility Escherichia coli - MICROBROTH DILUTIONS Ampicillin Susceptible Cefazolin Susceptible Cefepime Susceptible Ceftriaxone Susceptible Ciprofloxacin* Resistant * Due to serious side effects, the FDA has advised against using Ciprofloxacin to treat uncomplicated UTIs and respiratory tract infections unless there are no alternative treatment options. Gentamicin Susceptible Levofloxacin* Resistant * Due to serious side effects, the FDA has advised against using Levofloxacin to treat uncomplicated UTIs and respiratory tract infections unless there are no alternative treatment options. Nitrofurantoin Susceptible Piperacillin Tazobactam Susceptible Trimeth/Sulfamethoxazole Susceptible URINALYSIS, REFLEX TO MICROSCOPIC Result Value Ref Range Color, Urine Yellow Colorless, Light Yellow, Yellow, Dark Yellow Clarity, Urine Clear Clear Glucose, Urine Negative Negative mg/dL Bilirubin, Urine Negative Negative Ketone, Urine Negative Negative mg/dL Specific [place], Urine 1.030 1.003 - 1.030 Blood, Urine Negative Negative pH, Urine 6.0 5.0 - 7.5 Units Protein, Urine Trace (A) Negative mg/dL Urobilinogen, Urine Normal Normal mg/dL Nitrite, Urine Negative Negative Esterase, Urine Trace (A) Negative RBC, Urine 0-2 0 - 2 /HPF WBC, Urine 10-19 (A) 0 - 2 /HPF Bacteria, Urine 51-100 (A) 0 - 25 /HPF T4, FREE Result Value Ref Range T4, Free 1.4 0.9 - 1.7 ng/dL *Note: Due to a large number of results and/or encounters for the requested time period, some results have not been displayed. A complete set of results can be found in Results Review. Impression: This is a 58 year old with OAB (overactive bladder) (Primary) - CBC; Future; Expected date: 05/15/2024 - BASIC METABOLIC PANEL; Future; Expected date: 05/15/2024 - EKG; Future; Expected date: 05/15/2024 Urge incontinence of urine Patient has tried Detrol, Vesicare, and Myrbetriq without good success. We reviewed alternatives therapies including Botox cystoscopy vs Sacral neuromodulation therapy. Patient prefers sacral neuromodulation therapy. Risks of infection, bleeding,injury, pain were reviewed. All questions answered. Ed ucational materials provided. I spent a total of 30 minutes on the date of service in preparation, delivery, and documentation ofthe care provided to Liane Gutierrez excluding any time spent in the performance of separately billed services. Yovanny Key MD 05/15/2024 3:10 PM documented in this encounter Nursing Notes * Lakeisha Blount MED ASSIST - 05/15/2024 2:47 PM EDT Patient present today to discuss stimulator device. Incontinence has worsened. documented in this encounter Plan of Treatment Upcoming Encounters Date Type Department Care Team (Late st Contact Info) Description 06/01/2024 11:30 AM EDT Office Visit [address] [address] Kwan Means MD [address] [place] [address] Carmine Huang MD [address] [place] [address] 02/20/2025 7:30 AM EDT Office Visit [facility] [address] [place] [address] Katie Tejeda PA-C [address] [place] [address] Scheduled Orders Name Type Priority Associated Diagnoses Orde r Schedule CBC Lab Routine OAB (overactive bladder) Expected: 05/15/2024, Expires: 05/15/2025 BASIC METABOLIC PANEL Lab Routine OAB (overactive bladder) Expected: 05/15/2024, Expires: 05/15/2025 EKG EKG Routine OAB (overactive bladder) Expected: 05/15/2024 (Approximate), Expires: 05/15/2025 Scheduled Procedures Name Priority Associated Diagnoses Date/Ti [...] Td or Tdap) 07/29/2031 07/29/2021, 11/16/2010, 04/30/2000 Hepatitis C Screening Completed 11/15/2016 , 11/16/2015, 02/03/2015 Pap Smear Discontinued 07/17/2019, 11/18, 12/15/2011, Additional history exists Zoster Vaccines Completed 07/29/2022, 01/27/2022 HIV Screening Completed 12/24/2023 HPV (Gardasil) Vaccine Aged Out No lo nger eligible based on patient's age to complete this topic Hepatitis B Vaccine Aged Out No longe r eligible based on patient's age to complete this topic MENINGOCOCCAL (MENACTRA/MENVEO) Aged Out No longer eligible based on patient's age to complete this topic documented as of this encounter Medical Devices Implanted Type Area Councilor Device Identifier Shelf Expiration Date Model / Serial / Lot Device Tvt [id number] - [id number] Implanted:Qty: 1 on 04/15/2008 [place] [facility] [place]A: Vagina Gynecare 11/17/2010 [id number] / / [id number] Mirena Iud Implanted:Qty: 1 on 09/16/2009 at [place] [facility] [employer] 12/26/2009 / / [id number] Description:Mirena IUDCharge d for in FOREST PATHOLOGIST Clinic Screw Micro 16mm At2-C16-S - [id number] Implanted:Qty: 1 on 08/05/2014 [place] [facility] [place] Left: Hand ACUMED 03/15/2015 AT2-C16-S / / [id number] documented as of this encounter Visit Diagnoses Diagnosis OAB (overactive bladder)- Primary Hypertonicity of bladder Urge incontinence of urine Urge incontinence documented in this encounter Advance Directives Documents on File Type Date Recorded Patient Nutrition Intern Expl anation Advance Directives and Living Will 11/19/2004 Power of Venetian Blind Cleaner And Repairer 11/19/2004 * Full Code (Latest Code Status [...] and were consensually agreed upon. Care Teams Cushion Cover Inspector Relationship Specialty Start Date End Date Katie Tejeda PA-C [address] [place] [phone] PCP - General Physician Doctor Of Podiatry 09/05/19 documented as of this encounter
--- OUTSIDE RECORDS SUMMARY | 2024-06-27 05:56 | External Medical Summary | Summary of Care ---
Author Name Unknown Organization [facility] Address [address] [place] [address] Phone [phone] Care Team Providers Care Infant Room Teacher Name Role Phone Katie Tejeda PA-C Primary Care Provider [phone] Reason for Visit * Reason Onset Date Comments Advice 05/04/2024 Encounter Details Date Type Department Care Team (Late st Contact Info) Description 05/04/2024 Telephone [facility] [address] [place] [address] Katie Tejeda PA-C [address] [place] [address] Advice Allergies Active Allergy Reactions Criticality Noted Date [...] mRNA, LNP-s, No Pre serve, 2-Dose Series ([employer] [employer]) 07/08/2021,06/17/2021 Seasonal Influenza, PF, 6 M & [...] Telephone Encounter - Kristen Vasquez LPN - 05/04/2024 3:35 PM EDT Pt aware that culture is still pending. She will call back tomorrow * Telephone Encounter - Beth Goff OSA - 05/04/2024 2:39 PM EDT Pt called in states she had UA done . She saw results that she may need medication for UTI . Pleasecall to discuss if she will need to take antibiotic documented in this encounter Plan of Treatment Upcoming Encounters Date Type Department Care Team (Late st Contact Info) Description 05/15/2024 2:55 PM EDT Office Visit Urogynecology Sabiha Blum [address] [place] [address] Yovanny Key MD [address] [place] [address] Nurse Alanna Blum [address] [place] [address] 06/01/2024 11:30 AM EDT Office Visit [facility] [address] [place], [place] [phone] Kwan Means MD [address] [place], [place] [phone] Carmine Huang MD [address] [place], [place] [phone] 02/20/2025 7:30 AM EDT Office Visit [facility] [address] [place] [address] Katie Tejeda PA-C [address] [place], [place] [phone] Scheduled Procedures Name Priority Associated Diagnoses Date/Ti [...] this encounter Medical Devices Implanted Type Area Equities Trader Device Identifier Shelf Expiration Date Model / Serial / Lot Device Tvt [id number] - [id number] Implanted:Qty: 1 on 04/15/2008 at OR [facility] N/A: Vagina Gynecare 11/17/2010 [id number] / / [id number] Mirena Iud Implanted:Qty: 1 on 09/16/2009 at OR [facility] [employer] 12/26/2009 / / [id number] Description:Mirena IUDCharge d for in REVENUE CYCLE ADMINISTRATOR Clinic Screw Micro 16mm At2-C16-S - [id number] Implanted:Qty: 1 on 08/05/2014 at OR [facility] Left: Hand ACUMED 03/15/2015 AT2-C16-S / / [id number] documented as of this encounter Advance Directives Documents on File Type Date Recorded 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 Care Teams Infant Room Teacher Relationship Specialty Start Date End Date Katie Tejeda PA-C [address] [facility] [place] [address] PCP - General Physician Internist Medical Doctor Md 09/05/19 documented as of this encounter
--- OUTSIDE RECORDS SUMMARY | 2024-06-27 05:57 | External Medical Summary ---
Author Name Unknown Address Unknown Organization K01:[facility] [place] - [address] [facility] [address] Laboratory Report Ordering Provider Test Date Status TENNILLE MEI 05/03/2024 15:05:04 Final <10,000 colonies/ml mixed no rmal saul Observation Date Value Abnormality Reference (Units ) Status Bacteria identified in Specimen by Culture 05/03/2024 15:05:04 [id number]^ESCHE RICHIA COLI Abnormal Final 10,000 to 100,000 colonies/m L Escherichia coli Performing Location LAB[facility] [place] - [address] [facility] [address] Ordering Provider Test Date Status TENNILLE MEI 05/03/2024 15:05:04 Final Observation Date Value Abnormality Reference (Units ) Status Ampicillin 05/03/2024 15:05:04 <=2 Susceptible Final Cefazolin 05/03/2024 15:05:04 <=4 Susceptible Final Cefepime susceptibility 05/03/2024 15:05:04 <=1 Susceptible Final Ceftriaxone suceptibility 05/03/2024 15:05:04 <=1 Susceptible Final Ciprofloxacin 05/03/2024 15:05:04 >=4 Resistant Final Due to serious side effects, the FDA has advised against using Ciprofloxacin to treat uncomplicated UTIs and respiratory tract infections unless there are no alternative treatment options. Gentamicin susceptibility 05/03/2024 15:05:04 <=1 Susc eptible Final Levofloxacin susceptibility 05/03/2024 15:05:04 >=8 Re sistant Final Due to serious side effects, the FDA has advised against using Levofloxacin to treat uncomplicated UTIs and respiratory tract infections unless there are no alternative treatment options. Nitrofurantoin susceptibility 05/03/2024 15:05:04 <=16 Susceptible Final Piperacillin + Tazobactamsusceptibility 05/03/2024 15:05:04 <=4 Susceptible Final TMP-SMZ susceptibility 05/03/2024 15:05:04 <=20 Suscept ible Final Test: Culture, Urine, Quanti tative
Specimen Source: Urine, Clean Catch
Specimen Type: Urine
Specimen Date: 05/03/2024 1505
Result Date: 05/05/2024 0841
Result Status: Final result
Abnormal: Yes
Resulting Lab: [facility]ATORY [facility] [place]
[address] [facility] [address]
[place] [address]

CULTURE

10,000 to 100,000 colonies/mL Escherichia coli (Abnormal)

<10,000 colonies/ml mixed [...] alternative treatment options.

null Performing Location LABORATORY [facility] [place] - [address] [facility] [address]
--- OUTSIDE RECORDS SUMMARY | 2024-06-27 05:57 | External Medical Summary | Summary of Care ---
Author Name Unknown Organization [facility] Address [address] [place] [address] Phone [phone] Care Team Providers Care Garbage Truck Dispatcher Name Role Phone Katie Tejeda PA-C Primary Care Provider Reason for Visit * Reason Comments Eye Exam Corneal epithelial b asement membrane dystrophy /ABMD os Encounter Details Date Type Department Care Team (Late st Contact Info) Description 01/25/2024 9:00 AM EDT Office Visit [facility] [address] [place] [address] Carmine Huang MD [address] [place] [address] Subjective vision disturbance*; Acute conjunctivitis of right eye, unspecified acute conjunctivitis type; Corneal epithelial basement membrane dystrophy, unspecified laterality; 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 Active Albuterol Sulfate (VENTOLIN HFA) 108 (90 Base) MCG/ACT AERS Inhale 2 Puffs by mouth every 4 hours as needed for Wheezing. 1 Inhaler 11 08/28/2019 Active valACYclovir (VALTREX) 1000 MG TabletIndications:Re current [...] affected area. 80 g 5 07/29/2021 Active Levothyroxine Sodium 100 MCG Oral Tablet (Levoxyl)Indications :Acquired hypothyroidism TAKE 1 TABLET BY MOUTH DAILY AT LEAST 30 MINUTES PRIOR TO FIRST MEAL OF THE DAY OR OTHER MEDICATIONS 90 Tablet 3 04/06/2023 4 Active Adalimumab 40 MG/0.8ML Subcutaneous Pen-injector Kit [...] before bedtime. 180 Each 3 01/02/2024 Active documented as of this encounter (statuses as of 03/05/2024) Active Problems Problem Noted Date Diagnosed Date [...] as of this encounter (statuses as of 03/05/2024) Resolved Problems Problem Noted Date Diagnosed Date [...] as of this encounter (statuses as of 03/05/2024) Immunizations Name Administration Dates Next Due COVID-19 mRNA, LNP-s, No Pre serve, 2-Dose Series (Pfizer) 07/08/2021,06/17/2021 PPD 10/17/2001 Seasonal Influenza, PF, 6 M & above, IM , (FluLaval or Fluzone) 08/17/2023,07/29/2022,07/29/2021,2019 Seasonal Influenza, Quadriva lent, No Preserve, IM 08/02/2019,07/31/2019,08/15/2018,2016 Seasonal Influenza, Split, I IV3, With Preserve, Inj 08/03/2016,08/12/2015,08/02/2014,2012,08/14/2012,08/04/2011,07/15/2010 TD - Tetanus/Diptheria (ADULT) 04/30/2000 TDAP (age 10 and older)(Boostrix) 07/29/2021 TDAP (age 11 and older)(Adacel) 11/16/2010 Zoster Vaccine Recombinant (Shingrix) 07/29/2022 ,01/27/2022 [...] money to get more. Never true 12/30/2023 Sex and Gender Information Value Date [...] as of this encounter Progress Notes * Hudson Devries DO - 02/27/2024 7:49 AM EDT I have discussed the patient's management with the medical trainee and agree with the note. Please refer to the documented findings and plan of care. This patient's visit today consisted of an evaluation. I was present and confirmed the findings of the history and exam. Hudson Devries DO * Carmine Huang MD - 01/25/2024 9:13 AM EDT 01/25/2024 OPHTHALMOLOGY CARE CLINIC NOTE LV: 01/05/2024 HPI: Liane Gutierrez is a 58 year old pt who presents for follow-up of epithelial opacities OS>OD. She is adherent to PF once daily, Refresh AT gtts. She says her eyes feel the same and they she "has never had good eyesight" and that what she is seeing now is more or less at her baseline vision. 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 Last Visit: 01/05/2024 (in office), Visit date not found (telemedicine) She currently states he eye is feelinig better ,her vision has not been blurry until she works on her computer all day and then her eyes will feel dry , at the present time she denies any new eye concerns. Are you diabetic? NO. Current Ophthalmic Medications: Refresh and prednisolone 1 drop daily Last Visit: 01/05/2024 (in office), Visit date not found (telemedicine) Vision, Tonometry, current glass prescription and pupil check if done can be found in the ophth exam 01/05/2024 HPI: Liane Gutierrez is a 58 year old pt who presents for follow-up of epithelial opacities in theleft eye in the setting of a recently resolved conjunctivitis. She is adherent to PFATs and PF downto once a day on taper. During encounter, patient mentions that she is pressed for time and is deferring dilated exam or photography at this visit but that she is willing to return to clinic in a week or two. Past Ocular History: Denies recent CL use. ABMD. Eye Medications: Per HPI. ROS: Refer to HPI, otherwise negative unless noted. Past Medical History: Diagnosis Date Adult body mass index 50.0-59.9 (HCC) 03/31/2010 ADVANCE DIRECTIVE INFORMATION 04/08/2005 No, Advance Directive brochure offered , patient declined. 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 Fatty liver 05/20/14 [facility] EGD U/S FEM STRESS INCONTINENCE 04/15/2008 Herpes simplex without mention of complication Obstructive sleep apnea (adult) (pediatric) 04/02/2009 CPAP OTHER 06/21 [facility] Other specified anemias w/ menstruation Plantar fibromatosis Reflex sympathetic dystrophy of the upper limb 01/05/2013 Special screening for malignant neoplasms, colon 05/20/14 [facility] colonoscopy No outpatient medications have been marked as taking for the 01/25/24 encounter (Appointment) with Carmine Huang MD. Past Surgical History: Procedure Laterality Date APPLY BONE FIXATION DEVICE,UNIPLANE 10/08/2013 APPLICATION OF EXTERNAL FIXATOR UNIPLANE performed by Jacky Amaya MD at OR [facility] 1995 COLONOSCOPY, DIAGNOSTIC (RECTUM) 05/20/2014 COLONOSCOPY FLEXIBLE PROXIMAL DIAGNOSTIC performed by Elian Dodd MD at ENDOSCOPY [facility] DILATION AND CURETTAGE (D&C) 2008 EGD, FLEXIBLE, DIAGNOSTIC 05/20/2014 ESOPHAGOGASTRODUODENOSCOPY (EGD), FLEXIBLE, TRANSORAL, DIAGNOSTIC performed by Elian Dodd MD atENDOSCOPY [facility] EGD, W/ENDOSCOPIC US 05/20/2014 ESOPHAGOGASTRODUODENOSCOPY (EGD), FLEXIBLE, TRANSORAL, ENDOSCOPIC ULTRASOUND performed by Elian Dodd MD at ENDOSCOPY [facility] ENDOMETRIAL THERMAL ABLATE 09/16/09 ENDOMETRIAL THERMAL ABLATION performed by MARY ANN MORAN at OR [facility] FUSION OF FINGER JOINT 08/05/2014 ARTHRODESIS INTERPHALANGEAL JOINT performed by Jacky Amaya MD at OR [facility] HYSTEROSCOPY W/BIOPSY AND/OR POLYPECTOMY W/WO D&C 04/28/07 HYSTEROSCOPY WITH BIOPSY performed by MARY ANN MORAN at [facility] HYSTEROSCOPY W/BIOPSY AND/OR POLYPECTOMY W/WO D&C 09/16/09 HYSTEROSCOPY WITH BIOPSY performed by MARY ANN MORAN at OR [facility] HYSTEROSCOPY W/BIOPSY AND/OR POLYPECTOMY W/WO D&C N/A 09/27/2014 HYSTEROSCOPY WITH BIOPSY AND/OR POLYPECTOMY performed by Rowan Moreno MD at OR [facility] INSERT INTRAUTERINE DEVICE (IUD) N/A 09/27/2014 INSERTION OF INTRAUTERINE DEVICE performed by Rowan Moreno MD at OR [facility] LAPAROSCOPY; CHOLECYSTECTOMY 08/02/01 Clarke Gagnon. PELVIC EXAM UNDER ANESTHESIA, NOT LOCAL N/A 02/17/2022 PELVIC EXAMINATION UNDER ANESTHESIA performed by Heidi Acosta MD at OR [facility] PHALANX SHAFT FX, OPEN TX, HAND, W/INTER FIXATION 08/16/2011 OPEN TREATMENT PHALANGEAL SHAFT performed by JACKY AMAYA at OR [facility] RELEASE KNUCKLE CONTRACTURE, EACH 01/28/2012 CAPSULECTOMY CAPSULOTOMY METACARPOPHALANGEAL performed by JACKY AMAYA at OR [facility] RELEASE PALM & FINGER TENDON, EACH 05/22/2012 TENOLYSIS FLEXOR PALM AND FINGER performed by Jacky Amaya MD at OR [facility] REMOVAL OF APPENDIX 1992 REMOVAL OF TONSILS, AGE 12+ 01/14/[address] Mcclellan (), [facility], [place], [place] REMOVE IMPLANT FROM HAND/FINGER 01/07/2014 REMOVAL OF FINGER IMPLANT performed by Jacky Amaya MD at OR [facility] REMOVE INTRAUTERINE DEVICE (IUD) 02/17/2022 REMOVAL OF INTRAUTERINE DEVICE performed by Heidi Acosta MD at OR [facility] REPAIR BLADDER DEFECT 04/15/08 VAGINAL SLING PROCEDURE FOR STRESS INCONTINENCE performed by JASS TENA at OR [facility] REVISION OF PALATE, PHARYNX/UVULA 01/14/04 UPPP Not recorded Nursing notes reviewed. Corneal Topography: OD: Non-specific surface irregularities OS: Non-specific surface irregularities OCT Nerve 01/25/24 OD: possibly tilted disc OS: possibly tilted disc OCT Mac 01/25/2024 OD: Questionable foveal drusen OS: wnl ASSESSMENT/PLAN Epithelial Opacities OS>OD -Likely contributing to diminished visual acuity OU - subepithelial haze OD and OS, seen centrally but more prominent paracentrally. -Continue PF until completion of taper (currently on one drop a day) -Corneal topography obtained today demonstrating surface irregularities OU possibly secondary to corneal scarring +/- infiltrates -OCTs wnl OU 2. Dry Eyes/Anterior Basement Membrane Dystrophy OU -Continue PFATs four times a day. May go up if needed -Punctal plug (0.4mm) placed in inferior puncta OS today -Warm compresses 3. Conjunctivitis - Resolved - Currently off Ofloxacin. "Never had good eyesight" - vision is where it is now RTC with cornea/Dorion co-schedule (ideally within two months) or sooner prn. Patient examined with Dr. Devries. A/P explained, patient verbalized understanding. Patient understands to f/u immediately with questions, concerns, or any ophthalmic issues. Carmine Huang MD 01/25/2024 9:13 AM documented in this encounter Nursing Notes * Nataliia Blum COA - 01/25/2024 9:58 AM EDT OCT image(s) of both eyes acquired and filed/scanned into chart. 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 Last Visit: 01/05/2024 (in office), Visit date not found (telemedicine) She currently states he eye is feelinig better ,her vision has not been blurry until she works on her computer all day and then her eyes will feel dry , at the present time she denies any new eye concerns. Are you diabetic? NO. Current Ophthalmic Medications: Refresh and prednisolone 1 drop daily Last Visit: 01/05/2024 (in office), Visit date not found (telemedicine) Vision, Tonometry, current glass prescription and pupil check if done can be found in the ophth exam documented in this encounter Plan of Treatment Upcoming Encounters Date Type Department Care Team (Late st Contact Info) Description 03/05/2024 3:15 PM EDT Office Visit [facility] [address] [address] Kwan Means MD [address] [place] [address] Carmine Huang MD [address] [place] [address] 05/03/2024 1:40 PM EDT Office Visit [address] [address] Katie Tejeda PA-C [address] [place] [phone] Scheduled Orders Name Type Priority Associated Diagnoses Orde r Schedule RETINA SCAN DIAGNOSTIC IMAGE, POSTERIOR Procedures Routine Subjective vision disturbance Ordered: 01/25/2024 Scheduled Procedures Name Priority Associated Diagnoses Date/Ti me COLONOSCOPY FLEXIBLE PROXIMAL DIAGNOSTIC Recall History of colonoscopy Health Maintenance Due Date Last Done Comments Pneumococcal Vaccine: Pediatrics (0 to 5 Years) and At-Risk Patients (6 to 64 Years) (1 of 2 - PCV) 1969 Cologuard 2008 Fecal Occult Blood Test 2008 Sigmoidoscopy 2008 COVID-19 Vaccine (3 season) 2023 07/08/2021, 06/17/2021 Mammogram 05/10/2024 05/10/2023, 04/17, 04/22/2022, Additional history exists TSH 05/12/2024 05/12/2023, 03/18, 01/28/2023, Additional history exists Colonoscopy 05/20/2024 05/20/2014, 05/20/2014 Colorectal Cancer Screening 05/20/2024 PAP SMEAR-EVERY 5 YRS,AGES 21-100 07/17/2024 07/17/2019, [...] history exists Zoster Vaccines Completed 07/29/2022, 01/27/2022 Influenza Vaccine (FLU shot) Completed 08/17/2023, 07/29/2022, 07/29/2021, Additional history exists GARDASIL-HPV IMMUNIZATION SERIES Aged Out No longer eligible based on patient's age to complete this topic Hepatitis B Aged Out No longer eligi ble based on patient's age to complete this topic MENINGOCOCCAL (MENACTRA/MENVEO) Aged Out No longer eligible based on patient's age to complete this topic documented as of this encounter Medical Devices Implanted Type Area Homeopathic Doctor Device Identifier Shelf Expiration Date Model / Serial / Lot Device Tvt [id number] - [id number] Implanted:Qty: 1 on 04/15/2008 at OR [facility] N/A: Vagina Gynecare 11/17/2010 [id number] / / [id number] Mirena Iud Implanted:Qty: 1 on 09/16/2009 at OR [facility] Cervix [employer] 12/26/2009 / / [id number] Description:Mirena IUDCharge d for in SUPERVISOR SLATE SPLITTING Clinic Screw Micro 16mm At2-C16-S - [id number] Implanted:Qty: 1 on 08/05/2014 at OR [facility] Left: Hand ACUMED 03/15/2015 AT2-C16-S / / [id number] documented as of this encounter Procedures Procedure Name Priority Date/Time Associated Diagnosis Comments COMPUTERIZED CORNEAL ABDULKADIR Routine 01/25/2024 Corneal epithelial basement membrane dystrophy, 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 documented in this encounter Results * COMPUTERIZED CORNEAL ABDULKADIR (01/25/2024) Carmine Huang MD MEDICINE CONTINUUM OPHTH documented in this encounter Visit Diagnoses Diagnosis Subjective vision disturbance- Primary Subjective visual disturbance, unspecified Acute conjunctivitis of right eye, unspecified acute conjunctivitis type Corneal epithelial basement membrane dystrophy, unspecified laterality documented in this encounter Additional Health Concerns Infection Onset Date Last Indicated Resolved Time ESBL 12/20/2023 12/20/2023 02/18/2024 12:2 0 AM EDT documented as of this encounter Advance Directives Documents on File Type Date Recorded Patient Harness Preparer Expl anation Advance Directives and Living Will 11/19/2004 Power of Paper Bag Press Operator 11/19/2004 * Full Code (Latest Code [...] and were consensually agreed upon. Care Teams Garbage Truck Dispatcher Relationship Specialty Start Date End Date Katie Tejeda PA-C [address] [facility] [place] [id number] PCP - General Physician Toy Designer 09/05/19 documented as of this encounter
--- OUTSIDE RECORDS SUMMARY | 2024-06-27 05:57 | External Medical Summary ---
Author Name Unknown Address Unknown Organization K01:[facility] [address] [facility] [address] Laboratory Report Ordering Provider Test Date Status TENNILLE MEI 05/03/2024 15:05:04 Final Observation Date Value Abnormality Reference (Units ) Status T4, Free 05/03/2024 15:05:04 1.4 0.9-1.7 (n g/dL) Final Performing Location [facility] [address] [facility] [address]
--- OUTSIDE RECORDS SUMMARY | 2024-06-27 05:57 | External Medical Summary | Summary of Care ---
Author Name Unknown Organization [facility] Address [address] [place] [address] Phone [phone] Care Team Providers Care Care Asst Name Role Phone Katie Null PA-C Primary Care Provider Reason for Visit * Reason Comments Medication Refill Encounter Details Date Type Department Care Team (Late st Contact Info) Description 03/11/[address] [facility] [address] [place] [address] Katie Null PA-C [address] [place] [address] Acquired hypothyroidism Allergies Active Allergy Reactions Criticality Noted Date Comments Leflunomide Itching,Rash High 04/14/2017 After taking med for 3 months she had terrible rash and itching Hydroxychloroquine Sulfate 7 Rash documented as of this encounter (statuses as of 03/13/2024) Medications Medication Sig Dispensed Refills Start Date End Date Status Misc Natural Products (TURMERIC CURCUMIN) CAPS Take 2 Capsules by mouth in the morning. Active Albuterol Sulfate (VENTOLIN HFA) 108 (90 Base) MCG/ACT AERS Inhale 2 Puffs by mouth every 4 hours as needed for Wheezing. 1 Inhaler 11 08/28/2019 Active valACYclovir (VALTREX) 1000 MG TabletIndications:R ecurrent [...] OTHER MEDICATIONS 90 Tablet 03/13/2024 5 Active Levothyroxine Sodium 100 MCG Oral Tablet (Levoxyl)Indication s:Acquired hypothyroidism TAKE 1 TABLET BY MOUTH DAILY AT LEAST 30 MINUTES PRIOR TO FIRST MEAL OF THE DAY OR OTHER MEDICATIONS 90 Tablet 3 04/06/2023 4 Discontinu ed(Refill) documented as of this encounter (statuses as of 03/13/2024) Active Problems Problem Noted Date Diagnosed Date [...] as of this encounter (statuses as of 03/13/2024) Resolved Problems Problem Noted Date Diagnosed Date [...] as of this encounter (statuses as of 03/13/2024) Immunizations Name Administration Dates Next Due COVID-19 mRNA, LNP-s, No Pre serve, 2-Dose Series (Pfizer) 07/08/2021,06/17/2021 Seasonal Influenza, PF, 6 M & above, IM , (FluLaval or Fluzone) 08/17/2023,07/29/2022,07/29/2021,2019 Seasonal Influenza, Quadriva lent, No Preserve, IM 08/02/2019,07/31/2019,08/15/2018,2016 Seasonal Influenza, Split, I IV3, With Preserve, Inj 08/03/2016,08/12/2015 TDAP (age 10 and older)(Boostrix) 07/29/2021 TDAP [...] encounter Miscellaneous Notes * Telephone Encounter - Dyan Jackson [facility] - 03/13/2024 6:46 AM EDTSigned Prescriptions: Disp Refills Levothyroxine Sodium 100 MCG Oral Tablet (*90 Tab*0 Sig: TAKE 1 TABLET BY MOUTH DAILY AT LEAST 30 MINUTES PRIOR TO FIRST MEAL OF THE DAY OR OTHER MEDICATIONS Authorizing Provider: KATIE NULL Ordering User: DYAN JACKSON * Telephone Encounter - Dyan Jackson [facility] - 03/13/2024 6:46 AM EDT RX authorized. Zero refills given until upcoming appt. documented in this encounter Plan of Treatment Upcoming Encounters Date Type Department Care Team (Late st Contact Info) Description 03/27/2024 8:25 AM EDT Office Visit [address] [address] Kwan Means MD [address] [place] [id number] Carmine Huang MD [address] [place] [phone] 05/03/2024 1:40 PM EDT Office Visit [facility] [place] [address] [place] [address] Katie Null PA-C 16 [place] [address] Scheduled Procedures Name Priority Associated Diagnoses Date/Ti [...] this encounter Medical Devices Implanted Type Area Lawyer Real Estate Device Identifier Shelf Expiration Date Model / Serial / Lot Device Tvt [id number] - [id number] Implanted:Qty: 1 on 04/15/2008 at OR [facility] N/A: Vagina Gynecare 11/17/2010 [id number] / / [id number] Mirena Iud Implanted:Qty: 1 on 09/16/2009 at OR [facility] [employer] 12/26/2009 / / [id number] Description:Mirena IUDCharge d for in KENNEL ASSISTANT Clinic Screw Micro 16mm At2-C16-S - [id number] Implanted:Qty: 1 on 08/05/2014 at OR [facility] Left: Hand ACUMED 03/15/2015 AT2-C16-S / / [id number] documented as of this encounter Visit Diagnoses Diagnosis Acquired hypothyroidism Unspecified hypothyroidism documented in this encounter Advance Directives Documents on File Type Date Recorded Patient Director Talent Management Expl anation Advance Directives and Living Will 11/19/2004 Power of Surfacing Machine Operator 11/19/2004 * Full Code (Latest Code [...] and were consensually agreed upon. Care Teams Care Asst Relationship Specialty Start Date End Date Katie Null PA-C [address] [place] [address] PCP - General Physician Auxiliary Equipment Tender 09/05/19 documented as of this encounter
--- OUTSIDE RECORDS SUMMARY | 2024-06-27 05:57 | External Medical Summary | Summary of Care ---
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 0 Active Albuterol Sulfate (VENTOLIN HFA) 108 (90 [...] 1 Capsule by mouth in the morning. 0 Active Vitamin C 100 MG Oral Tablet Take 1 Tablet by mouth in the morning. 0 Active Triamcinolone Acetonide 0.1 % External Cream [...] 1 Drop into both eyes as needed. 0 Active Ofloxacin 0.3 % Ophthalmic Solution (Ocuflox) Instill 1 Drop into the right eye in the morning and 1 Drop at noon and 1 Drop in the evening and 1 Drop before bedtime. 0 Active prednisoLONE Acetate 1 % Ophthalmic Suspension [...] MOUTH EVERY MORNING 90 Tablet 3 11/14/2023 Active Fluticasone-Salmeter ol 250-50 MCG/ACT Inhalation Aerosol Powder Breath Activated (Advair Diskus)Indications:M oderate persistent asthma without complication Inhale 1 Puff by mouth in the morning and 1 Puff before bedtime. 180 Each 3 01/02/2024 Active documented as of this encounter (statuses as of 02/27/2024) Active Problems Problem Noted Date Diagnosed Date [...] of urine 11/17/2015 Fatty liver 05/20/2014 Overview: [facility] EGD U/S Obstructive sleep apnea of adult 04/02/2009 Female stress incontinence 04/15/2008 Hypothyroidism Moderate persistent asthma without complication Overview: excercise induced documented as of this encounter (statuses as of 02/27/2024) Resolved Problems Problem Noted Date Diagnosed Date [...] as of this encounter (statuses as of 02/27/2024) Immunizations Name Administration Dates Next Due COVID-19 [...] as of this encounter Progress Notes * Hduson Devries DO - 02/27/2024 7:49 AM EDT [...] disorder treated with celexa Fatty liver 05/20/14 [facility] EGD U/S FEM STRESS INCONTINENCE 04/15/2008 Herpes simplex without mention of complication Obstructive sleep apnea (adult) (pediatric) 04/02/2009 CPAP OTHER 06/21 [facility] Other specified anemias w/ menstruation Plantar fibromatosis Reflex sympathetic dystrophy of the upper limb 01/05/2013 Special screening for malignant neoplasms, colon 05/20/14 [facility] colonoscopy No outpatient medications have been marked as taking for the 01/25/24 encounter (Appointment) with Carmine Huang MD. Past Surgical History: Procedure Laterality Date APPLY BONE FIXATION DEVICE,UNIPLANE 10/08/2013 APPLICATION OF EXTERNAL FIXATOR UNIPLANE performed by Jacky Amaya MD at OR [facility] 1995 COLONOSCOPY, DIAGNOSTIC (RECTUM) 05/20/2014 COLONOSCOPY FLEXIBLE PROXIMAL DIAGNOSTIC performed by Elian Dodd MD at ENDOSCOPY [facility] DILATION AND CURETTAGE (D&C) 2008 EGD, FLEXIBLE, DIAGNOSTIC 05/20/2014 ESOPHAGOGASTRODUODENOSCOPY (EGD), FLEXIBLE, TRANSORAL, DIAGNOSTIC performed by Elian Dodd MD atENDOSCOPY [facility] EGD, W/ENDOSCOPIC US 05/20/2014 ESOPHAGOGASTRODUODENOSCOPY (EGD), FLEXIBLE, TRANSORAL, ENDOSCOPIC ULTRASOUND performed by Elian Dodd MD at ENDOSCOPY [facility] ENDOMETRIAL THERMAL ABLATE 09/16/09 ENDOMETRIAL THERMAL ABLATION performed by MARY ANN MORAN at OR [facility] FUSION OF FINGER JOINT 08/05/2014 ARTHRODESIS INTERPHALANGEAL JOINT performed by Jacky Amaya MD at OR [facility] HYSTEROSCOPY W/BIOPSY AND/OR POLYPECTOMY W/WO D&C 04/28/07 HYSTEROSCOPY WITH BIOPSY performed by MARY ANN MORAN at [facility] HYSTEROSCOPY W/BIOPSY AND/OR POLYPECTOMY W/WO D&C 09/16/09 HYSTEROSCOPY WITH BIOPSY performed by MARY ANN MORAN at OR [facility] HYSTEROSCOPY W/BIOPSY AND/OR POLYPECTOMY W/WO D&C N/A 09/27/2014 HYSTEROSCOPY WITH BIOPSY AND/OR POLYPECTOMY performed by Rowan Moreno MD at OR [facility] INSERT INTRAUTERINE DEVICE (IUD) N/A 09/27/2014 INSERTION OF INTRAUTERINE DEVICE performed by Rowan Moreno MD at OR [facility] LAPAROSCOPY; CHOLECYSTECTOMY 08/02/01 Clarke Gagnon. PELVIC EXAM UNDER ANESTHESIA, NOT LOCAL N/A 02/17/2022 PELVIC EXAMINATION UNDER ANESTHESIA performed by Heidi Acosta MD at OR [facility] PHALANX SHAFT FX, OPEN TX, HAND, W/INTER FIXATION 08/16/2011 OPEN TREATMENT PHALANGEAL SHAFT performed by JACKY AMAYA at OR [facility] RELEASE KNUCKLE CONTRACTURE, EACH 01/28/2012 CAPSULECTOMY CAPSULOTOMY METACARPOPHALANGEAL performed by JACKY AMAYA at [facility] RELEASE PALM & FINGER TENDON, EACH 05/22/2012 TENOLYSIS FLEXOR PALM AND FINGER performed by Jacky Amaya MD at [facility] REMOVAL OF APPENDIX 1992 REMOVAL OF TONSILS, AGE 12+ 01/14/[address] Mcclellan (), [facility], [place], [place] REMOVE IMPLANT FROM HAND/FINGER 01/07/2014 REMOVAL OF FINGER IMPLANT performed by Jacky Amaya MD at OR [facility] REMOVE INTRAUTERINE DEVICE (IUD) 02/17/2022 REMOVAL OF INTRAUTERINE DEVICE performed by Heidi Acosta MD at OR [facility] REPAIR BLADDER DEFECT 04/15/08 VAGINAL SLING PROCEDURE FOR STRESS INCONTINENCE performed by JASS TENA at [facility] REVISION OF PALATE, PHARYNX/UVULA 01/14/04 UPPP Not [...] - vision is where it is now PF once daily Refresh 3 times a day Eyes feel the same Due DFE today Corneal topography today? OCT? Punctal plugs tolerated? PFAT tolerated? Warm compresses? Off ofloxacin? RTC with cornea/Sal co-schedule (ideally within two months) or sooner [...] Description 03/05/2024 3:15 PM EDT Office Visit [facility] [address] [place] [address] Kwan Means MD [address] [place] [address] Carmine Huang MD [address] [place] [address] 05/03/2024 1:40 PM EDT Office Visit [facility] [address] [place] [address] Katie Tejeda PA-C [address] [place] [address] Scheduled Orders Name Type Priority Associated Diagnoses [...] this encounter Medical Devices Implanted Type Area Pastoral Assistant Device Identifier Shelf Expiration Date Model / Serial / Lot Device Tvt [id number] - [id number] Implanted:Qty: 1 on 04/15/2008 at OR [facility] N/A: Vagina Gynecare 11/17/2010 [id number] / / [id number] Mirena Iud Implanted:Qty: 1 on 09/16/2009 at OR [facility] [employer] 12/26/2009 / / [id number] Description:Mirena IUDCharge d for in VISITOR SERVICES 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 Clinic Screw Micro 16mm At2-C16-S - [id number] Implanted:Qty: 1 on 08/05/2014 at OR [facility] Left: Hand ACUMED 03/15/2015 AT2-C16-S / / [id number] documented as of this encounter Procedures Procedure Name Priority Date/Time Associated Diagnosis Comments COMPUTERIZED CORNEAL ABDULKADIR Routine 01/25/2024 Corneal epithelial basement membrane dystrophy, 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 Question Answer Comments Discussion of Advance Directives occurred with: Patient Code Status History Code Status Date Activated Date Inactivated Comments Full Code 02/17/2022 5:48 PM 02/17/2022 10:40 PM This o rder reflects the patients wishes and were consensually agreed upon. Full Code 05/08/2017 4:39 AM 05/11/2017 2:54 PM This order reflects the patients wishes and were consensually agreed upon. Question Answer Comments Discussion of Advance Directives occurred with: Patient Does the patient have a Living Will? No Does the patient have Health Care Power of Foreign Correspondent? No Full Code 09/27/2014 1:15 PM 09/27/2014 6:08 PM Thi s order reflects the patients wishes and were consensually agreed upon. Full Code 09/27/2014 9:18 AM 09/27/2014 1:15 PM Th is order reflects the patients wishes and were consensually agreed upon. Care Teams Environmental Field Technician Relationship Specialty Start Date End Date Katie Tejeda PA-C [address] [place] [address] LENIN ARECHIGA [id number] PCP - General Physician Disability Attorney 09/05/19 documented as of this encounter
--- OUTSIDE RECORDS SUMMARY | 2024-06-27 05:57 | External Medical Summary ---
Author Name Unknown Address Unknown Organization [id number]:[facility] [place] [address] [facility] [address] Laboratory Report Ordering Provider Test Date Status TENNILLE MEI 05/03/2024 15:05:04 Final Observation Date Value Abnormality Reference (Units ) Status WBC, Total 05/03/2024 15:05:04 5.40 4.00-10.80 (K/uL) Final RBC 05/03/2024 15:05:04 4.54 3.85-5.15 (M/uL) Final Hemoglobin 05/03/2024 15:05:04 13.5 12.0-15.3 (g/dL) Final HCT 05/03/2024 15:05:04 42.7 36.0-45.2 (%) Final MCV 05/03/2024 15:05:04 94.1 81.5-97.5 (fL) Final MCH 05/03/2024 15:05:04 29.7 27.0-34.0 (pg) Final MCHC 05/03/2024 15:05:04 31.6 32.0-36.0 (g/dL) Final RDW 05/03/2024 15:05:04 14.3 11.5-15.5 (%) Final Platelets 05/03/2024 15:05:04 191 140-400 (K/uL) Final MPV 05/03/2024 15:05:04 10.2 6.6-11.1 (fL) Final Nucleated erythrocytes/100 leukocytes [Ratio] in Blood by Automated count 05/03/2024 15:05:04 0 <=0 (/100 WBCs) Final Performing Location [facility] [place] [address] [facility] [address]
--- OUTSIDE RECORDS SUMMARY | 2024-06-27 05:57 | External Medical Summary | Summary of Care ---
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 Encounter Details Date Type Department Care Team (Late st Contact Info) Description 01/25/2024 9:00 AM EDT Office Visit [facility] [address] [place] [address] Carmine Huang MD [address] [place] [address] Subjective vision disturbance*; Acute conjunctivitis [...] as of this encounter (statuses as of 02/26/2024) Medications Medication Sig Dispensed Refills Start Date [...] as of this encounter (statuses as of 02/26/2024) Active Problems Problem Noted Date Diagnosed Date [...] of urine 11/17/2015 Fatty liver 05/20/2014 Overview: [facility] EGD U/S Obstructive sleep apnea of adult 04/02/2009 Female stress incontinence 04/15/2008 Hypothyroidism Moderate persistent asthma without complication Overview: excercise induced documented as of this encounter (statuses as of 02/26/2024) Resolved Problems Problem Noted Date Diagnosed Date [...] as of this encounter (statuses as of 02/26/2024) Immunizations Name Administration Dates Next Due COVID-19 [...] as of this encounter Progress Notes * Carmine Huang MD - 01/25/2024 9:13 [...] disorder treated with celexa Fatty liver 05/20/14 [facility] EGD U/S FEM STRESS INCONTINENCE 04/15/2008 Herpes simplex without mention of complication Obstructive sleep apnea (adult) (pediatric) 04/02/2009 CPAP OTHER 06/21 [facility] Other specified anemias w/ menstruation Plantar fibromatosis Reflex sympathetic dystrophy of the upper limb 01/05/2013 Special screening for malignant neoplasms, colon 05/20/14 [facility] colonoscopy No outpatient medications have been marked as taking for the 01/25/24 encounter (Appointment) with Carmine Huang MD. Past Surgical History: Procedure Laterality Date APPLY BONE FIXATION DEVICE,UNIPLANE 10/08/2013 APPLICATION OF EXTERNAL FIXATOR UNIPLANE performed by Jacky Amaya MD at OR [facility] DEL[facility] 1995 COLONOSCOPY, DIAGNOSTIC (RECTUM) 05/20/2014 COLONOSCOPY FLEXIBLE PROXIMAL DIAGNOSTIC performed by Elian Dodd MD at ENDOSCOPY [facility] DILATION AND CURETTAGE (D&C) 2008 EGD, FLEXIBLE, DIAGNOSTIC 05/20/2014 ESOPHAGOGASTRODUODENOSCOPY (EGD), FLEXIBLE, TRANSORAL, DIAGNOSTIC performed by Elian Dodd MD atENDOSCOPY [facility] EGD, W/ENDOSCOPIC US 05/20/2014 ESOPHAGOGASTRODUODENOSCOPY (EGD), FLEXIBLE, TRANSORAL, ENDOSCOPIC ULTRASOUND performed by Elian Dodd MD at ENDOSCOPY [facility] ENDOMETRIAL THERMAL ABLATE 09/16/09 ENDOMETRIAL THERMAL ABLATION performed by MARY ANN MORAN at [facility] FUSION OF FINGER JOINT 08/05/2014 ARTHRODESIS INTERPHALANGEAL JOINT performed by Jacky Amaya MD at [facility] HYSTEROSCOPY W/BIOPSY AND/OR POLYPECTOMY W/WO D&C 04/28/07 HYSTEROSCOPY WITH BIOPSY performed by MARY ANN MORAN at [facility] HYSTEROSCOPY W/BIOPSY AND/OR POLYPECTOMY W/WO D&C 09/16/09 HYSTEROSCOPY WITH BIOPSY performed by MARY ANN MORAN at OR [facility] HYSTEROSCOPY W/BIOPSY AND/OR POLYPECTOMY W/WO D&C N/A 09/27/2014 HYSTEROSCOPY WITH BIOPSY AND/OR POLYPECTOMY performed by Rowan Moreno MD at OR [facility] INSERT INTRAUTERINE DEVICE (IUD) N/A 09/27/2014 INSERTION OF INTRAUTERINE DEVICE performed by Rowan Moreno MD at OR [facility] LAPAROSCOPY; CHOLECYSTECTOMY 08/02/01 Clarke Gagnon. PELVIC EXAM UNDER ANESTHESIA, NOT LOCAL N/A 02/17/2022 PELVIC EXAMINATION UNDER ANESTHESIA performed by Heidi Acosta MD at OR [facility] PHALANX SHAFT FX, OPEN TX, HAND, W/INTER FIXATION 08/16/2011 OPEN TREATMENT PHALANGEAL SHAFT performed by JACKY AMAYA at OR [facility] RELEASE KNUCKLE CONTRACTURE, EACH 01/28/2012 CAPSULECTOMY CAPSULOTOMY METACARPOPHALANGEAL performed by JACKY AMAYA at [facility] RELEASE PALM & FINGER TENDON, EACH 05/22/2012 TENOLYSIS FLEXOR PALM AND FINGER performed by Jacky Amaya MD at [facility] REMOVAL OF APPENDIX 1992 REMOVAL OF TONSILS, AGE 12+ 01/14/[address] Mcclellan (), [facility], [place], [place] REMOVE IMPLANT FROM HAND/FINGER 01/07/2014 REMOVAL OF FINGER IMPLANT performed by Jacky Amaya MD at OR [facility] REMOVE INTRAUTERINE DEVICE (IUD) 02/17/2022 REMOVAL OF INTRAUTERINE DEVICE performed by Heidi Acosta MD at OR [facility] REPAIR BLADDER DEFECT 04/15/08 VAGINAL SLING PROCEDURE FOR STRESS INCONTINENCE performed by JASS TENA at OR [facility] REVISION OF PALATE, PHARYNX/UVULA 01/14/04 UPPP Not [...] tolerated? Warm compresses? Off ofloxacin? RTC with cornea/Damionion co-schedule (ideally within two months) or sooner [...] Description 03/05/2024 3:15 PM EDT Office Visit [address] [address] Kwan Means MD [address] [place] [address] Carmine Huang MD [address] [place] [address] 05/03/2024 1:40 PM EDT Office Visit [facility], [address] [address] Katie Tejeda PA-C [address] [place] [id number] Scheduled Orders Name Type Priority Associated Diagnoses [...] this encounter Medical Devices Implanted Type Area Joint Sealer Device Identifier Shelf Expiration Date Model / Serial / Lot Device Tvt [id number] - [id number] Implanted:Qty: 1 on 04/15/2008 at OR [facility] N/A: Vagina Gynecare 11/17/2010 [id number] / / [id number] Mirena Iud Implanted:Qty: 1 on 09/16/2009 at OR [facility] Cervix [employer] 12/26/2009 / / [id number] Description:Mirena IUDCharge d for in 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 Screw Micro 16mm At2-C16-S - [id number] Implanted:Qty: 1 on 08/05/2014 at OR [facility] Left: Hand ACUMED 03/15/2015 AT2-C16-S / / [id number] documented as of this encounter Procedures Procedure Name Priority Date/Time Associated Diagnosis Comments COMPUTERIZED CORNEAL ABDULKADIR Routine 01/25/2024 Corneal epithelial basement membrane dystrophy, 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 No Full Code 09/27/2014 1:15 PM 09/27/2014 6:08 PM Thi s order reflects the patients wishes and were consensually agreed upon. Full Code 09/27/2014 9:18 AM 09/27/2014 1:15 PM Thi s order reflects the patients wishes and were consensually agreed upon. Care Teams Glove Cleaner Relationship Specialty Start Date End Date Katie Tejeda PA-C [address] [place] [address] LENIN ARECHIGA [address] PCP - General Physician Belt Builder 09/05/19 documented as of this encounter
--- OUTSIDE RECORDS SUMMARY | 2024-06-27 05:57 | External Medical Summary ---
Author Name Unknown Address Unknown Organization [id number]:[facility] - [address] [facility] [address] Laboratory Report Ordering Provider Test Date Status TENNILLE MEI 05/03/2024 15:05:04 Final Observation Date Value Abnormality Reference (Units ) Status BUN 05/03/2024 15:05:04 18 6-20 (mg/dL) Final Creatinine 05/03/2024 15:05:04 0.8 0.5-1.0 (mg/dL) Final Glomerular filtration rate/1.73 sq M.predicted [Volume Rate/Area] in Serum, Plasma or Blood by Creatinine-based formula (CKD-EPI) 05/03/2024 15:05:04 82 >=60 (mL/min) Final eGFR is calculated based on the CKD-EPI 2020 equation. Sodium 05/03/2024 15:05:04 143 135-146 (m mol/L) Final Potassium 05/03/2024 15:05:04 4.5 3.5-5.1 (m mol/L) Final Cl 05/03/2024 15:05:04 103 98-107 (mm ol/L) Final CO2 05/03/2024 15:05:04 28 22-32 (mmo l/L) Final Anion gap 05/03/2024 15:05:04 12 7-15 (mmol /L) Final Glucose 05/03/2024 15:05:04 93 70-120 (mg /dL) Final Albumin 05/03/2024 15:05:04 4.4 3.8-5.0 (g /dL) Final AST (Aspartate aminotransferase) 05/03/2024 15:05:04 26 10-35 (U/L) Final Alk Phos 05/03/2024 15:05:04 112 35-130 (U/ L) Final Bilirubin, Total 05/03/2024 15:05:04 0.3 <=1 .2 (mg/dL) Final Calcium 05/03/2024 15:05:04 9.0 8.4-10.2 ( mg/dL) Final Protein 05/03/2024 15:05:04 7.1 6.0-8.3 (g /dL) Final ALT (Alanine aminotransferase) 05/03/2024 15:05:04 30 10-35 (U/L) Final Performing Location [facility] - [address] [facility] [address]
--- OUTSIDE RECORDS SUMMARY | 2024-06-27 05:57 | External Medical Summary ---
Author Name Unknown Address Unknown Organization [id number]:[facility] [place] [address] [facility] [address] Laboratory Report Ordering Provider Test Date Status TENNILLE MEI 05/03/2024 15:05:04 Final Observation Date Value Abnormality Reference (Units ) Status Color of Urine by Auto 05/03/2024 15:05:04 Yellow Colorless, Light Yellow, Yellow, Dark Yellow Final Clarity, Urine 05/03/2024 15:05:04 Clear Clear Final Glucose [Mass/volume] in Urine by Automated test strip 05/03/2024 15:05:04 Negative Negative (mg/dL) Final Bilirubin.total [Presence] in Urine by Automated test strip 05/03/2024 15:05:04 Negative Negative Final Ketones [Mass/volume] in Urine by Automated test strip 05/03/2024 15:05:04 Negative Negative (mg/dL) Final Specific gravity, Urine 05/03/2024 15:05:04 1.030 1.003-1.030 Final Hemoglobin [Presence] in Urine by Automated test strip 05/03/2024 15:05:04 Negative Negative Final pH, Urine 05/03/2024 15:05:04 6.0 5.0-7.5 (Units) Final Protein [Mass/volume] in Urine by Automated test strip 05/03/2024 15:05:04 Trace Abnormal Negative (mg/dL) Final Urobilinogen [Mass/volume] in Urine by Automated test strip 05/03/2024 15:05:04 Normal Normal (mg/dL) Final Nitrite [Presence] in Urine by Automated test strip 05/03/2024 15:05:04 Negative Negative Final Leukocyte esterase [Presence] in Urine by Automated test strip 05/03/2024 15:05:04 Trace Abnormal Negative Final RBC, Urine 05/03/2024 15:05:04 0-2 0-2 (/HPF) Final WBC, Urine 05/03/2024 15:05:04 10-19 Abnormal 0-2 (/HPF) Final Bacteria [#/area] in Urine sediment by Microscopy high power field 05/03/2024 15:05:04 51-100 Abnormal 0-25 (/HPF) Final Performing Location [facility] [address] [facility] [address]
--- OUTSIDE RECORDS SUMMARY | 2024-06-27 05:58 | External Medical Summary | Summary of Care ---
Author Name Unknown Organization [facility] Address [address] [place] [address] Phone [phone] Care Team Providers Care Olive Picker Name Role Phone Katie Tejeda PA-C Primary Care Provider Encounter Details Date Type Department Care Team (Late st Contact Info) Description 01/02/2024 Documentation Home [facility], [place] [address] [id number] Services, [facility] [address] [place] [address] Allergies Active Allergy Reactions Criticality Noted Date Comments Leflunomide Itching,Rash High 04/14/2017 After taking med for 3 months she had terrible rash and itching Hydroxychloroquine Sulfate 7 Rash documented as of this encounter (statuses as of 01/02/2024) Medications Medication Sig Dispensed Refills Start Date [...] before bedtime. 15 mL 2 10/26/2023 Active Betamethasone Dipropionate 0.05 % External Ointment [...] as of this encounter (statuses as of 01/02/2024) Active Problems Problem Noted Date Diagnosed Date Complicated UTI (urinary tract infection) 2023 ESBL (extended spectrum beta -lactamase) producing bacteria infection 12/25/2023 Body mass index (BMI) of 50.0 to 59.9 in adult 0 10/24/2023 Overview: Per Obesity protocol - Per Obesity protocol - Per Obesity protocol - Per Obesity protocol - Per Obesity Protocol, #19 Lymphedema 10/04/2023 Advance directive discussed with patient 022 Overview: No, Advance Directive brochure offered , patient declined. Mood disorder 07/25/2020 Hypertension goal BP (blood pressure) < 140/90 0 12/25/2018 Rheumatoid arthritis involvi ng multiple sites with positive rheumatoid factor 11/29/2016 Overview: High titer JOE and CCP ab Chronic venous insufficiency 07/12/2016 Chronic constipation 05/04/2016 Urge incontinence of urine 11/17/2015 Fatty liver 05/20/2014 Overview: [facility] EGD U/S Obstructive sleep apnea of adult 04/02/2009 Female stress incontinence 04/15/2008 Hypothyroidism Moderate persistent asthma without complication Overview: excercise induced documented as of this encounter (statuses as of 01/02/2024) Resolved Problems Problem Noted Date Diagnosed Date Resolved Date Body mass index (BMI) of 60. 0 [...] as of this encounter (statuses as of 01/02/2024) Immunizations Name Administration Dates Next Due COVID-19 mRNA, LNP-s, No Pre serve, 2-Dose Series ([employer]) 07/08/2021,06/17/2021 Seasonal Influenza, PF, 6 M & [...] as of this encounter Progress Notes * Zoey Sommers RN - 01/02/2024 4:28 PM EDT The following documentation summarizes the services provided by [facility] asthe prescribed therapy has been completed. The client was referred to us for home therapy. The ordered therapy was Invanz The home therapy began on: 12/28/23 Per physician order: -the prescribed therapy was completed on: 01/02/24 -the access was removed on 01/02/24 The client and/or caregiver were compliant with therapy administration. The therapy goals were met The following instructions were provided during our final conversation with the client and/or caregiver: -care of the device insertion site after removal, including reporting of signs and symptoms of infection or other complications, -appropriate disposal of unused waste, supplies and/or medication, - -importance of keeping all follow up appointments Collaboration of Care: -[facility] clinical staff were notified of CVAD removal and therapy completion -A discharge summary note was sent to: Dr. Terrence MAY via TRA/fax Further close out responsibilities as applicable: -Required paperwork was returned. -Nursing care plan reviewed and closed out documented in this encounter Plan of Treatment Upcoming Encounters Date Type Department Care Team (Late st Contact Info) Description 01/05/2024 1:00 PM EDT Office Visit [facility] [address] [place] [address] Dion Whitney MD [address] [place] [address] Carmine Huang MD [address] [place] [address] 02/20/2024 7:30 AM EDT Office Visit Rheumatology, [place] [address] [place] [address] Bryant Modi III, MD [address] [place] [address] 05/03/2024 1:40 PM EDT Office Visit [facility] [address] [place] [address] Katie Tejeda PA-C [address] [place] [address] Scheduled Procedures Name Priority Associated Diagnoses Date/Ti [...] this encounter Medical Devices Implanted Type Area Front Desk Coordinator Device Identifier Shelf Expiration Date Model / Serial / Lot Device Tvt [id number] - [id number] Implanted:Qty: 1 on 04/15/2008 at OR [facility] N/A: Vagina Gynecare 11/17/2010 [id number] / / [id number] Mirena Iud Implanted:Qty: 1 on 09/16/2009 at OR [facility] Cervix [employer] 12/26/2009 / / [id number] Description:Mirena IUDCharge d for in 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 Screw Micro 16mm At2-C16-S - [id number] Implanted:Qty: 1 on 08/05/2014 at OR [facility] Left: Hand ACUMED 03/15/2015 AT2-C16-S / / [id number] documented as of this encounter Additional Health Concerns Infection Onset Date Last Indicated Resolved Time ESBL 12/20/2023 12/20/2023 documented as of this encounter Advance Directives Documents on File Type Date Recorded Patient Alley Worker Expl anation Advance Directives and Living Will 11/19/2004 Power of Customer Care Professional 11/19/2004 Latest Code Status on File Code [...] the patient have Health Care Power of Customer Care Professional? No Full Code 09/27/2014 1:15 PM 09/27/2014 6:08 PM Thi s order reflects the patients wishes and were consensually agreed upon. Full Code 09/27/2014 9:18 AM 09/27/2014 1:15 PM Thi s order reflects the patients wishes and were consensually agreed upon. Care Teams Olive Picker Relationship Specialty Start Date End Date Katie Tejeda PA-C [address] [place] [address] LENIN ARECHIGA [address] PCP - General Physician Endless Steamer Tender 09/05/19 documented as of this encounter
--- OUTSIDE RECORDS SUMMARY | 2024-06-27 05:58 | External Medical Summary | Summary of Care ---
Author Name Unknown Organization [facility] Address [address] [place] [address] Phone [phone] Care Team Providers Care Order Packer Name Role Phone Katie Tejeda PA-C Primary Care Provider Reason for Visit * Reason Comments Walk In * Evaluate & Treat - Unlimited Visits (Within 24 hrs (call dept; emergent)) - Authorized Specialty Diagnoses / Procedures Referred By Keyur jacobs Referred To Contact Ophthalmology Diagnoses Pain of right eye Katie Tejeda PA-C [address] [place] [address] Referral ID Status Reason Start Date Expiration Date Visits Requested Visits Authorized [id number] Authorized Specialty Services Required [phone] Encounter Details Date Type Department Care Team ([facility] st Contact Info) Description 10/04/2023 2:15 PM EST Office Visit [facility] [address] [place], [place] [phone] Carmine Huang MD [address] [place], [place] [phone] Acute conjunctivitis of right eye, unspecified acute conjunctivitis type*; 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 0 Active Albuterol Sulfate (VENTOLIN HFA) 108 (90 Base) MCG/ACT AERS Inhale 2 Puffs by mouth every 4 hours as needed for Wheezing. 1 Inhaler 11 9 Active valACYclovir (VALTREX) 1000 MG TabletIndications: Recurrent cold sores TAKE 1 TABLET BY MOUTH EVERY 12 HOURS FOR 1 DAY FOR COLD SORES 20 Tab 3 9 Active Additional Information Patient not taking.Reported on 10/04/2023 Vitamin D 125 MCG (5000 UT) Oral Capsule Take 1 Capsule by mouth in the morning. 0 Active Vitamin C 100 MG Oral Tablet Take 1 Tablet by mouth in the morning. 0 Active Triamcinolone Acetonide 0.1 % External Cream (Aristocort) Apply topically to affected area 2 times a day. To affected area. 80 g 5 1 Active Levothyroxine Sodium 100 MCG Oral Tablet (Levoxyl)Indicatio ns:Acquired hypothyroidism TAKE 1 TABLET BY MOUTH DAILY AT LEAST 30 MINUTES PRIOR TO FIRST MEAL OF THE DAY OR OTHER MEDICATIONS 90 Tablet 3 3 024 Active Adalimumab 40 MG/0.8ML Subcutaneous Pen-injector Kit (Humira) Inject 40 mg (1 pen) under the skin every 14 days. 2 mL 11 3 Active sulfaSALAzine 500 MG Oral Tablet (Azulfidine) Take 3 Tablets by mouth in the morning and 3 Tablets before bedtime. 540 Tablet 3 3 Active furosemide (LASIX) 20 MG Tablet Take 1 Tab by mouth daily for 14 days. 14 Tab 0 7 024 Discontinued hydrOXYzine HCl 25 MG tablet 1-2 tabs every 6 hours as needed 120 Tab 1 7 024 Discontinued(Co dication List Clean Up) Betamethasone Dipropionate 0.05 % ointment Apply 2 times a day to the rash on arms, legs, abdomen x 2-3 weeks until clear 80 g 1 7 01/25/2 024 Discontinued(Re fill) fluticasone-salmet deni (ADVAIR DISKUS) 250-50 MCG/DOSE inhaler Inhale 1 Puff by mouth every 12 hours. Rinse mouth after each use. 1 Inhaler 5 9 024 Discontinued FLUoxetine HCl 20 MG Oral Capsule (PROzac)Indication s:Mood disorder (HCC) TAKE ONE CAPSULE BY MOUTH EVERY MORNING 90 Capsule 3 3 024 Discontinued(Re fill) Furosemide 20 MG Oral Tablet (Lasix)Indications :Venous insufficiency TAKE ONE TABLET BY MOUTH EVERY MORNING 90 Tablet 3 3 024 Discontinued(Re fill) Ofloxacin 0.3 % Ophthalmic Solution (Ocuflox) Instill 1 Drop into the right eye in the morning and 1 Drop at noon and 1 Drop in the evening and 1 Drop before bedtime. 5 mL 0 3 023 Discontinued(Co dication List Clean Up) documented as of this encounter (statuses as of 02/05/2024) Active Problems Problem Noted Date Diagnosed Date Lymphedema 10/04/2023 Advance directive discussed with patient [...] as of this encounter (statuses as of 02/05/2024) Resolved Problems Problem Noted Date Diagnosed Date [...] as of this encounter (statuses as of 02/05/2024) Immunizations Name Administration Dates Next Due COVID-19 mRNA, LNP-s, No Pre serve, 2-Dose Series ([employer]) 07/08/2021,06/17/2021 PPD 10/17/2001 Seasonal Influenza, PF, 6 [...] pur e alcohol) PHQ-2 Answer Date Recorded PHQ-2 Score 0 01/02/2020 Hunger Vital Sign Answer Date Recorded Worried About Running Out of Food in the Last Ye ar Never true 01/02/2020 Ran Out of Food in the Last Year Never true 01/02/2020 Sex and Gender Information Value Date Recorded [...] you have serious difficulty h earing? No 05/08/2017 Are you blind or do you have serious difficulty seeing, even when wearing glasses? No 05/08/2017 Do you have serious difficul ty walking or climbing stairs? (5 years old or older) No 05/08/2017 Do you have difficulty dress ing or bathing? (5 years old or older) No 05/08/2017 Because of a physical, menta l, or emotional condition, do you have difficulty doing errands alone such as visiting a doctor s office or shopping? (15 years old or older) No 05/08/20 17 Cognitive Status Response Date of Assessm ent Because of a physical, menta l, or emotional condition, do you have serious difficulty concentrating, remembering, or making decisions? (5 years old or older) No 05/08/2017 documented as of this encounter Patient Instructions * Patient Instructions* Carmine Huang MD - 10/04/2023 3:40 PM EST Ofloxacin (main cap) - one drop in right eye four times a day Erythromycin ointment - apply to right eye three times a day Begin artificial tears (SYSTANE or REFRESH) - one drop in left eye four times a day documented in this encounter Progress Notes * Pedrito Chin MD - 10/04/2023 7:10 PM EST I have discussed the patient's management with the medical trainee and agree with the note. Please refer to the documented findings and plan of care. This patient's visit today consisted of an evaluation. I was present and confirmed the findings of the history and exam. Pedrito Chin MD * Carmine Huang MD - 10/04/2023 3:04 PM EST 10/04/2023 OPHTHALMOLOGY URGENT CARE CLINIC NOTE HPI: Liane Gutierrez is a 58 year old pt who presents to acute care clinic with complaints of red,painful eye OD. She complains of some blurred vision as well. Patient has been taking polytrim drops as needed but has not had much improvement of symptoms with them. Symptoms have been present for several weeks. Triage Notes: Liane Gutierrez is a 58 year old female who presents for acute care. Last Visit: Visit date not found (in office), Visit date not found (telemedicine) She currently reports 3 weeks ago noted OD very red. Uses BIPAP. Reports "headache" in OD---ibuprofen helpful. 2/10 pain OD today. Reports thick green drainage OD. Reports photosensitivity. Vision Jose bit worse the past couple of weeks. Reports flashes 4 days ago, none since. Denies floaters/double vision. Reports headaches during myrbetriq use---stopped med and headaches stopped. Dx RA, uses humira, sulfasalazine. Uses levoxyl. States used "very old" prescription drop for pink eyer a couple of times, not helpful. Reports jaw pain extending into ears bilaterally a couple of weeks ago, resolved on its own. Denies scalp pain/tinnitus/nausea/vomiting/fevers. Lost 21 lbs---fluid loss. Last eyeexam 2 years ago, has never been dilated before. Are you diabetic? NO. Current Ophthalmic Medications: see above Last Visit: Visit date not found (in office), Visit date not found (telemedicine) Vision, Tonometry, current glass prescription and pupil check if done can be found in the ophth exam Past Ocular History: Denies recent CL use Eye Medications: Per HPI. ROS: Refer to HPI, otherwise negative unless noted. Past Medical History: Diagnosis Date Adult body mass index 50.0-59.9 (HCC) 03/31/2010 ADVANCE DIRECTIVE INFORMATION 04/08/2005 No, Advance Directive brochure offered , patient declined. 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 Fatty liver 05/20/14 [facility] EGD U/S FEM STRESS INCONTINENCE 04/15/2008 Herpes simplex without mention of complication Obstructive sleep apnea (adult) (pediatric) 04/02/2009 CPAP OTHER 06/21 [facility] Other specified anemias w/ menstruation Plantar fibromatosis Reflex sympathetic dystrophy of the upper limb 01/05/2013 Special screening for malignant neoplasms, colon 05/20/14 [facility] colonoscopy No outpatient medications have been marked as taking for the 10/04/23 encounter (Office Visit) Carmine Lozoya MD. Past Surgical History: Procedure Laterality Date APPLY BONE FIXATION DEVICE,UNIPLANE 10/08/2013 APPLICATION OF EXTERNAL FIXATOR UNIPLANE performed by Jacky Amaya MD at OR [facility] 1995 COLONOSCOPY, DIAGNOSTIC (RECTUM) 05/20/2014 COLONOSCOPY FLEXIBLE PROXIMAL DIAGNOSTIC performed by Elian Dodd MD at ENDOSCOPY [facility] DILATION AND CURETTAGE (D&C) 2008 EGD, FLEXIBLE, DIAGNOSTIC 05/20/2014 ESOPHAGOGASTRODUODENOSCOPY (EGD), FLEXIBLE, TRANSORAL, DIAGNOSTIC performed by Elian Dodd MD atENDOSCOPY [facility] EGD, W/ENDOSCOPIC US 05/20/2014 ESOPHAGOGASTRODUODENOSCOPY (EGD), FLEXIBLE, TRANSORAL, ENDOSCOPIC ULTRASOUND performed by Elian Dodd MD at ENDOSCOPY [facility] ENDOMETRIAL THERMAL ABLATE 09/16/09 ENDOMETRIAL THERMAL ABLATION performed by MARY ANN MORAN at OR [facility] FUSION OF FINGER JOINT 08/05/2014 ARTHRODESIS INTERPHALANGEAL JOINT performed by Jacky Amaya MD at OR [facility] HYSTEROSCOPY W/BIOPSY AND/OR POLYPECTOMY W/WO D&C 04/28/07 HYSTEROSCOPY WITH BIOPSY performed by MARY ANN MORAN at OR [facility] HYSTEROSCOPY W/BIOPSY AND/OR POLYPECTOMY W/WO D&C 09/16/09 HYSTEROSCOPY WITH BIOPSY performed by MARY ANN MORAN at OR [facility] HYSTEROSCOPY W/BIOPSY AND/OR POLYPECTOMY W/WO D&C N/A 09/27/2014 HYSTEROSCOPY WITH BIOPSY AND/OR POLYPECTOMY performed by Rowan Moreno MD at OR [facility] INSERT INTRAUTERINE DEVICE (IUD) N/A 09/27/2014 INSERTION OF INTRAUTERINE DEVICE performed by Rowan Moreno MD at OR [facility] LAPAROSCOPY; CHOLECYSTECTOMY 08/02/01 Clarke Gagnon. PELVIC EXAM UNDER ANESTHESIA, NOT LOCAL N/A 02/17/2022 PELVIC EXAMINATION UNDER ANESTHESIA performed by Heidi Acosta MD at OR [facility] PHALANX SHAFT FX, OPEN TX, HAND, W/INTER FIXATION 08/16/2011 OPEN TREATMENT PHALANGEAL SHAFT performed by JACKY AMAYA at OR [facility] RELEASE KNUCKLE CONTRACTURE, EACH 01/28/2012 CAPSULECTOMY CAPSULOTOMY METACARPOPHALANGEAL performed by JACKY AMAYA at OR [facility] RELEASE PALM & FINGER TENDON, EACH 05/22/2012 TENOLYSIS FLEXOR PALM AND FINGER performed by Jacky Amaya MD at OR [facility] REMOVAL OF APPENDIX 1992 REMOVAL OF TONSILS, AGE 12+ 01/14/[address] Mcclellan (TL), [facility], [place] REMOVE IMPLANT FROM HAND/FINGER 01/07/2014 REMOVAL OF FINGER IMPLANT performed by Jacky Amaya MD at OR [facility] REMOVE INTRAUTERINE DEVICE (IUD) 02/17/2022 REMOVAL OF INTRAUTERINE DEVICE performed by Heidi Acosta MD at OR [facility] REPAIR BLADDER DEFECT 04/15/08 VAGINAL SLING PROCEDURE FOR STRESS INCONTINENCE performed by JASS TENA at [facility] REVISION OF PALATE, PHARYNX/UVULA 01/14/04 UPPP Base Eye Exam Visual Acuity (Snellen - Linear) Right Left Dist cc 20/100 +2 20/100 -2 Dist ph cc NI 20/40 -2 Correction: Glasses Tonometry (icare, 2:27 PM) Right Left Pressure 10 9 Pupils Pupils Right PERRL Left PERRL Visual Bentley (Counting fingers) Right Left Full Full Extraocular Movement Right Left Full Full Neuro/Psych Oriented x3: Yes Dilation Defer to doctor Nursing notes reviewed. ASSESSMENT/PLAN Conjunctivitis OD - Bacterial vs Viral - Begin ofloxacin one drop OD QID - Begin erythromycin ointment OD TID 2. ABMD OS - Begin AT gtts QID OS -Brand names given - Refresh or Systane -Warm compresses Recommend artificial tears up to 4 times daily, Brand names include - Refresh or Systane. RecommendOcusoft lid scrubs daily. Both the artificial tears and ocusoft lid scrubs are available for purchase over the counter at the pharmacy. Use warm compresses daily for 10 minutes. RTC in 7-10 or sooner prn. Patient examined and staffed with Dr. Chin. A/P explained, patient verbalized understanding. Patient understands to f/u immediately with questions, concerns, or any ophthalmic issues. Carmine Huang MD 10/04/2023 3:05 PM documented in this encounter Nursing Notes * Suzanne Gillespie TECH - 10/04/2023 2:09 PM EST Liane Gutierrez is a 58 year old female who presents for acute care. Last Visit: Visit date not found (in office), Visit date not found (telemedicine) She currently reports 3 weeks ago noted OD very red. Uses BIPAP. Reports "headache" in OD---ibuprofen helpful. 2/10 pain OD today. Reports thick green drainage OD. Reports photosensitivity. Vision Jose bit worse the past couple of weeks. Reports flashes 4 days ago, none since. Denies floaters/double vision. Reports headaches during myrbetriq use---stopped med and headaches stopped. Dx RA, uses humira, sulfasalazine. Uses levoxyl. States used "very old" prescription drop for pink eyer a couple of times, not helpful. Reports jaw pain extending into ears bilaterally a couple of weeks ago, resolved on its own. Denies scalp pain/tinnitus/nausea/vomiting/fevers. Lost 21 lbs---fluid loss. Last eyeexam 2 years ago, has never been dilated before. Are you diabetic? NO. Current Ophthalmic Medications: see above Last Visit: Visit date not found (in office), Visit date not found (telemedicine) Vision, Tonometry, current glass prescription and pupil check if done can be found in the ophth exam documented in this encounter Plan of Treatment Upcoming Encounters Date Type Department Care Team (Late st Contact Info) Description 03/05/2024 3:15 PM EDT Office Visit [facility] [address] [place] [address] Kwan Means MD [address] [place] [address] Carmine Huang MD [address] [place] [address] 05/03/2024 1:40 PM EDT Office Visit [facility] [address] [place] [address] Katie Tejeda PA-C [address] [place] [address] Scheduled Procedures Name Priority Associated Diagnoses Date/Ti [...] this encounter Medical Devices Implanted Type Area Warehouse Freight Handler Device Identifier Shelf Expiration Date Model / Serial / Lot Device Tvt [id number] - [id number] Implanted:Qty: 1 on 04/15/2008 at OR [facility] N/A: Vagina Gynecare 11/17/2010 [id number] / / [id number] Mirena Iud Implanted:Qty: 1 on 09/16/2009 at OR [facility] Cervix [employer] 12/26/2009 / / [id number] Description:Mirena IUDCharge d for in 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 Screw Micro 16mm At2-C16-S - [id number] Implanted:Qty: 1 on 08/05/2014 at OR [facility] Left: Hand ACUMED 03/15/2015 AT2-C16-S / / [id number] documented as of this encounter Visit Diagnoses Diagnosis Acute conjunctivitis of right eye, unspecified acute conjunctivitis type- Primary 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 No Full Code 09/27/2014 1:15 PM 09/27/2014 6:08 PM Thi s order reflects the patients wishes and were consensually agreed upon. Full Code 09/27/2014 9:18 AM 09/27/2014 1:15 PM Thi s order reflects the patients wishes and were consensually agreed upon. Care Teams Order Packer Relationship Specialty Start Date End Date Katie Tejeda PA-C [address] [place] [address] LENIN ARECHIGA [address] PCP - General Physician Cop Breaker 09/05/19 documented as of this encounter
--- OUTSIDE RECORDS SUMMARY | 2024-06-27 05:58 | External Medical Summary | Summary of Care ---
Author Name Unknown Organization [facility] Address [address] [place] [address] Phone [phone] Care Team Providers Care Cardiovascular Specialist Name Role Phone Katie Tejeda PA-C Primary Care Provider Reason for Visit * Reason Comments Follow Up 4-6 week f/u. 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 Allergies Active Allergy Reactions Criticality Noted Date Comments Leflunomide Itching,Rash High 04/14/2017 After taking med for 3 months she had terrible rash and itching Hydroxychloroquine Sulfate 7 Rash documented as of this encounter (statuses as of 01/05/2024) Medications Medication Sig Dispensed Refills Start Date [...] OR OTHER MEDICATIONS 90 Tablet 3 04/06/2023 Active Adalimumab 40 MG/0.8ML Subcutaneous Pen-injector Kit [...] as of this encounter (statuses as of 01/05/2024) Active Problems Problem Noted Date Diagnosed Date [...] of urine 11/17/2015 Fatty liver 05/20/2014 Overview: [facility] [place] Obstructive sleep apnea of adult 04/02/2009 Female stress incontinence 04/15/2008 Hypothyroidism Moderate persistent asthma without complication Overview: excercise induced documented as of this encounter (statuses as of 01/05/2024) Resolved Problems Problem Noted Date Diagnosed Date [...] as of this encounter (statuses as of 01/05/2024) Immunizations Name Administration Dates Next Due COVID-19 mRNA, LNP-s, No Pre serve, 2-Dose Series (Oncolix) 07/08/2021,06/17/2021 Seasonal Influenza, PF, 6 M & [...] Progress Notes * Carmine Huang MD - 01/05/2024 1:50 PM EDT 01/05/2024 OPHTHALMOLOGY CARE CLINIC NOTE LV: HPI: Liane Gutierrez is a 58 year [...] to clinic in a week or two. Liane Gutierrez is a 58 year old female who presents for f/u. Last Visit: 11/11/2023 (in office), Visit date not found (telemedicine) She currently denies any new complaints/concerns for today's appt. She states her OU don't feel as dry and she feels as though her vision has slightly improved. Are you diabetic? NO. Current Ophthalmic Medications: Refresh Last Visit: 11/11/2023 (in office), Visit date not found (telemedicine) Vision, Tonometry, current glass prescription and pupil check if done can be found in the ophth exam Past Ocular History: Denies recent CL use. [...] disorder treated with celexa Fatty liver 05/20/14 [facility] U/S FEM STRESS INCONTINENCE 04/15/2008 Herpes simplex without mention of complication Obstructive sleep apnea (adult) (pediatric) 04/02/2009 CPAP OTHER 06/21 [facility] Other specified anemias w/ menstruation Plantar fibromatosis Reflex sympathetic dystrophy of the upper limb 01/05/2013 Special screening for malignant neoplasms, colon 05/20/14 [facility] colonoscopy No outpatient medications have been marked as taking for the 01/05/24 encounter (Office Visit) with Dion Whitney MD. Past Surgical History: Procedure Laterality Date APPLY BONE FIXATION DEVICE,UNIPLANE 10/08/2013 APPLICATION OF EXTERNAL FIXATOR UNIPLANE performed by Jacky Amaya MD at OR [facility] 1995 COLONOSCOPY, DIAGNOSTIC (RECTUM) 05/20/2014 COLONOSCOPY FLEXIBLE PROXIMAL DIAGNOSTIC performed by Elian Dodd MD at ENDOSCOPY [facility] DILATION AND CURETTAGE (D&C) 2008 EGD, FLEXIBLE, DIAGNOSTIC 05/20/2014 ESOPHAGOGASTRODUODENOSCOPY (EGD), FLEXIBLE, TRANSORAL, DIAGNOSTIC performed by Elian Dodd MD atENDOS[place] [facility] [place], W/ENDOSCOPIC US 05/20/2014 ESOPHAGOGASTRODUODENOSCOPY (EGD), FLEXIBLE, TRANSORAL, ENDOSCOPIC ULTRASOUND performed by Elian Dodd MD at ENDOSCOPY [facility] ENDOMETRIAL THERMAL ABLATE 09/16/09 ENDOMETRIAL THERMAL ABLATION performed by MARY ANN MORAN at [facility] FUSION OF FINGER JOINT 08/05/2014 ARTHRODESIS INTERPHALANGEAL JOINT performed by Jacky Amaya MD at [facility] HYSTEROSCOPY W/BIOPSY AND/OR POLYPECTOMY W/WO D&C 04/28/07 HYSTEROSCOPY WITH BIOPSY performed by MARY ANN MORAN at [facility] HYSTEROSCOPY W/BIOPSY AND/OR POLYPECTOMY W/WO D&C 09/16/09 HYSTEROSCOPY WITH BIOPSY performed by MARY ANN MORAN at [facility] HYSTEROSCOPY W/BIOPSY AND/OR POLYPECTOMY W/WO D&C N/A 09/27/2014 HYSTEROSCOPY WITH BIOPSY AND/OR POLYPECTOMY performed by Rowan Moreno MD at [facility] INSERT INTRAUTERINE DEVICE (IUD) N/A 09/27/2014 INSERTION OF INTRAUTERINE DEVICE performed by Rowan Moreno MD at [facility] LAPAROSCOPY; CHOLECYSTECTOMY 08/02/01 Clarke Gagnon. PELVIC EXAM UNDER ANESTHESIA, NOT LOCAL N/A 02/17/2022 PELVIC EXAMINATION UNDER ANESTHESIA performed by Heidi Acosta MD at OR [facility] PHALANX SHAFT FX, OPEN TX, HAND, W/INTER FIXATION 08/16/2011 OPEN TREATMENT PHALANGEAL SHAFT performed by JACKY AMAYA at [place] [facility] RELEASE KNUCKLE CONTRACTURE, EACH 01/28/2012 CAPSULECTOMY CAPSULOTOMY METACARPOPHALANGEAL performed by JACKY AMAYA at [facility] RELEASE PALM & FINGER TENDON, EACH 05/22/2012 TENOLYSIS FLEXOR PALM AND FINGER performed by Jacky Amaya MD at [facility] REMOVAL OF APPENDIX 1992 REMOVAL OF TONSILS, AGE 12+ 01/14/[address] Mcclellan (), [facility] [place], [place] REMOVE IMPLANT FROM HAND/FINGER 01/07/2014 REMOVAL OF FINGER IMPLANT performed by Jacky Amaya MD at OR [facility] REMOVE INTRAUTERINE DEVICE (IUD) 02/17/2022 REMOVAL OF INTRAUTERINE DEVICE performed by Heidi Acosta MD at OR [facility] REPAIR BLADDER DEFECT 04/15/08 VAGINAL SLING PROCEDURE FOR STRESS INCONTINENCE performed by JASS TENA at OR [facility] REVISION OF PALATE, PHARYNX/UVULA 01/14/04 UP Base Eye Exam Visual Acuity (Snellen - Linear) Right Left Dist cc 20/60 -1+2 20/100 -2+1 Dist ph cc NI 20/40 -2 Correction: Glasses Tonometry (icare, 1:38 PM) Right Left Pressure 17 13 Pupils Dark Light Shape React APD Right 4 2 Round Brisk None Left 4 2 Round Brisk None Visual Bentlye (Counting fingers) Right Left Full Full Extraocular Movement Right Left Full Full Neuro/Psych Oriented x3: Yes Nursing notes reviewed. ASSESSMENT/PLAN Epithelial Opacities OS>OD -Likely contributing to diminished visual acuity OU - subepithelial haze OD and OS, seen centrally but more prominent paracentrally. -Continue PF until completion of taper (currently on one drop a day) -Return to clinic in one to two weeks for DFE with possible corneal topography and OCT to evaluate for other causes of decreased visual acuity. Patient deferring DFE and imaging today as she is pressed for time, but she is agreeable to return soon for those tests if needed. 2. Dry Eyes/Anterior Basement Membrane Dystrophy OU -Continue PFATs four times a day. May go up if needed -Punctal plug (0.4mm) placed in inferior puncta OS today -Warm compresses 3. Conjunctivitis - Resolved - Currently off Ofloxacin. RTC 1-2 weeks or sooner prn. Patient examined with Dr. Whitney. A/P explained, patient verbalized understanding. Patient understands to f/u immediately with questions, concerns, or any ophthalmic issues. Carmine Huang MD 01/05/2024 1:50 PM documented in this encounter Nursing Notes * Rosalinda Frost CPhT - 01/05/2024 1:24 PM EDT Liane Gutierrez is a 58 year old female who presents for f/u. Last Visit: 11/11/2023 (in office), Visit date not found (telemedicine) She currently denies any new complaints/concerns for today's appt. She states her OU don't feel as dry and she feels as though her vision has slightly improved. Are you diabetic? NO. Current Ophthalmic Medications: Refresh Last Visit: 11/11/2023 (in office), Visit date not found (telemedicine) Vision, Tonometry, current glass prescription and pupil check if done can be found in the ophth exam documented in this encounter Plan of Treatment Upcoming Encounters Date Type Department Care Team (Late st Contact Info) Description 01/25/2024 9:00 AM EDT Office Visit [facility] [address] [address] Carmine Huang MD [address] [place] [address] 02/20/2024 7:30 AM EDT Office Visit Rheumatology, [place] [address] [place] [address] Bryant Modi III, MD [address] [place] [address] 05/03/2024 1:40 PM EDT Office Visit [address] [place] [address] Katie Tejeda PA-C [address] [facility] [place] [address] Scheduled Procedures Name Priority Associated Diagnoses Date/Ti [...] encounter Medical Devices Implanted Type Area Manager Assurance Device Identifier Shelf Expiration Date Model / Serial / Lot Device Tvt [id number] - [id number] Implanted:Qty: 1 on 04/15/2008 at [place] [facility] N/A: Vagina Gynecare 11/17/2010 [id number] / / [id number] Mirena Iud Implanted:Qty: 1 on 09/16/2009 at OR [facility] Cervix [employer] 12/26/2009 / / [id number] Description:Mirena IUDCharge d for in [facility] Screw Micro 16mm At2-C16-S - [id number] Implanted:Qty: 1 on 08/05/2014 at OR [facility] Left: Hand ACUMED 03/15/2015 AT2-C16-S / / [id number] documented as of this encounter Visit Diagnoses Diagnosis Acute conjunctivitis of right eye, unspecified acute conjunctivitis type- Primary Corneal epithelial basement membrane dystrophy, unspecified laterality documented in this encounter Additional Health Concerns Infection Onset Date Last Indicated Resolved Time ESBL 12/20/2023 12/20/2023 documented as of this encounter Advance Directives Documents on File Type Date Recorded 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 No Full Code 09/27/2014 1:15 PM 09/27/2014 6:08 PM Thi s order reflects the patients wishes and were consensually agreed upon. Full Code 09/27/2014 9:18 AM 09/27/2014 1:15 PM Thi s order reflects the patients wishes and were consensually agreed upon. Care Teams Cardiovascular Specialist Relationship Specialty Start Date End Date Katie Tejeda PA-C [address] [place] [address] [place]IGA [address] PCP - General Physician Master Merchandiser 09/05/19 documented as of this encounter
--- OUTSIDE RECORDS SUMMARY | 2024-06-27 05:58 | External Medical Summary | Summary of Care ---
Author Name Unknown Organization [facility] Address [address] [place] [address] Phone [phone] Care Team Providers Care Parts Order And Stock Clerk Name Role Phone Nikhil Katie Bosch PA-C Primary Care Provider Encounter Details Date Type Department Care Team (Late st Contact Info) Description 01/05/2024 12:30 PM EDT Scheduled Telephone Care Coordination and Integration [address] [place], [place] [phone] Chyna Gastelum, Community Health Psych Specialist [address] [place], [place] [phone] Allergies Active Allergy Reactions Criticality Noted Date [...] mRNA, LNP-s, No Pre serve, 2-Dose Series (TastemakerX) 07/08/2021,06/17/2021 PPD 10/17/2001 Seasonal Influenza, PF, 6 [...] money to buy more. Never true 12/30/19 Within the past 12 months, t he [...] as of this encounter Progress Notes * Chyna Gastelum, Community Health Psych Specialist - 01/05/2024 1:22 PM EDT Telemedicine visit: No Community Health Psych Specialist (LESLEY) documentation: Community Health Psych Specialist (LESLEY) weekly ezio call- thanks Recent ED disch UTI started new med entepenem UTCx1 LMOM Called Pt spoke with her on the phone. Pt finished IV anbx is all done with and feeling much better. Reviewed Red flags Chyna Gastelum [facility] II [facility] Care Coordination [phone] Electronically signed by Chyna Gastelum [facility] Psych Specialist at 01/05/2024 3:25 PM EDT documented in this encounter Plan of Treatment Upcoming Encounters Date Type Department Care Team (Late st Contact Info) Description 01/25/2024 9:00 AM EDT Office Visit [facility] [address] [place] [address] Carmine Huang MD [address] [place] [address] 02/20/2024 7:30 AM EDT [facility] [address] [place] [address] Bryant Modi III, MD [address] [place] [address] 05/03/2024 1:40 PM EDT Office Visit Family Practice, [facility] [address] [place] [address] Katie Tejeda PA-C [address] [place], [place] [phone] Scheduled Procedures Name Priority Associated Diagnoses Date/Ti [...] this encounter Medical Devices Implanted Type Area Tactical Debriefer Officer Device Identifier Shelf Expiration Date Model / Serial / Lot Device Tvt [id number] - [id number] Implanted:Qty: 1 on 04/15/2008 at OR [facility] N/A: Vagina Gynecare 11/17/2010 [id number] / / [id number] Mirena Iud Implanted:Qty: 1 on 09/16/2009 at OR [facility] Cervix [employer] 12/26/2009 / / [id number] Description:Mirena IUDCharge d for in [facility] Screw Micro 16mm At2-C16-S - [id number] Implanted:Qty: 1 on 08/05/2014 at OR [facility] Left: Hand ACUMED 03/15/2015 AT2-C16-S / / [id number] documented as of this encounter Additional Health Concerns Infection Onset Date Last Indicated Resolved Time ESBL 12/20/2023 12/20/2023 documented as of this encounter Advance Directives Documents on File Type Date Recorded 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 No Full Code 09/27/2014 1:15 PM 09/27/2014 6:08 PM Thi s order reflects the patients wishes and were consensually agreed upon. Full Code 09/27/2014 9:18 AM 09/27/2014 1:15 PM Thi s order reflects the patients wishes and were consensually agreed upon. Care Teams Parts Order And Stock Clerk Relationship Specialty Start Date End Date Katie Tejeda, DEREKC [address] [facility] [place] [address] PCP - General Physician Psych Specialist 09/05/19 documented as of this encounter
--- OUTSIDE RECORDS SUMMARY | 2024-06-27 05:58 | External Medical Summary | Summary of Care ---
Author Name Unknown Organization [facility] Address [address] [place] [address] Phone [phone] Care Team Providers Care Research Professor Of Biostatistics Name Role Phone Katie Tejeda PA-C Primary Care Provider [phone] Reason for Visit * Reason Comments Eye Exam Corneal epithelial b asement membrane dystrophy /ABMD os Encounter Details Date Type Department Care Team (Late st Contact Info) Description 01/25/2024 9:00 AM EDT Office Visit [facility] [address] [place] [address] Carmine Huang MD [address] [place] [address] Subjective vision disturbance*; Acute conjunctivitis [...] of urine 11/17/2015 Fatty liver 05/20/2014 Overview: [facility] [place] U/S Obstructive sleep apnea of adult [...] disorder treated with celexa Fatty liver 05/20/14 [facility] [place]GD U/S FEM STRESS INCONTINENCE 04/15/2008 Herpes simplex without mention of complication Obstructive sleep apnea (adult) (pediatric) 04/02/2009 CPAP OTHER 06/21 [facility] Other specified anemias w/ menstruation Plantar fibromatosis Reflex sympathetic dystrophy of the upper limb 01/05/2013 Special screening for malignant neoplasms, colon 05/20/14 [facility] colonoscopy No outpatient medications have been marked as taking for the 01/25/24 encounter (Appointment) with Carmine Huang MD. Past Surgical History: Procedure Laterality Date APPLY BONE FIXATION DEVICE,UNIPLANE 10/08/2013 APPLICATION OF EXTERNAL FIXATOR UNIPLANE performed by Jacky Amaya MD at OR [facility] 1995 COLONOSCOPY, DIAGNOSTIC (RECTUM) 05/20/2014 COLONOSCOPY FLEXIBLE PROXIMAL DIAGNOSTIC performed by Elian Dodd MD at ENDOSCOPY [facility] DILATION AND CURETTAGE (D&C) 2008 EGD, FLEXIBLE, DIAGNOSTIC 05/20/2014 ESOPHAGOGASTRODUODENOSCOPY (EGD), FLEXIBLE, TRANSORAL, DIAGNOSTIC performed by Elian Dodd MD atENDOSCOPY [facility] EGD, W/ENDOSCOPIC US 05/20/2014 ESOPHAGOGASTRODUODENOSCOPY (EGD), FLEXIBLE, TRANSORAL, ENDOSCOPIC ULTRASOUND performed by Elian Dodd MD at ENDOSCOPY [facility] ENDOMETRIAL THERMAL ABLATE 09/16/09 ENDOMETRIAL THERMAL ABLATION performed by MARY ANN MORAN at [facility] FUSION OF FINGER JOINT 08/05/2014 ARTHRODESIS INTERPHALANGEAL JOINT performed by Jacky Amaya MD at [facility] HYSTEROSCOPY W/BIOPSY AND/OR POLYPECTOMY W/WO D&C 04/28/07 HYSTEROSCOPY WITH BIOPSY performed by MARY ANN MORAN at [facility] HYSTEROSCOPY W/BIOPSY AND/OR POLYPECTOMY W/WO D&C 09/16/09 HYSTEROSCOPY WITH BIOPSY performed by MARY ANN MORAN at [place] [facility] HYSTEROSCOPY W/BIOPSY AND/OR POLYPECTOMY W/WO D&C N/A 09/27/2014 HYSTEROSCOPY WITH BIOPSY AND/OR POLYPECTOMY performed by Rowan Moreno MD at OR [facility] INSERT INTRAUTERINE DEVICE (IUD) N/A 09/27/2014 INSERTION OF INTRAUTERINE DEVICE performed by Rowan Moreno MD at OR [facility] LAPAROSCOPY; CHOLECYSTECTOMY 08/02/01 Clarke Gagnon. PELVIC EXAM UNDER ANESTHESIA, NOT LOCAL N/A 02/17/2022 PELVIC EXAMINATION UNDER ANESTHESIA performed by Heidi Acosta MD at OR [facility] PHALANX SHAFT FX, OPEN TX, HAND, W/INTER FIXATION 08/16/2011 OPEN TREATMENT PHALANGEAL SHAFT performed by JACKY AMAYA at OR [facility] RELEASE KNUCKLE CONTRACTURE, EACH 01/28/2012 CAPSULECTOMY CAPSULOTOMY METACARPOPHALANGEAL performed by JACKY AMAYA at [facility] RELEASE PALM & FINGER TENDON, EACH 05/22/2012 TENOLYSIS FLEXOR PALM AND FINGER performed by Jacky Amaay MD at [facility] REMOVAL OF APPENDIX 1992 REMOVAL OF TONSILS, AGE 12+ 01/14/[address] Mcclellan (), [facility] [place], [place] REMOVE IMPLANT FROM HAND/FINGER 01/07/2014 REMOVAL OF FINGER IMPLANT performed by Jacky Amaya MD at OR [facility] REMOVE INTRAUTERINE DEVICE (IUD) 02/17/2022 REMOVAL OF INTRAUTERINE DEVICE performed by Heidi Acosta MD at OR [facility] REPAIR BLADDER DEFECT 04/15/08 VAGINAL SLING PROCEDURE FOR STRESS INCONTINENCE performed by JASS TENA at OR [facility] REVISION OF PALATE, PHARYNX/UVULA 01/14/04 UPPP Not [...] Description 03/05/2024 3:15 PM EDT Office Visit [address] [address] Kwan Means MD [address] [place] [address] Carmine Huang MD [address] [place] [address] 05/03/2024 1:40 PM EDT Office Visit [facility], [address] [address] Katie Tejeda PA-C [address] [place] [address] Scheduled Orders Name Type Priority Associated Diagnoses [...] this encounter Medical Devices Implanted Type Area Light Bulb Assembler Device Identifier Shelf Expiration Date Model / Serial / Lot Device Tvt [id number] - [id number] Implanted:Qty: 1 on 04/15/2008 at [place] [facility] N/A: Vagina Gynecare 11/17/2010 [id number] / / [id number] Mirena Iud Implanted:Qty: 1 on 09/16/2009 at [place] [facility] Cervix [employer] 12/26/2009 / / [id number] Description:Mirena IUDCharge d for in [facility] Screw Micro 16mm At2-C16-S - [id number] Implanted:Qty: 1 on 08/05/2014 at OR [facility] Left: Hand ACUMED 03/15/2015 AT2-C16-S / / [id number] documented as of this encounter Procedures Procedure Name Priority Date/Time Associated Diagnosis Comments COMPUTERIZED CORNEAL ABDULKADIR Routine 01/25/2024 Corneal epithelial basement membrane dystrophy, 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 No Full Code 09/27/2014 1:15 PM 09/27/2014 6:08 PM Thi s order reflects the patients wishes and were consensually agreed upon. Full Code 09/27/2014 9:18 AM 09/27/2014 1:15 PM Thi s order reflects the patients wishes and were consensually agreed upon. Care Teams Research Professor Of Biostatistics Relationship Specialty Start Date End Date Katie Tejeda PA-C [address] [place] [address] [place]IG[place] [address] PCP - General Physician Mold Bunch Trimmer 09/05/19 documented as of this encounter
--- OUTSIDE RECORDS SUMMARY | 2024-06-27 05:58 | External Medical Summary | Summary of Care ---
Author Name Unknown Organization [facility] Address [address] [place] [address] Phone [phone] Care Team Providers Care Mail Processing Clerk Name Role Phone Katie Tejeda PA-C Primary Care Provider Encounter Details Date Type Department Care Team (Late st Contact Info) Description 01/12/2024 12:45 PM EDT Scheduled Telephone Care Coordination and Integration [address], [place] [phone] Chyna Gastelum, Community Health Television Parts Tester [address], [place] [phone] Allergies Active Allergy Reactions Criticality Noted Date Comments Leflunomide Itching,Rash High 04/14/2017 After taking med for 3 months she had terrible rash and itching Hydroxychloroquine Sulfate 7 Rash documented as of this encounter (statuses as of 01/12/2024) Medications Medication Sig Dispensed Refills Start Date [...] as of this encounter (statuses as of 01/12/2024) Active Problems Problem Noted Date Diagnosed Date [...] as of this encounter (statuses as of 01/12/2024) Resolved Problems Problem Noted Date Diagnosed Date [...] as of this encounter (statuses as of 01/12/2024) Immunizations Name Administration Dates Next Due COVID-19 mRNA, LNP-s, No Pre serve, 2-Dose Series ([employer]) 07/08/2021,06/17/2021 Seasonal Influenza, PF, 6 M & [...] of this encounter Progress Notes * Chyna Gastelum [facility] Television Parts Tester - 01/12/2024 1:01 PM EDT Telemedicine visit: No Community Health Television Parts Tester (LESLEY) documentation: Which level/role should the patient go to? LESLEY: Community Health Television Parts Tester (LESLEY) Please call patient on 01/12/24 for routine ezio call recent admission for UTI Pt states she is doing ok. She did have a GI visus Sun into Tue. Pt was having abd pain woke her upat night then had vomitting and diarrhea. Cleared up by later on Tuesday. Pt states she is not having freq or burning or odor with urination but is getting lower abd cramping. Pt worried may be UTI starting or not sure if sx's hanging on from GI bug or UTI starting again. Left her Know will let RNCMknow Pt wondering if she should get a U/A done? See surveys completed Reviewed red flags Chyna Gastelum [facility] Care Coordination [phone] documented in this encounter Plan of Treatment Upcoming Encounters Date Type Department Care Team (Late st Contact Info) Description 01/25/2024 9:00 AM EDT Office Visit [address] [address] Carmine Huang MD [address] [place] [address] 02/20/2024 7:30 AM EDT [facility] [address] [place] [address] Bryant Modi III, MD [address] [place] [address] 05/03/2024 1:40 PM EDT Office Visit Family [facility] [address] [place] [address] Katie Tejeda PA-C [address] [place] [address] Scheduled Procedures Name Priority Associated Diagnoses Date/Ti [...] this encounter Medical Devices Implanted Type Area Quartz Orientator Device Identifier Shelf Expiration Date Model / Serial / Lot Device Tvt [id number] - [id number] Implanted:Qty: 1 on 04/15/2008 at OR [facility] N/A: Vagina Gynecare 11/17/2010 [id number] / / [id number] Mirena Iud Implanted:Qty: 1 on 09/16/2009 at OR [facility] C[employer] 12/26/2009 / / [id number] Description:Mirena IUDCharge d for in USER SUPPORT SPECIALIST Clinic Screw Micro 16mm At2-C16-S - [id number] Implanted:Qty: 1 on 08/05/2014 at OR [facility] Left: Hand ACUMED 03/15/2015 AT2-C16-S / / [id number] documented as of this encounter Additional Health Concerns Infection Onset Date Last Indicated Resolved Time ESBL 12/20/2023 12/20/2023 documented as of this encounter Advance Directives Documents on File Type Date Recorded 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 No Full Code 09/27/2014 1:15 PM 09/27/2014 6:08 PM Thi s order reflects the patients wishes and were consensually agreed upon. Full Code 09/27/2014 9:18 AM 09/27/2014 1:15 PM Thi s order reflects the patients wishes and were consensually agreed upon. Care Teams Mail Processing Clerk Relationship Specialty Start Date End Date Katie Tejeda PA-C [address] [place] [address] L[place] ARE[place]IGA [id number] PCP - General Physician Television Parts Tester 09/05/19 documented as of this encounter
--- OUTSIDE RECORDS SUMMARY | 2024-06-27 05:58 | External Medical Summary | Summary of Care ---
Author Name Unknown Organization [facility] Address [address] [place] [address] Phone [phone] Care Team Providers Care Upholstery Trimmer Name Role Phone Katie Tejeda PA-C Primary Care Provider Reason for Visit * Reason Comments Follow Up 4-6 week f/u. 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 Allergies Active Allergy Reactions Criticality Noted Date Comments Leflunomide Itching,Rash High 04/14/2017 After taking med for 3 months she had terrible rash and itching Hydroxychloroquine Sulfate 7 Rash documented as of this encounter (statuses as of 01/10/2024) Medications Medication Sig Dispensed Refills Start Date [...] as of this encounter (statuses as of 01/10/2024) Active Problems Problem Noted Date Diagnosed Date [...] 11/17/2015 Fatty liver 05/20/2014 [place] [facility] [place] U/S Obstructive sleep apnea of adult 04/02/2009 Female stress incontinence 04/15/2008 Hypothyroidism Moderate persistent asthma without complication Overview: excercise induced documented as of this encounter (statuses as of 01/10/2024) Resolved Problems Problem Noted Date Diagnosed Date [...] as of this encounter (statuses as of 01/10/2024) Immunizations Name Administration Dates Next Due COVID-19 mRNA, LNP-s, No Pre serve, 2-Dose Series ([employer]) 07/08/2021,06/17/2021 PPD 10/17/2001 Seasonal Influenza, PF, 6 [...] as of this encounter Progress Notes * Dion Whitney MD - 01/10/2024 2:19 PM EDT I saw and evaluated Ms. Gutierrez. This patient's visit today consisted of an evaluation. I was present and confirmed the findings of the history and exam. I have discussed the patient's management with the resident and have reviewed Dr. Huang's note andagree with the findings and plan as documented in the resident's note. Please refer to the documented findings and plan of care. Dion Whitney MD * Carmine Huang MD - 01/05/2024 1:50 [...] Diagnosis Date Adult body mass index 50.0-59.9 ([facility]) 03/31/2010 ADVANCE DIRECTIVE INFORMATION 04/08/2005 No, Advance Directive brochure offered , patient declined. 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 Fatty liver 05/20/14 [facility] [place] U/S FEM STRESS INCONTINENCE 04/15/2008 Herpes simplex without mention of complication Obstructive sleep apnea (adult) (pediatric) 04/02/2009 CPAP OTHER 06/21 [facility] Other specified anemias w/ menstruation Plantar fibromatosis Reflex sympathetic dystrophy of the upper limb 01/05/2013 Special screening for malignant neoplasms, colon 05/20/14 [facility] colonoscopy No outpatient medications have been marked as taking for the 01/05/24 encounter (Office Visit) with Dion Whitney MD. Past Surgical History: Procedure Laterality Date APPLY BONE FIXATION DEVICE,UNIPLANE 10/08/2013 APPLICATION OF EXTERNAL FIXATOR UNIPLANE performed by Jacky Amaya MD at [facility] 1995 COLONOSCOPY, DIAGNOSTIC (RECTUM) 05/20/2014 COLONOSCOPY FLEXIBLE PROXIMAL DIAGNOSTIC performed by Elian Dodd MD at ENDOSCOPY [facility] DILATION AND CURETTAGE (D&C) 2008 EGD, FLEXIBLE, DIAGNOSTIC 05/20/2014 ESOPHAGOGASTRODUODENOSCOPY (EGD), FLEXIBLE, TRANSORAL, DIAGNOSTIC performed by Elian Dodd MD atENDOSCOPY [facility] EGD, W/ENDOSCOPIC US 05/20/2014 ESOPHAGOGASTRODUODENOSCOPY (EGD), FLEXIBLE, TRANSORAL, ENDOSCOPIC ULTRASOUND performed by Elian Dodd MD at ENDOSCOPY [facility] ENDOMETRIAL THERMAL ABLATE 09/16/09 ENDOMETRIAL THERMAL ABLATION performed by MARY ANN MORAN at [facility] FUSION OF FINGER JOINT 08/05/2014 ARTHRODESIS INTERPHALANGEAL JOINT performed by Jacky Amaya MD at [place] [facility] HYSTEROSCOPY W/BIOPSY AND/OR POLYPECTOMY W/WO D&C 04/28/07 HYSTEROSCOPY WITH BIOPSY performed by MARY ANN MORAN at [place] [facility] HYSTEROSCOPY W/BIOPSY AND/OR POLYPECTOMY W/WO D&C 09/16/09 HYSTEROSCOPY WITH BIOPSY performed by MARY ANN MORAN at [place] [facility] HYSTEROSCOPY W/BIOPSY AND/OR POLYPECTOMY W/WO D&C N/A 09/27/2014 HYSTEROSCOPY WITH BIOPSY AND/OR POLYPECTOMY performed by Rowan Moreno MD at [place] [facility] INSERT INTRAUTERINE DEVICE (IUD) N/A 09/27/2014 INSERTION OF INTRAUTERINE DEVICE performed by Rowan Moreno MD at [place] [facility] LAPAROSCOPY; CHOLECYSTECTOMY 08/02/01 Clarke Gagnon. PELVIC EXAM UNDER ANESTHESIA, NOT LOCAL N/A 02/17/2022 PELVIC EXAMINATION UNDER ANESTHESIA performed by Heidi Acosta MD at [place] [facility] PHALANX SHAFT FX, OPEN TX, HAND, W/INTER FIXATION 08/16/2011 OPEN TREATMENT PHALANGEAL SHAFT performed by JACKY AMAYA at [place] [facility] RELEASE KNUCKLE CONTRACTURE, EACH 01/28/2012 CAPSULECTOMY CAPSULOTOMY METACARPOPHALANGEAL performed by JACKY AMAYA at [facility] RELEASE PALM & FINGER TENDON, EACH 05/22/2012 TENOLYSIS FLEXOR PALM AND FINGER performed by Jacky Amaya MD at [facility] REMOVAL OF APPENDIX 1992 REMOVAL OF TONSILS, AGE 12+ 01/14/[address] Mcclellan (), [facility], [place], [place] REMOVE IMPLANT FROM HAND/FINGER 01/07/2014 REMOVAL OF FINGER IMPLANT performed by Jacky Amaya MD at [place] [facility] REMOVE INTRAUTERINE DEVICE (IUD) 02/17/2022 REMOVAL OF INTRAUTERINE DEVICE performed by Heidi Acosta MD at [place] [facility] REPAIR BLADDER DEFECT 04/15/08 VAGINAL SLING PROCEDURE FOR STRESS INCONTINENCE performed by JASS TENA at [place] [facility] REVISION OF PALATE, PHARYNX/UVULA 01/14/04 [facility] Base Eye Exam Visual Acuity (Snellen - Linear) Right Left Dist cc 20/60 -1+2 20/100 -2+1 Dist ph cc NI 20/40 -2 Correction: Glasses Tonometry (icare, 1:38 PM) Right Left Pressure 17 13 Pupils Dark Light Shape React APD Right 4 2 Round Brisk None Left 4 2 Round Brisk None Visual Bentley (Counting fingers) Right Left Full [...] Description 01/25/2024 9:00 AM EDT Office Visit [facility] [address] [place] [address] Carmine Huang MD [address] [place] [address] 02/20/2024 7:30 AM EDT Office Visit Rheumatology, [place] [address], [place] [phone] Bryant Modi III, MD [address] [place] [address] 05/03/2024 1:40 PM EDT Office Visit Family [facility] [address] [place] [address] Katie Tejeda PA-C [address] [place] [address] Scheduled Procedures Name Priority Associated Diagnoses Date/Ti [...] this encounter Medical Devices Implanted Type Area Prototype Special Build Device Identifier Shelf Expiration Date Model / Serial / Lot Device Tvt [id number] - [id number] Implanted:Qty: 1 on 04/15/2008 at [place] [facility] N/A: Vagina Gynecare 11/17/2010 [id number] / / [id number] Mirena Iud Implanted:Qty: 1 on 09/16/2009 at [place] [facility] [employer] 12/26/2009 / / [id number] Description:Mirena IUDCharge d for in STAFF NURSE MIDWIFE Clinic Screw Micro 16mm At2-C16-S - [id number] Implanted:Qty: 1 on 08/05/2014 at [place] [facility] Left: Hand ACUMED 03/15/2015 AT2-C16-S / / [id number] documented as of this encounter Visit Diagnoses Diagnosis Acute conjunctivitis of right eye, unspecified acute conjunctivitis type- Primary Corneal epithelial basement membrane dystrophy, unspecified laterality documented in this encounter Additional Health Concerns Infection Onset Date Last Indicated Resolved Time ESBL 12/20/2023 12/20/2023 documented as of this encounter Advance Directives Documents on File Type Date Recorded Patient Ethnoarchaeologist Expl anation Advance Directives and Living Will 11/19/2004 Power of Electric Power Line Examiner 11/19/2004 Latest Code Status on File Code [...] Health Care Power of Electric Power Line Examiner? No Full Code 09/27/2014 1:15 PM 09/27/2014 6:08 PM Thi s order reflects the patients wishes and were consensually agreed upon. Full Code 09/27/2014 9:18 AM 09/27/2014 1:15 PM Thi s order reflects the patients wishes and were consensually agreed upon. Care Teams Upholstery Trimmer Relationship Specialty Start Date End Date Katie Tejeda PA-C [address] [place] [address] [place]CHIGA [phone] PCP - General Physician Roofer Vinyl Coating 09/05/19 documented as of this encounter
--- OUTSIDE RECORDS SUMMARY | 2024-06-27 05:58 | External Medical Summary | Summary of Care ---
Author Name Unknown Organization [facility] Address [address] [place] [address] Phone [phone] Care Team Providers Care Therapist Speech Name Role Phone Nikhil Katie Bosch PA-C Primary Care Provider [phone] Encounter Details Date Type Department Care Team (Late st Contact Info) Description 01/05/2024 12:30 PM EDT Scheduled Telephone Care Coordination and Integration [address] [place], [place] [phone] Chyna Gastelum, Community [facility] Burrer Marker Axle [address] [place], [place] [phone] Allergies Active Allergy Reactions Criticality Noted Date [...] mRNA, LNP-s, No Pre serve, 2-Dose Series ([employer]) 07/08/2021,06/17/2021 Seasonal Influenza, PF, 6 M & [...] Progress Notes * Chyna Gastelum [facility] Burrer Marker Axle - 01/05/2024 1:22 PM EDT Telemedicine visit: No Community [facility] Burrer Marker Axle (LESLEY) documentation: Community Health Burrer Marker Axle (LESLEY) weekly ezio call- thanks Recent ED disch UTI started new med entepenem UTCx1 LMOM Called Pt spoke with her on the phone. Pt finished IV anbx is all done with and feeling much better. Reviewed Red flags Chyna Gastelum [facility], [facility] Care Coordination [phone] documented in this encounter Plan of Treatment Upcoming Encounters Date Type Department Care Team (Late st Contact Info) Description 01/25/2024 9:00 AM EDT Office Visit [address] [address] Carmine Huang MD [address] [place] [address] 02/20/2024 7:30 AM EDT [facility] [address] [place] [address] Bryant Modi III, MD [address] [place] [address] 05/03/2024 1:40 PM EDT Office Visit Family Practice, [address] [address] Katie Tejeda PA-C [address] [place] [address] Scheduled Procedures Name Priority Associated Diagnoses Date/Ti [...] this encounter Medical Devices Implanted Type Area Recreation Teacher Device Identifier Shelf Expiration Date Model / Serial / Lot Device Tvt [id number] - [id number] Implanted:Qty: 1 on 04/15/2008 [place] [facility] N/A: Vagina Gynecare 11/17/2010 [id number] / / [id number] Mirena Iud Implanted:Qty: 1 on 09/16/2009 at [place] [facility] [employer] 12/26/2009 / / [id number] Description:Mirena IUDCharge d for in OCCUPATIONAL MEDICINE PHYSICIAN Clinic Screw Micro 16mm At2-C16-S - [id number] Implanted:Qty: 1 on 08/05/2014 at [place] [facility] Left: Hand ACUMED 03/15/2015 AT2-C16-S / / [id number] documented as of this encounter Additional Health Concerns Infection Onset Date Last Indicated Resolved Time ESBL 12/20/2023 12/20/2023 documented as of this encounter Advance Directives Documents on File Type Date Recorded Patient 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 No Full Code 09/27/2014 1:15 PM 09/27/2014 6:08 PM Thi s order reflects the patients wishes and were consensually agreed upon. Full Code 09/27/2014 9:18 AM 09/27/2014 1:15 PM Thi s order reflects the patients wishes and were consensually agreed upon. Care Teams Therapist Speech Relationship Specialty Start Date End Date Katie Tejeda PA-C [address] [place] [address] PCP - General Physician Burrer Marker Axle 09/05/19 documented as of this encounter
--- OUTSIDE RECORDS SUMMARY | 2024-06-27 05:58 | External Medical Summary | Summary of Care ---
Author Name Unknown Organization [facility] Address [address] [place] [address] Phone [phone] Care Team Providers Care Oil Pipeline Operator Name Role Phone Katie Tejeda PA-C Primary Care Provider Reason for Visit * Reason Onset Date Comments Hospital Follow-Up 12/23 to 12/26 f or complicated UTI Hospital Follow-Up 01/02/2024 Encounter Details Date Type Department Care Team (Late st Contact Info) Description 01/02/2024 12:30 PM EDT Office Visit [facility] [address] [place] [address] Katie Tejeda PA-C [address] [place], [place] [phone] Hospital discharge follow-up*; Complicated UTI (urinary tract infection); Moderate persistent asthma without complication; Rheumatoid arthritis involving multiple sites with positive rheumatoid factor (HCC) Allergies Active Allergy Reactions Criticality Noted [...] COLD SORES 20 Tab 3 9 Active Vitamin D 125 MCG (5000 UT) [...] Active Adalimumab 40 MG/0.8ML Subcutaneous Pen-injector Kit (HumLV Sensors) Inject 40 mg (1 pen) under the [...] Drop before bedtime. 15 mL 2 4 Active Betamethasone Dipropionate 0.05 % External Ointment Apply 2 times a day to the rash on arms, legs, abdomen x 2-3 weeks until clear 80 g 1 4 Active FLUoxetine HCl 20 MG Oral Capsule (PROzac)Indication s:Mood disorder (HCC) TAKE ONE CAPSULE BY MOUTH EVERY MORNING 90 Capsule 3 4 025 Active Furosemide 20 MG Oral Tablet (Lasix)Indications :Venous insufficiency TAKE ONE TABLET BY MOUTH EVERY MORNING 90 Tablet 3 4 025 Active Fluticasone-Salmet deni 250-50 MCG/ACT Inhalation Aerosol Powder Breath Activated (Advair Diskus)Indications :Moderate persistent asthma without complication Inhale 1 Puff by mouth in the morning and 1 Puff before bedtime. 180 Each 3 4 Active hydrOXYzine HCl 25 MG tablet 1-2 tabs every 6 hours as needed 120 Tab 1 7 024 Discontinued(Me dication List Clean Up) fluticasone-salmet deni (ADVAIR DISKUS) 250-50 MCG/DOSE inhaler Inhale 1 Puff by mouth every 12 hours. Rinse mouth after each use. 1 Inhaler 5 9 024 Discontinued Erythromycin 5 MG/GM Ophthalmic Ointment Instill 0.25 Inches into both eyes at bedtime. 3.5 g 5 4 024 Discontinued(Me dication List Clean Up) prednisoLONE Acetate 1 % Ophthalmic Suspension (Pred Forte) Instill 1 Drop into the left eye in the morning and 1 Drop at noon and 1 Drop in the evening and 1 Drop before bedtime. 10 mL 2 4 024 Discontinued(Me dication List Clean Up) documented as of [...] Never Smokeless Tobacco: Never Tobacco Cessation:Counseling Given: No Alcohol Use Standard Drinks/Week Comments No 0 [...] Sign Reading Time Taken Comments Blood Pressure 124/82 01/02/2024 12:37 PM EDT Pulse 72 01/02/2024 12:37 PM EDT Temperature 36.8 C (98.2 F) 01/02/2024 12:37 PM E DT Respiratory Rate 20 01/02/2024 12:37 PM EDT Oxygen Saturation 95% 01/02/2024 12:37 PM EDT Inhaled Oxygen Concentration - - Weight 154 kg (339 lb 9.6 oz) 01/02/2024 12:37 P M EDT Height - - Body Mass Index 60.16 12/25/2023 2:43 PM EDT documented in this [...] Progress Notes * Katie Tejeda PA-C - 01/02/2024 12:47 PM EDT 58 year old here for follow up hospital discharge [address] [facility] [id number] Admission Date: 12/24/2023 Discharge Date: 12/27/2023 RECOMMENDED TO DO FOR NEXT PROVIDER(S): Follow up with PCP in 1 week Continue IV through midline until 12/30. Please ensure that the midline is removed after completion of antibiotics Weekly cbc and bmp while on antibiotics REASON(S) FOR MEDICATION CHANGE(S): START - ertapenem for 1 week (end date 12/30) STOP - Macrobid FINAL IMPRESSION AND RECOMMENDATIONS: Syndrome Complicated urinary tract infection Microbiology ESBL Klebsiella pneumoniae/strep gallolyticus Antibiotic Ertapenem 1 g IV q.day End Date 7 days therapy through 12/31/23 Vascular access: Remove intravascular access after completion of antibiotics Recommended followup imaging studies: Not applicable LABORATORY MONITORING: Lab Test Frequency End Date BMP CBC with diff Q week 12/31/2023 PROVIDERS: Following ID Physician ID clinic follow-up date Abelardo Ocampo and Riley Shannon Not required DISPOSITION ON DISCHARGE: Home with [facility] Active Hospital Problems Diagnosis *Principal Diagnosis - Complicated UTI (urinary tract infection) ESBL (extended spectrum beta-lactamase) producing bacteria infection Mood disorder (HCC) Rheumatoid arthritis involving multiple sites with positive rheumatoid factor (HCC) Hypothyroidism HOSPITAL COURSE (focused): Patient presented to the hospital with urinary symptoms and CVA tenderness on exam consistent with acute pyelonephritis in the setting of ESBL UTI. On 12/19, patient was started on Macrobid for UTI; however, the cultures came back and showed ESBL Klebsiella and strep bovis was only sensitive to carbapenem, zosyn and cefepime. Patient was started on meropenem; ID was consulted and suggested ertapenem for 7 days, end date 12/30; midline placed 12/26 and patient was discharge home. She will be seen at home infusion center for teaching so that she can self administer the antibiotics herself at home. Feeling better since IV antibiotics, completed 2 days ago Gets line taken out today No fever or chills ROS: all others negative other than those noted in the HPI. Patient Active Problem List Diagnosis Code Hypothyroidism E03.9 Advance directive discussed with patient Z71.89 Female stress incontinence N39.3 Obstructive sleep apnea of adult G47.33 Moderate persistent asthma without complication J45.40 Fatty liver K76.0 Urge incontinence of urine N39.41 Chronic constipation K59.09 Chronic venous insufficiency I87.2 Rheumatoid arthritis involving multiple sites with positive rheumatoid factor (HCC) M05.79 Hypertension goal BP (blood pressure) < 140/90 I10 Mood disorder ([facility]) F39 Lymphedema I89.0 Body mass index (BMI) of 50.0 to 59.9 in adult ([facility]) Z68.43 Complicated UTI (urinary tract infection) N39.0 ESBL (extended spectrum beta-lactamase) producing bacteria infection A49.9, Z16.12 Current Outpatient Medications Medication Sig Dispense Refill Misc Natural Products (TURMERIC CURCUMIN) CAPS Take 2 Capsules by mouth in the morning. Albuterol Sulfate (VENTOLIN HFA) 108 (90 Base) MCG/ACT AERS Inhale 2 Puffs by mouth every 4 hours as needed for Wheezing. 1 Inhaler 11 valACYclovir (VALTREX) 1000 MG Tablet TAKE 1 [...] day. To affected area. 80 g 5 Levothyroxine Sodium 100 MCG Oral Tablet (Levoxyl) TAKE 1 TABLET BY MOUTH DAILY AT LEAST 30 MINUTESPRIOR TO FIRST MEAL OF THE DAY OR OTHER MEDICATIONS 90 Tablet 3 Adalimumab 40 MG/0.8ML Subcutaneous Pen-injector Kit (Humira) Inject 40 mg (1 pen) under the skin every 14 days. 2 mL 11 sulfaSALAzine 500 MG Oral Tablet (Azulfidine) Take 3 Tablets by mouth in the morning and 3 Tablets before bedtime. 540 Tablet 3 Refresh 1.4-0.6 % Ophthalmic Solution (polyvinyl alcohol-povidone PF) Instill 1 Drop into both eyesas needed. prednisoLONE Acetate 1 % Ophthalmic Suspension (Pred Forte) Instill 1 Drop into both eyes in the morning and 1 Drop at noon and 1 Drop in the evening and 1 Drop before bedtime. 15 mL 2 Betamethasone Dipropionate 0.05 % External Ointment Apply [...] 1 Puff before bedtime. 180 Each 3 Ofloxacin 0.3 % Ophthalmic Solution (Ocuflox) Instill 1 Drop into the right eye in the morning and 1 Drop at noon and 1 Drop in the evening and 1 Drop before bedtime. No current facility-administered medications for this visit. Past Surgical History: Procedure Laterality Date APPLY BONE FIXATION DEVICE,UNIPLANE 10/08/2013 APPLICATION OF EXTERNAL FIXATOR UNIPLANE performed by Jacky Amaya MD at [facility] 1995 COLONOSCOPY, DIAGNOSTIC (RECTUM) 05/20/2014 COLONOSCOPY FLEXIBLE PROXIMAL DIAGNOSTIC performed by Elian Dodd MD at ENDOSCOPY [facility] DILATION AND CURETTAGE (D&C) 2008 EGD, FLEXIBLE, DIAGNOSTIC 05/20/2014 ESOPHAGOGASTRODUODENOSCOPY (EGD), FLEXIBLE, TRANSORAL, DIAGNOSTIC performed by Elian Dodd MD atENDOSCOPY [facility] EGD, W/ENDOSCOPIC US 05/20/2014 ESOPHAGOGASTRODUODENOSCOPY (EGD), FLEXIBLE, TRANSORAL, ENDOSCOPIC ULTRASOUND performed by Elian Dodd MD at ENDOSCOPY [facility] ENDOMETRIAL THERMAL ABLATE 09/16/09 ENDOMETRIAL THERMAL ABLATION performed by MARY ANN MORAN at [facility] FUSION OF FINGER JOINT 08/05/2014 ARTHRODESIS INTERPHALANGEAL JOINT performed by Jacky Amaya MD at [facility] HYSTEROSCOPY W/BIOPSY AND/OR POLYPECTOMY W/WO D&C 04/28/07 HYSTEROSCOPY WITH BIOPSY performed by MARY ANN MORAN at [facility] HYSTEROSCOPY W/BIOPSY AND/OR POLYPECTOMY W/WO D&C 09/16/09 HYSTEROSCOPY WITH BIOPSY performed by MARY ANN MORAN at [facility] HYSTEROSCOPY W/BIOPSY AND/OR POLYPECTOMY W/WO D&C N/A 09/27/2014 HYSTEROSCOPY WITH BIOPSY AND/OR POLYPECTOMY performed by Rowan Moreno MD at OR [facility] INSERT INTRAUTERINE DEVICE (IUD) N/A 09/27/2014 INSERTION OF INTRAUTERINE DEVICE performed by Rowan Moreno MD at [facility] LAPAROSCOPY; CHOLECYSTECTOMY 08/02/01 Clarke Gagnon. PELVIC EXAM UNDER ANESTHESIA, NOT LOCAL N/A 02/17/2022 PELVIC EXAMINATION UNDER ANESTHESIA performed by Heidi Acosta MD at OR [facility] PHALANX SHAFT FX, OPEN TX, HAND, W/INTER FIXATION 08/16/2011 OPEN TREATMENT PHALANGEAL SHAFT performed by JACKY AMAYA at OR [facility] RELEASE KNUCKLE CONTRACTURE, EACH 01/28/2012 CAPSULECTOMY CAPSULOTOMY METACARPOPHALANGEAL performed by JACKY AMAYA at [facility] RELEASE PALM & FINGER TENDON, EACH 05/22/2012 TENOLYSIS FLEXOR PALM AND FINGER performed by Jacky Amaya MD at [facility] REMOVAL OF APPENDIX 1992 REMOVAL OF TONSILS, AGE 12+ 01/14/[address] Mcclellan (), [facility], [place], [place] REMOVE IMPLANT FROM HAND/FINGER 01/07/2014 REMOVAL OF FINGER IMPLANT performed by Jacky Amaya MD at OR [facility] REMOVE INTRAUTERINE DEVICE (IUD) 02/17/2022 REMOVAL OF INTRAUTERINE DEVICE performed by Heidi Acosta MD at OR [facility] REPAIR BLADDER DEFECT 04/15/08 VAGINAL SLING PROCEDURE FOR STRESS INCONTINENCE performed by JASS TENA at OR [facility] REVISION OF PALATE, PHARYNX/UVULA 01/14/04 UPPP Social History Socioeconomic History Marital status: Spouse name: Marcellus Number of children: 1 Years of education: 13 Occupational History 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 Other Topics Concern Self-Exams Yes Social History Narrative Lives with and son Social Determinants of Health Food Insecurity: No Food Insecurity (12/30/2023) Hunger Vital Sign Worried About Running Out of Food in the Last Year: Never true Ran Out of Food in the Last Year: Never true Review of patient's allergies indicates: Allergen Reactions Arava [Leflunomide] Itching and Rash After taking med for 3 months she had terrible rash and itching Plaquenil [Hydroxychloroquine Sulfate] Rash OBJECTIVE: BP 124/82 (BP Site: Left Arm, BP Position: Sitting, BP Cuff Size: Large) | Pulse 72 | Temp 36.8 C(98.2 F) (Tympanic) | Resp 20 | Wt (!) 154 kg (339 lb 9.6 oz) | LMP (LMP Unknown) | SpO2 95% | BMI 60.16 kg/m | BSA 2.62 m Estimated body mass index is 60.16 kg/m as calculated from the following: Height as of 12/25/23: 1.6 m (5' 3"). Weight as of this encounter: 154 kg (339 lb 9.6 oz). BP Readings from Last 3 Encounters: 01/02/24 124/82 12/27/23 138/62 12/20/23 144/81 Wt Readings from Last 3 Encounters: 01/02/24 (!) 154 kg (339 lb 9.6 oz) 12/27/23 (!) 152.5 kg (336 lb 3.2 oz) 12/20/23 (!) 154 kg (339 lb 6.4 oz) PHYSICAL EXAM: General: alert, no distress, Skin: normal turgor , no significant rashes or lesions Head: Normocephalic, No masses, lesions, tenderness or abnormalities Eye Exam: Conjunctiva are pink and non-injected, sclera clear Neck: supple, Heart: regular rate & rhythm, no murmur Lungs: pos wheeze, neg rhonchi, neg rales Abdomen: abdomen soft, non-tender, normal bowel sounds and no masses or organomegaly Extremities: no inflammation, pos lymphedema, Neuro Exam: alert & oriented x 3 with fluent speech Musculoskeletal: Full ROM all joints ASSESSMENT/Plan Hospital discharge follow-up (Primary) - DISCH MED RECON CUR MED LIS Complicated UTI (urinary tract infection) Moderate persistent asthma without complication - Fluticasone-Salmeterol 250-50 MCG/ACT Inhalation Aerosol Powder Breath Activated (Advair Diskus);Inhale 1 Puff by mouth in the morning and 1 Puff before bedtime. Rheumatoid arthritis involving multiple sites with positive rheumatoid factor (HCC) Asked pt to start using advair Should be able to restart Humira Follow Up: Return if symptoms worsen or fail to improve. Katie Tejeda PA-C * Kenna Trinidad LPN - 01/02/2024 12:34 PM EDT Patient has been identified by name and date of . Chief Complaint Patient presents with Hospital Follow-Up 12/23 to 12/26 for complicated UTI Has not been using Humira due to infection. documented in this encounter Plan of Treatment Upcoming Encounters Date Type Department Care Team (Late st Contact Info) Description 01/05/2024 1:00 PM EDT Office Visit [facility] [address] [address] Dion Whitney MD [address] [place] [phone] Carmine Huang MD [address] [place] [phone] 02/20/2024 7:30 AM EDT [facility] [address] [place] [address] Bryant Modi III, MD [address] [place] [address] 05/03/2024 1:40 PM EDT Office Visit Family Practice, [facility] [address] [place], [place] [phone] Katie Tejeda PA-C [address] [place], [place] [phone] Scheduled Procedures Name Priority Associated Diagnoses Date/Ti me COLONOSCOPY FLEXIBLE PROXIMAL DIAGNOSTIC Recall History of colonoscopy Health Maintenance Due Date Last Done Comments Pneumococcal Vaccine: Pediatrics (0 to 5 Years) and At-Risk Patients (6 to 64 Years) (1 of 2 - PCV) 1969 Cologuard 2008 Fecal Occult Blood Test 2008 Sigmoidoscopy 2008 COVID-19 Vaccine (3 - 2022-24 season) 2023 07/08/2021, 06/17/2021 Mammogram 05/10/2024 05/10/2023, [...] this encounter Medical Devices Implanted Type Area Emergency Room Technician Device Identifier Shelf Expiration Date Model / Serial / Lot Device Tvt [id number] - [id number] Implanted:Qty: 1 on 04/15/2008 at OR [facility] N/A: Vagina Gynecare 11/17/2010 [id number] / / [id number] Mirena Iud Implanted:Qty: 1 on 09/16/2009 at OR [facility] C[employer] 12/26/2009 / / [id number] Description:Mirena IUDCharge d for in HAIR BOILER OPERATOR Clinic Screw Micro 16mm At2-C16-S - [id number] Implanted:Qty: 1 on 08/05/2014 at OR [facility] Left: Hand ACUMED 03/15/2015 AT2-C16-S / / [id number] documented as of this encounter Visit Diagnoses Diagnosis Hospital discharge follow-up- Primary Other follow-up examination Complicated UTI (urinary tract infection) Urinary tract infection, site not specified Moderate persistent asthma without complication Unspecified asthma Rheumatoid arthritis involving multiple sites with positive rheumatoid factor (HCC) documented in this encounter Additional Health Concerns Infection Onset Date Last Indicated Resolved Time ESBL 12/20/2023 12/20/2023 documented as of this encounter Advance Directives Documents on File Type Date Recorded Patient Branch Office Administrator Expl anation Advance Directives and Living Will 11/19/2004 Power of Channel Cementer Insole Machine 11/19/2004 Latest Code Status on File Code [...] the patient have Health Care Power of Channel Cementer Insole Machine? No Full Code 09/27/2014 1:15 PM 09/27/2014 6:08 PM Thi s order reflects the patients wishes and were consensually agreed upon. Full Code 09/27/2014 9:18 AM 09/27/2014 1:15 PM Thi s order reflects the patients wishes and were consensually agreed upon. Care Teams Oil Pipeline Operator Relationship Specialty Start Date End Date Katie Tejeda PA-C [address] [place] [id number] PCP - General Physician Gang Supervisor 09/05/19 documented as of this encounter
--- OUTSIDE RECORDS SUMMARY | 2024-06-27 05:58 | External Medical Summary | Summary of Care ---
Author Name Unknown Organization [facility] Address [address] [place] [address] Phone [phone] Care Team Providers Care Inspection Manager Name Role Phone Katie Tejeda PA-C Primary Care Provider Reason for Visit * Reason Onset Date Comments Appointment 12/23/2023 Encounter Details Date Type Department Care Team (Late st Contact Info) Description 12/23/2023 Telephone Access Center, [facility] [address] [facility] *DO NOT REMOVE THIS DEPARTMENT* [place], [place] [phone] Services, Scheduling [address] [place] [address] Appointment Allergies Active Allergy Reactions Criticality Noted Date Comments Leflunomide Itching,Rash High 04/14/2017 After taking med for 3 months she had terrible rash and itching Hydroxychloroquine Sulfate 7 Rash documented as of this encounter (statuses as of 12/30/2023) Medications Medication Sig Dispensed Refills Start Date End Date Status hydrOXYzine HCl 25 MG tablet 1-2 tabs every 6 hours as needed 120 Tab 1 7 Active Additional Information Patient not taking.Reported on 12/24/2023 [facility] Natural Products (TURMERIC CURCUMIN) CAPS Take 2 Capsules by mouth in the morning. 0 Active fluticasone-salmete rol (ADVAIR DISKUS) 250-50 MCG/DOSE inhaler Inhale 1 Puff by mouth every 12 hours. Rinse mouth after each use. 1 Inhaler 5 9 Active Albuterol Sulfate (VENTOLIN HFA) 108 (90 Base) MCG/ACT AERS Inhale 2 Puffs by mouth every 4 hours as needed for Wheezing. 1 Inhaler 11 9 Active Additional Information Patient not taking.Reported on 12/24/2023 valACYclovir (VALTREX) 1000 MG TabletIndications:R ecurrent cold [...] OR OTHER MEDICATIONS 90 Tablet 3 3 04/05/20 24 Active Adalimumab 40 MG/0.8ML Subcutaneous Pen-injector Kit [...] until clear 80 g 1 4 Active Erythromycin 5 MG/GM Ophthalmic Ointment Instill 0.25 Inches into both eyes at bedtime. 3.5 g 5 4 Active prednisoLONE Acetate 1 % Ophthalmic Suspension (Pred Forte) Instill 1 Drop into the left eye in the morning and 1 Drop at noon and 1 Drop in the evening and 1 Drop before bedtime. 10 mL 2 4 Active FLUoxetine HCl 20 MG Oral Capsule (PROzac)Indications :Mood disorder (HCC) TAKE ONE CAPSULE BY MOUTH EVERY MORNING 90 Capsule 3 4 11/13/19 25 Active Furosemide 20 MG Oral Tablet (Lasix)Indications: Venous insufficiency TAKE ONE TABLET BY MOUTH EVERY MORNING 90 Tablet 3 4 11/13/19 25 Active Nitrofurantoin Monohyd Macro 100 MG Oral Capsule (Macrobid)Indicatio ns:UTI symptoms Take 1 Capsule by mouth in the morning and 1 Capsule before bedtime. Do all this for 7 days. 14 Capsule 0 4 12/27/19 24 Discontinued documented as of this encounter (statuses as of 12/30/2023) Active Problems Problem Noted Date Diagnosed Date [...] urine 11/17/2015 Fatty liver 05/20/2014 Overview: [facility] [place]GD U/S Obstructive sleep apnea of adult 04/02/2009 Female stress incontinence 04/15/2008 Hypothyroidism Moderate persistent asthma without complication Overview: excercise induced documented as of this encounter (statuses as of 12/30/2023) Resolved Problems Problem Noted Date Diagnosed Date [...] as of this encounter (statuses as of 12/30/2023) Immunizations Name Administration Dates Next Due COVID-19 [...] No 05/08/2017 documented as of this encounter Miscellaneous Notes * Telephone Encounter - Laurie Monzon OSA - 12/23/2023 7:16 AM EST Patient cancelled her 6 week return with and for today due to being ill. Both providers do not have anything available on the same day. documented in this encounter Plan of Treatment Upcoming Encounters Date Type Department Care Team (Late st Contact Info) Description 01/02/2024 12:30 PM EDT Office Visit [facility] [address] [place] [address] Katie Tejeda PA-C [address] [place] [address] 01/02/2024 1:30 PM EDT Nurse Only [facility] [address] [address] [place], Infusion Chair 1 [facility] Infusion [address] [address] 01/05/2024 1:00 PM EDT Office Visit [facility] [address] [place] [address] Dion Whitney MD [address] [place] [address] Carmine Huang MD [address] [place] [phone] 02/20/2024 7:30 AM EDT Office Visit Rheumatology, [place] [address] [place] [address] Bryant Modi III, MD [address] [place] [address] 05/03/2024 1:40 PM EDT Office Visit Family Practice, [facility] [address] [place] [address] Katie Tejeda PA-C [address] [place] [address] Scheduled Procedures Name Priority Associated Diagnoses Date/Ti me COLONOSCOPY FLEXIBLE PROXIMAL DIAGNOSTIC Recall History of colonoscopy Health Maintenance Due Date Last Done Comments Pneumococcal Vaccine: Pediatrics (0 to 5 Years) and At-Risk Patients (6 to 64 Years) (1 of 2 - PCV) 1969 Cologuard 2008 Fecal Occult Blood Test 2008 Sigmoidoscopy 2008 Depression Screening 07/25/2021 07/25/2020 COVID-19 Vaccine (2022- season) 2023 07/08/2021, 06/17/2021 Mammogram 05/10/2024 05/10/2023, 04/17, 04/22/2022, Additional history exists TSH 05/12/2024 05/12/2023, 03/18, 01/28/2023, Additional history exists Colonoscopy 05/20/2024 05/20/2014, 05/20/2014 Colorectal Cancer Screening 05/20/2024 PAP SMEAR-EVERY 5 YRS,AGES 21-100 07/17/2024 07/17/2019, 12/15/2015, 12/15/2011, Additional history exists GFR 12/26/2024 12/27/2023, 12/15, 12/25/2023, Additional history exists Albumin/Creatinine Ratio 11/18/2025 11/18/2022, [...] this encounter Medical Devices Implanted Type Area Lock Assembler Device Identifier Shelf Expiration Date Model / Serial / Lot Device Tvt [id number] - [id number] Implanted:Qty: 1 on 04/15/2008 at [place] [facility] N/A: Vagina Gynecare 11/17/2010 [id number] / / [id number] Mirena Iud Implanted:Qty: 1 on 09/16/2009 at OR [facility] [employer] 12/26/2009 / / [id number] Description:Mirena IUDCharge d for in CRACKING MACHINE OPERATOR Clinic Screw Micro 16mm At2-C16-S - [id number] Implanted:Qty: 1 on 08/05/2014 at OR [facility] Left: Hand ACUMED 03/15/2015 AT2-C16-S / / [id number] documented as of this encounter Additional Health Concerns Infection Onset Date Last Indicated Resolved Time ESBL 12/20/2023 12/20/2023 documented as of this encounter Advance Directives Documents on File Type Date Recorded Patient Machining Associate Expl anation Advance Directives and Living Will 11/19/2004 Power of Coffee Supervisor 11/19/2004 Latest Code Status on File Code [...] the patient have Health Care Power of Coffee Supervisor? No Full Code 09/27/2014 1:15 PM 09/27/2014 6:08 PM Thi s order reflects the patients wishes and were consensually agreed upon. Full Code 09/27/2014 9:18 AM 09/27/2014 1:15 PM Thi s order reflects the patients wishes and were consensually agreed upon. Care Teams Inspection Manager Relationship Specialty Start Date End Date Katie Tejeda PA-C [address] [place] [address] [place]IGA [id number] PCP - General Physician Bdr 09/05/19 documented as of this encounter
[2024-06-27 06:10] LABS: BUN Creatinine Ratio 21.9 (10-20); Calcium 8.7 mg/dl (8.6-10.3); Creatinine Clr Calc Pharmacy 156.4 ml/min; Est GFR (African American) 111.6 ml/min; Est GFR (Non-African American) 96.3 ml/min; Magnesium 1.8 mg/dl (1.7-2.4); Potassium 4.1 mmol/L (3.5-5.1)
[2024-06-27 06:32] LABS: D Dimer 930 ug/L FEU (0-500)
[2024-06-27] MEDS: ALBUT/IPRATROP 3MG/0.5MG NEB 3 ML VIAL NEB SCH (07:07)
[2024-06-27] MEDS: OPTIRAY 320 125ml IV ONE (08:00)
--- NOTE | 2024-06-27 08:31 | XRay Report ---
XR chest 1V portable HISTORY: Dyspnea COMPARISON: None. FINDINGS: No pneumothorax. No pleural effusions. The cortex and what is mildly enlarged. There is mil d central pulmonary vascular congestion without overt edema. No acute fractures. No focal lung consol idations to suggest pneumonia. IMPRESSION: Cardiomegaly and mild pulmonary vascular congestion without overt edema. ACT 112: Negative or not required by law. Electronically signed by: Blaze Mix M.D. 06/27/2024 8:30 AM
--- NOTE | 2024-06-27 08:39 | CT Scan Report ---
CT angio chest PE protocol CLINICAL HISTORY: PE TECHNIQUE: Multidetector row helical CT of the chest was performed with angiographic protocol. Longoria l and sagittal reformations were obtained. Coronal and sagittal MIPS were obtained from the axial estephania a set and were submitted for review. Automated dose lowering techniques and/or adjustment according to patient size were utilized for this exam. CT DOSE: 827.33 mGy.cm Comparison: Comparison is made to chest radiograph 06/26/2024 FINDINGS: Lungs and pleura: There is a 2 mm left upper lobe (series 4 image 163) and 7 mm nodule in the right l ower lobe (image 77). Heart and pericardium: Cardiomegaly is seen with biatrial enlargement. Vessels: Evaluation for pulmonary embolism is limited due to suboptimal contrast timing. No evidence of central or lobar embolus. Mediastinum and shayla: Unremarkable. Chest wall and lower neck: Unremarkable. Abdomen: Unremarkable. Bones: Degenerative changes in the thoracic spine. IMPRESSION: 1. Limited exam due to body habitus and contrast timing with no evidence of pulmonary embolus. 2. Pulmonary nodules measuring up to 7 mm. According to Fleischner criteria, CT chest should be perf ormed at 6-12 months. In high-risk patients, a 18-24 month follow-up is recommended, in low-risk diana ents, this 18-24 month follow-up CT is optional. ACT 112: Negative or not required by law. Electronically signed by: Ranjith Blancas M.D. 06/27/2024 8:38 AM
--- NOTE | 2024-06-27 08:52 | Ultrasound Report ---
BILATERAL LOWER EXTREMITY VENOUS DOPPLER HISTORY: lower ext edema, elevated d dimer. dvt? COMPARISON STUDY: None. FINDINGS: Suboptimal evaluation of the lower extremity deep venous system due to the patient's body h abitus. Specifically, the calf veins are not well visualized. However, there appears to be normal com pressibility, flow, and augmentation within the bilateral lower extremity deep venous systems. IMPRESSION: No definite DVT within the right or left lower extremity. ACT 112: Negative or not required by law. Electronically signed by: Blaze Mix M.D. 06/27/2024 8:51 AM
--- NOTE | 2024-06-27 10:36 | Pulmonary Consultation ---
Date of Consultation June 27, 2024 Assessment & Plan (1) SOB (shortness of breath): (2) (HFpEF) heart failure with preserved ejection fraction: (3) PEDRO (obstructive sleep apnea): (4) Elevated brain natriuretic peptide (BNP) level: Plan CTA chest 06/27/2024 personally reviewed: Motion degraded study Left upper lobe 3 mm pulmonary nodule, 7 mm right lower lobe pulmonary nodule Cardiomegaly No significant mediastinal lymphadenopathy 2D echo 06/27/2024: EF 65-70%, grade 2 diastolic dysfunction, moderate concentric LVH, RV normal in size and function --Asthma with worsening shortness of breath On Advair 250-50 at home Patient is not wheezing on physical exam Respiratory bio fire negative for everything on 06/27/2024 BNP 169 It is unclear if patient truly has asthma There is no family history of asthma Patient denies any seasonal allergies. --Multiple pulmonary nodules Largest being 7 mm in the right lower lobe Given the patient is lifetime non-smoker I do not think these nodules need surveillance -- PEDRO On BiPAP Continue with the same setting -- Morbid obesity Advised to lose weight diet and exercise Plan: She says she uses Advair on a regular basis but does not find significant benefit from it. No wheezing on physical exam. The only recommendation I would have is to give a trial of nebulized budesonide and Brovana in place of Advair and to continue even at home to see if she finds any difference from it. I do highly recommend to keep the patient negative balance. The etiology for her shortness of breath is most likely BMI as well as HFpEF Weight loss will be advised Case was discussed with primary team Please note the above document was generated using voice recognition software. It may contain grammatical, syntax or spelling errors.Any formal questions or concerns about the content, text or information contained within the body of this dictation should be directly addressed to the provider for clarification. History of Present Illness Attending Physician: Lily Randolph MD History of Present Illness 59-year-old female present to the hospital with complaints of shortness of breath Past medical history: Rheumatoid arthritis on adalimumab, PEDRO, asthma, hypothyroidism Pulmonary consulted for shortness of breath. At the time of examination patient was sitting at the edge of the bed. She was saturating 97% on room air with heart rate in the high 60s. She stated that she has been having shortness of breath since May progressively getting worse. She uses Advair 250-50, 1 puff twice a day on a regular basis. She also uses albuterol twice a day and has not found any benefit from it. She denies any significant weight gain in the recent past. No fever or chills No dysuria, no diarrhea Denies any cough No chest pain. She also takes Lasix 40 mg on a daily basis and is compliant with it She 40 mg of Lasix when she came to the hospital. She says that she is already feeling better compared to before Social history: Lifetime non-smoker No pets at home Denies any seasonal allergies Allergies Allergy/AdvReac Type Severity Reaction Status Date / Time hydroxychloroquine Allergy Unverified 06/27/24 03:30 [From Plaquenil] leflunomide [From Arava] Allergy Itching Verified 06/27/24 03:30 Home Medications Medication Instructions Recorded Confirmed Type adalimumab 40 mg/0.8 mL 40 mg subcut UD 06/26/24 06/26/24 History subcutaneous pen kit (Humira Pen) albuterol sulfate 90 mcg/actuation 2 puff inhalation Q4H PRN 06/26/24 06/26/24 History aerosol inhaler Shortness Of Breath Or Wheezing estradiol 0.01% (0.1 mg/gram) 1 applic vaginal UD 06/26/24 06/26/24 History vaginal cream fluoxetine 20 mg capsule 20 mg PO DAILY 06/26/24 06/26/24 History fluticasone 250 mcg-salmeterol 50 1 inh inhalation BID 06/26/24 06/26/24 History mcg/dose blistr powdr for inhalation furosemide 20 mg tablet 40 mg PO DAILY 06/26/24 06/26/24 History levothyroxine 100 mcg tablet 100 mcg PO DAILY 06/26/24 06/26/24 History sulfasalazine 500 mg tablet 1,500 mg PO BID 06/26/24 06/26/24 History Patient History Social History Smoking Status: Never smoker Second Hand Exposure: No; Do You Dip or Chew Tobacco: No; Tobacco Cessation Education Requested by Patient: No Hx Alcohol Use: No Hx Substance Use: No Preferred Language: [place] Communication Ability: Effective [place] Required: No Beliefs That Will Affect Care: None Current Living Situation: Spouse Other Information That Helps Us Care for You: No Feels Safe at Home: Yes Safety Concerns: Feels Safe At This Time Assistive Devices: CPAP Review of Systems 2 Review of Systems: All systems reviewed & are unremarkable except as noted in HPI & below Physical Exam 2 Physical Exam: Constitutional: No acute distress HEENT: EOMI, PERRLA, short thick neck Respiratory system: Good air entry bilaterally, no wheeze, no rhonchi, no crackles CVS: S1-S2 positive, no murmurs or gallops Abdomen: Soft, nontender, nondistended, positive bowel sounds x4 Extremities: +2 pulses bilaterally radialis/ dorsalis pedis, no cyanosis, +2 pitting edema bilateral lower extremity Neuro: Awake alert oriented x3 Psych: Normal mood and affect G/U: No Hill Skin: no rashes, warm and dry Lymphatic: no cervical or axillary lymphadenopathy Results & Data Results & Data Vital Signs (Past 12 Hours) Vital Signs Temp Pulse Pulse Resp BP BP Pulse Ox 06/27/24 10:27 18 98 06/27/24 08:11 36.3 C L 60 17 133/70 95 06/27/24 08:09 55 L 06/27/24 07:07 57 L 18 91 06/27/24 04:33 69 162/79 H 06/27/24 02:30 64 25 H 96 06/27/24 01:47 06/27/24 01:37 80 06/27/24 01:30 06/27/24 01:30 36.9 C 81 22 162/81 H 06/26/24 23:00 82 24 168/91 H 94 Pulse Ox O2 Del Method O2 Del Method O2 Flow Rate 06/27/24 10:27 Room Air 06/27/24 08:11 Nasal Cannula 2 06/27/24 08:09 06/27/24 07:07 BiPAP 3 06/27/24 04:33 06/27/24 02:30 3 06/27/24 01:47 96 Nasal Cannula 06/27/24 01:37 06/27/24 01:30 Nasal Cannula 3 06/27/24 01:30 Nasal Cannula 3 06/26/24 23:00 Nasal Cannula 2 Laboratory Results 06/27/24 05:31 06/27/24 05:31 PG Care Time/CCT Total # of Minutes Spent Total Time Spent with Patient: Total time spent is greater than 50% in coordination of care (as documented) at patient's floor/unit and/or counseling patient: Coding [place] [address] INT INP/OBS CARE MIN Patient Type Established Diagnoses SOB (shortness of breath) R06.02 (HFpEF) heart failure with preserved ejection fraction I50.30 PEDRO (obstructive sleep apnea) G47.33 Elevated brain natriuretic peptide (BNP) level R79.89
[2024-06-27] MEDS: FLUTICASONE/VILANTEROL 200/25MCG 14 PUFFS/INHALER INH SCH (10:58)
[2024-06-27] MEDS: sulfaSALAzine 500 MG TABLET PO SCH (10:58)
[2024-06-27] MEDS: ENOXAPARIN INJ 40 MG/0.4 ML SYR SQ SCH (10:58)
[2024-06-27] MEDS: FLUoxetine HCL 20 MG CAP PO SCH (10:59)
[2024-06-27] MEDS: FUROSEMIDE 40 MG TAB PO SCH (10:59)
--- NOTE | 2024-06-27 12:44 | Cardiology Consultation ---
Date of Consultation June 27, 2024 Assessment & Plan (1) SOB (shortness of breath): (2) (HFpEF) heart failure with preserved ejection fraction: Plan Assessment: 59 year old female with multiple co-morbidities presents with two weeks of progressive dyspnea above baseline, hypoxic on SP02 monitoring presents for volume overload. Plan: 1. Shortness of breath 2. HFpEF -Patient appear hypervolemic on exam. -No evidence of a acute infectious process -Reports compliance on recent furosemide adjustment (was discharged from [facility] on Furosemide 40mg QD) -Reports that she does try to limit her salt intake, but does not report adherence to a 2000mg sodium restriction. She did attend a family picnic, but does not feel that she over indulged in any salty foods. -Renal function and electrolytes stable. Encourage close monitoring. Goal Serum K> 4.0 and Serum mag > 2.0 -Strict I&O as well as daily weights with standing scale or chair scale. -CHF teaching -Patient may benefit from an additional dose of IV Furosemide this evening with reassessment of fluid status in the AM. Will discuss with Dr. Prabhakar. -Echocardiogram shows no significant change when compared to study one month ago. -Grade II Diastolic dysfunction in a patient with likely hypoventilation syndrome. -Compliant with BiPap, even while here visiting. -discussed likely pulmonary component and encouraged to follow up with family doctor upon returning home for consideration for PFT's. -Reviewed EKG, Telemetry and negative troponin labs with patient. There is no evidence of ischemic change. Given patient's co-morbidities and family history, did discuss that her PCP should pursue PFT's and may consider OP stress testing if her exertional status continues to worsen. -BP above target. Would recommend addition of Derik-I or ARB given her known diastolic dysfunction. Case has been discussed with Dr. Prabhakar. Further recommendations regarding plan of care as per his assessment. I spent a total of 40 minutes on the date of service in preparation, delivery, documentation of the care provided to the patient excluding any time spent in the performance of separately billed services. LOLLY Medina [facility] [employer] Supervising Physician Co-Signing Physician Notes Patient was seen and personally examined. Full assessment and plan as outlined by advanced provider as above. Care and management discussed and endorsed 59-year-old female with ongoing issues which include morbid obesity with hypoventilation, sleep apnea on BiPAP at night Recent difficulties with acute on chronic diastolic heart failure with preserved ejection fraction, right heart greater than left Plan additional IV diuretics and Will need ongoing assistance and optimization of medical therapy outpatient cardiology follow-up at [facility] Will recommend changing furosemide to torsemide 20 mg p.o. daily on Add spironolactone to her regimen Will warrant further antihypertensives given diabetes DERIK or ARB indicated with close laboratory follow-up Suggest reassessment of efficacy of BiPAP and need for nocturnal oxygen supplementation Sodium and fluid restriction with CHF instructions History of Present Illness Reason for Consultation: Acute HF exacerbation Requesting Physician: [facility] hospitalist Attending Physician: Lily Randolph MD History of Present Illness HPI: Patient is a 59 year-old female with PMHx significant for hypothyroidism, obstructive sleep apnea, moderate persistent asthma, restrictive lung disease, chronic venous sufficiency, hypertension, morbid obesity, chronic lymphedema, fatty liver, female stress incontinence, urge incontinence of urine, history of recent complicated UTI, history of ESBL infection, rheumatoid arthritis, and mood disorder that presented to the ED with complaints of shortness of breath. patient is from the [place], [place] area, but is in town visiting a friend. She states that over the past two weeks she has been noting progressively worsening shortness of breath and decided to check her pulse oximetry at home which she reports was "very low" prompting her to come in for evaluation. Of note, Patient was recently hospitalized at [facility] from 05/30-06/01/24 for volume overload and UTI. Hospital course as obtained from [facility] records is as follows. HOSPITAL COURSE (focused): Patient presented to [facility] ED on 05/30 for evaluation of SOB and LE edema. Also endorsing RLQ and suprapubic tenderness. Workup significant for UTI and CT showing right ovarian abnormality (recommending MRI). Patient started on IV cefepime (discussed with ID pharmacist) 2/2 hx ESBL in December while culture pending. She received IV diuresis and responded well to therapy. TTE obtained an d grossly unremarkable with normal EF. MRI obtained of pelvis negative for ovarian torsion, but showing right ovarian cyst/ follicle with possible rupture. Urine culture positive for E. Coli susceptible to Macrobid. Patient remained stable on room air throughout admission and verbalized improvement in dyspnea and LE edema. She is -6.5 kg during admission. Patient discharged on increased dose of lasix, follow up with PCP, and referral to ONCOLOGY ACCOUNT SPECIALIST, and Pulm/STAIR program. EKG upon admission to [facility] demonstrates NSR rate 87bpm Chest xray: IMPRESSION: Cardiomegaly and mild pulmonary vascular congestion without overt edema. D-dimer elevated. CTA chest IMPRESSION: 1. Limited exam due to body habitus and contrast timing with no evidence of pulmonary embolus. 2. Pulmonary nodules measuring up to 7 mm. According to Fleischner criteria, CT chest should be performed at 6-12 months. In high-risk patients, a 18-24 month follow-up is recommended, in low-risk patients, this 18-24 month follow-up CT is optional. Venous Doppler lower extremities IMPRESSION: No definite DVT within the right or left lower extremity. High Sensitivity troponin negative x2 Upon seeing patient today she is sitting up on side of bed. She demonstrates increased work of breathing with carrying a conversation and a few audible wheezes. She denies any chest pain, pressure or palpitations. She does; however, report that she is short of breath with minimal exertion. Reports chronic lower extremity edema s/t venous insufficiency and lymph edema, but reports it is improved since admission. Her home dose of diuretic has been 40mg daily since discharge in May. She does endorse some salt intake, but does not feel it is excessive. She was at a family reunion over the weekend, but denies excessive salt intake because she "just didn't feel good". No recent URI symptoms, no fever or chills. Review of telemetry shows SR with rare 3-4 beat runs of Atrial tachycardia/PAC's. Rates 50-80's. Allergies Allergy/AdvReac Type Severity Reaction Status Date / Time hydroxychloroquine Allergy Unverified 06/27/24 03:30 [From Plaquenil] leflunomide [From Arava] Allergy Itching Verified 06/27/24 03:30 Home Medications Medication Instructions Recorded Confirmed Type adalimumab 40 mg/0.8 mL 40 mg subcut UD 06/26/24 06/26/24 History subcutaneous pen kit (Humira Pen) albuterol sulfate 90 mcg/actuation 2 puff inhalation Q4H PRN 06/26/24 06/26/24 History aerosol inhaler Shortness Of Breath Or Wheezing estradiol 0.01% (0.1 mg/gram) 1 applic vaginal UD 06/26/24 06/26/24 History vaginal cream fluoxetine 20 mg capsule 20 mg PO DAILY 06/26/24 06/26/24 History fluticasone 250 mcg-salmeterol 50 1 inh inhalation BID 06/26/24 06/26/24 History mcg/dose blistr powdr for inhalation furosemide 20 mg tablet 40 mg PO DAILY 06/26/24 06/26/24 History levothyroxine 100 mcg tablet 100 mcg PO DAILY 06/26/24 06/26/24 History sulfasalazine 500 mg tablet 1,500 mg PO BID 06/26/24 06/26/24 History Patient History Social History Smoking Status: Never smoker Second Hand Exposure: No; Do You Dip or Chew Tobacco: No; Tobacco Cessation Education Requested by Patient: No Hx Alcohol Use: No Hx Substance Use: No Preferred Language: Yoruba Communication Ability: Effective Health Aide Required: No Beliefs That Will Affect Care: None Current Living Situation: Spouse Other Information That Helps Us Care for You: No Feels Safe at Home: Yes Safety Concerns: Feels Safe At This Time Assistive Devices: CPAP Review of Systems Review of Systems: All systems reviewed & are unremarkable except as noted in HPI & below Physical Exam Constitutional: + obese; no acute distress and not ill a ppearing Respiratory: normal respiratory effort; no labored breathing, no retractions and no cough Auscultation: + diminished lung sounds (bilateral bases) and + wheezes (few exp wheezes upper lobes ); no crackles, no rales and no rhonchi Cardiovascular: Rate/Rhythm: regular rate and regular rhythm Heart Sounds: normal S1 and normal S2; no murmur Vessels: dorsalis pedis pulses present Extremities: + edema (difficult to assess due to body habitus. +1 BLE) Skin: no rashes, warm and dry Psychiatric: A+Ox3, euthymic affect Results & Data Vital Signs (Past 12 Hours) Vital Signs Temp Pulse Pulse Resp BP Pulse Ox Pulse Ox 06/27/24 11:26 36.7 C 78 18 156/83 H 97 06/27/24 10:27 18 98 06/27/24 08:11 36.3 C L 60 17 133/70 95 06/27/24 08:09 55 L 06/27/24 07:07 57 L 18 91 06/27/24 04:33 69 162/79 H 06/27/24 02:30 64 25 H 96 06/27/24 01:47 96 06/27/24 01:37 80 06/27/24 01:30 06/27/24 01:30 36.9 C 81 22 162/81 H O2 Del Method O2 Del Method O2 Flow Rate 06/27/24 11:26 Room Air 06/27/24 10:27 Room Air 06/27/24 08:11 Nasal Cannula 2 06/27/24 08:09 06/27/24 07:07 BiPAP 3 06/27/24 04:33 06/27/24 02:30 3 06/27/24 01:47 Nasal Cannula 06/27/24 01:37 06/27/24 01:30 Nasal Cannula 3 06/27/24 01:30 Nasal Cannula 3 Laboratory Results Cardiac Enzymes 06/26/24 06/26/24 06/27/24 Range/Units 20:09 20:09 05:31 AST 52 H (13-39) U/L Troponin I High Sens 11.8 Cancelled 6.0 D (0-14) pg/ml B-Natriuretic Peptide 169 H (0-100) pg/ml Coagulation 06/26/24 Range/Units 20:09 PT 10.9 (9.0-12.0) Seconds B-Natriuretic Peptide 169 H (0-100) pg/ml CBC 06/26/24 06/27/24 Range/Units 20:09 05:31 WBC 7.89 6.31 (4.8-10.8) K/ul RBC 4.15 L 4.14 L (4.20-5.40) M/uL Hgb 12.4 12.0 (12.0-16.0) g/dl Hct 38.3 37.9 (37.0-47.0) % Plt Count 155 152 (130-400) K/uL Neut # (Auto) 6.09 5.65 (1.40-6.50) K/uL Lymph # (Auto) 1.12 L 0.47 L (1.20-3.40) K/uL Piatt # (Auto) 0.63 H 0.16 (0.11-0.59) K/uL Eos # (Auto) 0.00 0.00 (0.00-0.50) K/uL Baso # (Auto) 0.03 0.02 (0.00-0.20) K/uL Comprehensive Metabolic Panel 06/26/24 06/27/24 Range/Units 20:09 05:31 Sodium 143 141 (136-145) mmol/L Potassium 3.9 4.1 (3.5-5.1) mmol/L Chloride 106 107 (98-107) mmol/L Carbon Dioxide 30 28 (21-32) mmol/L BUN 17 14 (6-23) mg/dl Creatinine 0.78 0.64 (0.6-1.2) mg/dl Glucose 125 H 154 H (70-99(Fasting)) mg/dl Calcium 8.8 8.7 (8.6-10.3) mg/dl AST 52 H (13-39) U/L ALT 61 H (7-52) U/L Alkaline Phosphatase 94 (34-104) U/L Total Protein 7.2 (6.0-8.3) gm/dl Albumin 4.0 (3.4-5.0) gm/dl Intake and Output 06/26/24 06/27/24 06/27/24 22:59 06:59 14:59 Output Total 1100 / 1100 Balance -1100 / -1100 Output: Urine Amount (Catheter) 1100 / 1100 External 1100 / 1100 Other: Other Intake Source SIPS Weight 169 kg 169 kg Weight Measurement Method Chair Scale Built in [facility] Diagnostic Findings Echocardiogram [facility] 05/31/2024 Interpretation Summary The examination is limited quality but adequate for evaluation of the referral indication. The qualitative LV ejection fraction is 55-59% (normal). The left ventricular wall motion is normal by limited analysis. All left ventricular segments are not visualized. The right ventricle is inadequately visualized. The IVC is not well visualized so right atrial pressure cannot be estimated. Echocardiogram [facility] Today LV normal size moderate concentric LVH LV wall motion is normal LVEF 65-70% Diastolic dysfunction, Grade II No significant valvular disease.
--- NOTE | 2024-06-27 13:28 | Electrocardiogram Report ---
Test Reason : Blood Pressure : */* mmHG Vent. Rate : 87 BPM Atrial Rate : 87 BPM P-R Int : 148 ms QRS Dur : 88 ms QT Int : 356 ms P-R-T Axes : 36 37 54 degrees QTcB Int : 428 ms Normal sinus rhythm Normal ECG No previous ECGs available Confirmed by Andrey Hooper ([id number]) on 06/27/2024 1:27:58 PM Referred By: REFERRED SELF Confirmed By: Andrey Hooper
[2024-06-27] MEDS: FUROSEMIDE 40 MG/4 ML VIAL IV SCH ×2 (13:33→16:46)
--- NOTE | 2024-06-27 16:05 | Hospitalist Progress Note ---
Date of Service June 27, 2024 Assessment & Plan (1) SOB (shortness of breath): Plan: 59-year-old female with past medical history significant for hypothyroidism, obstructive sleep apnea, moderate persistent asthma, restrictive lung disease, chronic venous sufficiency, hypertension, morbid obesity, chronic constipation, fatty liver, female stress incontinence, urge incontinence of urine, history of complicated UTI, overactive bladder, history of ESBL infection, history of rheumatoid arthritis involving multiple sites, mood disorder, lymphedema presents with shortness of breath. Patient is from [place] and she is visiting a friend locally. Patient was admitted in [place] in May with shortness of breath. Workup showed UTI and CT scan showed right ovarian abnormality. She received IV diuresis and responded well to the therapy. Echo was obtained which was unremarkable. CT chest did not show PE. For ovarian mass MRI was done which showed 2.1x 2.4 cm right ovarian lesion. Followed up with [facility] oncology and as tumor markers were negative no follow-up recommended at the time. She improved and was discharged home on June 01.. She has been having progressive dyspnea since and noted to have low oxygen sats prompting presentation to ER. Has chronic lymphedema in lower extremities and she thinks they are better than before. Shortness of breath History of restrictive lung disease Respiratory BioFire unremarkable Chest x-ray noted cardiomegaly and mild pulm vascular congestion without overt edema CTA chest limited due to body habitus, pulm nodules measuring up to 7mm Currently on room air History and exam suggestive of Heart failure exacerbation TTE showed EF 65-70%, mod conc LVH, no valvular disease, Grade II diastolic dysfunction Acute heart failure with preserved ejection fraction Cardiology consulted Will give additional IV lasix today Monitor I/O Educated on fluid and sodium restriction Check BMP and electrolytes in AM Obstructive sleep apnea BIPAP nightly Chest heaviness Troponin negative Morbid obesity Counseled regarding lifestyle modification and need for weight loss Chronic venous insufficiency Lymphedema Dopplers negative Hypertension On Lasix Will monitor Rheumatoid arthritis involving multiple sites On sulfasalazine and Humira Mood disorder On fluoxetine DVT prophylaxis Lovenox Disposition Med/telemetry Full code. I spent a total of 50 minutes coordinating, documenting and providing care for this patient excluding time spent in performance of separately billed services Admission and Anticipated Discharge Date Admission Date: June 26, 2024 Subjective Patient seen and examined Reports progressive shortness of breath over the past few weeks Denied chest pain, palpitation, nausea, vomiting, abd pain, diarrhea Denied dysuria, freq, urgency, hematuria Acknowledges compliance with meds at home and BIPAP HS Has not been on fluid restriction before. Educated about this Physical Exam Constitutional: + well hydrated and + obese; no acute di stress Eyes: PERRL, conjunctivae normal, anicteric sclerae ENMT: external ear and nose normal, oropharynx normal Respiratory: On room air, good air entry, no crackles Cardiovascular: Rate/Rhythm: regular rate and regular rhythm S1 S2 Gastrointestinal (Abdomen): normal bowel sounds, soft, nontender, no hepatosplenomegaly Musculoskeletal: Bilateral pedal edema Neurologic: PERRL, EOMI, accommodation nl, no face palsy, no dysarthria Psychiatric: A+Ox3, euthymic affect Results & Data Results & Data Vital Signs (Past 12 Hours) Vital Signs Temp Pulse Pulse Resp BP Pulse Ox O2 Del Method 06/27/24 15:21 36.6 C 74 18 132/69 95 Room Air 06/27/24 15:06 68 17 92 Room Air 06/27/24 14:59 61 06/27/24 11:26 36.7 C 78 18 156/83 H 97 Room Air 06/27/24 10:27 18 98 Room Air 06/27/24 08:11 36.3 C L 60 17 133/70 95 Nasal Cannula 06/27/24 08:09 55 L 06/27/24 07:07 57 L 18 91 BiPAP 06/27/24 04:33 69 162/79 H O2 Flow Rate 06/27/24 15:21 06/27/24 15:06 06/27/24 14:59 06/27/24 11:26 06/27/24 10:27 06/27/24 08:11 2 06/27/24 08:09 06/27/24 07:07 3 06/27/24 04:33 Laboratory Results Abnormal lab results 06/26/24 06/27/24 Range/Units 20:09 05:31 RBC 4.15 L 4.14 L (4.20-5.40) M/uL MCHC 31.7 L (32.0-36.0) g/dL RDW Std Deviation 47.3 H 46.5 H (36.4-46.3) fL Lymph # (Auto) 1.12 L 0.47 L (1.20-3.40) K/uL [place] # (Auto) 0.63 H (0.11-0.59) K/uL D-Dimer 930 H* (0-500) ug/L FEU BUN/Creatinine Ratio 21.8 H 21.9 H (10-20) Glucose 125 H 154 H (70-99(Fasting)) mg/dl AST 52 H (13-39) U/L ALT 61 H (7-52) U/L B-Natriuretic Peptide 169 H (0-100) pg/ml
[2024-06-27] MEDS: SPIRONOLACTONE 12.5 MG TAB PO SCH (17:20)
[2024-06-27] MEDS: FORMOTEROL 20 MCG/2 ML VIAL INH SCH (19:26)
[2024-06-27] MEDS: BUDESONIDE 0.25 MG/2 ML VIAL (PULMICORT) NEB SCH (19:26)
[2024-06-28 07:45] LABS: Hematocrit (blood only) 35.7 % (37.0-47.0); Hemoglobin 11.3 g/dl (12.0-16.0); Mean Corpuscular Hemoglobin 29.5 pg (25.0-34.0); Mean Corpuscular Hgb Conc 31.7 g/dL (32.0-36.0); Mean Corpuscular Volume 93.2 fL (80.0-100.0); Mean Platelet Volume 10.2 fL (9.4-12.4); Platelet Count 163 K/uL (130-400); RDW Coefficient of Variation 14.3 % (11.5-14.5); RDW Standard Deviation 48.2 fL (36.4-46.3); Red Blood Count 3.83 M/uL (4.20-5.40); White Blood Count 5.73 K/ul (4.8-10.8)
--- NOTE | 2024-06-28 07:46 | Pulmonology Progress Note ---
Date of Service June 28, 2024 Assessment & Plan (1) SOB (shortness of breath): (2) (HFpEF) heart failure with preserved ejection fraction: (3) PEDRO (obstructive sleep apnea): (4) Elevated brain natriuretic peptide (BNP) level: Plan CTA chest 06/27/2024 personally reviewed: Motion degraded study Left upper lobe 3 mm pulmonary nodule, 7 mm right lower lobe pulmonary nodule Cardiomegaly No significant mediastinal lymphadenopathy 2D echo 06/27/2024: EF 65-70%, grade 2 diastolic dysfunction, moderate concentric LVH, RV normal in size and function --Asthma with worsening shortness of breath On Advair 250-50 at home Patient is not wheezing on physical exam Respiratory bio fire negative for everything on 06/27/2024 BNP 169 It is unclear if patient truly has asthma There is no family history of asthma Patient denies any seasonal allergies. --Multiple pulmonary nodules Largest being 7 mm in the right lower lobe Given the patient is lifetime non-smoker I do not think these nodules need surveillance -- PEDRO On BiPAP Continue with the same setting -- Morbid obesity Advised to lose weight diet and exercise Plan: She says she uses Advair on a regular basis but does not find significant benefit from it. Continue with nebulized budesonide and Brovana in place of Advair and to continue even at home Continue with diuretics to keep the patient negative balance The etiology for her shortness of breath is most likely BMI as well as HFpEF Weight loss will be advised Case was discussed with primary team No further recommendation from pulmonary perspective, will sign off Please call directly with any questions Please note the above document was generated using voice recognition software. It may contain grammatical, syntax or spelling errors.Any formal questions or concerns about the content, text or information contained within the body of this dictation should be directly addressed to the provider for clarification. Admission and Anticipated Discharge Date Admission Date: June 26, 2024 Subjective Patient seen and examined at bedside. No acute distress, no adverse events overnight She was saturating 95% on room air. She stated she is feeling better compared to when she came to the hospital She has been diuresing well She used a nebulizer medication and found benefit from it. Denied any headache or blurry vision Has been afebrile Did use her BiPAP overnight Review of Systems 2 Review of Systems: All systems reviewed & are unremarkable except as noted in Subjective Physical Exam 2 Physical Exam: Constitutional: No acute distress HEENT: EOMI, PERRLA, short thick neck Respiratory system: Good air entry bilaterally, no wheeze, no rhonchi, no crackles CVS: S1-S2 positive, no murmurs or gallops Abdomen: Soft, nontender, nondistended, positive bowel sounds x4 Extremities: +2 pulses bilaterally radialis/ dorsalis pedis, no cyanosis, +1 pitting edema bilateral lower extremity Neuro: Awake alert oriented x3 Psych: Normal mood and affect G/U: No [place] Skin: no rashes, warm and dry Lymphatic: no cervical or axillary lymphadenopathy Results & Data Results & Data Vital Signs (Past 12 Hours) Vital Signs Temp Pulse Pulse Resp BP Pulse Ox O2 Del Method 06/28/24 07:07 66 20 91 Room Air 06/28/24 03:12 36.3 C L 67 19 124/65 92 CPAP 06/27/24 22:49 36.8 C 70 18 141/72 H 95 Room Air 06/27/24 22:30 67 06/27/24 21:28 Room Air, CPAP Laboratory Results 06/28/24 06:38 PG Care Time/CCT Total # of Minutes Spent Total Time Spent with Patient: Total time spent is greater than 50% in coordination of care (as documented) at patient's floor/unit and/or counseling patient: Coding Level of Care Code 75454 SUB INP/OBS CARE 2/35MIN Diagnoses SOB (shortness of breath) R06.02 (HFpEF) heart failure with preserved ejection fraction I50.30 PEDRO (obstructive sleep apnea) G47.33 Elevated brain natriuretic peptide (BNP) level R79.89
[2024-06-28 08:24] LABS: BUN Creatinine Ratio 25.6 (10-20); Calcium 8.5 mg/dl (8.6-10.3); Creatinine Clr Calc Pharmacy 119.5 ml/min; Est GFR (African American) 89.5 ml/min; Est GFR (Non-African American) 77.2 ml/min; Magnesium 1.8 mg/dl (1.7-2.4); Phosphorus 3.6 mg/dl (2.5-4.9); Potassium 3.7 mmol/L (3.5-5.1)
--- NOTE | 2024-06-28 08:50 | Cardiology Progress Note ---
Date of Service June 28, 2024 Assessment & Plan (1) SOB (shortness of breath): (2) (HFpEF) heart failure with preserved ejection fraction: Plan Assessment: 59 year old female with multiple co-morbidities presents with two weeks of progressive dyspnea above baseline, hypoxic on SP02 monitoring presents for volume overload. Plan: 1. Shortness of breath 2. HFpEF -Patient appear hypervolemic on exam. -No evidence of a acute infectious process -Reports compliance on recent furosemide adjustment (was discharged from [facility] on Furosemide 40mg QD) -Reports that she does try to limit her salt intake, but does not report adherence to a 2000mg sodium restriction. She did attend a family picnic, but does not feel that she over indulged in any salty foods. -Renal function and electrolytes stable. Encourage close monitoring. Goal Serum K> 4.0 and Serum mag > 2.0 -Strict I&O as well as daily weights with standing scale or chair scale. -CHF teaching -Patient may benefit from an additional dose of IV Furosemide this evening with reassessment of fluid status in the AM. Will discuss with Dr. Prabhakar. -Echocardiogram shows no significant change when compared to study one month ago. -Grade II Diastolic dysfunction in a patient with likely hypoventilation synd christiana. -Compliant with BiPap, even while here visiting. -discussed likely pulmonary component and encouraged to follow up with family doctor upon returning home for consideration for PFT's. -Reviewed EKG, Telemetry and negative troponin labs with patient. There is no evidence of ischemic change. Given patient's co-morbidities and family history, did discuss that her PCP should pursue PFT's and may consider OP stress testing if her exertional status continues to worsen. -BP above target. Would recommend addition of Derik-I or ARB given her known diastolic dysfunction. 06/28/2024: -Patient reports diuresing well overnight; difficult to assess output as she has incontinence issues. Weights trending down. -Discussed HFpEF in depth with patient explaining that this is a chronic disease process, reinforced CHF teaching. Grade II Diastolic dysfunction in a patient with likely hypoventilation syndrome. -Renal function and electrolytes remain stable. -Continue Spironolactone 12.5mg PO Daily. -Stressed the importance of use of BiPap at home. -She will need to have close follow up/establish care with Cardiology in her hometown ([place], [place]) as well as close follow up with PCP. -Recommend OP labs with BMP in 1-2 weeks. Case has been discussed with Dr. Prabhakar. Further recommendations regarding plan of care as per his assessment. I spent a total of 40 minutes on the date of service in preparation, delivery, documentation of the care provided to the patient excluding any time spent in the performance of separately billed services. LOLLY [facility] Cardiology [facility] Admission and Anticipated Discharge Date Admission Date: June 26, 2024 Supervising Physician Co-Signing Physician Notes Patient was seen and personally examined. Full assessment and plan as outlined by advanced provider as above. Care and management discussed and endorsed 59-year-old female with ongoing issues which include morbid obesity with hypoventilation, sleep apnea on BiPAP at night Recent difficulties with acute on chronic diastolic heart failure with preserved ejection fraction, right heart greater than left Plan additional IV diuretics again today with possible second dose later patient has responded to IV diuretics 5+ kilogram weight loss and clinical improvement. Suspect will benefit from additional day given second hospitalization for similar complaint Will need ongoing assistance and optimization of medical therapy outpatient cardiology follow-up at [facility] Office contacted to help arrange appointment Will recommend changing furosemide to torsemide 20 mg p.o. daily on discharge Continue spironolactone Will warrant further antihypertensives given diabetes DERIK or ARB indicated with close laboratory follow-up Suggest reassessment of efficacy of BiPAP and need for nocturnal oxygen supplementation Sodium and fluid restriction with CHF instructions Subjective 06/28/24:Patient seen and examined in follow up today. Feeling well overall. Reports improvement in her breathing. Patient is diuresing well, although deals with incontinence issues and therefore has a Purwick in place to assist in accurate I&O. No chest pain, pressure or palpitations. Labs, vitals, diagnostics, telemetry and documentation reviewed. Telemetry reviewed showing SR with no acute events overnight. Review of Systems Review of Systems: All systems reviewed & are unremarkable except as noted in HPI & below Physical Exam Constitutional: + obese; no acute distress and not ill a ppearing Respiratory: normal respiratory effort; no labored breathing, no retractions and no cough Auscultation: lungs clear to auscultation bilaterally; no crackles, no rales and no rhonchi Cardiovascular: Rate/Rhythm: regular rate and regular rhythm Heart Sounds: normal S1 and normal S2; no murmur Vessels: dorsalis pedis pulses present Extremities: + edema (difficult to assess due to body habitus. Trace BLE) Skin: no rashes, warm and dry Psychiatric: A+Ox3, euthymic affect Results & Data Vital Signs (Past 12 Hours) Vital Signs Temp Pulse Pulse Resp BP Pulse Ox O2 Del Method 06/28/24 08:17 36.7 C 67 20 148/68 H 90 Room Air 06/28/24 07:58 57 L 06/28/24 07:58 CPAP 06/28/24 07:07 66 20 91 Room Air 06/28/24 03:12 36.3 C L 67 19 124/65 92 CPAP 06/27/24 22:49 36.8 C 70 18 141/72 H 95 Room Air 06/27/24 22:30 67 06/27/24 21:28 Room Air, CPAP Laboratory Results CBC 06/28/24 Range/Units 06:38 WBC 5.73 (4.8-10.8) K/ul RBC 3.83 L (4.20-5.40) M/uL Hgb 11.3 L (12.0-16.0) g/dl Hct 35.7 L (37.0-47.0) % Plt Count 163 (130-400) K/uL Comprehensive Metabolic Panel 06/28/24 Range/Units 06:38 Sodium 144 (136-145) mmol/L Potassium 3.7 (3.5-5.1) mmol/L Chloride 104 (98-107) mmol/L Carbon Dioxide 34 H (21-32) mmol/L BUN 21 (6-23) mg/dl Creatinine 0.82 (0.6-1.2) mg/dl Glucose 92 (70-99(Fasting)) mg/dl Calcium 8.5 L (8.6-10.3) mg/dl Intake and Output 06/27/24 06/28/24 06/28/24 22:59 06:59 14:59 Intake Total 240 / 600 Balance 240 / -250 Intake: Oral 240 / 600 Other: Weight 163.293 kg Weight Measurement Method Built in [facility]
--- NOTE | 2024-06-28 12:34 | Hospitalist Progress Note ---
Date of Service June 28, 2024 Assessment & Plan (1) SOB (shortness of breath): Plan: 59-year-old female with past medical history significant for hypothyroidism, obstructive sleep apnea, moderate persistent asthma, restrictive lung disease, chronic venous sufficiency, hypertension, morbid obesity, chronic constipation, fatty liver, female stress incontinence, urge incontinence of urine, history of complicated UTI, overactive bladder, history of ESBL infection, history of rheumatoid arthritis involving multiple sites, mood disorder, lymphedema presents with shortness of breath. Patient is from [place] and she is visiting a friend locally. Patient was admitted in [place] in May with shortness of breath. Workup showed UTI and CT scan showed right ovarian abnormality. She received IV diuresis and responded well to the therapy. Echo was obtained which was unremarkable. CT chest did not show PE. For ovarian mass MRI was done which showed 2.1x 2.4 cm right ovarian lesion. Followed up with [facility] oncology and as tumor markers were negative no follow-up recommended at the time. She improved and was discharged home on June 01.. She has been having progressive dyspnea since and noted to have low oxygen sats prompting presentation to ER. Has chronic lymphedema in lower extremities and she thinks they are better than before. Shortness of breath Heart failure with preserved ejection fraction History of restrictive lung disease Respiratory BioFire unremarkable Chest x-ray noted cardiomegaly and mild pulm vascular congestion without overt edema CTA chest limited due to body habitus, pulm nodules measuring up to 7mm TTE showed EF 65-70%, mod conc LVH, no valvular disease, Grade II diastolic dysfunction Cardiology recs noted Currently on diuretics Discussed with [employer] Dr Prabhakar. Recommends additional IV lasix tonight and reassess in AM Monitor I/O Educated on fluid and sodium restriction Obstructive sleep apnea BIPAP nightly Chest heaviness Troponin negative Morbid obesity Counseled regarding lifestyle modification and need for weight loss Chronic venous insufficiency Lymphedema Dopplers negative Hypertension On Lasix Will monitor Rheumatoid arthritis involving multiple sites On sulfasalazine and Humira Mood disorder On fluoxetine DVT prophylaxis Lovenox Disposition Med/telemetry Full code. I spent a total of 50 minutes coordinating, documenting and providing care for this patient excluding time spent in performance of separately billed services Admission and Anticipated Discharge Date Admission Date: June 26, 2024 Subjective Patient seen and examined Reports SOB is improving Denied cough, chest pain Has chronic leg edema Denied any nausea, vomiting, abd pain Denied any other complaints Physical Exam Constitutional: + well hydrated and + obese; no acute di stress Eyes: PERRL, conjunctivae normal, anicteric sclerae ENMT: external ear and nose normal, oropharynx normal Respiratory: On room air, clear to auscultation Cardiovascular: Rate/Rhythm: regular rate and regular rhythm Gastrointestinal (Abdomen): normal bowel sounds, soft, nontender, no hepatosplenomegaly Musculoskeletal: Bilateral leg edema Neurologic: PERRL, EOMI, accommodation nl, no face palsy, no dysarthria Psychiatric: A+Ox3, euthymic affect Results & Data Results & Data Vital Signs (Past 12 Hours) Vital Signs Temp Pulse Pulse Pulse Resp BP Pulse Ox 06/28/24 12:07 36.8 C 78 16 137/82 87 L 06/28/24 11:35 72 20 93 06/28/24 08:17 36.7 C 67 20 148/68 H 90 06/28/24 07:58 57 L 06/28/24 07:58 06/28/24 07:07 66 20 91 06/28/24 03:12 36.3 C L 67 19 124/65 92 O2 Del Method 06/28/24 12:07 Room Air 06/28/24 11:35 Room Air 06/28/24 08:17 Room Air 06/28/24 07:58 06/28/24 07:58 CPAP 06/28/24 07:07 Room Air 06/28/24 03:12 CPAP Laboratory Results Abnormal lab results 06/28/24 Range/Units 06:38 RBC 3.83 L (4.20-5.40) M/uL Hgb 11.3 L (12.0-16.0) g/dl Hct 35.7 L (37.0-47.0) % MCHC 31.7 L (32.0-36.0) g/dL RDW Std Deviation 48.2 H (36.4-46.3) fL Carbon Dioxide 34 H (21-32) mmol/L BUN/Creatinine Ratio 25.6 H (10-20) Calcium 8.5 L (8.6-10.3) mg/dl
[2024-06-28] MEDS: TORSEMIDE 20 MG TAB PO SCH (13:21)
[2024-06-28] MEDS: FUROSEMIDE 40 MG/4 ML VIAL IV ONE (17:43)
[2024-06-29 06:33] LABS: Hematocrit (blood only) 35.3 % (37.0-47.0); Hemoglobin 11.4 g/dl (12.0-16.0); Mean Corpuscular Hemoglobin 29.2 pg (25.0-34.0); Mean Corpuscular Hgb Conc 32.3 g/dL (32.0-36.0); Mean Corpuscular Volume 90.3 fL (80.0-100.0); Mean Platelet Volume 9.9 fL (9.4-12.4); Platelet Count 174 K/uL (130-400); RDW Coefficient of Variation 14.2 % (11.5-14.5); RDW Standard Deviation 46.3 fL (36.4-46.3); Red Blood Count 3.91 M/uL (4.20-5.40); White Blood Count 4.44 K/ul (4.8-10.8)
[2024-06-29 06:42] LABS: BUN Creatinine Ratio 26.4 (10-20); Calcium 8.4 mg/dl (8.6-10.3); Creatinine Clr Calc Pharmacy 110.9 ml/min; Est GFR (African American) 83.3 ml/min; Est GFR (Non-African American) 71.9 ml/min; Potassium 3.7 mmol/L (3.5-5.1)
[2024-06-29 08:17] VITALS: BP 119/71; RESP 18; TEMP 98.2
--- NOTE | 2024-06-29 08:50 | Cardiology Progress Note ---
Date of Service June 29, 2024 Assessment & Plan (1) SOB (shortness of breath): (2) (HFpEF) heart failure with preserved ejection fraction: Plan Assessment: 59 year old female with multiple co-morbidities presents with two weeks of progressive dyspnea above baseline, hypoxic on SP02 monitoring presents for volume overload. Plan: 1. Shortness of breath 2. HFpEF -Patient appear hypervolemic on exam. -No evidence of a acute infectious process -Reports compliance on recent furosemide adjustment (was discharged from [facility] on Furosemide 40mg QD) -Reports that she does try to limit her salt intake, but does not report adherence to a 2000mg sodium restriction. She did attend a family picnic, but does not feel that she over indulged in any salty foods. -Renal function and electrolytes stable. Encourage close monitoring. Goal Serum K> 4.0 and Serum mag > 2.0 -Strict I&O as well as daily weights with standing scale or chair scale. -CHF teaching -Patient may benefit from an additional dose of IV Furosemide this evening with reassessment of fluid status in the AM. Will discuss with Dr. Prabhakar. -Echocardiogram shows no significant change when compared to study one month ago. -Grade II Diastolic dysfunction in a patient with likely hypoventilation synd christiana. -Compliant with BiPap, even while here visiting. -discussed likely pulmonary component and encouraged to follow up with family doctor upon returning home for consideration for PFT's. -Reviewed EKG, Telemetry and negative troponin labs with patient. There is no evidence of ischemic change. Given patient's co-morbidities and family history, did discuss that her PCP should pursue PFT's and may consider OP stress testing if her exertional status continues to worsen. -BP above target. Would recommend addition of Derik-I or ARB given her known diastolic dysfunction. 06/28/2024: -Patient reports diuresing well overnight; difficult to assess output as she has incontinence issues. Weights trending down. -Discussed HFpEF in depth with patient explaining that this is a chronic disease process, reinforced CHF teaching. Grade II Diastolic dysfunction in a patient with likely hypoventilation syndrome. -Renal function and electrolytes remain stable. -Continue Spironolactone 12.5mg PO Daily. -Stressed the importance of use of BiPap at home. -She will need to have close follow up/establish care with Cardiology in her hometown ([place], [place]) as well as close follow up with PCP. -Recommend OP labs with BMP in 1-2 weeks. 06/29/2024: -Patient exhibits good diuresis with a negative 10kg weight deficit. Appears euvolemic on exam. -Reinforced CHF teaching and pathophysiology of HFpEF -Labs remains stable. -will continue with Bipap use at night, and is being set up by primary team for supplemental O2 via nasal cannula with exertion. -She is to continue Torsemide 20mg Daily and Spironolactone 12.5mg Daily. -2000mg sodium restriction diet -Daily weights with record. -Patient is stable from a cardiac perspective for discharge, when ok with primary team. -She will need to have close follow up/establish care with Cardiology in her [place]ow ([place], [place]) as well as close follow up with PCP. -Recommend OP labs with BMP in 1-2 weeks. I have placed orders in the [employer] system and patient is aware. 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 No restrictions for return to work. Case has been discussed with Dr. Prabhakar. Further recommendations regarding plan of care as per his assessment. I spent a total of 30 minutes on the date of service in preparation, delivery, documentation of the care provided to the patient excluding any time spent in the performance of separately billed services. LOLLY Medina [facility] Admission and Anticipated Discharge Date Admission Date: June 26, 2024 Supervising Physician Co-Signing Physician Notes Patient was seen and personally examined. Full assessment and plan as outlined by advanced provider as above. Care and management discussed and endorsed 59-year-old female with ongoing issues which include morbid obesity with hypoventilation, sleep apnea on BiPAP at night Recent difficulties with acute on chronic diastolic heart failure with preserved ejection fraction, right heart greater than left Plan additional IV diuretics again today with possible second dose later patient has responded to IV diuretics Patient has responded to diuretics and oral regimen changed as above. Oxygen supplementation with activity and sleep recommended with formal sleep medicine reassessment Arrangements being made for cardiology follow-up Subjective 06/29/2024: Patient seen and examined in follow up today. Feeling well. Denies any chest pain, pressure or palpitations. No shortness of breath at rest. Denies leg swelling. Labs, vitals, diagnostics, telemetry and documentation reviewed. Telemetry reviewed showing SR with rare PAC's. Rates in the 60's. I&O record suggest -1010 fluid balance. -10kg weight deficit Review of Systems Review of Systems: All systems reviewed & are unremarkable except as noted in HPI & below Physical Exam Constitutional: + obese; no acute distress and not ill a ppearing Respiratory: normal respiratory effort; no labored breathing, no retractions and no cough Auscultation: lungs clear to auscultation bilaterally, + diminished lung sounds (bilateral bases) and + wheezes (few exp wheezes upper lobes ); no crackles, no rales and no rhonchi Cardiovascular: Rate/Rhythm: regular rate and regular rhythm Heart Sounds: normal S1 and normal S2; no murmur Vessels: dorsalis pedis pulses present Extremities: + edema (difficult to assess due to body habitus. Trace BLE) Skin: no rashes, warm and dry Psychiatric: A+Ox3, euthymic affect Results & Data Vital Signs (Past 12 Hours) Vital Signs Temp Pulse Pulse Resp BP Pulse Ox O2 Del Method 06/29/24 08:16 36.8 C 61 18 119/71 94 Room Air 06/29/24 07:16 78 20 93 Room Air 06/29/24 02:38 65 18 125/67 95 BiPAP 06/29/24 02:28 65 21 91 06/28/24 23:56 CPAP 06/28/24 23:36 79 22 90 06/28/24 23:03 36.9 C 76 18 134/70 90 Room Air 06/28/24 22:09 72 06/28/24 21:38 Room Air, CPAP O2 Flow Rate 06/29/24 08:16 06/29/24 07:16 06/29/24 02:38 3 06/29/24 02:28 3 06/28/24 23:56 06/28/24 23:36 2 06/28/24 23:03 06/28/24 22:09 06/28/24 21:38 Laboratory Results CBC 06/29/24 Range/Units 06:04 WBC 4.44 L (4.8-10.8) K/ul RBC 3.91 L (4.20-5.40) M/uL Hgb 11.4 L (12.0-16.0) g/dl Hct 35.3 L (37.0-47.0) % Plt Count 174 (130-400) K/uL Comprehensive Metabolic Panel 06/29/24 Range/Units 06:04 Sodium 142 (136-145) mmol/L Potassium 3.7 (3.5-5.1) mmol/L Chloride 100 (98-107) mmol/L Carbon Dioxide 37 H (21-32) mmol/L BUN 23 (6-23) mg/dl Creatinine 0.87 (0.6-1.2) mg/dl Glucose 95 (70-99(Fasting)) mg/dl Calcium 8.4 L (8.6-10.3) mg/dl Intake and Output 06/28/24 06/29/24 06/29/24 22:59 06:59 14:59 Intake Total 120 / 240 120 / 240 Output Total 750 / 1250 500 / 1250 Balance -630 / -1010 -380 / -1010 Intake: Oral 120 / 240 120 / 240 Output: Urine 750 / 750 Urine Amount (Catheter) 500 / 500 External 500 / 500 Other: Weight 159.3 kg Weight Measurement Method Built in [facility]
--- NOTE | 2024-06-29 10:42 | Discharge Summary ---
Date of Service June 29, 2024 Admission HPI Per Admitting Provider 59-year-old female with past medical history significant for hypothyroidism, obstructive sleep apnea, moderate persistent asthma, restrictive lung disease, chronic venous sufficiency, hypertension, morbid obesity, chronic constipation, fatty liver, female stress incontinence, urge incontinence of urine, history of complicated UTI, overactive bladder, history of ESBL infection, history of rheumatoid arthritis involving multiple sites, mood disorder, lymphedema presents with shortness of breath. Patient is from [place] and she is visiting a friend locally. Patient was admitted in [place] in May with shortness of breath. Workup showed UTI and CT scan showed right ovarian abnormality. She received IV diuresis and responded well to the therapy. Echo was obtained which was unremarkable. CT chest no PE. For ovarian mass MRI was done which showed 2.1x 2.4 cm right ovarian lesion. Followed up with [facility] oncology and as tumor markers were negative no follow-up recommended at this time.She improved and was discharged home on June 01.. But patient states since last 2 weeks progressively getting short of breath. Today at friend's house when checked her oxygen saturations where very low when she decided come to the ER. Has chronic lymphedema in lower extremities and she thinks they are better than before. Has some chest heaviness. No headache. Was dizzy earlier. Vision is okay. No runny nose. No sore throat. Some cough. No fevers. No nausea. No abdominal pain. Normal bowel and bladder movements. Currently on 2 L saturating okay. Past medical history. As mentioned above Past surgical history. . Colonoscopy with dilatation curettage. EGD. EGD with endoscopic ultrasound. Endometrial thermal ablation. Hysteroscopy with biopsy. Laparoscopic cholecystectomy. Status post IUD. Appendectomy. Tonsillectomy. Removal of finger implant. Repair of bladder defect. Revision of bilateral pharynx/uvula. Social history. . No smoking. No alcohol use. No drug use. Family history. Sister has asthma. Father had COPD. Hypertension. Sleep apnea. Mother had hypertension. Pancreatic cancer. Paternal aunt had breast cancer. Maternal grandmother had breast cancer. Ovarian cancer. Paternal grandfather had diabetes. Admission Exam Per Admitting Provider General- Not in distress Head- atraumatic Eyes- PERRL. ENT- oropharynx clear Neck- supple, no JVD. Lungs- clear to auscultation no wheezing or crackles Heart- regular rate and rhythm; no murmur, no gallop. Abdomen- normal bowel sounds, soft, nontender, no distension Extremities- b/l lower extremity lymphedema with chronic skin changes Neuro- alert, oriented ; PERRL, no facial palsy; no dysarthria; moves extremities Principal Diagnosis Shortness of breath Heart Failure with Preserved Ejection Fraction Acute respiratory failure with hypoxia Discharge Exam Constitutional + well hydrated and + obese; no acute distress Eyes PERRL, conjunctivae normal, anicteric sclerae ENMT external ear and nose normal, oropharynx normal Respiratory normal respiratory effort, lungs clear to auscultation Cardiovascular Rate/Rhythm: regular rate and regular rhythm Gastrointestinal (Abdomen) normal bowel sounds, soft, nontender, no hepatosplenomegaly Musculoskeletal +bilateral pedal edema Neurologic PERRL, EOMI, accommodation nl, no face palsy, no dysarthria Psychiatric A+Ox3, euthymic affect Discharge Data Allergies Allergy/AdvReac Type Severity Reaction Status Date / Time hydroxychloroquine Allergy Unverified 06/27/24 03:30 [From Plaquenil] leflunomide [From Arava] Allergy Itching Verified 06/27/24 03:30 Consultations 06/26/24 22:30 ED Decision to Admit Stat 06/27/24 08:00 Consult Pulmonology Routine 06/27/24 12:24 Consult Cardiology Routine Ordered Studies 06/27/24 06:35 CT angio chest PE protocol Urgent US venous doppler [facility] Urgent Hospital Course (1) SOB (shortness of breath): 59-year-old female with past medical history significant for hypothyroidism, obstructive sleep apnea, moderate persistent asthma, restrictive lung disease, chronic venous sufficiency, hypertension, morbid obesity, chronic constipation, fatty liver, female stress incontinence, urge incontinence of urine, history of complicated UTI, overactive bladder, history of ESBL infection, history of rheumatoid arthritis involving multiple sites, mood disorder, lymphedema presents with shortness of breath. Patient is from [place] and she is visiting a friend locally. Patient was admitted in [place] in May with shortness of breath. Workup showed UTI and CT scan showed right ovarian abnormality. She received IV diuresis and responded well to the therapy. Echo was obtained which was unremarkable. CT chest did not show PE. For ovarian mass MRI was done which showed 2.1x 2.4 cm right ovarian lesion. Followed up with [facility] oncology and as tumor markers were negative no follow-up recommended at the time. She improved and was discharged home on June 01.. She has been having progressive dyspnea since and noted to have low oxygen sats prompting presentation to ER. Has chronic lymphedema in lower extremities and she thinks they are better than before. Shortness of breath Heart failure with preserved ejection fraction Respiratory Bio[employer] unremarkable Chest x-ray noted cardiomegaly and mild pulm vascular congestion without overt edema CTA chest limited due to body habitus, pulm nodules measuring up to 7mm TTE showed EF 65-70%, mod conc LVH, no valvular disease, Grade II diastolic dysfunction Patient was managed with IV diuretics Cardiology evaluated while inpatient Educated on fluid and sodium restriction Patient's lasix was changed to torsemide 20mg daily Spironolactone was added to her regimen She is to follow up with Cardiology in [place] 2 Step today showed hypoxia with activity requiring 2L Arrangement was made for portable oxygen for patient Obstructive sleep apnea She stated it has been a while she had sleep study/followed with sleep medicine Patient needs to follow up with Sleep medicine Continue BIPAP HS Morbid obesity Counseled regarding lifestyle modification and need for weight loss Chronic venous insufficiency Lymphedema Dopplers negative Hypertension Continue meds as above BP is controlled Rheumatoid arthritis involving multiple sites On sulfasalazine and Humira Mood disorder On fluoxetine Total Time Total Time Spent Total Time Spent (In Minutes): 45 Total Time Includes: Examination of the Patient, Discharge Planning, Medication Reconciliation and Communication With Other Providers Discharge Plan Discharge Items Patient Disposition: Home - Self-Care Reason For Visit: Shortness of breath Discharge Diagnosis: Shortness of breath Heart Failure with Preserved Ejection Fraction Acute respiratory failure with hypoxia Activity: Resume your previous activity Non-emergency contact: Primary Care Provider and Banking Services Officer Call non-emergency contact if: you have any medication questions and your symptoms worsen Follow-up/Referrals: lEvin Prabhakar MD [Physician] - (The Cardiology office will contact you to schedule an appointment with a station engineer main line in [place]. ) Katie Tejeda PA-C [Primary Care Provider] - (Date & Time 07/06/2024 2:00 PM Provider Katie Tejeda PA-C Department [facility] ) Diet: Heart Healthy and Low Sodium (2gm) Addtl Attending Provider Instructions: Mrs Gutierrez You came to the hospital complaining of progressive shortness of breath with activity and low oxygen level. You were managed for the above listed diagnoses with IV diuretics. Your symptoms improved. Your lasix was changed to torsemide and you were started on Spironolactone. You are being discharged on 2L of oxygen with activity. Please ensure follow up with your Tool Machine Shop Supervisor as we discussed. It is important you follow up with Cardiology outpatient for continued management. It was a pleasure taking care of you. Pending Studies at Discharge: No Stand-Alone Forms: [facility], Work/School Release, Smoking Cessation Medications and DC Order Prescriptions: New torsemide 20 mg Tablet 20 mg PO QAM 30 Days Qty: 30 0RF spironolactone 25 mg Tablet 12.5 mg PO DAILY 30 Days Qty: 15 0RF Continued fluticasone propion-salmeterol 250-50 mcg/dose blister with device 1 inh INHALATION BID sulfasalazine 500 mg tablet 1,500 mg PO BID levothyroxine 100 mcg tablet 100 mcg PO DAILY estradiol 0.01 % (0.1 mg/gram) cream 1 applic VAGINAL UD Rx Instructions: three times a week albuterol sulfate 90 mcg/actuation HFA aerosol inhaler 2 puff INHALATION Q4H PRN (Reason: Shortness Of Breath Or Wheezing) fluoxetine 20 mg capsule 20 mg PO DAILY Humira Pen 40 mg/0.8 mL pen injector kit 40 mg SUBCUT UD Rx Instructions: q 14 days Discontinued furosemide 20 mg tablet 40 mg PO DAILY Discharge Orders: Discharge Order- CHF (Routine); Ordered 06/29/24 Ordered By: Lily Randolph Admission Data Admit Date/Time: 06/26/24 23:39 Attending Provider: Lily Randolph I. Admit Provider: Zachary Damian Primary Care Provider: Katie Tejeda Other Providers: Zachary Damian; Pattie Sprague; Con Zee; Elvin Prabhakar Other Interventions: Discharge Summary Assessment (RN) Last Done: 06/29/24 11:47
[2024-06-29 11:48] VITALS: PULSE 78; O2SAT 94
== END 2024-06-29 12:36 | disposition home or self-care (01) | DRG 291 ==
LOC: ED 19:55 → SUATTDRO 23:39 → 2N 23:39